=== PATIENT | female | born 1955 | race Caucasian/White ===

== ENCOUNTER → 2018-01-31 16:57 | Outpatient (REF) | payer OTHER, SELFPAY | LOC: NCHCN 16:57 | PROVIDERS: PCP Nurse Practitioner Family; Visit Provider Physician Assistant Medical | DX: M25.462 Effusion, left knee (principal) | CPT/HCPCS: 87070; 87205; 89060 ==

== ENCOUNTER 2018-03-05 15:37 | Outpatient (REF) | payer OTHER, SELFPAY ==
[2018-03-08 13:50] LABS: Codeine Negative ng/mL (Cutoff: 25); Dihydrocodeine Negative ng/mL (Cutoff: 25); Hydrocodone Negative ng/mL (Cutoff: 25); Hydromorphone Negative ng/mL (Cutoff: 25); Morphine Negative ng/mL (Cutoff: 25); Naloxone Negative ng/mL (Cutoff: 25); Norhydrocodone Negative ng/mL (Cutoff: 25); Noroxycodone Negative ng/mL (Cutoff: 25); Noroxymorphone Negative ng/mL (Cutoff: 25); Opiates Interpretation Negative.
[2018-03-12 21:43] LABS: Methylphenidate 136 ng/mL; Ritalinic Acid 5420 ng/mL
== END 2018-03-05 15:57 ==
LOC: NCHCN 15:37
PROVIDERS: PCP Nurse Practitioner Family; Visit Provider Physician Assistant Medical
DX: M79.7 Fibromyalgia (principal); R53.82 Chronic fatigue, unspecified; Z79.891 Long term (current) use of opiate analgesic
CPT/HCPCS: 80360; 80361

== ENCOUNTER 2018-05-16 11:28 | Outpatient (CLI) | payer OTHER, SELFPAY ==
--- NOTE | 2018-05-16 11:34 | DI.RAD_ITS ---
SYMPTOMS/DIAGNOSIS: LEFT HIP PAIN, M25.552, S/P FALL, H/O JOSE IN 2008 PELVIS AND LEFT HIP: There is a left hip prosthesis. The components appear well aligned. No abnormal bony lucencies are seen. There are moderate degenerative changes of the right hip.
== END 2018-05-16 11:48 ==
PROVIDERS: PCP Nurse Practitioner Family; Visit Provider Specialist/Technologist Athletic Trainer
DX: M25.552 Pain in left hip (principal); Z96.642 Presence of left artificial hip joint; M16.11 Unilateral primary osteoarthritis, right hip; Z91.81 History of falling
CPT/HCPCS: 73502

== ENCOUNTER 2018-07-12 07:00 | Outpatient (RCR) | payer SELFPAY ==
--- NOTE | 2018-07-03 08:27 | PR3E_ITS ---
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 PMH: DM II, HTN, HLD, Asthma, Fibromyalgia, chronic pain, IBS, GERD, Depression, EF 55-60% (09/2017) First day of exercise: 07/03/18 Patient oriented to equipment use, log record, and hydration; BP at rest 130/67, HR rest 81 bpm, Wt 191lbs. Patient completed 21 minutes of exercise: UBEx2 - 5 minutes each, treadmill 6 minutes and bike 5 minutes. HR w/ exercise ranged 76-85 bpm. SHA RPE scores 12-13. BP with exercise ranged 119/64-148/61. Tolerated exercise regimen without any adverse signs or symptoms. No concerns at this time, will continue to progress as tolerated.
== END 2018-07-12 23:59 | disposition home or self-care (01) ==
LOC: CR 07:00
PROVIDERS: PCP Nurse Practitioner Family; Visit Provider Family Medicine
DX: Z51.89 Encounter for other specified aftercare (principal)

== ENCOUNTER 2018-07-13 17:17 | Outpatient (REF) | payer OTHER, SELFPAY ==
[2018-07-13 20:40] LABS: Abs Immature Grans 0.02 k/cumm (0.0-0.09); Absolute Basophil Count 0.02 k/cumm (0.0-0.2); Absolute Eosinophil Count 0.03 k/cumm (0.0-0.7); Absolute Lymphocyte Count 2.43 k/cumm (1.2-3.4); Absolute Monocyte Count 0.66 k/cumm (0.11-0.7); Absolute Neutrophil Count 2.96 k/cumm (1.2-6.7); Basophils % 0.3; Eosinophils % 0.5; HCT 40.5 % (36.0-46.0); HGB 13.5 g/dL (12.0-15.5); Immature Grans % 0.3; Lymphocytes % 39.7; Mean Corp. HGB Concentration 33.3 g/dL (32.0-36.0); Mean Corpuscular Hemoglobin 32.4 pg (27.0-33.0); Mean Corpuscular Volume 97.1 fL (80-95); Mean Platelet Volume 11.5 fL (8.0-11.0); Monocytes % 10.8; Neutrophils % 48.4; Platelet Count 190 x1000/uL (130-400); RBC 4.17 m/cumm (4.00-5.20); White Blood Cell Count 6.12 k/cumm (4.4-10.8)
[2018-07-13 20:49] LABS: Mono Screening Negative (Negative)
== END 2018-07-13 17:37 ==
LOC: NCHCN 17:17
PROVIDERS: PCP Nurse Practitioner Family; Visit Provider Family Medicine
DX: R59.1 Generalized enlarged lymph nodes (principal)
CPT/HCPCS: 85025; 86308; 87070

== ENCOUNTER 2018-08-01 13:35 | Outpatient (CLI) | payer OTHER, SELFPAY ==
--- NOTE | 2018-08-01 14:09 | DI.RAD_ITS ---
SYMPTOM/DIAGNOSIS: LYMPHADENOPATHY, R59.1, RT SIDED PAIN PA AND LATERAL CHEST: Comparison is made with 09/11/17. There is poor inspiration. The cardiac silhouette is within normal limits. Pulmonary vasculature is within normal limits. The lungs are clear and well expanded. No effusions or pneumothoraces are identified. Mediastinal silhouette appears stable. There are surgical clips seen near the gastroesophageal junction. IMPRESSION: No acute pulmonary process.
[2018-08-01 20:26] LABS: Abs Immature Grans 0.02 k/cumm (0.0-0.09); HCT 43.1 % (36.0-46.0); HGB 15.9 g/dL (12.0-15.5); Mean Corp. HGB Concentration 36.9 g/dL (32.0-36.0); Mean Corpuscular Hemoglobin 35.3 pg (27.0-33.0); Mean Corpuscular Volume 95.8 fL (80-95); Mean Platelet Volume 9.7 fL (8.0-11.0); Platelet Count 249 x1000/uL (130-400); RBC Distribution Width 13.3 % (11.7-14.6); White Blood Cell Count 7.03 k/cumm (4.4-10.8)
[2018-08-01 20:48] LABS: Absolute Eosinophil Count 2.32 k/cumm (0.0-0.7); Absolute Lymphocyte Count 2.11 k/cumm (1.2-3.4); Absolute Monocyte Count 0.28 k/cumm (0.11-0.7); Absolute Neutrophil Count 2.32 k/cumm (1.2-6.7)
[2018-08-01 20:49] LABS: Diff Comment Manual Differential; RBC Morphology Normal
[2018-08-01 20:54] LABS: C-Reactive Protein 0.06 mg/dL (0.0-0.3)
[2018-08-01 21:01] LABS: ESR 1 MM/HR (0-30)
== END 2018-08-01 13:55 ==
PROVIDERS: PCP Nurse Practitioner Family; Visit Provider Nurse Practitioner Family
DX: R59.0 Localized enlarged lymph nodes (principal); R07.9 Chest pain, unspecified
CPT/HCPCS: 85652; 71046; 85025; 86140

== ENCOUNTER 2018-08-03 15:55 | Outpatient (REF) | payer OTHER, SELFPAY ==
[2018-08-03 18:40] LABS: ALT 23 U/L (12-78); AST 21 U/L (15-37); Alkaline Phosphatase 82 U/L (46-116); Anion Gap 8.5 mmol/L (3-11); BUN 19 mg/dL (7-18); Bilirubin, Total 0.4 mg/dL (0.2-1.0); CO2 29.5 mmol/L (21.0-32.0); CREATININE 1.34 mg/dL (0.55-1.02); Calcium 9.7 mg/dL (8.5-10.1); Chloride 104 mmol/L (98-107); Estimated GFR 39.95 (mL/min/1.73m2); Glucose 103 mg/dL (70-100); Potassium 4.7 mmol/L (3.5-5.1); Sodium 142 mmol/L (136-145); Total Protein 6.5 g/dL (6.4-8.2)
[2018-08-06 13:22] LABS: Creatine Kinase 81 U/L (26-192)
== END 2018-08-03 16:15 ==
LOC: NCHCN 15:55
PROVIDERS: PCP Nurse Practitioner Family; Visit Provider Family Medicine
DX: E11.9 Type 2 diabetes mellitus without complications (principal); I10 Essential (primary) hypertension; E78.5 Hyperlipidemia, unspecified; R59.1 Generalized enlarged lymph nodes
CPT/HCPCS: 80053; 82550

== ENCOUNTER 2018-08-09 12:53 | Outpatient (RCR) | payer SELFPAY | END 2018-08-09 23:59 | disposition home or self-care (01) | LOC: CR 12:53 | PROVIDERS: PCP Nurse Practitioner Family; Visit Provider Family Medicine | DX: Z51.89 Encounter for other specified aftercare (principal) ==

== ENCOUNTER 2018-08-10 00:30 | Outpatient (CLI) | payer OTHER, SELFPAY ==
--- NOTE | 2018-08-10 09:00 | DI.CT_ITS ---
SYMPTOM/DIAGNOSIS: LYMPHADENOPATHY, R59.[address]: A noncontrast exam was performed. There is a 1.8 cm. in maximal dimension lymph node in the right submandibular region. There are a few other smaller lymph nodes in the submandibular regions bilaterally and tiny scattered lymph nodes elsewhere. No suspiciously enlarged lymph nodes or masses are seen. The parotid, submandibular and thyroid glands are unremarkable. The orbits, sinuses and mastoid air cells appear normal. Degenerative changes are seen in the spine. The lung apices show respiratory motion but are grossly clear. IMPRESSION: Small bilateral submandibular lymph nodes without suspicious features. The findings could be reactive.
== END 2018-08-10 00:50 ==
PROVIDERS: PCP Nurse Practitioner Family; Visit Provider Nurse Practitioner Family
DX: R59.0 Localized enlarged lymph nodes (principal)
CPT/HCPCS: 70490

== ENCOUNTER 2018-08-11 09:36 | Outpatient (RCR) | payer SELFPAY | END 2018-09-09 23:59 | disposition home or self-care (01) | LOC: CR 09:36 | PROVIDERS: PCP Nurse Practitioner Family; Visit Provider Family Medicine | DX: Z51.89 Encounter for other specified aftercare (principal) ==

== ENCOUNTER 2018-09-11 03:06 | Outpatient (RCR) | payer SELFPAY | END 2018-10-09 23:59 | disposition home or self-care (01) | LOC: CR 03:06 | PROVIDERS: PCP Nurse Practitioner Family; Visit Provider Family Medicine | DX: Z51.89 Encounter for other specified aftercare (principal) ==

== ENCOUNTER 2018-10-01 11:01 | Outpatient (CLI) | payer OTHER, SELFPAY ==
[2018-10-02 11:05] LABS: SS-A Antibody 1.5 Units (<20); SS-B (La) Ab, IgG 2.6 Units (<20)
== END 2018-10-01 11:21 ==
PROVIDERS: PCP Nurse Practitioner Family; Visit Provider Otolaryngology Otolaryngology/Facial Plastic Surgery
DX: K11.23 Chronic sialoadenitis (principal); R68.2 Dry mouth, unspecified; J34.89 Other specified disorders of nose and nasal sinuses
CPT/HCPCS: 36415; 86235

== ENCOUNTER 2018-11-08 13:34 | Outpatient (RCR) | payer SELFPAY | END 2018-11-09 23:59 | disposition home or self-care (01) | LOC: CR 13:34 | PROVIDERS: PCP Nurse Practitioner Family; Visit Provider Family Medicine | DX: Z51.89 Encounter for other specified aftercare (principal) ==

== ENCOUNTER 2018-12-06 11:25 | Outpatient (RCR) | payer SELFPAY | END 2018-12-09 23:59 | disposition home or self-care (01) | LOC: CR 11:25 | PROVIDERS: PCP Nurse Practitioner Family; Visit Provider Family Medicine | DX: Z51.89 Encounter for other specified aftercare (principal) ==

== ENCOUNTER 2018-12-17 15:51 | Outpatient (REF) | payer OTHER, SELFPAY ==
[2018-12-17 22:51] LABS: Anion Gap 13.1 mmol/L (3-11); BUN 13 mg/dL (7-18); CO2 20.9 mmol/L (21.0-32.0); CREATININE 1.07 mg/dL (0.55-1.02); Chloride 108 mmol/L (98-107); Estimated GFR 51.79 (mL/min/1.73m2); Glucose 92 mg/dL (70-100); Potassium 4.3 mmol/L (3.5-5.1); Sodium 142 mmol/L (136-145)
== END 2018-12-17 16:11 ==
LOC: NCHCN 15:51
PROVIDERS: PCP Nurse Practitioner Family; Visit Provider Nurse Practitioner Family
DX: R60.0 Localized edema (principal)
CPT/HCPCS: 80048

== ENCOUNTER 2018-12-31 15:13 | Outpatient (REF) | payer OTHER, SELFPAY ==
[2018-12-31 21:04] LABS: Potassium 4.2 mmol/L (3.5-5.1)
== END 2018-12-31 15:33 ==
LOC: NCHCN 15:13
PROVIDERS: PCP Nurse Practitioner Family; Visit Provider Nurse Practitioner Family
DX: R60.9 Edema, unspecified (principal)
CPT/HCPCS: 84132

== ENCOUNTER 2019-01-08 13:27 | Outpatient (RCR) | payer SELFPAY | END 2019-01-09 23:59 | disposition home or self-care (01) | LOC: CR 13:27 | PROVIDERS: PCP Nurse Practitioner Family; Visit Provider Family Medicine | DX: Z51.89 Encounter for other specified aftercare (principal) ==

== ENCOUNTER 2019-02-07 07:00 | Outpatient (RCR) | payer SELFPAY | END 2019-02-09 23:59 | disposition home or self-care (01) | LOC: CR 07:00 | PROVIDERS: PCP Nurse Practitioner Family; Visit Provider Family Medicine | DX: Z51.89 Encounter for other specified aftercare (principal) ==

== ENCOUNTER 2019-03-07 11:57 | Outpatient (RCR) | payer SELFPAY | END 2019-03-11 23:59 | disposition home or self-care (01) | LOC: CR 11:57 | PROVIDERS: PCP Nurse Practitioner Family; Visit Provider Family Medicine | DX: Z51.89 Encounter for other specified aftercare (principal) ==

== ENCOUNTER 2019-03-26 07:01 | Emergency (ER) | payer OTHER, SELFPAY ==
[2019-03-26] VITALS (25 sets, daily range): BP systolic 120–136; BP diastolic 60–77; PULSE 66–78; RESP 14–24; TEMP 36.6; O2SAT 93–99
--- NOTE | 2019-03-26 07:17 | DI.RAD_ITS ---
EXAM: XR CHEST 2V PA LATERAL INDICATION: chest pain. COMPARISON: from 08/01/2018 TECHNIQUE: 2D digital imaging was performed. FINDINGS: The heart is not enlarged. The lungs are clear. No pleural effusion seen. IMPRESSION: No evidence of acute process.
--- NOTE | 2019-03-26 07:18 | W.ED.GENAD ---
Discharge Plan Disposition Patient Disposition: HOME Condition: Improving Discharge Details Chief Complaint: Chest Pain Clinical Impression: Atypical chest pain Primary Care Provider: Erika Seymour ED Provider: Julio C Peraza Home Meds and New Rx's Prescriptions: Continued losartan 50 MG tablet 75 mg PO DAILY RF: 0 lamotrigine 150 MG tablet 150 mg PO BID RF: 0 clonidine HCl 0.1 MG tablet 0.1 mg PO BID RF: 0 aspirin 325 MG tablet 325 mg PO DAILY RF: 0 montelukast [Singulair] 10 MG tablet 10 mg PO HS RF: 0 fluticasone propionate 16 GM spray,suspension 50 mcg NS BID RF: 0 aripiprazole [Abilify] 10 MG tablet 20 mg PO DAILY RF: 0 rosuvastatin [Crestor] 10 MG tablet 10 mg PO 3x/wk RF: 0 topiramate [Topamax] 50 MG tablet 50 mg PO BID RF: 0 duloxetine [Cymbalta] 60 MG capsule,delayed release(DR/EC) 100 mg PO HS RF: 0 hydrocodone-acetaminophen [Vicodin] 1 EACH tablet 1 ea PO QID RF: 0 multivitamin [Daily Multi-Vitamin] 1 EACH tablet 1 ea PO DAILY RF: 0 Travatan Z 2.5 ML drops 2.5 ml Ophthalmic PM RF: 0 One-Per-Day [place]-3 1 EACH capsule,delayed release(DR/EC) 1 ea PO RF: 0 polyethylene glycol 3350 [Miralax] 17 GM powder in packet 17 g PO DAILY Qty: 255 RF: 0 DUO NEB Inhalation QID PRN RF: 0 sennosides [senna] 8.6 MG tablet 2 tab-cap PO BID RF: 0 aspirin 81 MG tablet,chewable 81 mg PO DAILY RF: 0 methylphenidate HCl 5 MG/5 ML solution 10 mg PO MID AFTERNOON RF: 0 Amitiza 24 MCG capsule 24 mcg PO BID RF: 0 ProAir RespiClick 90 MCG aerosol powdr breath activated 90 mcg Inhalation QID RF: 0 vitamin E (dl, acetate) 400 UNITS capsule 1 tab PO DAILY RF: 0 methylphenidate HCl [Concerta] 36 mg Tablet Extended Release 24hr 36 mg PO DAILY RF: 0 Discharge Instructions Instructions: Chest Pain (ED) Additional Instructions: Continue all of your regular medications. Please follow-up with Dr. Buitrago in clinic at [facility] cardiology in [facility] this Monday at 12:15 PM. Return if you develop recurrent chest pain, difficulty breathing, or any other acute concern. Discharge Data Discharge Date/Time-TO BE ENTERED AT DEPARTURE: 03/26/19 11:00 Medical Decision Making <Rodney Chaudhary MD - Last Filed: 03/26/19 20:03> Patient presenting with onset of lightheadedness, chest pain, nausea while doing cardiac rehab. Feels better some chest pain but mostly nausea now. EKG is unchanged from previous. IV established and laboratory studies obtained. Fluids started. She is given aspirin and nitroglycerin for chest pain. Was given Zofran for nausea. Medical Records Medical records reviewed: Yes I reviewed the patient's medical records. ECG Data Attestation: I personally reviewed and interpreted this ECG (s) as follows: Prior ECG tracings: available for review Interpretation: Sinus rhythm at 73. Left axis. Left anterior fascicular block. Inverted T waves V1 through V4 which have been present previously. No change compared to 2009 EKG. <Julio C Peraza MD - Last Filed: 03/26/19 10:53> 63-year-old female with known cardiac risk factors, at cardiac rehab this morning with transient discomfort. Patient has established and ongoing cardiology care with Dr. Sha Buitrago. She was seen initially today by Dr. Chaudhary from whom I received signout. See his note regarding details of the presentation, initial plan of care. Patient observed in the emerge department over approximately 4 hours. Chest x-ray unremarkable and serial cardiac troponins were negative; she remained symptom-free during my care. She is improved and without complaint, tolerating breakfast. She had an unremarkable stress test in October 2014. I have made her a follow-up appointment with Dr. Buitrago of [facility] cardiology for Monday at 12:15 PM. She understands return to ER for development of new symptoms. We will discharge to home. CC: Dr. Sha Buitrago MD [facility] cardiology Lab Data Lab results reviewed: Yes I reviewed the patient's lab results. Labs: Laboratory Results - last 24 hr 03/26/19 03/26/19 03/26/19 07:10 07:10 07:10 WBC 4.63 RBC 4.52 Hgb 14.8 Hct 45.1 MCV 99.8 H MCH 32.7 MCHC 32.8 RDW 13.5 Plt Count 214 MPV 10.7 Immature Gran % 0.4 Neutrophils % 60.0 Lymphocytes % 28.9 Monocytes % 8.6 Eosinophils % 1.5 Basophils % 0.6 Absolute Neutrophils 2.77 Absolute Lymphocytes 1.34 Absolute Monocytes 0.40 Absolute Eosinophils 0.07 Absolute Basophils 0.03 Sodium 145 Potassium 3.9 Chloride 108 H Carbon Dioxide 27.5 Anion Gap 9.5 BUN 15 Creatinine 1.51 H Estimated GFR/1.73 m2 34.80 Glucose 195 H Calcium 9.2 Magnesium 2.4 Total Bilirubin 0.5 AST 24 ALT 26 Alkaline Phosphatase 90 Troponin I < 0.05 Total Protein 7.4 Albumin 4.4 Lipase 250 03/26/19 10:10 WBC RBC Hgb Hct MCV MCH MCHC RDW Plt Count MPV Immature Gran % Neutrophils % Lymphocytes % Monocytes % Eosinophils % Basophils % Absolute Neutrophils Absolute Lymphocytes Absolute Monocytes Absolute Eosinophils Absolute Basophils Sodium Potassium Chloride Carbon Dioxide Anion Gap BUN Creatinine Estimated GFR/1.73 m2 Glucose Calcium Magnesium Total Bilirubin AST ALT Alkaline Phosphatase Troponin I < 0.05 Total Protein Albumin Lipase HPI <Rodney Chaudhary MD - Last Filed: 03/26/19 20:03> General Mode of arrival: wheelchair. Date/Time Provider Initiated Documentation: 03/26/19 07:04. Limitations to Documentation: no limitations. Information obtained by: patient, RN notes reviewed and old records reviewed. HPI Narrative: Patient presents to ED from cardiac rehab after developing lightheadedness, chest pain, nausea while riding the recumbent bike. She is doing cardiac rehab to strengthen her heart. She has had no CO in the past. She reports a recent stress test done and a visit to her manager assembly, Dr. Buitrago. She has not had chest pain before. She denies fever. She has a chronic unchanged cough. She does not feel short of breath. She has not been ill with vomiting or diarrhea. Her chest pain is upper chest without radiation. It is better now. Still feels lightheaded and nauseated. Related Data Home Medications Medication Instructions Recorded Confirmed Travatan Z 2.5 ml OPHTHALMIC PM script 09/19/14 03/26/19 aripiprazole [Abilify] 20 mg PO DAILY tab-cap 09/19/14 03/26/19 aspirin 325 mg PO DAILY tab-cap 09/19/14 03/26/19 clonidine HCl 0.1 mg PO BID tab-cap 09/19/14 03/26/19 duloxetine [Cymbalta] 100 mg PO HS 09/19/14 03/26/19 fluticasone propionate 50 mcg NS BID spray 09/19/14 03/26/19 hydrocodone-acetaminophen [Vicodin] 1 ea PO QID 09/19/14 03/26/19 lamotrigine 150 mg PO BID tab-cap 09/19/14 03/26/19 losartan 75 mg PO DAILY tab-cap 09/19/14 03/26/19 montelukast [Singulair] 10 mg PO HS 09/19/14 03/26/19 multivitamin [Daily Multi-Vitamin] 1 ea PO DAILY 09/19/14 03/26/19 rosuvastatin [Crestor] 10 mg PO 3x/wk 09/19/14 03/26/19 topiramate [Topamax] 50 mg PO BID tab-cap 09/19/14 03/26/19 vitamin E (dl, acetate) 1 tab PO DAILY 10/13/14 03/26/19 One-Per-Day [place]-3 1 ea PO 03/06/15 Amitiza 24 mcg PO BID tab-cap 07/05/17 03/26/19 Duo Neb INHALATION QID PRN 07/05/17 ProAir RespiClick 90 mcg INHALATION QID 07/05/17 03/26/19 aspirin 81 mg PO DAILY tab-cap 07/05/17 03/26/19 methylphenidate HCl 10 mg PO MID AFTERNOON ml 07/05/17 03/26/19 polyethylene glycol 3350 [Miralax] 17 g PO DAILY #255 gm 07/05/17 03/26/19 sennosides [senna] 2 tab-cap PO BID tab-cap 07/05/17 03/26/19 methylphenidate HCl [Concerta] 36 mg PO DAILY 03/26/19 03/26/19 Allergies Allergy/AdvReac Type Severity Reaction Status Date / Time melatonin Allergy Itching Unverified 03/26/19 07:09 Penicillins Allergy hives Unverified 03/26/19 07:09 amitriptyline AdvReac become Unverified 03/26/19 07:09 delusional codeine AdvReac causes Unverified 03/26/19 07:09 excessive sleepiness Sulfa (Sulfonamide AdvReac become Unverified 03/26/19 07:09 Antibiotics) delusional General Stated Complaint: Chest Pain MATTHEW: 2 Review of Systems <Rodeny Chaudhary MD - Last Filed: 03/26/19 20:03> Review of Systems Narrative: 03/25 Review of Systems completed and is negative except as stated above in HPI (Systems reviewed: Const, Eyes, ENT, Resp, CV, GI, , MSK, Skin, Neuro) PFSH <Rodney Chaudhary MD - Last Filed: 03/26/19 20:03> Medical History Anxiety (Chronic) Asthma (Chronic) Depression (Chronic) HTN (hypertension) (Chronic) Hypercholesterolemia (Chronic) Reflux esophagitis (Chronic) Surgical History EGD - IV Sedation Lina Fundoplication 1996 ORIF right ankle S/P hysterectomy (Acute) Status post THR (total hip replacement) (Acute) Family History (Updated 09/19/14 @ 16:48 by Rita Mccarty MD) Other Heart disease Social History Smoking/Tobacco Use Status: Never Alcohol Intake: never Drug use: Never Exam <Rodney Chaudhary MD - Last Filed: 03/26/19 20:03> Narrative Exam Narrative: Vitals: Afebrile. Vital signs normal. Pulse oximetry normal. Const: Obese female in NAD. HEENT: NC/AT. Normal facial exam. Eyes: Normal conjunctiva and sclera. Neck: Supple. Trachea midline. Lungs: Normal respiratory effort. Lungs are clear. Cor: RRR without murmur/gallop. Good radial pulses. GI: Soft. NT/ND. No guarding or rebound. Neuro: A+O x 3. CN grossly in tact. Good strength and no focal deficit. Ext: No C/C/E. No calf tenderness. Skin: Warm and dry without rash. Course <Rodney Chaudhary MD - Last Filed: 03/26/19 20:03> Vital Signs Vital signs: Vital Signs Temperature 97.9 F 03/26/19 07:06 Pulse 76 03/26/19 07:06 Respiratory Rate 16 03/26/19 07:06 Blood Pressure 136/60 03/26/19 07:06 Pulse Oximetry 97 03/26/19 07:06 Temperature 97.9 F 03/26/19 07:06 Temperature Source Skin 03/26/19 07:06 Pulse 76 03/26/19 07:06 Respiratory Rate 16 03/26/19 07:06 Respiratory Effort Non-Labored 03/26/19 07:06 Blood Pressure 136/60 03/26/19 07:06 Blood Pressure Position Supine 03/26/19 07:06 Pulse Oximetry 97 03/26/19 07:06 Oxygen Delivery Method Room Air 03/26/19 07:06 Oxygen Flow Rate 0 03/26/19 07:06 Pain Level 3 03/26/19 07:06 Sign Out <Rodney Chaudhary MD - Last Filed: 03/26/19 20:03> Sign Out Data: Sign Out Comment: pending labs results and radiology read Last updated by Rodney Chaudhary MD at 03/26/19 07:46
[2019-03-26] MEDS: Ondansetron 4 MG/2 ML VIAL IVP (07:27)
[2019-03-26] MEDS: Aspirin 81 MG CHEW 324 MG CH (07:27)
[2019-03-26 07:33] LABS: Abs Immature Grans 0.02 k/cumm (0.0-0.09); Absolute Basophil Count 0.03 k/cumm (0.0-0.2); Absolute Eosinophil Count 0.07 k/cumm (0.0-0.7); Absolute Lymphocyte Count 1.34 k/cumm (1.2-3.4); Absolute Neutrophil Count 2.77 k/cumm (1.2-6.7); Basophils % 0.6; Eosinophils % 1.5; HCT 45.1 % (36.0-46.0); HGB 14.8 g/dL (12.0-15.5); Immature Grans % 0.4; Lymphocytes % 28.9; Mean Corp. HGB Concentration 32.8 g/dL (32.0-36.0); Mean Corpuscular Hemoglobin 32.7 pg (27.0-33.0); Mean Corpuscular Volume 99.8 fL (80-95); Mean Platelet Volume 10.7 fL (8.0-11.0); Monocytes % 8.6; Platelet Count 214 x1000/uL (130-400); RBC 4.52 m/cumm (4.00-5.20); RBC Distribution Width 13.5 % (11.7-14.6); White Blood Cell Count 4.63 k/cumm (4.4-10.8)
[2019-03-26 07:54] LABS: ALT 26 U/L (14-59); AST 24 U/L (15-37); Albumin 4.4 g/dL (3.4-5.0); Alkaline Phosphatase 90 U/L (46-116); Anion Gap 9.5 mmol/L (3-11); BUN 15 mg/dL (7-18); Bilirubin, Total 0.5 mg/dL (0.2-1.0); CO2 27.5 mmol/L (21.0-32.0); CREATININE 1.51 mg/dL (0.55-1.02); Calcium 9.2 mg/dL (8.5-10.1); Chloride 108 mmol/L (98-107); Glucose 195 mg/dL (70-100); Magnesium 2.4 mg/dL (1.8-2.4); Potassium 3.9 mmol/L (3.5-5.1); Sodium 145 mmol/L (136-145); Total Protein 7.4 g/dL (6.4-8.2)
[2019-03-26 07:55] LABS: Troponin I < 0.05 ng/mL (0.00-0.06)
[2019-03-26 09:58] LABS: Lipase 250 U/L (73-393)
[2019-03-26] MEDS: Normal Saline Flush 10 ML SYR IVP (10:20)
[2019-03-26 10:38] LABS: Troponin I < 0.05 ng/mL (0.00-0.06)
== END 2019-03-26 11:00 | disposition home or self-care (01) ==
PROVIDERS: Emergency Medicine; Emergency Provider Emergency Medicine; PCP Nurse Practitioner Family
DX: R07.89 Other chest pain (principal); I44.4 Left anterior fascicular block; I10 Essential (primary) hypertension
CPT/HCPCS: 36415; 80053; 83690; 93005; 96374; 99285; 71046; 83735; 84484; 85025; 93010; J2405

== ENCOUNTER 2019-04-11 12:00 | Outpatient (RCR) | payer SELFPAY | END 2019-04-11 23:59 | disposition home or self-care (01) | LOC: CR 12:00 | PROVIDERS: PCP Nurse Practitioner Family; Visit Provider Family Medicine | DX: Z51.89 Encounter for other specified aftercare (principal) ==

== ENCOUNTER 2019-05-07 15:15 | Outpatient (RCR) | payer SELFPAY | END 2019-05-11 23:59 | disposition home or self-care (01) | LOC: CR 15:15 | PROVIDERS: PCP Nurse Practitioner Family; Visit Provider Family Medicine | DX: Z51.89 Encounter for other specified aftercare (principal) ==

== ENCOUNTER 2019-05-30 07:00 | Outpatient (RCR) | payer SELFPAY | END 2019-06-11 23:59 | disposition home or self-care (01) | LOC: CR 07:00 | PROVIDERS: PCP Nurse Practitioner Family; Visit Provider Family Medicine | DX: Z51.89 Encounter for other specified aftercare (principal) ==

== ENCOUNTER 2019-07-01 15:51 | Outpatient (REF) | payer OTHER, SELFPAY ==
[2019-07-01 21:59] LABS: Anion Gap 11.1 mmol/L (3-11); BUN 11 mg/dL (7-18); CO2 22.9 mmol/L (21.0-32.0); CREATININE 1.22 mg/dL (0.55-1.02); Calcium 8.6 mg/dL (8.5-10.1); Chloride 111 mmol/L (98-107); Estimated GFR 44.37 (mL/min/1.73m2); Glucose 91 mg/dL (74-106); HDL Cholesterol 41 mg/dL (40-60); LDL CHOLESTEROL 44 mg/dL (<100); Potassium 4.2 mmol/L (3.5-5.1); Sodium 145 mmol/L (136-145)
== END 2019-07-01 16:11 ==
LOC: NCHCN 15:51
PROVIDERS: PCP Nurse Practitioner Family; Visit Provider Nurse Practitioner Family
DX: E78.5 Hyperlipidemia, unspecified (principal); E11.649 Type 2 diabetes mellitus with hypoglycemia without coma; R53.82 Chronic fatigue, unspecified; M25.532 Pain in left wrist; G89.29 Other chronic pain; M79.7 Fibromyalgia; M41.86 Other forms of scoliosis, lumbar region
CPT/HCPCS: 80048; 83721; 83718

== ENCOUNTER 2019-07-11 07:00 | Outpatient (RCR) | payer SELFPAY | END 2019-07-12 23:59 | disposition home or self-care (01) | LOC: CR 07:00 | PROVIDERS: PCP Nurse Practitioner Family; Visit Provider Family Medicine | DX: Z51.89 Encounter for other specified aftercare (principal) ==

== ENCOUNTER 2019-07-13 04:02 | Outpatient (RCR) | payer SELFPAY | END 2019-08-10 23:59 | disposition home or self-care (01) | LOC: CR 04:02 | PROVIDERS: PCP Nurse Practitioner Family; Visit Provider Family Medicine | DX: Z51.89 Encounter for other specified aftercare (principal) ==

== ENCOUNTER 2019-08-15 11:17 | Outpatient (RCR) | payer SELFPAY | END 2019-09-10 23:59 | disposition home or self-care (01) | LOC: CR 11:17 | PROVIDERS: PCP Nurse Practitioner Family; Visit Provider Family Medicine | DX: Z51.89 Encounter for other specified aftercare (principal) ==

== ENCOUNTER 2019-12-31 17:16 | Outpatient (REF) | payer OTHER, SELFPAY ==
[2019-12-31 19:33] LABS: BUN 13 mg/dL (7-18); Calcium 9.1 mg/dL (8.5-10.1); Chloride 107 mmol/L (98-107); Estimated GFR 37.86 (mL/min/1.73m2); Glucose 176 mg/dL (74-106); Potassium 3.9 mmol/L (3.5-5.1); Sodium 140 mmol/L (136-145)
== END 2019-12-31 17:36 ==
LOC: NCHCN 17:16
PROVIDERS: PCP Nurse Practitioner Family; Visit Provider Nurse Practitioner Family
DX: G89.29 Other chronic pain (principal); M79.7 Fibromyalgia; M41.86 Other forms of scoliosis, lumbar region; R53.82 Chronic fatigue, unspecified; I10 Essential (primary) hypertension
CPT/HCPCS: 80048

== ENCOUNTER 2020-01-01 14:22 | Outpatient (REF) | payer OTHER, SELFPAY ==
[2020-01-06 02:16] LABS: SARS-CoV-2 RNA Undetected (Undetected); SARS-CoV-2 Specimen Source Nasopharynx
== END 2020-01-01 14:42 ==
LOC: NCHCN 14:22
PROVIDERS: PCP Nurse Practitioner Family; Visit Provider Nurse Practitioner Family
DX: Z03.818 Encounter for observation for suspected exposure to other biological agents ruled out (principal)
CPT/HCPCS: U0003

== ENCOUNTER 2020-03-31 19:22 | Outpatient (REF) | payer OTHER, SELFPAY ==
[2020-03-31 20:41] LABS: Anion Gap 9.2 mmol/L (3-11); BUN 12 mg/dL (7-18); CO2 24.8 mmol/L (21.0-32.0); CREATININE 1.29 mg/dL (0.55-1.02); Calcium 9.7 mg/dL (8.5-10.1); Chloride 108 mmol/L (98-107); Estimated GFR 41.61 (mL/min/1.73m2); Glucose 164 mg/dL (74-106); Potassium 3.6 mmol/L (3.5-5.1); Sodium 142 mmol/L (136-145)
== END 2020-03-31 19:42 ==
LOC: NCHCN 19:22
PROVIDERS: PCP Nurse Practitioner Family; Visit Provider Nurse Practitioner Family
DX: I10 Essential (primary) hypertension (principal)
CPT/HCPCS: 80048

== ENCOUNTER 2020-05-25 16:19 | Outpatient (REF) | payer OTHER, SELFPAY ==
[2020-05-25 20:34] LABS: Hemoglobin A1C 5.8 % (<5.7)
== END 2020-05-25 16:39 ==
LOC: NCHCN 16:19
PROVIDERS: PCP Nurse Practitioner Family; Visit Provider Nurse Practitioner Family
DX: E11.649 Type 2 diabetes mellitus with hypoglycemia without coma (principal)
CPT/HCPCS: 83036

== ENCOUNTER 2020-07-27 13:53 | Outpatient (REF) | payer OTHER, SELFPAY ==
[2020-07-27 15:59] LABS: Anion Gap 11.6 mmol/L (3-11); BUN 14 mg/dL (7-18); CO2 23.4 mmol/L (21.0-32.0); CREATININE 1.2 mg/dL (0.55-1.02); Calcium 8.4 mg/dL (8.5-10.1); Chloride 110 mmol/L (98-107); Estimated GFR 45.09 (mL/min/1.73m2); Glucose 184 mg/dL (74-106); Sodium 145 mmol/L (136-145)
== END 2020-07-27 13:54 | disposition home or self-care (01) ==
LOC: NCHCN 13:53
PROVIDERS: PCP Nurse Practitioner Family; Visit Provider Nurse Practitioner Family
DX: I10 Essential (primary) hypertension (principal); R94.4 Abnormal results of kidney function studies
CPT/HCPCS: 80048

== ENCOUNTER 2020-08-24 18:52 | Outpatient (REF) | payer OTHER, SELFPAY ==
[2020-08-27 08:57] LABS: Codeine Negative ng/mL (Cutoff: 25); Dihydrocodeine Negative ng/mL (Cutoff: 25); Hydrocodone Negative ng/mL (Cutoff: 25); Hydromorphone Negative ng/mL (Cutoff: 25); Morphine Negative ng/mL (Cutoff: 25); Naloxone Negative ng/mL (Cutoff: 25); Norhydrocodone 56 ng/mL (Cutoff: 25); Noroxycodone Negative ng/mL (Cutoff: 25); Noroxymorphone Negative ng/mL (Cutoff: 25); Opiates Interpretation Positive.
[2020-08-31 10:23] LABS: Methylphenidate 161 ng/mL; Ritalinic Acid 5060 ng/mL
== END 2020-08-24 18:53 | disposition home or self-care (01) ==
LOC: NCHCN 18:52
PROVIDERS: PCP Nurse Practitioner Family; Visit Provider Nurse Practitioner Family
DX: R53.82 Chronic fatigue, unspecified (principal); M79.7 Fibromyalgia; R39.9 Unspecified symptoms and signs involving the genitourinary system; Z79.899 Other long term (current) drug therapy
CPT/HCPCS: 80360; 80361; 80362

== ENCOUNTER 2021-09-27 14:48 | Outpatient (REF) | payer OTHER, SELFPAY ==
[2021-09-27 20:00] LABS: Hemoglobin A1C 7.8 % (<5.7)
[2021-09-27 20:10] LABS: Anion Gap 9.1 mmol/L (3-11); BUN 12 mg/dL (7-18); CO2 26.9 mmol/L (21.0-32.0); CREATININE 1.4 mg/dL (0.55-1.02); Calcium 9.1 mg/dL (8.5-10.1); Chloride 106 mmol/L (98-107); Estimated GFR 37.62 (mL/min/1.73m2); Glucose 186 mg/dL (74-106); Potassium 3.8 mmol/L (3.5-5.1); Sodium 142 mmol/L (136-145); TSH 2.59 uIU/mL (0.36-3.74)
[2021-10-02 02:35] LABS: Methylphenidate 339 ng/mL (Cutoff: 10); Ritalinic Acid 9629 ng/mL (Cutoff: 50)
== END 2021-09-27 14:49 | disposition home or self-care (01) ==
LOC: NCHCN 14:48
PROVIDERS: PCP Nurse Practitioner Family; Visit Provider Nurse Practitioner Family
DX: I10 Essential (primary) hypertension (principal); E11.649 Type 2 diabetes mellitus with hypoglycemia without coma; R53.82 Chronic fatigue, unspecified
CPT/HCPCS: 80048; 80360; 83036; 84439; 84443

== ENCOUNTER 2021-11-16 17:14 | Emergency (ER) | payer OTHER, SELFPAY ==
[2021-11-16 17:21] VITALS: BP 134/60; PULSE 72; RESP 22; TEMP 37.5; O2SAT 98
--- NOTE | 2021-11-16 17:45 | DI.RAD_ITS ---
Exam(s) XR CHEST 2V PA LATERAL EXAM: XR CHEST 2V PA LATERAL CLINICAL HISTORY: fever, cough. TECHNIQUE: 2D digital imaging was performed. COMPARISON: CR XR CHEST 2V PA LATERAL from 03/26/2019 FINDINGS: 2 views: Heart size is normal. The mediastinum is not widened. Right lung is clear. There are slightly increased markings in the left lower lobe retrocardiac regio n. No pleural effusions. No pulmonary edema. IMPRESSION: Less than optimal inspiratory effort. However, there are some increased markings in left lower lobe infrahilar region. Possibly representing early infiltrate. There are no pleural effusions. DATA REPOSITORY: RADIATION DOSE DELIVERED:
--- NOTE | 2021-11-16 17:50 | W.ED.GENAD ---
Discharge Plan Disposition Patient Disposition: HOME Condition: Improving Discharge Details Clinical Impression: Respiratory illness with fever Primary Care Provider: Erika Seymour ED Provider: Julio C Peraza Home Meds and New Rx's Prescriptions: New cefdinir 300 mg capsule 300 mg PO Q12H 10 Days Qty: 20 0RF Continued losartan 50 MG tablet 75 mg PO DAILY Label Comments: 06-23-17 PCP RECORD 25 MG QD. lamotrigine 150 MG tablet 150 mg PO BID Label Comments: 06-23-17 PCP RECORD 100 MG BID. clonidine HCl 0.1 MG tablet 0.1 mg PO BID aspirin 325 MG tablet 325 mg PO DAILY montelukast [Singulair] 10 MG tablet 10 mg PO HS fluticasone propionate 16 GM spray,suspension 50 mcg NS BID aripiprazole [Abilify] 10 MG tablet 20 mg PO DAILY Label Comments: 06-23-17 PCP RECORD 20 MG QD. rosuvastatin [Crestor] 10 MG tablet 10 mg PO 3x/wk Label Comments: 06-23-17 PCP RECORD 10 MG QD. topiramate [Topamax] 50 MG tablet 50 mg PO BID duloxetine [Cymbalta] 60 MG capsule,delayed release(DR/EC) 100 mg PO HS Label Comments: 06/23/17 PCP RECORD 60 MG BID. hydrocodone-acetaminophen [Vicodin] 1 EACH tablet 1 ea PO QID Label Comments: 10/08/14 per pt prn multivitamin [Daily Multi-Vitamin] 1 EACH tablet 1 ea PO DAILY travoprost [Travatan Z] 2.5 ML drops 2.5 ml Ophthalmic PM One-Per-Day [place]-3 1 EACH capsule,delayed release(DR/EC) 1 ea PO polyethylene glycol 3350 [Miralax] 17 GM powder in packet 17 g PO DAILY Qty: 255 DUO NEB Inhalation QID PRN sennosides [senna] 8.6 MG tablet 2 tab-cap PO BID aspirin 81 MG tablet,chewable 81 mg PO DAILY methylphenidate HCl 5 MG/5 ML solution 10 mg PO MID AFTERNOON Amitiza 24 MCG capsule 24 mcg PO BID ProAir RespiClick 90 MCG aerosol powdr breath activated 90 mcg Inhalation QID vitamin E (dl, acetate) 400 UNITS capsule 1 tab PO DAILY methylphenidate HCl [Concerta] 36 mg Tablet Extended Release 24hr 36 mg PO DAILY Discharge Instructions Instructions: Upper Respiratory Infection (ED) Additional Instructions: Home to rest this evening. Continue ibuprofen and/or Tylenol as needed for aches or fever. Take antibiotics as prescribed until finished, next dose tomorrow morning. Follow-up with regular doctor in clinic if not improved in 1 week's time. As we discussed your COVID test will be pending today. We will treat you empirically for an early community-acquired pneumonia. Your glucose today was 160. Discharge Data Discharge Date/Time-TO BE ENTERED AT DEPARTURE: 11/16/21 21:13 Medical Decision Making 66-year-old female presents from her workplace with her granddaughter. She was at work and then noticed the onset of malaise, fever to 102 with chills. She felt that she had decreased urine output and it was dark-colored. She went to a local urgent care and was referred to the ER. Patient arrives to ER alert and interactive. She is afebrile blood pressure 134/60 and pulse 72, oxygenating normally on room air. Differential gnosis includes viral syndrome, urinary tract infection, occult pneumonia. Patient screening labs obtained, referred for chest x-ray. Laboratories reveal a white count of 6, hematocrit 43, platelets are 148. Lactate is normal 1.2, glucose 160, sodium 137, potassium 3.5, chloride 106, bicarb 20, BUN 17, creatinine 1.4 which is near her baseline, LFTs unremarkable. Urinalysis positive for glucose. CXR: Formal read pending. COVID test pending. Patient certainly has a rapid onset of respiratory illness. I question early infiltrate on her chest x-ray. We will treat with a dose of IV antibiotics and subsequent course of oral antibiotics. HPI General Mode of arrival: ambulatory. Date/Time Provider Initiated Documentation: 11/16/21 17:26. Limitations to Documentation: no limitations. Information obtained by: patient. History of Present Illness 66 year old F presents to the emergency department with the chief complaint of Fever and weakness, described as moderate, Patient started experiencing this hour(s) and it has been intermittent. No relieving factors improve symptom(s), No exacerbating factors reported . Patient notes cough, fever/chills, loss of appetite and weakness. Patient did receive the following treatments prior to arrival, none Related Data Home Medications Medication Instructions Recorded Confirmed aripiprazole 10 mg tablet (Abilify) 20 mg PO DAILY 09/19/14 11/16/21 aspirin 325 mg tablet 325 mg PO DAILY 09/19/14 03/26/19 clonidine HCl 0.1 mg tablet 0.1 mg PO BID 09/19/14 11/16/21 duloxetine 60 mg capsule,delayed 100 mg PO HS 09/19/14 11/16/21 release (Cymbalta) fluticasone propionate 50 50 mcg NS BID 09/19/14 11/16/21 mcg/actuation nasal spray,suspension hydrocodone 5 mg-acetaminophen 300 1 ea PO QID 09/19/14 11/16/21 mg tablet (Vicodin) lamotrigine 150 mg tablet 150 mg PO BID 09/19/14 11/16/21 losartan 50 mg tablet 75 mg PO DAILY 09/19/14 11/16/21 montelukast 10 mg tablet 10 mg PO HS 09/19/14 11/16/21 (Singulair) multivitamin (Daily Multi-Vitamin 1 ea PO DAILY 09/19/14 11/16/21 tablet) rosuvastatin 10 mg tablet (Crestor) 10 mg PO 3x/wk 09/19/14 03/26/19 topiramate 50 mg tablet (Topamax) 50 mg PO BID 09/19/14 11/16/21 travoprost 0.004 % eye drops 2.5 ml ophthalmic (eye) PM 09/19/14 11/16/21 (Travatan Z) vitamin E (dl, acetate) 180 mg 1 tab PO DAILY 10/13/14 11/16/21 (400 unit) capsule omega-3 fatty acids-fish oil 684 1 ea PO 03/06/15 mg-1,200 mg capsule,delayed release (One-Per-Day [place]-3) Duo Neb inhalation QID PRN 07/05/17 albuterol sulfate 90 mcg/actuation 90 mcg inhalation QID 07/05/17 11/16/21 breath activated powder inhaler (ProAir RespiClick) aspirin 81 mg chewable tablet 81 mg PO DAILY 07/05/17 11/16/21 lubiprostone 24 mcg capsule 24 mcg PO BID 07/05/17 03/26/19 (Amitiza) methylphenidate HCl 5 mg/5 mL oral 10 mg PO MID AFTERNOON 07/05/17 11/16/21 solution polyethylene glycol 3350 17 gram 17 g PO DAILY ##255 07/05/17 03/26/19 oral powder packet (Miralax) sennosides 8.6 mg tablet (senna) 2 tab-cap PO BID 07/05/17 03/26/19 methylphenidate HCl 36 mg 36 mg PO DAILY 03/26/19 11/16/21 tablet,extended release 24 hr (Concerta) cefdinir 300 mg capsule 300 mg PO Q12H 10 days #20 caps 11/16/21 Previous Rx's Medication Instructions Recorded cefdinir 300 mg capsule 300 mg PO Q12H 10 days #20 caps 11/16/21 Allergies Allergy/AdvReac Type Severity Reaction Status Date / Time melatonin Allergy Itching Verified 11/16/21 17:30 Penicillins Allergy hives Verified 11/16/21 17:30 amitriptyline AdvReac become Verified 11/16/21 17:30 delusional codeine AdvReac causes Verified 11/16/21 17:30 excessive sleepiness Sulfa (Sulfonamide AdvReac become Verified 11/16/21 17:30 Antibiotics) delusional General Stated Complaint: GenMedical MATTHEW: 3 Review of Systems Narrative: Weakness, fever and chills, no antipyretic. Dark-colored urine today. Cough noted. Immunized against COVID-19. 8 systems were reviewed and otherwise negative PFSH All Active Problems (Updated 11/16/21 @ 19:52 by Julio C Peraza MD) Respiratory illness with fever (Acute) Depression (Chronic) Hypercholesterolemia (Chronic) Reflux esophagitis (Chronic) Asthma (Chronic) HTN (hypertension) (Chronic) Anxiety (Chronic) Surgical History EGD - IV Sedation Lina Fundoplication 1996 ORIF right ankle S/P hysterectomy Status post THR (total hip replacement) Family History Other Heart disease Social History Smoking/Tobacco Use Status: Never Smoking risk assessment performed?: Yes Alcohol Intake: never Drug use: Never Substance use type: does not use Do you feel safe at home: Yes Exam Narrative Exam Narrative: GEN: awake, alert, oriented 3. Pleasant, well groomed, interactive. HEAD: Normocephalic, atraumatic ENT: Mucous membranes dry, oropharynx unremarkable, External ear exam unremarkable EYES: PERRL, EOMI NECK: Full ROM, no DAMIEN, no menigismus CHEST/RESP: Nontender, clear to auscultation bilateral, no wheeze/rhonchi/rales CARDIOVASCULAR: RRR, no murmur, rub ernesto. 2+ Rad pulse bilateral ABDOMEN: Soft, nontender, no mass. +Bowel sounds EXT: Full ROM, no edema, no rash Neuro: Grossly normal neurologic exam, conversant, interactive. Psych: Speech fluent, thoughts congruent, affect normal Course Vital Signs Vital signs: Vital Signs Temperature 37.5 C 11/16/21 17:21 Pulse 72 11/16/21 17:21 Respiratory Rate 11/16/21 17:21 Blood Pressure 134/60 11/16/21 17:21 Pulse Oximetry 98 11/16/21 17:21 Temperature 37.5 C 11/16/21 17:21 Temperature Source Skin 11/16/21 17:21 Pulse 72 11/16/21 17:21 Respiratory Rate 22 11/16/21 17:21 Respiratory Effort 11/16/21 17:26 Blood Pressure 134/60 11/16/21 17:21 Blood Pressure Position Supine 11/16/21 17:21 Pulse Oximetry 98 11/16/21 17:21 Oxygen Delivery Method Room Air 11/16/21 17:21 Oxygen Flow Rate 0 11/16/21 17:21 Pain Level 0 11/16/21 17:21
[2021-11-16 17:59] VITALS: RESP 18
[2021-11-16] MEDS: Normal Saline 1,000 ML 2000 ML IV (18:12)
[2021-11-16 18:17] LABS: Abs Immature Grans 0.02 10^3/uL (0.0-0.06); Absolute Basophil Count 0.02 10^3/uL (0.0-0.2); Absolute Eosinophil Count 0.02 10^3/uL (0.0-0.7); Absolute Lymphocyte Count 0.49 10^3/uL (1.2-3.4); Absolute Monocyte Count 0.25 10^3/uL (0.1-0.8); Absolute Neutrophil Count 5.29 10^3/uL (1.2-6.7); Basophils % 0.3; Eosinophils % 0.3; HGB 14.1 g/dL (11.2-15.7); Immature Grans % 0.3; MCH 33.1 pg (27.0-33.0); MCHC 32.8 % (32.0-36.0); MCV 101 fL (80-95); MPV 11.3 fL (8.0-11.0); Monocytes % 4.1; Platelet Count 148 10^3/uL (130-400); RBC 4.26 10^6/uL (3.93-5.22); RDW 13.9 % (11.7-14.6); RDW-SD 51.8 fL; WBC 6.09 10^3/uL (4.4-10.8)
[2021-11-16 18:30] LABS: Bilirubin Negative (Negative); Blood Negative (Negative); Clarity Clear (Clear); Glucose 500 mg/dL (Negative); Ketones Negative (Negative); Leukocyte Esterase Negative (Negative); Nitrite Negative (Negative); Urobilinogen 0.2 EU/dL (Up TO 0.2)
[2021-11-16 18:36] LABS: Lactate 1.2 mmol/L (0.6-1.4)
[2021-11-16 18:54] LABS: ALT 20 U/L (14-59); AST 20 U/L (15-37); Albumin 3.8 g/dL (3.4-5.0); Alkaline Phosphatase 61 U/L (46-116); Anion Gap 10.8 mmol/L (3-11); BUN 17 mg/dL (7-18); Bilirubin, Total 0.6 mg/dL (0.2-1.0); CO2 20.2 mmol/L (21.0-32.0); CREATININE 1.4 mg/dL (0.55-1.02); Calcium 8.2 mg/dL (8.5-10.1); Chloride 106 mmol/L (98-107); Estimated GFR 37.62 (mL/min/1.73m2); Glucose 160 mg/dL (74-106); Potassium 3.5 mmol/L (3.5-5.1); Sodium 137 mmol/L (136-145); Total Protein 6.3 g/dL (6.4-8.2)
--- NOTE | 2021-11-16 20:01 | DI.VRAD_ITS ---
PROCEDURE INFORMATION: Exam: XR Chest Exam date and time: 11/16/2021 7:05 PM Age: 66 years old Clinical indication: Cough and fever TECHNIQUE: Imaging protocol: XR of the chest. Views: 2 views. COMPARISON: CR XR CHEST 2V PA LATERAL 03/26/2019 7:38 AM FINDINGS: Lungs: Clear lungs. Pleural spaces: No pneumothorax. No sizable pleural effusion. Heart/Mediastinum: No cardiomegaly. Bones/joints: Unremarkable. IMPRESSION: Clear lungs. Dictated and Authenticated by: Babak Ray MD. Ordering:URSZULA Bunch MD
[2021-11-16] MEDS: cefTRIAXone 1 GM/50 ML BAG IVPB (20:13)
[2021-11-16] MEDS: ACETAMINOPHEN 1,000 MG/100 ML BTL 400 MG IVPB (20:13)
[2021-11-16 20:26] VITALS: BP 134/49; PULSE 75; RESP 18; TEMP 37; O2SAT 99
[2021-11-16 21:09] VITALS: BP 124/47; PULSE 74; RESP 18; O2SAT 99
[2021-11-18 11:44] LABS: COVID-19 RT-PCR UVMMC Result Negative (Negative)
== END 2021-11-16 21:13 | disposition home or self-care (01) ==
PROVIDERS: Emergency Provider Emergency Medicine; PCP Nurse Practitioner Family
DX: R50.9 Fever, unspecified (principal); R05.1 Acute cough; R53.1 Weakness; Z20.822 Contact with and (suspected) exposure to COVID-19
CPT/HCPCS: 36415; 80053; 87040; 96361; 96365; 96367; 99284; U0003; U0005; 71046; 81003; 83605; 85025; J0131; J0696

== ENCOUNTER 2022-01-04 16:42 | Outpatient (REF) | payer OTHER, SELFPAY ==
[2022-01-04 18:53] LABS: Bilirubin Negative (Negative); Blood Negative (Negative); Clarity Clear (Clear); Glucose 500 mg/dL (Negative); Ketones Negative (Negative); Leukocyte Esterase Negative (Negative); Nitrite Negative (Negative); Urobilinogen 0.2 EU/dL (Up TO 0.2); pH 6.5 (5-8)
== END 2022-01-04 16:43 | disposition home or self-care (01) ==
LOC: NCHCN 16:42
PROVIDERS: PCP Nurse Practitioner Family; Visit Provider Nurse Practitioner Family
DX: R39.15 Urgency of urination (principal); E11.649 Type 2 diabetes mellitus with hypoglycemia without coma
CPT/HCPCS: 81003

== ENCOUNTER 2022-03-08 16:28 | Emergency (ER) | payer OTHER, SELFPAY ==
[2022-03-08] VITALS (17 sets, daily range): BP systolic 105–133; BP diastolic 66–88; PULSE 66–78; RESP 13–29; TEMP 36.7; O2SAT 93–99
--- NOTE | 2022-03-08 16:15 | RT.EKG_ITS ---
APPROVED REPORT Exam: Resting ECG Reason for Exam: sob Patient Location: E HR:69 bpm ECG Measurements Heart Rate 69 AXIS AL 167 P 20 QRSd 103 QRS -42 QT 398 T -15 QTc 426 Conclusion Sinus rhythm Left anterior fascicular block. Abnormal T, anterior leads...T <-0.20mV, V2-V4, similar to 03/2019
--- NOTE | 2022-03-08 16:45 | DI.RAD_ITS ---
Exam(s) XR CHEST 2V PA LATERAL EXAM: XR CHEST 2V PA LATERAL CLINICAL HISTORY: Shortness of breath, cough TECHNIQUE: COMPARISON: CR,XR XR CHEST 2V PA LATERAL from 11/16/2021 FINDINGS: Heart is not enlarged. Lungs are predominantly clear with poor inspiration and some probable linear pulmonary scarring in the lung bases. No focal consolidation. No pleural effusion. IMPRESSION: No evidence of acute process. RADIATION DOSE DELIVERED: Total DLP
[2022-03-08 17:08] LABS: Abs Immature Grans 0.04 10^3/uL (0.0-0.06); Absolute Basophil Count 0.02 10^3/uL (0.0-0.2); Absolute Eosinophil Count 0.06 10^3/uL (0.0-0.7); Absolute Lymphocyte Count 1.88 10^3/uL (1.2-3.4); Absolute Monocyte Count 0.56 10^3/uL (0.1-0.8); Absolute Neutrophil Count 3.73 10^3/uL (1.2-6.7); Basophils % 0.3; HCT 37.3 % (36.0-46.0); HGB 12.3 g/dL (11.2-15.7); Immature Grans % 0.6; Lymphocytes % 29.9; MCH 32.4 pg (27.0-33.0); MCV 98 fL (80-95); MPV 10.7 fL (8.0-11.0); Monocytes % 8.9; Neutrophils % 59.3; Platelet Count 198 10^3/uL (130-400); RDW 13.9 % (11.7-14.6); RDW-SD 50.3 fL; WBC 6.29 10^3/uL (4.4-10.8)
[2022-03-08 17:15] LABS: Source Nasal/Nares
[2022-03-08 17:29] LABS: ALT 22 U/L (14-59); AST 23 U/L (15-37); Albumin 4.2 g/dL (3.4-5.0); Alkaline Phosphatase 72 U/L (46-116); Anion Gap 9.1 mmol/L (3-11); BUN 14 mg/dL (7-18); Bilirubin, Total 0.5 mg/dL (0.2-1.0); CO2 25.9 mmol/L (21.0-32.0); CREATININE 1.5 mg/dL (0.55-1.02); Calcium 9.1 mg/dL (8.5-10.1); Chloride 104 mmol/L (98-107); Glucose 101 mg/dL (74-106); NT-proBNP 285 pg/mL (<300); Sodium 139 mmol/L (136-145); Total Protein 7.1 g/dL (6.4-8.2); Troponin I < 50 ng/L (<or=60)
--- NOTE | 2022-03-08 17:37 | ED.GENADUL_ITS ---
Discharge Plan Disposition Patient Disposition: HOME Condition: Improving Discharge Details Clinical Impression: Acute asthma exacerbation, URI (upper respiratory infection) Primary Care Provider: Erika Seymour ED Provider: Dc Craig Home Meds and New Rx's Prescriptions: New benzonatate 100 mg capsule 100 mg PO TID PRN (Reason: cough) Qty: 30 0RF prednisone 20 mg tablet 40 mg PO DAILY Qty: 8 0RF No Action losartan 50 MG tablet 75 mg PO DAILY Label Comments: 06-23-17 PCP RECORD 25 MG QD. lamotrigine 150 MG tablet 150 mg PO BID Label Comments: 06-23-17 PCP RECORD 100 MG BID. clonidine HCl 0.1 MG tablet 0.1 mg PO BID montelukast [Singulair] 10 MG tablet 10 mg PO HS fluticasone propionate 16 GM spray,suspension 50 mcg NS BID aripiprazole [Abilify] 10 MG tablet 20 mg PO DAILY Label Comments: 06-23-17 PCP RECORD 20 MG QD. rosuvastatin [Crestor] 10 MG tablet 10 mg PO 3x/wk Label Comments: 06-23-17 PCP RECORD 10 MG QD. topiramate [Topamax] 50 MG tablet 50 mg PO BID duloxetine [Cymbalta] 60 MG capsule,delayed release(DR/EC) 100 mg PO HS Label Comments: 06/23/17 PCP RECORD 60 MG BID. hydrocodone-acetaminophen [Vicodin] 1 EACH tablet 1 ea PO QID Label Comments: 10/08/14 per pt prn multivitamin [Daily Multi-Vitamin] 1 EACH tablet 1 ea PO DAILY travoprost [Travatan Z] 2.5 ML drops 2.5 ml Ophthalmic PM One-Per-Day [place]-3 1 EACH capsule,delayed release(DR/EC) 1 ea PO polyethylene glycol 3350 [Miralax] 17 GM powder in packet 17 g PO DAILY Qty: 255 DUO NEB Inhalation QID PRN sennosides [senna] 8.6 MG tablet 2 tab-cap PO BID aspirin 81 MG tablet,chewable 81 mg PO DAILY methylphenidate HCl 5 MG/5 ML solution 10 mg PO MID AFTERNOON Amitiza 24 MCG capsule 24 mcg PO BID ProAir RespiClick 90 MCG aerosol powdr breath activated 90 mcg Inhalation QID vitamin E (dl, acetate) 400 UNITS capsule 1 tab PO DAILY isosorbide mononitrate 30 mg tablet extended release 24 hr 30 mg PO DAILY spironolactone 25 mg tablet 25 tab PO DAILY vitamin E (dl, acetate) 180 mg (400 unit) capsule 1 mg PO BID Label Comments: Take 2 capsules by mouth every evening lactulose 10 gram/15 mL solution 30 ml PO DAILY mirtazapine 30 mg Tablet 30 mg PO DAILY methylphenidate HCl [Concerta] 36 mg Tablet Extended Release 24hr 36 mg PO DAILY Discharge Instructions Instructions: Asthma (ED), Upper Respiratory Infection (ED) Additional Instructions: If you develop new or significant worsening of your symptoms please return to the emergency department for reassessment. Otherwise take medication as prescribed follow-up with your primary care provider within the next 5 days for reassessment of your symptoms. Stay well-hydrated with plenty of rest during this. Referrals: Erika Seymour [Primary Care Provider] - 5 days Discharge Data Discharge Date/Time-TO BE ENTERED AT DEPARTURE: 03/08/22 23:03 Medical Decision Making Patient presenting to the emergency department for chief complaint of chest pain/pressure. Patient reports that she feels like something is pressing on her chest. She states that symptoms started on Monday along with cold-like symptoms of cough, nasal congestion, and slightly sore throat. Patient states she has tested at home for COVID and was seen today at the urgent care and also was negative for COVID but was exposed to somebody who also had cold-like symptoms last week. Patient does have significant medical history of asthma, hypertension, and esophagitis.. Physical exam is unremarkable with clear lung sounds, none worrisome vital signs, but it is observed dry cough during exam. Have high suspicion for acute asthma exacerbation secondary to viral URI but will still perform cardiac work-up Please see physician interpretation for full interpretation of EKG but patient is in sinus rhythm with a rate of 68, patient does have inverted T waves mostly noted in V1 2 and 3 but these findings seems similar to previous old EKGs. No findings to suggest acute STEMI Labs reviewed and patient has overall unremarkable CBC, negative D-dimer, CMP unremarkable except for creatinine of 1.5 and GFR of 38 which is at patient's baseline, negative initial troponin, proBNP is 285. Reviewed x-ray imaging of chest which shows no cardiopulmonary findings but does show significant dilated loops of bowel. Radiologist recommended CT imaging which patient is agreeable to. Given low gfr will use oral contrast only. Reviewed CT imaging that showed no ileus or obstruction but did note mild dilated loops of bowel. Otherwise CT was unremarkable. Reassessed patient and patient stated continued improvement of symptoms. We will do final repeat troponin but I suspect that patient has a viral URI with asthma exacerbation and that patient has had a benefit due to steroids and nebulizer. We will consider antibiotic given patient's worsening of symptoms. Final troponin was negative. Patient denies any worsening of symptoms. Will discharge patient with follow-up to primary care provider for reassess and will prescribe patient prednisone, Tessalon Perles and Zithromax. After discussion of diagnosis and plan of care patient has no further needs, questions, or concerns and states clear understanding to return to the emergency department for any worsening symptoms. This documentation was generated using [employer] system, please disregard any oddities of phrase or misspellings. Imaging Data Radiologic Study: Attestation: I personally reviewed and interpreted this imaging study as follows: Imaging: X-Ray Radiologist's impression: FINDINGS: Lungs: Mild chronic interstitial prominence. No consolidation. Pleural spaces: Unremarkable. No pleural effusion. No pneumothorax. Heart/Mediastinum: Unremarkable. No cardiomegaly. Bones/joints: Unremarkable. Distended loops of bowel and stomach noted IMPRESSION: No acute cardiopulmonary pathology Distended loops of bowel grossly stable in appearance. Findings may represent ileus versus developing partial small bowel obstruction. Further evaluation may be helpful Radiologic Study #2: Attestation: I personally reviewed and interpreted this imaging study as follows: Imaging: CT Scan Radiologist's impression: FINDINGS: Lungs: No acute infiltrate in either lung base. Small calcified granuloma left lung base image 30, series 5. Liver: Normal. No mass. Gallbladder and bile ducts: Normal. No calcified stones. No ductal dilation. Pancreas: Normal. No ductal dilation. Spleen: Normal. No splenomegaly. Adrenal glands: Normal right adrenal gland. Compared to CT chest dated 06/17/2015, 9 mm left adrenal stable benign adenoma. Kidneys and ureters: Normal. No hydronephrosis. Stomach and bowel: A few mildly distended small bowel loops in the anterior portion of the peritoneal cavity. No generalized ileus or bowel obstruction. Prior surgery in the GE junction region.Appendix: Normal appendix. Intraperitoneal space: No free air. No significant fluid collection. Vasculature: Unremarkable. No abdominal aortic aneurysm. Lymph nodes: No enlarged lymph nodes. Urinary bladder: Unremarkable as visualized. Reproductive: Status post hysterectomy. Bones/joints: Streak artifact from metallic left hip prosthesis obscures portions of the lower pelvis. Spinal degenerative changes. Soft tissues: Unremarkable. IMPRESSION: 1. A few mildly distended small bowel loops in the anterior portion of the peritoneal cavity. No generalized ileus or bowel obstruction. 2. No acute intra-abdominal or pelvic process. HPI General Mode of arrival: ambulatory . Date/Time Provider Initiated Documentation: 03/08/22 16:28 . Limitations to Documentation: no limitations . Information obtained by: RN/MD and RN notes reviewed . History of Present Illness 66 year old F presents to the emergency department with the chief complaint of Shortness of breath and chest tightness, described as moderate, with intensity rated at 6. Quality is described as aching (pressure), and is localized to the chest. Patient reports no radiation. Patient started experiencing this day(s) (4) and it has been constant. No relieving factors improve symptom(s), No exacerbating factors reported . Patient notes chest pain, cough, malaise and shortness of breath; denies fever/chills, nausea/vomiting and rash. Patient did receive the following treatments prior to arrival, other (Albuterol) Related Data Home Medications Medication Instructions Recorded Confirmed aripiprazole 10 mg tablet (Abilify) 20 mg PO DAILY 09/19/14 03/08/22 clonidine HCl 0.1 mg tablet 0.1 mg PO BID 09/19/14 03/08/22 duloxetine 60 mg capsule,delayed 100 mg PO HS 09/19/14 03/08/22 release (Cymbalta) fluticasone propionate 50 50 mcg NS BID 09/19/14 03/08/22 mcg/actuation nasal spray,suspension hydrocodone 5 mg-acetaminophen 300 1 ea PO QID 09/19/14 03/08/22 mg tablet (Vicodin) lamotrigine 150 mg tablet 150 mg PO BID 09/19/14 03/08/22 losartan 50 mg tablet 75 mg PO DAILY 09/19/14 03/08/22 montelukast 10 mg tablet 10 mg PO HS 09/19/14 03/08/22 (Singulair) multivitamin (Daily Multi-Vitamin 1 ea PO DAILY 09/19/14 03/08/22 tablet) rosuvastatin 10 mg tablet (Crestor) 10 mg PO 3x/wk 09/19/14 03/08/22 topiramate 50 mg tablet (Topamax) 50 mg PO BID 09/19/14 03/08/22 travoprost 0.004 % eye drops 2.5 ml ophthalmic (eye) PM 09/19/14 03/08/22 (Travatan Z) vitamin E (dl, acetate) 180 mg 1 tab PO DAILY 10/13/14 03/08/22 (400 unit) capsule omega-3 fatty acids-fish oil 684 1 ea PO 03/06/15 mg-1,200 mg capsule,delayed release (One-Per-Day [place]-3) Duo Neb inhalation QID PRN 07/05/17 albuterol sulfate 90 mcg/actuation 90 mcg inhalation QID 07/05/17 03/08/22 breath activated powder inhaler (ProAir RespiClick) aspirin 81 mg chewable tablet 81 mg PO DAILY 07/05/17 03/08/22 lubiprostone 24 mcg capsule 24 mcg PO BID 07/05/17 03/26/19 (Amitiza) methylphenidate HCl 5 mg/5 mL oral 10 mg PO MID AFTERNOON 07/05/17 03/08/22 solution polyethylene glycol 3350 17 gram 17 g PO DAILY ##255 07/05/17 03/08/22 oral powder packet (Miralax) sennosides 8.6 mg tablet (senna) 2 tab-cap PO BID 07/05/17 03/08/22 methylphenidate HCl 36 mg 36 mg PO DAILY 03/26/19 03/08/22 tablet,extended release 24 hr (Concerta) benzonatate 100 mg capsule 100 mg PO TID PRN cough #30 caps 03/08/22 isosorbide mononitrate 30 mg 30 mg PO DAILY 03/08/22 03/08/22 tablet,extended release 24 hr lactulose 10 gram/15 mL oral 30 ml PO DAILY 03/08/22 03/08/22 solution mirtazapine 30 mg tablet 30 mg PO DAILY 03/08/22 03/08/22 prednisone 20 mg tablet 40 mg PO DAILY #8 tabs 03/08/22 spironolactone 25 mg tablet 25 tab PO DAILY 03/08/22 03/08/22 vitamin E (dl, acetate) 180 mg 1 mg PO BID 03/08/22 03/08/22 (400 unit) capsule Previous Rx's Medication Instructions Recorded benzonatate 100 mg capsule 100 mg PO TID PRN cough #30 caps 03/08/22 prednisone 20 mg tablet 40 mg PO DAILY #8 tabs 03/08/22 Allergies Allergy/AdvReac Type Severity Reaction Status Date / Time melatonin Allergy Itching Verified 03/08/22 21:47 Penicillins Allergy hives Verified 03/08/22 21:47 amitriptyline AdvReac become Verified 03/08/22 21:47 delusional codeine AdvReac causes Verified 03/08/22 21:47 excessive sleepiness Sulfa (Sulfonamide AdvReac become Verified 03/08/22 21:47 Antibiotics) delusional General Stated Complaint: Chest Pain MATTHEW: 3 Review of Systems Constitutional Constitutional: Denies chills, Denies fever(s) and Reports malaise ENT Ears, Nose, Mouth, and Throat: Reports nasal congestion and Reports sore throat Cardiovascular Cardiovascular: Reports as per HPI, Reports chest pain, Denies chest pain with activity, Denies syncope, Denies irregular heart rhythm, Denies palpitations, Reports dyspnea and Reports dyspnea on exertion Respiratory Respiratory: Reports cough, Denies hemoptysis, Reports dyspnea and Reports dyspnea on exertion Gastrointestinal Gastrointestinal: Denies abdominal pain, Denies nausea and Denies vomiting Musculoskeletal Musculoskeletal: Denies back pain Neurologic Neurologic: Denies syncope Psychiatric Psychiatric: Denies anxiety Endocrine Endocrine: Denies cold intolerance, Denies heat intolerance and Denies palpitations PFSH All Active Problems (Updated 03/08/22 @ 22:39 by Dc Craig NP) Acute asthma exacerbation (Acute) URI (upper respiratory infection) (Acute) Depression (Chronic) Hypercholesterolemia (Chronic) Reflux esophagitis (Chronic) Asthma (Chronic) HTN (hypertension) (Chronic) Anxiety (Chronic) Surgical History EGD - IV Sedation Lina Fundoplication 1996 ORIF right ankle S/P hysterectomy Status post THR (total hip replacement) Family History Other Heart disease Social History Smoking/Tobacco Use Status: Never Smoking risk assessment performed?: Yes Alcohol Intake: never Drug use: Never Substance use type: does not use Do you feel safe at home: Yes Exam Const General: cooperative, comfortable and no acute distress Orientation: alert and awake HENMT Head: normal to inspection, normocephalic and atraumatic Ears: hearing grossly normal bilaterally and TM's normal bilaterally General nose exam: external nose normal Face and sinus: no erythema Mouth: oral mucosae normal, no drooling, no muffled voice and no trismus Throat: posterior oropharynx normal Neck Neck: normal visual inspection, full ROM, no lymphadenopathy, no meningeal signs, trachea midline and supple Resp Effort & Inspection: normal respiratory effort, able to speak in complete sentences and cough Quality of cough: dry Auscultation: clear to auscultation bilaterally Cardio Rate: regular rate Rhythm: regular rhythm Heart Sounds: S1 normal, S2 normal, normal S1 and S2, no click, no gallops, no murmurs and no rubs Skin General skin exam: no rashes or lesions noted and dry skin (warm) Neuro General: patient alert, patient awake, patient oriented x3, gait normal and moves all extremities Cognition: normal cognition Speech: speech normal Course Vital Signs Vital signs: Vital Signs Temperature 36.7 C 03/08/22 16:48 Pulse 73 03/08/22 16:48 Respiratory Rate 21 03/08/22 16:48 Blood Pressure 109/88 03/08/22 16:48 Pulse Oximetry 98 03/08/22 16:48 Temperature 36.7 C 03/08/22 16:48 Temperature Source Temporal Artery Scan 03/08/22 16:48 Pulse 73 03/08/22 16:48 Respiratory Rate 21 03/08/22 16:55 Respiratory Effort 03/08/22 16:55 Respiratory Depth Shallow 03/08/22 16:55 Respiratory Pattern Normal 03/08/22 16:55 Blood Pressure 109/88 03/08/22 16:48 Blood Pressure Position Sitting 03/08/22 16:48 Pulse Oximetry 98 03/08/22 16:48 Oxygen Delivery Method Room Air 03/08/22 16:48 Oxygen Flow Rate 0 03/08/22 16:48 Comment 03/08/22 16:48 Lab/Test Results Lab/Test Results: Laboratory Tests Range/Units 03/08/22 03/08/2222 16:55 16:55 17:05 WBC (4.4-10.8) 10^3/uL 6.29 RBC (3.93-5.22) 10^6/uL 3.80 L Hgb (11.2-15.7) g/dL 12.3 Hct (36.0-46.0) % 37.3 MCV (80-95) fL 98 H MCH (27.0-33.0) pg 32.4 MCHC (32.0-36.0) % 33.0 RDW (11.7-14.6) % 13.9 Plt Count (130-400) 10^3/uL 198 MPV (8.0-11.0) fL 10.7 Immature Gran % 0.6 Neutrophils % 59.3 Lymphocytes % 29.9 Monocytes % 8.9 Eosinophils % 1.0 Basophils % 0.3 Nucleated RBC % (0.0-0.3) % 0.0 Absolute Neutrophils (1.2-6.7) 10^3/uL 3.73 Absolute Lymphocytes (1.2-3.4) 10^3/uL 1.88 Absolute Monocytes (0.1-0.8) 10^3/uL 0.56 Absolute Eosinophils (0.0-0.7) 10^3/uL 0.06 Absolute Basophils (0.0-0.2) 10^3/uL 0.02 Sodium (136-145) mmol/L 139 Potassium (3.5-5.1) mmol/L 4.0 Chloride (98-107) mmol/L 104 Carbon Dioxide (21.0-32.0) mmol/L 25.9 Anion Gap (3-11) mmol/L 9.1 BUN (7-18) mg/dL 14 Creatinine (0.55-1.02) mg/dL 1.5 H Est GFR (CKD-EPI 2020) (mL/min/1.73m2) 38.20 Glucose (74-106) mg/dL 101 Calcium (8.5-10.1) mg/dL 9.1 Magnesium (1.8-2.4) mg/dL 2.0 Total Bilirubin (0.2-1.0) mg/dL 0.5 AST (15-37) U/L 23 ALT (14-59) U/L 22 Alkaline Phosphatase (46-116) U/L 72 Troponin I (<or=60) ng/L < 50 NT-Pro-B Natriuret Pep (<300) pg/mL 285 Total Protein (6.4-8.2) g/dL 7.1 Albumin (3.4-5.0) g/dL 4.2 COVID-19 Source Nasal/Nares
[2022-03-08 17:39] LABS: D-Dimer 289 ng/mlFEU (<500)
[2022-03-08] MEDS: methylPREDNISolone SUCC 125 MG VIAL IVP (18:15)
[2022-03-08] MEDS: Normal Saline 500 ML IV (18:20)
[2022-03-08] MEDS: Albuterol/Ipratropium 3 ML UPD VIAL UPD (18:23)
--- NOTE | 2022-03-08 18:25 | NUR.NOTE ---
Nursing Note: PT TO DI VIA STRETCHER FOR ORDERED EXAMS, RETURNED TO ROOM, NO NEW COMPLAINTS, MEDICATED PER EMAR, CONT. TO MONITOR.
--- NOTE | 2022-03-08 18:30 | DI.CT_ITS ---
Exam(s) CT ABDOMEN PELVIS W EXAM: CT ABDOMEN PELVIS W INDICATION: Abnormal chest [id number] loops of bowel. COMPARISON: CT ABD PELVIS WITH CONTRAST from 07/05/2010 TECHNIQUE: FINDINGS: CT examination of the abdomen and pelvis was performed with intravenous infusion of 100 cc of Omnipaq ue 350. Images obtained through the lung bases are unremarkable. Prior gastric surgery noted. The liver is unremarkable in appearance. Gallbladder and bile ducts are CT normal. Pancreas appears normal. Spleen is unremarkable in appearance. 12 millimeter left adrenal nodule noted, stable since June 2010 CT. Otherwise adrenals unremarkab le. The kidneys are unremarkable with no evidence of hydronephrosis, nephrolithiasis, or renal mass.. Ur inary bladder unremarkable. Abdominal aorta is of normal diameter and no major vascular abnormality is seen. No abdominal wall hernia. No abdominal or pelvic adenopathy. DISTANCE LEARNING TECHNICIAN structures partially obscured by artifact from left hip prosthesis, no gross pelvic mass.. Appendix is normal. No evidence of diverticulitis or bowel obstruction. IMPRESSION: Negative CT examination of the abdomen and pelvis. RADIATION DOSE DELIVERED: 1,451.29mGy.cm Total DLP 1,451.29mGy.cm Total DLP !Error CTDIvol RADIATION OPTIMIZATION: All CT scans at this facility use at least one of these dose optimization te chniques: automated exposure control; mA and/or kV adjustment per patient size (includes targeted exa ms where dose is matched to clinical indication); or iterative reconstruction.
--- NOTE | 2022-03-08 18:31 | DI.VRAD_ITS ---
PROCEDURE INFORMATION: Exam: XR Chest Exam date and time: 03/08/2022 6:19 PM Age: 66 years old Clinical indication: Other: Shortness of breath, cough TECHNIQUE: Imaging protocol: Radiologic exam of the chest. Views: 2 views. COMPARISON: CR XR CHEST 2V PA LATERAL 11/16/2021 7:05 PM FINDINGS: Lungs: Mild chronic interstitial prominence. No consolidation. Pleural spaces: Unremarkable. No pleural effusion. No pneumothorax. Heart/Mediastinum: Unremarkable. No cardiomegaly. Bones/joints: Unremarkable. Distended loops of bowel and stomach noted IMPRESSION: No acute cardiopulmonary pathology Distended loops of bowel grossly stable in appearance. Findings may represent ileus versus developing partial small bowel obstruction. Further evaluation may be helpful Dictated and Authenticated by: Kobe Harding MD. Ordering:COLEEN Irwin MD
[2022-03-08] MEDS: Benzonatate 100 MG CAP PO (20:30)
[2022-03-08] MEDS: Gastrografin 120 ML BTL IVP (20:38)
[2022-03-08] MEDS: Omnipaque 350 MG/ML 100 ML BTL IV (21:17)
[2022-03-08] MEDS: Normal Saline Flush 10 ML SYR IVP (21:19)
--- NOTE | 2022-03-08 22:03 | DI.VRAD_ITS ---
PROCEDURE INFORMATION: Exam: CT Abdomen And Pelvis With Contrast Exam date and time: 03/08/2022 9:11 PM Age: 66 years old Clinical indication: Abnormal chest [id number] loops of bowel; Prior surgery; date: 6+ months: Hernia, left hip TECHNIQUE: Imaging protocol: Computed tomography of the abdomen and pelvis with contrast. Radiation optimization: All CT scans at this facility use at least one of these dose optimization techniques: automated exposure control; mA and/or kV adjustment per patient size (includes targeted exams where dose is matched to clinical indication); or iterative reconstruction. Contrast material: OMNIPAQUE 350; Contrast volume: 100 ml; Contrast route: INTRAVENOUS (IV); Other contrast: Oral, gastro, 900 ; COMPARISON: CR XR hip LT complete, AP pelvis 05/16/2018 11:22 AM, CT chest 06/17/2015 FINDINGS: Lungs: No acute infiltrate in either lung base. Small calcified granuloma left lung base image 30, series 5. Liver: Normal. No mass. Gallbladder and bile ducts: Normal. No calcified stones. No ductal dilation. Pancreas: Normal. No ductal dilation. Spleen: Normal. No splenomegaly. Adrenal glands: Normal right adrenal gland. Compared to CT chest dated 06/17/2015, 9 mm left adrenal stable benign adenoma. Kidneys and ureters: Normal. No hydronephrosis. Stomach and bowel: A few mildly distended small bowel loops in the anterior portion of the peritoneal cavity. No generalized ileus or bowel obstruction. Prior surgery in the GE junction region. Appendix: Normal appendix. Intraperitoneal space: No free air. No significant fluid collection. Vasculature: Unremarkable. No abdominal aortic aneurysm. Lymph nodes: No enlarged lymph nodes. Urinary bladder: Unremarkable as visualized. Reproductive: Status post hysterectomy. Bones/joints: Streak artifact from metallic left hip prosthesis obscures portions of the lower pelvis. Spinal degenerative changes. Soft tissues: Unremarkable. IMPRESSION: 1. A few mildly distended small bowel loops in the anterior portion of the peritoneal cavity. No generalized ileus or bowel obstruction. 2. No acute intra-abdominal or pelvic process. Dictated and Authenticated by: Riaz Vitale MD. Ordering:COLEEN Irwin MD
[2022-03-08 22:12] LABS: Troponin I < 50 ng/L (<or=60)
[2022-03-08] MEDS: Azithromycin 250 MG TAB 500 MG PO (22:55)
[2022-03-09 04:57] LABS: COVID-19 PCR Negative (Negative)
== END 2022-03-08 23:03 | disposition home or self-care (01) ==
PROVIDERS: Emergency Provider Nurse Practitioner Family; PCP Nurse Practitioner Family
DX: J45.901 Unspecified asthma with (acute) exacerbation (principal); J06.9 Acute upper respiratory infection, unspecified; I10 Essential (primary) hypertension; Z79.51 Long term (current) use of inhaled steroids; Z79.82 Long term (current) use of aspirin; Z20.822 Contact with and (suspected) exposure to COVID-19
CPT/HCPCS: 36415; 80053; 87635; 93005; 96361; 96374; 96375; 99284; 99285; 71046; 74177; 83735; 83880; 84484; 85025; 85379; 93010; J2930; J3490; J7620

== ENCOUNTER 2022-03-28 19:24 | Outpatient (REF) | payer OTHER, SELFPAY ==
[2022-03-31 10:10] LABS: Methylphenidate 240 ng/mL (Cutoff: 10); Ritalinic Acid 8802 ng/mL (Cutoff: 50)
== END 2022-03-28 19:25 | disposition home or self-care (01) ==
LOC: NCHCN 19:24
PROVIDERS: PCP Nurse Practitioner Family; Visit Provider Nurse Practitioner Family
DX: G89.29 Other chronic pain (principal); R53.82 Chronic fatigue, unspecified; M79.7 Fibromyalgia
CPT/HCPCS: 80360

== ENCOUNTER 2022-05-16 16:16 | Outpatient (REF) | payer OTHER, SELFPAY ==
[2022-05-16 20:17] LABS: Hemoglobin A1C 6.3 % (<5.7)
[2022-05-16 20:28] LABS: ALT 25 U/L (14-59); AST 23 U/L (15-37); Albumin 4.1 g/dL (3.4-5.0); Alkaline Phosphatase 66 U/L (46-116); Anion Gap 9.4 mmol/L (3-11); BUN 22 mg/dL (7-18); Bilirubin, Total 0.3 mg/dL (0.2-1.0); CO2 24.6 mmol/L (21.0-32.0); CREATININE 1.8 mg/dL (0.55-1.02); Chloride 105 mmol/L (98-107); Estimated GFR 30.69 (mL/min/1.73m2); FREE T4 0.77 ng/dL (0.76-1.46); Glucose 138 mg/dL (74-106); Potassium 4.4 mmol/L (3.5-5.1); Sodium 139 mmol/L (136-145); TSH 2.56 uIU/mL (0.36-3.74); Total Protein 6.7 g/dL (6.4-8.2)
== END 2022-05-16 16:17 | disposition home or self-care (01) ==
LOC: NCHCN 16:16
PROVIDERS: PCP Nurse Practitioner Family; Visit Provider Nurse Practitioner Family
DX: E11.649 Type 2 diabetes mellitus with hypoglycemia without coma (principal); I10 Essential (primary) hypertension; F41.8 Other specified anxiety disorders
CPT/HCPCS: 80053; 83036; 84439; 84443

== ENCOUNTER 2022-07-11 15:34 | Emergency (ER) | payer OTHER, SELFPAY ==
[2022-07-11] VITALS (24 sets, daily range): BP systolic 100–156; BP diastolic 46–79; PULSE 63–73; RESP 10–22; TEMP 36.7–36.9; O2SAT 93–100
--- NOTE | 2022-07-11 15:30 | RT.EKG_ITS ---
APPROVED REPORT Exam: Resting ECG Reason for Exam: chest pain Patient Location: E HR:69 bpm ECG Measurements Heart Rate 69 AXIS KS 156 P 34 QRSd 110 QRS -47 QT 398 T -4 QTc 425 Conclusion Sinus rhythm...normal P axis Left anterior fascicular block. Previously noted Q >35mS, T neg, V2-V5
--- NOTE | 2022-07-11 15:51 | ED.GENADUL_ITS ---
Discharge Plan Disposition Patient Disposition: Home Condition: Stable Discharge Details Clinical Impression: Multiple contusions, Chest pain Primary Care Provider: Erika Seymour ED Provider: Radha Sanchez Home Meds and New Rx's Prescriptions: Continued losartan 50 MG tablet 75 mg PO DAILY Patient Comments: 06-23-17 PCP RECORD 25 MG QD. lamotrigine 150 MG tablet 150 mg PO BID Patient Comments: 06-23-17 PCP RECORD 100 MG BID. clonidine HCl 0.1 MG tablet 0.1 mg PO BID montelukast [Singulair] 10 MG tablet 10 mg PO HS fluticasone propionate 16 GM spray,suspension 50 mcg NS BID aripiprazole [Abilify] 10 MG tablet 20 mg PO DAILY Patient Comments: 06-23-17 PCP RECORD 20 MG QD. rosuvastatin [Crestor] 10 MG tablet 10 mg PO 3x/wk Patient Comments: 06-23-17 PCP RECORD 10 MG QD. topiramate [Topamax] 50 MG tablet 25 mg PO DAILY duloxetine [Cymbalta] 60 MG capsule,delayed release(DR/EC) 100 mg PO HS Patient Comments: 06/23/17 PCP RECORD 60 MG BID. hydrocodone-acetaminophen [Vicodin] 1 EACH tablet 1 ea PO DAILY PRN Patient Comments: 10/08/14 per pt prn multivitamin [Daily Multi-Vitamin] 1 EACH tablet 1 ea PO DAILY travoprost [Travatan Z] 2.5 ML drops 2.5 ml Ophthalmic PM One-Per-Day [place]-3 1 EACH capsule,delayed release(DR/EC) 1 ea PO PRN PRN polyethylene glycol 3350 [Miralax] 17 GM powder in packet 17 g PO DAILY Qty: 255 aspirin 81 MG tablet,chewable 81 mg PO DAILY methylphenidate HCl 5 MG/5 ML solution 10 mg PO MID AFTERNOON ProAir RespiClick 90 MCG aerosol powdr breath activated 90 mcg Inhalation QID isosorbide mononitrate 30 mg tablet extended release 24 hr 30 mg PO DAILY spironolactone 25 mg tablet 25 tab PO DAILY vitamin E (dl, acetate) 180 mg (400 unit) capsule 1 mg PO DAILY Patient Comments: Take 2 capsules by mouth every evening lactulose 10 gram/15 mL solution 30 ml PO DAILY mirtazapine 30 mg Tablet 30 mg PO DAILY methylphenidate HCl [Concerta] 36 mg Tablet Extended Release 24hr 36 mg PO DAILY Discharge Instructions Instructions: Chest Pain (ED), Contusion in Adults (ED) Additional Instructions: As we discussed, your imaging is reassuring here today. Your labs are all stable. Your EKG and your blood work for your heart are unchanged from your previous. Please keep your follow-up appointment tomorrow with cardiology. If you develop recurrent chest pain, shortness of breath, difficulty breathing, have increased pain, fever/chills or other new/worsening symptom please seek care urgently once again. Otherwise, you may continue with Tylenol and/or ibuprofen as needed for discomfort and keep upcoming appointments. Referrals: Erika Seymour [Primary Care Provider] - Discharge Data Discharge Date/Time-TO BE ENTERED AT DEPARTURE: 07/11/22 20:18 Medical Decision Making Patient is a pleasant 67 year old female, brought in by daughter in law, with c/c of head injury, chest discomfort. She states that today she slipped coming off of the steps and onto the ground. States that she slipped and fell back, landing on her bottom. Then fell back and hit the back of her head. Denies LOC, is not anticoagulated. States that she initially had some visual change but that this was brief, lasted a few seconds and is now at baseline. Denies any nausea or vomiting. Denies radiation of pain. No neck pain. States that for the past 4 days she has had intermittent, exertional CP with associated difficulty breathing. States that when she goes up a flight of stairs has chest pressure that is substernal. Denies GI upset with this. Is able to make the entire flight of stairs. States she feels more winded at the top but not truly SOB. Has hx of asthma, has not felt that this was an issue. Is followed by cardiology for the muscles not pumping right but denies hx of IA. PMH significant for depression, elevated cholesterole, reflux, asthma, HTN. Takes ASA at night, has not taken yet today. No CP currently. On exam, patient appears nontoxic. She is resting comfortably, speaking with DIL. She has no objective evidence of head trauma. No evidence of basilar skull fx. No midline neck pain, full ROM. Chest without reproducible pain. No LE edema. 2+ distal pulses. Sensation intact, no saddle paresthesias. No midline back pain. Exam of the LUE significant for discomfort over the distal ulna but no objective deformity. She has large incisional scar, well healed, from previous distal radius fx repair. No break in the skin. Neurovascularly intact. Will obtain imaging for fall. Also concerned about her acute on chronic CP. Will hold off on ASA until she returns from CT for her head injury. She is no tacitvely havin gany CP. ECG obtained and reviewed by physician. FINDINGS: Brain: No intracranial hemorrhage or extra-axial fluid collection. No evidence of mass effect or midline shift. Cyr-white matter differentiation is intact. Cerebral ventricles: No ventriculomegaly. Paranasal sinuses: Unremarkable. No fluid levels. Mastoid air cells: Unremarkable. Bones/joints: No acute calvarial fracture. Soft tissues: Scalp soft tissues are unremarkable. IMPRESSION: No acute intracranial pathology. FINDINGS: Lungs: No focal areas of consolidation. Pleural spaces: No pleural effusion. No pneumothorax. Heart/Mediastinum: Cardiac and mediastinal silhouettes are unremarkable. Bones/joints: No acute osseus lesion or fracture. Gastrointestinal tract: Nonspecific gaseous distention of partially visualized small and large bowel loops. IMPRESSION: 1. No acute cardiopulmonary findings. 2. Nonspecific gaseous distention of partially visualized small and large bowel loops. Recommend correlation with dedicated abdominal imaging. Reevaluated the patient. She is not endorsing ZHU, no CP. However, she reports that she noted some right hip pain when she was getting back into bed after using the restroom. She is not have any pelvic instability. No radiation of pain. No pain in the. She has no saddle paresthesias. No pain with palpation elsewhere about the knee. No midline tenderness of the C-spine, thoracic or lumbar spine. Pain is primarily in the groin, this does have a concern for hip issue although I do find fracture less likely as the patient was able to ambulat e and was not endorsing any pain in the hip at that time. We will add on a hip x-ray along with the left wrist as I am concerned for potential ulnar fracture. Labs reviewed. No significant abnormality at this time. Troponin within normal limits. Creatinine slightly elevated at 1.34 which is baseline for patient. BNP within normal limits. FINDINGS: Bones/joints: Chronic distal radius internal fixation hardware. No acute fracture or dislocation. Soft tissues: Unremarkable. IMPRESSION: No acute fracture or dislocation. FINDINGS: Bones/joints: No acute fracture or dislocation. Total left hip arthroplasty hardware is intact. Soft tissues: Unremarkable. IMPRESSION: No acute fracture or dislocation. Discussed with patient adn family. She was again able to ambulate. I do not see need for further imaging of her hip at this time. Advised mutliple contusions. Encouraged RICE. We did discuss her CP. Discusssed inpatietn observation vs. at home care. Patient feels that as this has len a longstanding issue, has planned cardiology f/u tomorrow, would prefer to go home. I agree with this plan. Strict return precautions given. She has excellent family support. All of her questions and concerns were addresssed. She will f/u with cardiology as scheduled. Encouraged she f/u with PCP in one week as well. HPI General Date/Time Provider Initiated Documentation: 07/11/22 15:40 . Limitations to Documentation: no limitations . Information obtained by: patient, family, RN notes reviewed and old records reviewed . History of Present Illness 67 year old F presents to the emergency department with the chief complaint of fell, struck head, left wrist. Chronic chest pain, described as moderate and similar to prior episodes (CP has been ongoing, no active CP, sees cards tomorrow), Quality is described as aching (ZHU, left wrist), Patient reports no radiation. Patient started experiencing this minute(s) (fall this AM, CP has been intermittent over months) Immobilization improves symptom(s), Movement worsens symptoms . Patient notes no other symptoms.. Patient did receive the following treatments prior to arrival, none Related Data Home Medications Medication Instructions Recorded Confirmed aripiprazole 10 mg tablet (Abilify) 20 mg PO DAILY 09/19/14 07/11/22 clonidine HCl 0.1 mg tablet 0.1 mg PO BID 09/19/14 07/11/22 duloxetine 60 mg capsule,delayed 100 mg PO HS 09/19/14 07/11/22 release (Cymbalta) fluticasone propionate 50 50 mcg NS BID 09/19/14 07/11/22 mcg/actuation nasal spray,suspension hydrocodone 5 mg-acetaminophen 300 1 ea PO DAILY PRN 09/19/14 07/11/22 mg tablet (Vicodin) lamotrigine 150 mg tablet 150 mg PO BID 09/19/14 07/11/22 losartan 50 mg tablet 75 mg PO DAILY 09/19/14 07/11/22 montelukast 10 mg tablet 10 mg PO HS 09/19/14 07/11/22 (Singulair) multivitamin (Daily Multi-Vitamin 1 ea PO DAILY 09/19/14 07/11/22 tablet) rosuvastatin 10 mg tablet (Crestor) 10 mg PO 3x/wk 09/19/14 07/11/22 topiramate 50 mg tablet (Topamax) 25 mg PO DAILY 09/19/14 07/11/22 travoprost 0.004 % eye drops 2.5 ml ophthalmic (eye) PM 09/19/14 07/11/22 (Travatan Z) omega-3 fatty acids-fish oil 684 1 ea PO PRN PRN 03/06/15 07/11/22 mg-1,200 mg capsule,delayed release (One-Per-Day [place]-3) albuterol sulfate 90 mcg/actuation 90 mcg inhalation QID 07/05/17 07/11/22 breath activated powder inhaler (ProAir RespiClick) aspirin 81 mg chewable tablet 81 mg PO DAILY 07/05/17 07/11/22 methylphenidate HCl 5 mg/5 mL oral 10 mg PO MID AFTERNOON 07/05/17 07/11/22 solution polyethylene glycol 3350 17 gram 17 g PO DAILY ##255 07/05/17 07/11/22 oral powder packet (Miralax) methylphenidate HCl 36 mg 36 mg PO DAILY 03/26/19 07/11/22 tablet,extended release 24 hr (Concerta) isosorbide mononitrate 30 mg 30 mg PO DAILY 03/08/22 07/11/22 tablet,extended release 24 hr lactulose 10 gram/15 mL oral 30 ml PO DAILY 03/08/22 07/11/22 solution mirtazapine 30 mg tablet 30 mg PO DAILY 03/08/22 07/11/22 spironolactone 25 mg tablet 25 tab PO DAILY 03/08/22 07/11/22 vitamin E (dl, acetate) 180 mg 1 mg PO DAILY 03/08/22 07/11/22 (400 unit) capsule Allergies Allergy/AdvReac Type Severity Reaction Status Date / Time buspirone [From BuSpar] Allergy Unverified 07/11/22 15:45 melatonin Allergy Itching Verified 07/11/22 15:45 Penicillins Allergy hives Verified 07/11/22 15:45 amitriptyline AdvReac become Verified 07/11/22 15:45 delusional codeine AdvReac causes Verified 07/11/22 15:45 excessive sleepiness Sulfa (Sulfonamide AdvReac become Verified 07/11/22 15:45 Antibiotics) delusional General Stated Complaint: Chest Pain MATTHEW: 3 Review of Systems Constitutional Constitutional: Reports as per HPI, Denies fatigue, Denies fever(s) and Denies weakness Eyes Eyes: Reports as per HPI and Denies change in vision Cardiovascular Cardiovascular: Reports as per HPI Respiratory Respiratory: Reports as per HPI, Denies cough and Denies pain on inspiration Gastrointestinal Gastrointestinal: Reports as per HPI, Denies abdominal pain, Denies nausea and Denies vomiting Genitourinary Genitourinary: Reports as per HPI and Denies urinary incontinence Musculoskeletal Musculoskeletal: Reports as per HPI Integumentary/Breasts Skin/Breast: Reports as per HPI and Denies rash Neurologic Neurologic: Reports as per HPI, Denies abnormal speech, Denies localized weakness, Denies paresthesias and Denies weakness Endocrine Endocrine: Denies fatigue PFSH All Active Problems (Updated 07/11/22 @ 19:50 by ROBERT Louis) Multiple contusions (Acute) Chest pain (Acute) Depression (Chronic) Hypercholesterolemia (Chronic) Reflux esophagitis (Chronic) Asthma (Chronic) HTN (hypertension) (Chronic) Anxiety (Chronic) Surgical History EGD - IV Sedation Lina Fundoplication 1996 ORIF right ankle S/P hysterectomy Status post THR (total hip replacement) Family History Other Heart disease Social History Smoking/Tobacco Use Status: Never Smoking risk assessment performed?: Yes Alcohol Intake: never Drug use: Never Substance use type: does not use Do you feel safe at home: Yes Exam Const General: cooperative, healthy appearing, comfortable, no acute distress, well developed and well groomed Nutritional Appearance: average body habitus and well nourished Orientation: alert, awake and oriented x3 HENMT Head: normal to inspection, no palpable skull fracture, normocephalic and atraumatic Ears: hearing grossly normal bilaterally, external ears normal and TM's normal bilaterally General nose exam: external nose normal Mouth: oral mucosae normal, lip normal and tongue normal Throat: posterior oropharynx normal Eyes General: appearance normal, both eyes and all related structures Visual Armstrong: normal visual armstrong by confrontation Alignment and Position: alignment normal Periorbital: periorbital findings normal Eyelids: eyelids normal Conjunctivae: conjunctivae normal Pupils: PERRL EOM: EOM intact bilaterally Neck Neck: normal visual inspection, full ROM, no lymphadenopathy, trachea midline and supple Chest Chest: normal inspection of the chest, normal palpation of entire chest wall, no crepitus and no localized rib tenderness Resp Effort & Inspection: normal respiratory effort, able to speak in complete sentences and no respiratory distress Auscultation: clear to auscultation bilaterally, no rales, no rhonchi and no wheezes Cardio Rate: regular rate Rhythm: regular rhythm Heart Sounds: S1 normal and S2 normal GI Inspection: normal to inspection, no abdominal wall ecchymosis, no edema and non-distended Palpation: soft, no hepatosplenomegaly, not firm, no guarding, no pulsatile masses, not rigid and nontender Auscultation: normal bowel sounds Back/Spine/Pelvis Back: no CVA tenderness Cervical Spine: normal cervical lordosis and cervical ROM normal Thoracic/Lumbar Spine: thoracic and lumbar spine normal to inspection, thoraco- lumbar ROM normal, No thoraco-lumbar ROM limited, No thoraco-lumbar spasm and No thoracic spinal tenderness Pelvis: no pain with anterior-posterior compression and no pain with lateral compression Skin General skin exam: no rashes or lesions noted Lesions: no lesions Rashes: no rashes Trauma: no lacerations or abrasions Wounds: no wounds Neuro General: patient alert, patient awake, patient oriented x3, tone normal and moves all extremities Cranial Nerves: CN's II-XI intact bilaterally Cognition: normal cognition Speech: speech normal Motor: muscle tone normal throughout and strength 5/5 throughout Sensory Exam: no sensory deficits noted (no saddle paresthesias) Extrem General: normal to inspection, full ROM, capillary refill normal, no pedal edema and no calf tenderness Left upper extremity: normal to inspection (tenderness over distal radius, otherwise no pain, full ROM, intact neurovas) Psych Appearance: grossly normal and well kempt Mental Status: mental status grossly normal Speech and Movement: speech and movement normal Course Vital Signs Vital signs: Vital Signs Temperature 36.7 C 07/11/22 15:41 Pulse 72 07/11/22 15:41 Respiratory Rate 18 07/11/22 15:41 Blood Pressure 156/79 H 07/11/22 15:41 Pulse Oximetry 100 07/11/22 15:41 Temperature 36.7 C 07/11/22 15:41 Temperature Source Temporal Artery Scan 07/11/22 15:41 Pulse 72 07/11/22 15:41 Respiratory Rate 18 07/11/22 15:41 Respiratory Effort Non-Labored 07/11/22 15:50 Blood Pressure 156/79 H 07/11/22 15:41 Pulse Oximetry 100 07/11/22 15:41 Oxygen Delivery Method Room Air 07/11/22 15:41 Oxygen Flow Rate 0 07/11/22 15:41
--- NOTE | 2022-07-11 16:00 | DI.CT_ITS ---
Exam(s) CT HEAD WO EXAM: CT HEAD WO CLINICAL HISTORY: fall, struck back of had. TECHNIQUE: Imaging Protocol: Axial computed tomography images with coronal and sagittal reformatted images were created and reviewed COMPARISON: No exams were available for comparison FINDINGS: Ventricles and Extra axial spaces: Normal in size and morphology for the patient's age. Hemorrhage: None. Cerebral parenchyma: No acute territorial infarct is present. Cyr/white matter differentiation is w ell maintained. Midline shift: None. Brainstem/Cerebellum: Normal. Calvarium: Normal. Visualized Paranasal sinuses/Mastoids: Clear. Soft Tissues: Unremarkable. IMPRESSION: No acute intracranial process. RADIATION DOSE DELIVERED: 705.18mGy.cm Total DLP DATA REPOSITORY: All CT scans at this facility are submitted to the National Radiology Data Registry (NRDR) Dose Index Registry (DIR) with the [employer] ([employer]). RADIATION OPTIMIZATION: All CT scans at this facility use at least one of these dose optimization te chniques: automated exposure control; mA and/or kV adjustment per patient size (includes targeted exa ms where dose is matched to clinical indication); or iterative reconstruction.
--- NOTE | 2022-07-11 16:00 | DI.RAD_ITS ---
Exam(s) XR CHEST 2V PA LATERAL EXAM: XR CHEST 2V PA LATERAL CLINICAL HISTORY: chest discomfort TECHNIQUE: 2D digital imaging was performed of the chest. Two images were obtained. PA and lateral views were obtained. COMPARISON: CR,XR XR CHEST 2V PA LATERAL from 03/08/2022 FINDINGS: MEDIASTINUM: Normal. HEART: Normal. PULMONARY VASCULATURE: Normal. LUNGS: Clear. PLEURAL SPACE: No pleural effusion or pneumothorax. BONE:Within normal limits for the patient's age. OTHER FINDINGS:Nonspecific bowel gas pattern. Mildly dilated loops of small and large bowel are seen . Please correlate clinically. Follow-up accordingly. IMPRESSION: No acute pulmonary findings. DATA REPOSITORY: RADIATION DOSE DELIVERED:
[2022-07-11 16:24] LABS: Abs Immature Grans 0.08 10^3/uL (0.0-0.06); Absolute Basophil Count 0.04 10^3/uL (0.0-0.2); Absolute Eosinophil Count 0.12 10^3/uL (0.0-0.7); Absolute Lymphocyte Count 2.69 10^3/uL (1.2-3.4); Absolute Monocyte Count 0.64 10^3/uL (0.1-0.8); Absolute Neutrophil Count 3.51 10^3/uL (1.2-6.7); Basophils % 0.6; Eosinophils % 1.7; HGB 13.1 g/dL (11.2-15.7); Immature Grans % 1.1; MCH 33.2 pg (27.0-33.0); MCHC 33.6 % (32.0-36.0); MCV 99 fL (80-95); MPV 10.7 fL (8.0-11.0); Neutrophils % 49.6; Platelet Count 203 10^3/uL (130-400); RBC 3.95 10^6/uL (3.93-5.22); RDW 13.2 % (11.7-14.6); RDW-SD 47.7 fL; WBC 7.08 10^3/uL (4.4-10.8)
[2022-07-11] MEDS: ACETAMINOPHEN 1,000 MG/100 ML BTL 400 MG IVPB (16:28)
[2022-07-11 16:51] LABS: ALT 28 U/L (14-59); AST 26 U/L (15-37); Albumin 4.3 g/dL (3.4-5.0); Alkaline Phosphatase 72 U/L (46-116); Anion Gap 5.7 mmol/L (3-11); BUN 25 mg/dL (7-18); Bilirubin, Total 0.4 mg/dL (0.2-1.0); CO2 29.3 mmol/L (21.0-32.0); CREATININE 1.4 mg/dL (0.55-1.02); Calcium 9.7 mg/dL (8.5-10.1); Chloride 105 mmol/L (98-107); Estimated GFR 41.24 (mL/min/1.73m2); Glucose 174 mg/dL (74-106); Magnesium 2.5 mg/dL (1.8-2.4); NT-proBNP 146 pg/mL (<300); Potassium 4.4 mmol/L (3.5-5.1); Sodium 140 mmol/L (136-145); Troponin I < 50 ng/L (<or=60)
--- NOTE | 2022-07-11 17:01 | DI.VRAD_ITS ---
PROCEDURE INFORMATION: Exam: CT Head Without Contrast Exam date and time: 07/11/2022 4:48 PM Age: 67 years old Clinical indication: Fall, struck back of head TECHNIQUE: Imaging protocol: Computed tomography of the head without contrast. Radiation optimization: All CT scans at this facility use at least one of these dose optimization techniques: automated exposure control; mA and/or kV adjustment per patient size (includes targeted exams where dose is matched to clinical indication); or iterative reconstruction. COMPARISON: CT neck wo 08/10/2018 9:37 AM FINDINGS: Brain: No intracranial hemorrhage or extra-axial fluid collection. No evidence of mass effect or midline shift. Cyr-white matter differentiation is intact. Cerebral ventricles: No ventriculomegaly. Paranasal sinuses: Unremarkable. No fluid levels. Mastoid air cells: Unremarkable. Bones/joints: No acute calvarial fracture. Soft tissues: Scalp soft tissues are unremarkable. IMPRESSION: No acute intracranial pathology. Dictated and Authenticated by: Anderson Fuentes MD. Ordering:BRE Garcia MD
--- NOTE | 2022-07-11 17:02 | DI.VRAD_ITS ---
PROCEDURE INFORMATION: Exam: XR Chest Exam date and time: 07/11/2022 4:49 PM Age: 67 years old Clinical indication: Chest discomfort TECHNIQUE: Imaging protocol: Radiologic exam of the chest. Views: 2 views. COMPARISON: XR CHEST 2V PA LATERAL 03/08/2022 6:19 PM FINDINGS: Lungs: No focal areas of consolidation. Pleural spaces: No pleural effusion. No pneumothorax. Heart/Mediastinum: Cardiac and mediastinal silhouettes are unremarkable. Bones/joints: No acute osseus lesion or fracture. Gastrointestinal tract: Nonspecific gaseous distention of partially visualized small and large bowel loops. IMPRESSION: 1. No acute cardiopulmonary findings. 2. Nonspecific gaseous distention of partially visualized small and large bowel loops. Recommend correlation with dedicated abdominal imaging. Dictated and Authenticated by: Anderson Fuentes MD. Ordering:BRE Garcia MD
--- NOTE | 2022-07-11 17:15 | DI.RAD_ITS ---
Exam(s) XR WRIST LT COMPLETE EXAM: XR WRIST LT COMPLETE CLINICAL HISTORY: KELSEY. TECHNIQUE: 2D digital imaging was performed of the left wrist. Three images were obtained. PA, obl ique and lateral views were obtained. COMPARISON: No exams were available for comparison FINDINGS: BONES: No acute fracture is present. No bony destructive lesion is seen. Orthopedic hardware seen in the distal radius. There well-circumscribed osseous densities adjacent to the distal ulna which appe ar old. JOINTS: The carpal bones are normally aligned. SOFT TISSUE: Normal. IMPRESSION: No acute abnormality. DATA REPOSITORY: RADIATION DOSE DELIVERED:
--- NOTE | 2022-07-11 17:30 | DI.RAD_ITS ---
Exam(s) XR HIP RT COMPLETE AP PELVIS EXAM: XR HIP RT COMPLETE AP PELVIS CLINICAL HISTORY: fall. TECHNIQUE: 2D digital imaging was performed of the right hip. Three images were obtained. AP pelvis and lateral right hip views were obtained. COMPARISON: CR XR hip LT complete AP pelvis from 05/16/2018 FINDINGS: BONES: No acute fracture is present. No bony destructive lesion is seen. JOINTS: No dislocation present. The patient has a prior left hip prosthesis. SOFT TISSUE: Normal. IMPRESSION: No acute fracture or dislocation. DATA REPOSITORY: RADIATION DOSE DELIVERED:
--- NOTE | 2022-07-11 18:30 | DI.VRAD_ITS ---
PROCEDURE INFORMATION: Exam: XR Right Hip Exam date and time: 07/11/2022 6:15 PM Age: 67 years old Clinical indication: Other: Fall TECHNIQUE: Imaging protocol: Radiologic exam of the Right hip. Views: 2 or 3 views hip with pelvis when performed. COMPARISON: CT ABDOMEN PELVIS W 03/08/2022 9:11 PM FINDINGS: Bones/joints: No acute fracture or dislocation. Total left hip arthroplasty hardware is intact. Soft tissues: Unremarkable. IMPRESSION: No acute fracture or dislocation. Dictated and Authenticated by: Anderson Fuentes MD. Ordering:BRE Garcia MD
--- NOTE | 2022-07-11 18:31 | DI.VRAD_ITS ---
PROCEDURE INFORMATION: Exam: XR Left Wrist Exam date and time: 07/11/2022 6:20 PM Age: 67 years old Clinical indication: Other: Fall; Prior surgery; Surgery date: 6+ months; Surgery type: Orif surgery 2017 TECHNIQUE: Imaging protocol: Radiologic exam of the Left wrist. Views: 3 or more views. COMPARISON: No relevant prior studies available. FINDINGS: Bones/joints: Chronic distal radius internal fixation hardware. No acute fracture or dislocation. Soft tissues: Unremarkable. IMPRESSION: No acute fracture or dislocation. Dictated and Authenticated by: Anderson Fuentes MD. Ordering:BRE Garcia MD
[2022-07-11 19:30] LABS: Troponin I < 50 ng/L (<or=60)
[2022-07-11] MEDS: oxyCODONE 5 MG TAB PO (19:56)
== END 2022-07-11 20:18 | disposition home or self-care (01) ==
PROVIDERS: Emergency Provider Physician Assistant; PCP Nurse Practitioner Family
DX: S09.8XXA Other specified injuries of head, initial encounter (principal); R07.89 Other chest pain; Z79.82 Long term (current) use of aspirin; R06.89 Other abnormalities of breathing; W10.1XXA Fall (on)(from) sidewalk curb, initial encounter; S69.82XA Other specified injuries of left wrist, hand and finger(s), initial encounter
CPT/HCPCS: 36415; 80053; 93005; 96374; 99285; 70450; 71046; 73110; 73502; 83735; 83880; 84484; 85025; 93010; 99284; J0131

== ENCOUNTER 2022-08-05 02:35 | Outpatient (CLI) | payer OTHER, SELFPAY ==
[2022-08-05] MEDS: Albuterol HFA 18 GM 200 PUFF INH IH (11:07)
[2022-08-05] MEDS: Inhaler, Assist Device 1 EACH MC (11:07)
--- NOTE | 2022-08-08 15:07 | W.PFT ---
Date of service: 08/05/22 Time of Service: 10:06 Pulmonary Function Test Result Requesting Provider Jazz Beck Indications: Asthma Interpretation Spirometry: There is no airflow limitation. There is no significant bronchodilator response. The FVC is low. Lung Volumes: Normal lung volumes. Diffusion Capacity: Decreased diffusion Airway Pressure: Normal airways resistance. Impression Isolated decreased diffusion that could represent emphysema, fibrotic lung disease or pulmonary vascular disease. The low FVC is pseudo-restriction from an elevated BMI. Note: When compared to 11/28/11, the air trapping and hyperinflation has resolved, but the diffusion is significantly decreased. Clinical Correlation therefore is recommended.
== END 2022-08-05 02:36 | disposition home or self-care (01) ==
LOC: RT 02:35
PROVIDERS: PCP Nurse Practitioner Family; Visit Provider Family Medicine
DX: J45.40 Moderate persistent asthma, uncomplicated (principal)
CPT/HCPCS: 94060; 94726; 94729

== ENCOUNTER 2022-08-22 15:26 | Outpatient (CLI) | payer OTHER, SELFPAY ==
--- NOTE | 2022-08-22 15:00 | DI.RAD_ITS ---
Exam(s) XR CHEST 2V PA LATERAL EXAM: XR CHEST 2V PA LATERAL CLINICAL HISTORY: SOB, R06.02, COUGH X 1 MO TECHNIQUE: 2D digital imaging was performed of the chest. Two images were obtained. PA and lateral views were obtained. COMPARISON: CR,XR XR CHEST 2V PA LATERAL from 07/11/2022 FINDINGS: MEDIASTINUM: Normal. HEART: Normal. PULMONARY VASCULATURE: Normal. LUNGS: Clear. PLEURAL SPACE: No pleural effusion or pneumothorax. BONE:Within normal limits for the patient's age. OTHER FINDINGS:Normal. IMPRESSION: No acute pulmonary findings. DATA REPOSITORY: RADIATION DOSE DELIVERED:
== END 2022-08-22 15:46 ==
LOC: DI 15:27
PROVIDERS: PCP Nurse Practitioner Family; Visit Provider Family Medicine
DX: R06.02 Shortness of breath (principal); R05.8 Other specified cough
CPT/HCPCS: 71046

== ENCOUNTER 2022-08-29 04:07 | Outpatient (CLI) | payer OTHER, SELFPAY ==
[2022-08-29] MEDS: Albuterol HFA 18 GM 200 PUFF INH IH (14:12)
[2022-08-29] MEDS: Inhaler, Assist Device 1 EACH MC (14:12)
--- NOTE | 2022-08-31 12:55 | W.PFT ---
Date of service: 08/29/22 Time of Service: 13:15 Pulmonary Function Test Result Requesting Provider Jessica Sommer Indications: Asthma Interpretation Spirometry: There is no airflow limitation. There is no bronchodilator response. Spirometry appears restrictive. Both MIP and MEP are decreased. Impression Restrictive appearing spirometry with decreased muscle pressures. Clinical Correlation therefore is recommended.
== END 2022-08-29 04:08 | disposition home or self-care (01) ==
LOC: RT 04:08
PROVIDERS: PCP Nurse Practitioner Family; Visit Provider Physician Assistant Surgical
DX: R06.89 Other abnormalities of breathing (principal)
CPT/HCPCS: 94060

== ENCOUNTER 2022-09-07 01:25 | Outpatient (CLI) | payer OTHER, SELFPAY ==
[2022-09-07] MEDS: Barium Sulfate 40% W/V 1500 CPS 250 ML BTL PO (14:57)
[2022-09-07] MEDS: Barium Sulfate 40% W/V 240 ML BTL PO (14:58)
--- NOTE | 2022-09-07 15:02 | ST.MBS_ITS ---
Date of Service Date of service: 09/07/22 Time of Service: 14:30 Modified Barium Swallow Study Findings: Video fluoroscopic Swallowing Evaluation (VFSE) / Modified Barium Swallow Study (MBSS) Speech Language Pathology Report Patient referred for VFSE/MBSS from [facility]. Patient is a 67 y/o female with chronic cough and dysphagia. PFT's suggestive of vocal cord dysfunction per pulmonology. Additional PMH is significant for esophageal dysmotility, ?asthma, hiatal hernia, RESTREPO, GERD, and seasonal allergies. IMPRESSIONS: Swallow safety is preserved; swallow efficiency is preserved. Overall swallow function appears safe/WFL. Characterized primarily by delayed onset of pharyngeal swallow (not necessarily an abnormal finding especially above age 65, but resulting in flash shallow penetration of thin liquids without aspiration or laryngeal residue. ? Patient appears to be at low risk for potential aspiration PNA and/or pulmonary compromise and low risk for malnutrition, low risk for dehydration. Diet modification is not indicated; non-oral nutrition is not indicated. Swallow prognosis is good given: Positive prognostic factors: Age, Severity, Motivation, Cognitive status, and pending patient/caregiver training in risk management as outlined, including use of trialed compensatory strategies. Patient appears to be a good candidate for behavioral swallow rehabilitation to focus primarily on compensatory strategies and education regarding swallow mechanism. Patient already being seen for chronic cough suppression therapy. RECOMMENDATIONS: Diet Texture Recommendation:? IDDSI LEVEL SOLIDS 7-Regular Solids or 6-Soft & Bite-Sized Solids LIQUIDS 0-Thin Liquids MEDICATIONS Whole with 0-Thin Liquids or as tolerated Diet texture modification is per patient's preference; please adjust diet textures at patient's discretion & collaboration with care team. Do not alter medications (e.g., cut)? without advice from your MD or pharmacist. Risk Management Strategies:? Behavioral reflux precautions, including upright position during + 90 mins after meals. Small bites, approx [id number] Small sips, approx 10 mL Alternate solids/liquids as able Control risk factors for aspiration pneumonia via (a) thorough oral hygiene & (b) maintaining physical mobility as tolerated PLAN: to be modified upon further goals discussion in follow-up treatment session. ----- OBJECTIVE Videofluoroscopic Swallow Evaluation (VFSE/MBSS) was conducted in the lateral and [id number] projection by Speech-Language Pathologist, in collaboration with Radiologist, to evaluate oropharyngeal swallow function. Anatomic view under fluoroscopy:WFL PO Barium Contrast Trials Oral barium water-soluble contrast was administered as follows: IDDSI Level 0 Varibar thin liquid (40% w/v) IDDSI Level 2 Varibar nectar thick/mildly thick liquid (40% w/v) IDDSI Level 4 Varibar pudding/pureed/extremely thick (40% w/v) IDDSI Level 7 Regular Solid: 1/2 salvador cracker coated in 3 mL Varibar pudding 13 mm barium tablet taken with Thin Liquids. MBSImP Component Scores: COMPONENT Scale SCORE 1 Lip closure (0-4) 0 Resulted in no labial escape 2 Hold Position (0-3) 0 Maintained a cohesive bolus between tongue to palatal seal 3 Bolus Preparation (0-4) 0 Resulted in timely and efficient chewing and mashi ng 4 Bolus Transport (0-4) 2 Was with slowed tongue motion 5 Oral Residue (0-4) 1 Was a trace, lining oral structures 6 Swallow Initiation (0-4) 3 Occurred when the bolus head was in the pyriform sinuses 7 Soft Palate Elevation (0-4) 0 Resulted in no bolus between soft palate and t he pharyngeal wall 8 Laryngeal Elevation (0-3) 0 Demonstrated complete superior movement of thyro id cartilage with complete approximation of arytenoids to epiglottic petiole 9 Anterior Hyoid Motion (0-2) 0 Demonstrated complete anterior movement 10 Epiglottic Movement (0-2) 0 Resulted in complete inversion 11 Laryngeal Closure (0-2) 0 Was complete with no air or contrast in laryngeal vestibule 12 Pharyngeal Stripping Wave (0-2) 0 Was present and complete 13 Pharyngeal Contraction (0-3) 0 Was complete 14 PES Opening (0-3) 0 Was completely distended and complete duration with no obstruction of flow 15 Tongue Base Retraction (0-4) 1 Allowed a trace column of contrast or air be t ween tongue base and pharyngeal wall 16 Pharyngeal Residue (0-4) 1 Showed a trace within or on pharyngeal structure s 17 Esophageal Clearance (0-4) 0 Was complete, with only a coating of contrast, if any Results: COMPONENT A Scale SCORE 1 Oral Score (0-18) 5 2 Pharyngeal Score (0-29) 0 3 Esophageal Score (0-4) 0 Penetration-Aspiration Scale: COMPONENT Scale SCORE 1 Thin liquid (1-8) 2 Contrast entered the airway, remained above the vocal folds, and was ejected from the airway. 2 [place] thick (1-8) 1 Contrast did not enter the airway 3 Honey thick (1-8) NA 4 Pudding thick (1-8) 1 Contrast did not enter the airway 5 Cookie (1-8) 1 Contrast did not enter the airway Thank you for allowing us to take part in this patient's care. Please feel free to contact the [facility] Speech Language Pathology Department with any questions/concerns. Coding CPT Codes MOTION FLUOROSCOPY/SWALLOW - [id number] ([id number])
[2022-09-07] MEDS: Barium Sulfate 81% w/w for Oral Suspension 148 GM BTL PO (15:03)
[2022-09-07] MEDS: Barium Sulfate 700 MG TAB PO (15:03)
[2022-09-07] MEDS: Barium Sulfate Oral Paste 40% W/V 230 ML TUBE PO (15:03)
--- NOTE | 2022-09-07 15:04 | DI.RAD_ITS ---
Exam(s) RF MODIFIED SPEECH BA SWALLOW TECHNIQUE: Modified barium swallow was performed in conjunction with speech pathology. CONTRAST MATERIAL: Oral barium contrast was administered. COMPARISON: No exams were available for comparison FINDINGS: Note that this is not a dedicated esophagram, distal esophagus not evaluated. There is no evidence of aspiration of thick or thin liquids, barium coated cookie or barium pudding. Speech pathology report to follow. IMPRESSION: No evidence of aspiration. RADIATION DOSE DELIVERED: brett Abrams=9.01 mGy
== END 2022-09-07 01:45 ==
LOC: DI 01:25
PROVIDERS: PCP Nurse Practitioner Family; Visit Provider Registered Nurse Maternal Newborn
DX: R13.10 Dysphagia, unspecified (principal)
CPT/HCPCS: 92611; 74221

== ENCOUNTER 2022-10-06 01:18 | Outpatient (CLI) | payer OTHER, SELFPAY ==
--- NOTE | 2022-10-06 07:00 | DI.CT_ITS ---
Exam(s) CT CHEST WO EXAM: CT CHEST WO CLINICAL HISTORY: elevated diaphram, chronic cough,F/U ABLN CXR,R93.89,R05.3. TECHNIQUE: Imaging protocol: Axial computed tomography images were obtained and coronal and sagittal reformatted images were created and reviewed. COMPARISON: CT CHEST WITH CONTRAST from 06/17/[address] ABDOMEN PELVIS W from 03/08/2022 CR XR CHEST 2V PA LATERAL from 08/22/2022 FINDINGS: Tracheobronchial tree: Patent where visualized. Pulmonary parenchyma: No consolidation or dominant measurable mass. There is a calcified granuloma in the left lower lobe. Mild dependent atelectasis. Mediastinum and Lesly: No dominant adenopathy or fluid collection. The esophagus is unremarkable.Posts urgical changes are seen at the gastroesophageal junction. Thyroid gland: Unremarkable. Pleura: No effusion or pneumothorax. Heart: The heart is not dilated. No coronary artery calcifications are seen. No pericardial effusion. Aorta: Thoracic aorta non-dilated. Upper abdomen: There is a stable hypodense 0.7 cm left adrenal nodule. No follow-up is recommended. Lymph nodes: Within normal limits. Soft tissues: Unremarkable. Bones:Within normal limits for the patient's age. IMPRESSION: 1. No acute pulmonary process. 2. Postsurgical changes seen at the gastroesophageal junction. RADIATION DOSE DELIVERED: 764.76mGy.cm Total DLP 764.76mGy.cm Total DLP DATA REPOSITORY: All CT scans at this facility are submitted to the National Radiology Data Registry (NRDR) Dose Index Registry (DIR) with the [employer] (ACR). RADIATION OPTIMIZATION: All CT scans at this facility use at least one of these dose optimization te chniques: automated exposure control; mA and/or kV adjustment per patient size (includes targeted exa ms where dose is matched to clinical indication); or iterative reconstruction.
--- NOTE | 2022-10-06 10:40 | DI.US_ITS ---
APPROVED REPORT EXAM: Comprehensive 2D, Doppler, and color-flow Echocardiogram Patient Location: Out-Patient Chicken Handler: Daniel Gipson RDMS, RVT Indications: decreased DLCO on PFT, HTN, dyspnea Other Information Study Quality: Adequate. Technically limited study due to body habitus. Conclusion Normal left ventricular wall thickness and chamber size. Ejection fraction is 60%. Wall motion is n ormal Normal right ventricular size and systolic function Both atria are normal in size There is no structural or hemodynamically significant valvular disease Estimated right ventricular systolic pressure is 28 mmHg Dilated ascending aorta measuring 3.96 cm Wall motion Left Ventricle The left ventricle is normal size. The left ventricular systolic function is normal. The left ventric ular ejection fraction is within the normal range. There is normal left ventricular wall thickness. T here is normal LV segmental wall motion. There is no ventricular septal defect visualized. LVEF is 60 %. Right Ventricle The right ventricle is normal size. Right ventricular systolic function is normal. The RVSP is 27.9 m mHg. Atria The left atrium size is normal. The right atrium size is normal. The interatrial septum is intact wit h no evidence for an atrial septal defect. Aortic Valve The aortic valve is normal in structure. Aortic valve is trileaflet. There is no aortic valvular sten osis. No aortic regurgitation is present. Mitral Valve The mitral valve is normal in structure. No evidence of mitral valve stenosis. Mild mitral regurgita tion. Tricuspid Valve The tricuspid valve is normal in structure. There is no tricuspid valve stenosis. Mild tricuspid regu rgitation. Pulmonic Valve The pulmonary valve is normal in structure. There is no pulmonic valvular stenosis. Trivial pulmonic regurgitation. Great Vessels The aortic root is normal in size. The ascending aorta is moderately dilated. Aortic arch is normal in caliber. IVC is normal in size and collapses >50% with inspiration. Pericardium There is no pericardial effusion. 2D Dimensions IVSD d PLAX 0.92 cm F: 0.6-1.0 LV Vol A2C d MOD 119.6 mL LVPW d PLAX 0.96 cm F: 0.6 - 1.0 LV Vol A4C d MOD 90.8 mL LVID d PLAX 4.02 cm F: 3.8 - 5.2 LA vol/ BSA A2C s A-L 42.1 mL/m2 LVDs 2.75 cm F: 2.2 - 3.5 LA vol/ BSA A4C s A-L 23.2 mL/m2 Ao Root d 2.68 cm F: 2.7 - 3.3 LA Vol/ BSA Biplane s A-L 32.2 mL/m2 RA Area A4C 14.14 cm2 LA Area A4C s MOD 16.85 cm2 RA Vol/ BSA A4C s A-L 18.2 mL/m2 LA Area A2C s MOD 23.34 cm2 Ao Asc Diam d 3.96 cm F: 2.3 - 3.1 LV EF A4C MOD 59.3 % LV EF Teichholz 59.1 % LV EF A2C MOD 57.4 % LVEF (Dodd's) 58.23 % F: 54 - 74 LV EF Biplane MOD 58.2 % LV Volume 79.95 mL F: 46 - 106 SV 61.72 mL LV Volume Index 40.58 mL/m2 F: 29 - 61 SV Index 31.39 mL/m2 LV Vol Biplane MOD 106.0 mL FS 30.90 % M-Mode TAPSE 1.99 cm (M/F) >1.7 LV Diastology MV E' medial 0.079 (>0.07 m/s) E/A Ratio 0.7 LV E/e MED 8.05 (<14) MV E Vmax 0.62 (0.4-1.3 m/s) MV E' lateral 0.094 (>0.1 m/s) MV A Vmax 0.90 (0.4-1.3 m/s) LV E/e LAT 6.70 (<14) MV E/A Ratio 0.66 MV E/E' medial 8.06 MV E/E' lateral 6.71 Aortic Valve LVOT Area 3.41 cm2 AoV Area Vmax 2.73 cm2 LVOT Vmax 1.16 m/s AoV Area/ BSA (Vmax) 1.39 cm2/m2 LVOT Mean Roddy. 0.73 m/s JHOAN Mean Roddy. 2.44 cm2 LVOT Peak Grad 5.4 mmHg JHOAN Mean Roddy. Index 1.24 cm2/m2 LVOT Mean Grad 2.6 mmHg LVOT VTI 0.236 m LVOT Diam s 2.05 cm AoV Vmax 1.45 m/s Velocity Ratio 0.80 AoV Mean Roddy. 1.02 m/s AoV Peak Grad 8.4 mmHg LVOT SV 80.74 mL AoV Mean Grad 4.6 mmHg AoV VTI 0.303 m AoV Area VTI 2.66 cm2 AoV Area/ BSA (VTI) 1.35 cm/m2 Mitral Valve MV DT 231 (160-240 msec) MV PHT 67 msec MV Area PHT 3.29 cm2 MV VTI 0.305 m MV Area VTI 2.65 (4.0-6.0 cm2) Pulmonary Valve PV Vmax 1.11 (0.5-1.5 m/s) RVOT Peak Gr. 2.28 mmHg PV Peak Grad 5.0 mmHg RVOT Mean Gr. 1.10 mmHg PV Mean Grad 2.8 mmHg RVOT VTI 0.161 m PV VTI 0.223 m RVOT Vmax 0.75 m/s Tricuspid Valve TR Peak Grad 24.8 mmHg TR Vmax 2.49 m/s RA Pressure 3.00 mmHg RVSP (TR) 27.9 mmHg
== END 2022-10-06 01:38 ==
LOC: DI 01:18
PROVIDERS: PCP Nurse Practitioner Family; Visit Provider Student in an Organized Health Care Education/Training Program
DX: R05.3 Chronic cough (principal); R93.89 Abnormal findings on diagnostic imaging of other specified body structures; I10 Essential (primary) hypertension; R06.09 Other forms of dyspnea
CPT/HCPCS: 71250; 93306

== ENCOUNTER 2022-10-06 01:18 | Outpatient (CLI) | payer OTHER, SELFPAY ==
--- NOTE | 2022-10-06 11:55 | DI.MAMMO_ITS ---
Exam(s) MAMMO SCREENING EXAM: MAMMO SCREENING CLINICAL HISTORY: SCREENING FOR BREAST CANCER Z12.31 TECHNIQUE: Mammograms were interpreted according to the usual protocol including computer analysis w [employer] CAD system, tomosynthesis and C-view imaging. COMPARISON: 2015 through 2020 FINDINGS: The breasts are composed of scattered fibroglandular densities, Breast Density category B. No suspicious masses or suspicious microcalcifications are seen. No skin thickening or abnormal axillary lymph nodes are seen. There has been no significant change from prior exams. IMPRESSION: BI-RADS Category 1, Negative mammogram Yearly screening mammography is recommended. Breast Density - Category B, scattered fibroglandular densities. A negative radiographic report should not delay biopsy if a dominant or clinically suspicious mass is present. Up to ten percent of cancers are not identified on mammography. A negative report may reinforce clinical impression. Adenosis and dense breasts may obscure an underlying neoplasm. False positive reports average 6 to 10%. Patient will receive a letter notifying them of these results.
== END 2022-10-06 01:38 ==
LOC: DI 01:18
PROVIDERS: PCP Nurse Practitioner Family; Visit Provider Nurse Practitioner Family
DX: Z12.31 Encounter for screening mammogram for malignant neoplasm of breast (principal)
CPT/HCPCS: 77063; 77067

== ENCOUNTER 2022-10-17 17:04 | Outpatient (REF) | payer OTHER, SELFPAY ==
[2022-10-17 19:12] LABS: Anion Gap 9.6 mmol/L (3-11); BUN 18 mg/dL (7-18); CO2 25.4 mmol/L (21.0-32.0); CREATININE 1.4 mg/dL (0.55-1.02); Calcium 8.8 mg/dL (8.5-10.1); Chloride 106 mmol/L (98-107); Estimated GFR 41.24 (mL/min/1.73m2); Glucose 210 mg/dL (74-106); Potassium 3.7 mmol/L (3.5-5.1); Sodium 141 mmol/L (136-145)
== END 2022-10-17 17:05 | disposition home or self-care (01) ==
LOC: NCHCN 17:04
PROVIDERS: PCP Nurse Practitioner Family; Visit Provider Nurse Practitioner Family
DX: I10 Essential (primary) hypertension (principal); E11.9 Type 2 diabetes mellitus without complications
CPT/HCPCS: 80048

== ENCOUNTER 2022-11-16 16:27 | Outpatient (REF) | payer OTHER, SELFPAY ==
[2022-11-16 19:47] LABS: HCT 39.6 % (36.0-46.0); HGB 13.5 g/dL (11.2-15.7); MCH 32.9 pg (27.0-33.0); MCHC 34.1 % (32.0-36.0); MCV 97 fL (80-95); MPV 10.9 fL (8.0-11.0); Platelet Count 178 10^3/uL (130-400); RDW 13.1 % (11.7-14.6); RDW-SD 46.5 fL; WBC 5.84 10^3/uL (4.4-10.8)
[2022-11-16 19:51] LABS: ESR < 1 mm/hr (0-30)
[2022-11-16 20:39] LABS: Vitamin B12 695 pg/mL (193-986)
[2022-11-16 20:40] LABS: Folate > 20.0 ng/mL (8.6-20.0)
[2022-11-16 20:56] LABS: C-Reactive Protein 0.34 mg/dL (0.0-0.3)
== END 2022-11-16 16:28 | disposition home or self-care (01) ==
LOC: NCHCN 16:27
PROVIDERS: PCP Nurse Practitioner Family; Visit Provider Nurse Practitioner Family
DX: R11.0 Nausea (principal); R19.7 Diarrhea, unspecified; R42 Dizziness and giddiness; R51.9 Headache, unspecified; R41.9 Unspecified symptoms and signs involving cognitive functions and awareness; M85.88 Other specified disorders of bone density and structure, other site
CPT/HCPCS: 85027; 85652; 82607; 82746; 86140

== ENCOUNTER 2022-12-06 09:48 | Emergency (ER) | payer OTHER, SELFPAY ==
[2022-12-06] VITALS (48 sets, daily range): BP systolic 91–129; BP diastolic 46–72; PULSE 69–79; RESP 12–23; TEMP 36.7; O2SAT 93–99
--- NOTE | 2022-12-06 09:45 | RT.EKG_ITS ---
APPROVED REPORT Exam: Resting ECG Reason for Exam: SOB, NAUSEA Patient Location: E HR:73 bpm ECG Measurements Heart Rate 73 AXIS NV 152 P 18 QRSd 109 QRS -47 QT 390 T -2 QTc 431 Conclusion Sinus rhythm...normal P axis, V-rate 60- 99 Left anterior fascicular block...axis(240,-40), init forces inf Probable anterior infarct, age indeterminate...Q >35mS, T neg, V2-V5 Unchanged from 07/11/2022
--- NOTE | 2022-12-06 09:58 | ED.GENADUL_ITS ---
Discharge Plan Disposition Patient Disposition: Home Discharge Details Clinical Impression: Atypical chest pain, RESTREPO (dyspnea on exertion), Headache, Chest pain in adult, Acute dehydration Primary Care Provider: Erika Seymour ED Provider: Cesario Meek Home Meds and New Rx's Prescriptions: Continued methylphenidate HCl 10 mg tablet 10 mg PO DAILY topiramate [Topamax] 50 mg tablet 50 mg PO BID travoprost (benzalkonium) 0.004 % drops 1 drp ophthalmic (eye) calcium carbonate [Calcium 500] 500 mg calcium (1,250 mg) tablet,chewable 500 mg PO DAILY celecoxib [Celebrex] 50 mg capsule 50 mg PO BID losartan 50 MG tablet 75 mg PO DAILY Patient Comments: 06-23-17 PCP RECORD 25 MG QD. lamotrigine 150 MG tablet 150 mg PO BID Patient Comments: 06-23-17 PCP RECORD 100 MG BID. clonidine HCl 0.1 MG tablet 0.1 mg PO BID montelukast [Singulair] 10 MG tablet 10 mg PO HS fluticasone propionate 16 GM spray,suspension 50 mcg NS BID aripiprazole [Abilify] 10 MG tablet 20 mg PO DAILY Patient Comments: 06-23-17 PCP RECORD 20 MG QD. rosuvastatin [Crestor] 10 MG tablet 10 mg PO 3x/wk Patient Comments: 06-23-17 PCP RECORD 10 MG QD. topiramate [Topamax] 50 MG tablet 25 mg PO DAILY hydrocodone-acetaminophen [Vicodin] 1 EACH tablet 1 ea PO DAILY PRN Patient Comments: 10/08/14 per pt prn multivitamin [Daily Multi-Vitamin] 1 EACH tablet 1 ea PO DAILY travoprost [Travatan Z] 2.5 ML drops 2.5 ml Ophthalmic PM One-Per-Day [place]-3 1 EACH capsule,delayed release(DR/EC) 1 ea PO PRN PRN polyethylene glycol 3350 [Miralax] 17 GM powder in packet 17 g PO DAILY Qty: 255 aspirin 81 MG tablet,chewable 81 mg PO DAILY methylphenidate HCl 5 MG/5 ML solution 10 mg PO MID AFTERNOON ProAir RespiClick 90 MCG aerosol powdr breath activated 90 mcg Inhalation QID (DME) OneTouch Ultra Test Strip See Rx Instructions .Route Rx Instructions: As directed ipratropium-albuterol 0.5 mg-3 mg(2.5 mg base)/3 mL solution for nebulization 3 ml inhalation 4XD PRN (DME) nebulizers [facility] See Rx Instructions .Route Rx Instructions: As directed triamcinolone acetonide 0.1 % cream 1 applic topical BID sennosides [Senna Lax] 8.6 mg tablet 51.6 mg PO QHS flaxseed oil 1,000 mg capsule 1,000 mg PO DAILY Rx Instructions: administer with a meal methocarbamol 750 mg tablet 750 mg PO QID PRN estradiol [Vagifem] 10 mcg tablet 10 mcg vaginal .2xweek (DME) lancets [Lancets,Thin] [facility] See Rx Instructions .Route Rx Instructions: As directed (DME) blood-glucose meter [FreeStyle Lite Meter] Kit See Rx Instructions .Route Rx Instructions: As directed azelastine 205.5 mcg (0.15 %) spray,non-aerosol 1 spray intranasal BID PRN Rx Instructions: administer into each nostril nitroglycerin 0.4 mg tablet, sublingual 0.4 mg sublingual Q5M PRN Rx Instructions: do not exceed 3 doses per episode omeprazole 20 mg capsule,delayed release(DR/EC) 20 mg PO DAILY duloxetine [Cymbalta] 60 mg capsule,delayed release(DR/EC) 120 mg PO HS Patient Comments: 06/23/17 PCP RECORD 60 MG BID. isosorbide mononitrate 30 mg tablet extended release 24 hr 30 mg PO DAILY spironolactone 25 mg tablet 25 tab PO DAILY vitamin E (dl, acetate) 180 mg (400 unit) capsule 1 mg PO DAILY Patient Comments: Take 2 capsules by mouth every evening lactulose 10 gram/15 mL solution 30 ml PO DAILY mirtazapine 30 mg Tablet 30 mg PO DAILY methylphenidate HCl [Concerta] 36 mg Tablet Extended Release 24hr 36 mg PO DAILY Discharge Instructions Instructions: Chest Pain (ED), Dehydration (ED) Referrals: Erika Seymour [Primary Care Provider] - 2 days (call for appointment) Discharge Data Discharge Physician: Cesario Meek Medical Decision Making Patient presents to the emergency department complaining of a headache and chest pain who had a CT scan of the head which was negative also EKG which is unchanged from previous despite having T wave inversion in the inferior and anterior leads, patient had a stress test recently which was negative. Patient states that she feels much better after IV hydration. Labs showed 2 negative troponins. Were drawn 4 hours apart also she had a negative D-dimer and labs are unremarkable except for an elevated BUN to creatinine ratio probably due to dehydration. Patient states her pain is gone and wants to be discharged home I have advised her to follow-up with For she might not need the antihypertensive medicine she is taking increased because it can cause her to have hypotension. Differential Diagnosis Differential Diagnosis: 1. Angina 2. Acute coronary syndrome 3. Dehydration hypotension Medical Records Medical records reviewed: Yes I reviewed the patient's medical records. Medical records narrative: Patient was here in June had the same EKG and had a subsequent stress test which was negative Imaging Data Radiologic Study: Imaging: CT Scan My impression: no acute intracranial findings Radiologist's impression: Launch?Image Patient Name: Sujatha Bryant Unit #: [id number] Loc: ER ? Ordering Provider:? Cesario Meek M.D. Status: REG ER ? Primary Care Provider: Erika Seymour Date of Exam: 12/06/22 Sex: F ? : 1955 Age: 67 ? Exam(s) a CT:CT head wo Exam(s) CT HEAD WO EXAM: ? CT HEAD WO CLINICAL HISTORY: ? headache. ? TECHNIQUE:? Imaging Protocol: Axial computed tomography images with coronal and sagittal reformatted images were created and reviewed COMPARISON:? CT CT HEAD WO from 07/11/2022 FINDINGS: Ventricles and Extra axial spaces: Normal in size and morphology for the patient's age. Hemorrhage: None. Cerebral parenchyma: Normal. Midline shift: None. Brainstem/Cerebellum: Normal. Calvarium: Normal. Visualized Paranasal sinuses/Mastoids: Clear. Soft Tissues: Unremarkable. IMPRESSION: No acute intracranial process. RADIATION DOSE DELIVERED:? 686.52mGy.cm Total DLP DATA REPOSITORY:? All CT scans at this facility are submitted to the National Radiology Data Registry (NRDR) Dose Index Registry (DIR) with the [employer] (ACR). RADIATION OPTIMIZATION:? All CT scans at this facility use at least one of these dose optimization techniques: automated exposure control; mA and/or kV adjustment per patient size (includes targeted exams where dose is matched to clinical indication); or iterative reconstruction. [id number]: Total DLP =? ? 0.00 mGy-cm Ordered By:? Cesario Meek M.D. CC: ? ECG Data Attestation: I personally reviewed and interpreted this ECG (s) as follows: Interpretation: Heart rate 73 normal sinus rhythm normal axis left anterior fascicular block T wave inversion in 3 aVF V1 V2 V3 V4 unchanged from 07/11/2022 HPI General Date/Time Provider Initiated Documentation: 12/06/22 09:58 . HPI Narrative: Patient presents to the emergency department complaining of 3 days of headache, shortness of breath and substernal chest pain. States that she feels dizzy. States that she spoke with her primary care doctor who was concerned that she might have a brain bleed and was scheduled to have an MRI this week. Denies any upper or lower extremity weakness numbness denies any nausea denies any vomiting but does report dyspnea on exertion and 3/10 pressure-like chest pain in the anterior chest. Said that she was here in June for chest pain and had a stress that was reported as negative by her unix system administrator. Related Data Home Medications Medication Instructions Recorded Confirmed aripiprazole 10 mg tablet (Abilify) 20 mg PO DAILY 09/19/14 10/21/22 clonidine HCl 0.1 mg tablet 0.1 mg PO BID 09/19/14 10/21/22 fluticasone propionate 50 50 mcg NS BID 09/19/14 10/21/22 mcg/actuation nasal spray,suspension hydrocodone 5 mg-acetaminophen 300 1 ea PO DAILY PRN 09/19/14 10/21/22 mg tablet (Vicodin) lamotrigine 150 mg tablet 150 mg PO BID 09/19/14 10/21/22 losartan 50 mg tablet 75 mg PO DAILY 09/19/14 10/21/22 montelukast 10 mg tablet 10 mg PO HS 09/19/14 10/21/22 (Singulair) multivitamin (Daily Multi-Vitamin 1 ea PO DAILY 09/19/14 10/21/22 tablet) rosuvastatin 10 mg tablet (Crestor) 10 mg PO 3x/wk 09/19/14 10/21/22 topiramate 50 mg tablet (Topamax) 25 mg PO DAILY 09/19/14 08/31/22 travoprost 0.004 % eye drops 2.5 ml ophthalmic (eye) PM 09/19/14 08/31/22 (Travatan Z) omega-3 fatty acids-fish oil 684 1 ea PO PRN PRN 03/06/15 10/21/22 mg-1,200 mg capsule,delayed release (One-Per-Day [place]-3) albuterol sulfate 90 mcg/actuation 90 mcg inhalation QID 07/05/17 10/21/22 breath activated powder inhaler (ProAir RespiClick) aspirin 81 mg chewable tablet 81 mg PO DAILY 07/05/17 10/21/22 methylphenidate HCl 5 mg/5 mL oral 10 mg PO MID AFTERNOON 07/05/17 08/31/22 solution polyethylene glycol 3350 17 gram 17 g PO DAILY #255 grams 07/05/17 10/21/22 oral powder packet (Miralax) methylphenidate HCl 36 mg 36 mg PO DAILY 03/26/19 10/21/22 tablet,extended release 24 hr (Concerta) isosorbide mononitrate 30 mg 30 mg PO DAILY 03/08/22 10/21/22 tablet,extended release 24 hr lactulose 10 gram/15 mL oral 30 ml PO DAILY 03/08/22 10/21/22 solution mirtazapine 30 mg tablet 30 mg PO DAILY 03/08/22 10/21/22 spironolactone 25 mg tablet 25 tab PO DAILY 03/08/22 10/21/22 vitamin E (dl, acetate) 180 mg 1 mg PO DAILY 03/08/22 10/21/22 (400 unit) capsule calcium carbonate 500 mg calcium 500 mg PO DAILY 08/01/22 10/21/22 (1,250 mg) chewable tablet (Calcium 500) azelastine 205.5 mcg (0.15 %) 1 spray intranasal BID PRN 08/12/22 10/21/22 nasal spray blood sugar diagnostic (OneTouch 08/12/22 10/21/22 Ultra Test strips) blood-glucose meter (FreeStyle 08/12/22 10/21/22 Lite Meter kit) estradiol 10 mcg vaginal tablet 10 mcg vaginal .2xweek 08/12/22 10/21/22 (Vagifem) flaxseed oil 1,000 mg capsule 1,000 mg PO DAILY 08/12/22 10/21/22 ipratropium 0.5 mg-albuterol 3 mg 3 ml inhalation 4XD PRN 08/12/22 10/21/22 (2.5 mg base)/3 mL nebulization soln lancets (Lancets,Thin) 08/12/22 10/21/22 methocarbamol 750 mg tablet 750 mg PO QID PRN 08/12/22 08/31/22 nebulizers 08/12/22 10/21/22 nitroglycerin 0.4 mg sublingual 0.4 mg sublingual Q5M PRN 08/12/22 10/21/22 tablet omeprazole 20 mg capsule,delayed 20 mg PO DAILY 08/12/22 10/21/22 release sennosides 8.6 mg tablet (Senna 51.6 mg PO QHS 08/12/22 08/31/22 Lax) triamcinolone acetonide 0.1 % 1 applic topical BID 08/12/22 10/21/22 topical cream duloxetine 60 mg capsule,delayed 120 mg PO HS 08/17/22 10/21/22 release (Cymbalta) methylphenidate HCl 10 mg tablet 10 mg PO DAILY 08/17/22 10/21/22 topiramate 50 mg tablet (Topamax) 50 mg PO BID 08/17/22 10/21/22 travoprost (benzalkonium) 0.004 % 1 drp ophthalmic (eye) 08/17/22 10/21/22 eye drops celecoxib 50 mg capsule (Celebrex) 50 mg PO BID 10/21/22 10/21/22 Allergies Allergy/AdvReac Type Severity Reaction Status Date / Time oxybutynin Allergy Severe Verified 12/06/22 09:55 ibuprofen Allergy Intermediate Verified 12/06/22 09:55 VALERY Inhibitors Allergy Mild Verified 12/06/22 09:55 hydrochlorothiazide Allergy Mild Verified 12/06/22 09:55 indomethacin [From Indocin] Allergy Mild Verified 12/06/22 09:55 buspirone [From BuSpar] Allergy Unverified 12/06/22 09:55 melatonin Allergy Itching Verified 12/06/22 09:55 Penicillins Allergy hives Verified 12/06/22 09:55 amitriptyline AdvReac become Verified 12/06/22 09:55 delusional codeine AdvReac causes Verified 12/06/22 09:55 excessive sleepiness Sulfa (Sulfonamide AdvReac become Verified 10/21/22 14:33 Antibiotics) delusional General Stated Complaint: Chest Pain MATTHEW: 3 Review of Systems All systems reviewed & are unremarkable except as noted in HPI and below Constitutional Constitutional: Reports headache(s) and Reports weakness Eyes Eyes: Reports as per HPI ENT Ears, Nose, Mouth, and Throat: Reports system reviewed and no additional compla ints, except as documented and Reports headache(s) Cardiovascular Cardiovascular: Reports chest pain with activity and Reports dyspnea on exertion Respiratory Respiratory: Reports dyspnea on exertion Gastrointestinal Gastrointestinal: Reports as per HPI Genitourinary Genitourinary: Reports system reviewed and no additional complaints, except as documented Musculoskeletal Musculoskeletal: Reports system reviewed and no additional complaints, except as documented Integumentary/Breasts Skin/Breast: Reports system reviewed and no additional complaints, except as documented Neurologic Neurologic: Reports system reviewed and no additional complaints, except as documented, Reports headache(s) and Reports weakness Psychiatric Psychiatric: Reports system reviewed and no additional complaints, [facility] Problems (Updated 12/06/22 @ 14:23 by Cesario Meek MD) Atypical chest pain (Acute) Headache (Acute) Chest pain in adult (Acute) Acute dehydration (Acute) Paraesophageal hernia (Acute) Asthma (Chronic) RESTREPO (dyspnea on exertion) (Acute) Elevated diaphragm (Acute) Acquired elevated diaphragm (Acute) Chronic cough (Acute) Abnormal chest xray (Acute) Diabetes mellitus (Chronic) Tubular adenoma of colon (Acute) Hematuria (Acute) Chronic post-traumatic stress disorder (PTSD) (Acute) Mastodynia, female (Acute) Raynauds syndrome (Acute) Seasonal allergies (Acute) Chronic fatigue syndrome (Acute) IBS (irritable bowel syndrome) (Chronic) Gastroparesis (Acute) Hiatal hernia (Chronic) with reflux Anemia (Chronic) Elevated liver enzymes (Acute) White matter disease, unspecified (Acute) Hip pain, left (Acute) Constipation (Acute) Low-tension glaucoma, bilateral, indeterminate stage (Acute) Neuroma (Acute) Insomnia (Acute) Trochanteric bursitis (Acute) Leg cramps (Acute) Urinary incontinence (Acute) Chronic pain (Chronic) Scoliosis of lumbar spine (Acute) Disc disease, degenerative, lumbar or lumbosacral (Acute) Osteopenia (Acute) Adrenal nodule (Acute) Decreased renal function (Acute) Cough (Acute) Fibromyalgia (Acute) Hyperlipidemia (Acute) GERD (gastroesophageal reflux disease) (Chronic) Type 2 diabetes mellitus (Acute) Cardiac angina (Chronic) Abnormal PFT (Acute) Acute sinusitis (Acute) Nasal congestion (Acute) Dysphagia (Acute) Depression (Chronic) Hypercholesterolemia (Chronic) Reflux esophagitis (Chronic) Asthma (Chronic) HTN (hypertension) (Chronic) Anxiety (Chronic) Medical History History of closed head injury History of tobacco use Hx of endometriosis Hx of rheumatic fever Surgical History EGD - IV Sedation Lina Fundoplication 1996 ORIF right ankle S/P hysterectomy Status post THR (total hip replacement) Family History Father Cancer Mother Heart disease Social History Smoking/Tobacco Use Status: Never Smoking risk assessment performed?: Yes Alcohol Intake: never Drug use: Never Substance use type: does not use Education Level: other (associate's degree in business management) Do you feel safe at home: Yes Exam Narrative Exam Narrative: Exam; vitals signs as reported above Constitutional; In no acute distress, afebrile General: cooperative, healthy appearing, comfortable and no acute distress HENMT: Head: normal to inspection, no palpable skull fracture and normocephalic Eyes: l: appearance normal, both eyes and all related structures Pupils: PERRL EOM: EOM intact bilaterally Direct ophthalmoscopy: normal light reflex, normal conjunctiva, normal visual acuity Neck no JVD, supple Neck: normal visual inspection, full ROM and no lymphadenopathy Chest Chest: normal inspection of the chest Respiratory : normal respiratory effort and able to speak in complete sentences Cardio Rate: regular rate Rhythm: regular rhythm normal heart sounds S1 and S2 no murmurs, gallops, or rubs GI Inspection: normal to inspection, normal bowel sounds, soft, non tender, non distended, no organomegally Back/Spine/ no CVA tenderness Thoracic/Lumbar Spine: no tenderness or deformities Skin no rashes or lesions Neuro: patient alert and no meningeal signs, Cranial Nerves: CN's II-XI intact bilaterally, Cognition: normal cognition, Speech: speech normal, Gait: normal gait, Depp tendon reflexes normal 2+ Extremities, no edema, full range of motion, normal strength Course Patient presents to the emergency department complaining of a headache and chest pain who had a CT scan of the head which was negative also EKG which is unchanged from previous despite having T wave inversion in the inferior and anterior leads, patient had a stress test recently which was negative. Patient states that she feels much better after IV hydration. Labs showed 2 negative troponins. Vital Signs Vital signs: Vital Signs Temperature 36.7 C 12/06/22 09:50 Pulse 77 12/06/22 09:50 Respiratory Rate 20 12/06/22 09:50 Blood Pressure 129/70 12/06/22 09:50 Pulse Oximetry 97 12/06/22 09:50 Temperature 36.7 C 12/06/22 09:50 Temperature Source Tympanic 12/06/22 09:50 Pulse 77 12/06/22 09:50 Respiratory Rate 20 12/06/22 09:50 Blood Pressure 129/70 12/06/22 09:50 Pulse Oximetry 97 12/06/22 09:50 Oxygen Delivery Method Room Air 12/06/22 09:50 Oxygen Flow Rate 0 12/06/22 09:50 Pain Level 3 12/06/22 09:50 Comment 3/10 chest pain 12/06/22 09:50 Vital Signs and Lab Results Vital Signs Most Recent Vital Signs in EMR: Most Recent Vital Signs Temp Pulse Resp BP Pulse Ox 36.7 C 70 17 114/66 97 12/06/22 09:50 12/06/22 12:15 12/06/22 12:20 12/06/22 12:15 12/06/22 12:20 Lab Results 12/06/22 10:20 12/06/22 10:20 Blood Type / Crossmatch: No Data to Display Complete Blood Count: White Blood Count 6.94 10^3/uL (4.4-10.8) 12/06/22 10:20 Red Blood Count 4.24 10^6/uL (3.93-5.22) 12/06/22 10:20 Hemoglobin 14.1 g/dL (11.2-15.7) 12/06/22 10:20 Hematocrit 41.5 % (36.0-46.0) 12/06/22 10:20 Platelet Count 207 10^3/uL (130-400) 12/06/22 10:20 Complete Metabolic Panel: Sodium 139 mmol/L (136-145) 12/06/22 10:20 Potassium 4.3 mmol/L (3.5-5.1) 12/06/22 10:20 Chloride 102 mmol/L (98-107) 12/06/22 10:20 Carbon Dioxide 26.8 mmol/L (21.0-32.0) 12/06/22 10:20 BUN 20 mg/dL (7-18) H 12/06/22 10:20 Creatinine 1.5 mg/dL (0.55-1.02) H 12/06/22 10:20 Est GFR (CKD-EPI 2020) 37.96 (mL/min/1.73m2) 12/06/22 10:20 Magnesium 2.6 mg/dL (1.8-2.4) H 12/06/22 10:20 Calcium 9.2 mg/dL (8.5-10.1) 12/06/22 10:20 Albumin 4.2 g/dL (3.4-5.0) 12/06/22 10:20 Glucose 179 mg/dL (74-106) H 12/06/22 10:20 C-Reactive Protein 0.34 mg/dL (0.0-0.3) H 11/16/22 15:55 Liver Function Panel: Alanine Aminotransferase (ALT/SGPT) 34 U/L (14-59) 12/06/22 10: 20 Aspartate Amino Transf (AST/SGOT) 28 U/L (15-37) 12/06/22 10:20 Coagulation Panel: D-Dimer 285 ng/mlFEU (<500) 12/06/22 10:20 Cardiac Panel: Troponin I < 50 ng/L (<or=60) 12/06/22 NT-Pro-B Natriuret Pep 79 pg/mL (<300) 12/06/22 Arterial Blood Gas: No Data to Display Venous Blood Gas: No Data to Display Pancreas Panel: No Data to Display Thyroid Panel: No Data to Display Infectious Disease: No Data to Display Blood Cultures: No Data to Display Toxicology Panel: No Data to Display
[2022-12-06] MEDS: nitroGLYcerin 0.4 MG TAB (10:12)
--- NOTE | 2022-12-06 10:15 | DI.CT_ITS ---
Exam(s) CT HEAD WO EXAM: CT HEAD WO CLINICAL HISTORY: headache. TECHNIQUE: Imaging Protocol: Axial computed tomography images with coronal and sagittal reformatted images were created and reviewed COMPARISON: CT CT HEAD WO from 07/11/2022 FINDINGS: Ventricles and Extra axial spaces: Normal in size and morphology for the patient's age. Hemorrhage: None. Cerebral parenchyma: Normal. Midline shift: None. Brainstem/Cerebellum: Normal. Calvarium: Normal. Visualized Paranasal sinuses/Mastoids: Clear. Soft Tissues: Unremarkable. IMPRESSION: No acute intracranial process. RADIATION DOSE DELIVERED: 686.52mGy.cm Total DLP DATA REPOSITORY: All CT scans at this facility are submitted to the National Radiology Data Registry (NRDR) Dose Index Registry (DIR) with the [employer] (ACR). RADIATION OPTIMIZATION: All CT scans at this facility use at least one of these dose optimization te chniques: automated exposure control; mA and/or kV adjustment per patient size (includes targeted exa ms where dose is matched to clinical indication); or iterative reconstruction.
[2022-12-06 10:36] LABS: Abs Immature Grans 0.03 10^3/uL (0.0-0.06); Absolute Basophil Count 0.05 10^3/uL (0.0-0.2); Absolute Eosinophil Count 0.08 10^3/uL (0.0-0.7); Absolute Lymphocyte Count 2.26 10^3/uL (1.2-3.4); Absolute Monocyte Count 0.65 10^3/uL (0.1-0.8); Absolute Neutrophil Count 3.87 10^3/uL (1.2-6.7); Basophils % 0.7; Eosinophils % 1.2; HCT 41.5 % (36.0-46.0); HGB 14.1 g/dL (11.2-15.7); Immature Grans % 0.4; Lymphocytes % 32.6; MCH 33.3 pg (27.0-33.0); MCV 98 fL (80-95); MPV 10.2 fL (8.0-11.0); Monocytes % 9.4; Neutrophils % 55.7; Platelet Count 207 10^3/uL (130-400); RBC 4.24 10^6/uL (3.93-5.22); RDW 12.5 % (11.7-14.6); WBC 6.94 10^3/uL (4.4-10.8)
[2022-12-06 11:00] LABS: ALT 34 U/L (14-59); AST 28 U/L (15-37); Albumin 4.2 g/dL (3.4-5.0); Alkaline Phosphatase 82 U/L (46-116); Anion Gap 10.2 mmol/L (3-11); BUN 20 mg/dL (7-18); Bilirubin, Total 0.7 mg/dL (0.2-1.0); CO2 26.8 mmol/L (21.0-32.0); CREATININE 1.5 mg/dL (0.55-1.02); Calcium 9.2 mg/dL (8.5-10.1); Chloride 102 mmol/L (98-107); Estimated GFR 37.96 (mL/min/1.73m2); Glucose 179 mg/dL (74-106); Magnesium 2.6 mg/dL (1.8-2.4); NT-proBNP 79 pg/mL (<300); Potassium 4.3 mmol/L (3.5-5.1); Sodium 139 mmol/L (136-145); Total Protein 6.9 g/dL (6.4-8.2); Troponin I < 50 ng/L (<or=60)
--- NOTE | 2022-12-06 11:33 | DI.RAD_ITS ---
Exam(s) XR CHEST 1V IN DI DEPT EXAM: XR CHEST 1V IN DI DEPT CLINICAL HISTORY: Dyspnea TECHNIQUE: 2D digital imaging was performed. COMPARISON: CR XR CHEST 2V PA LATERAL from 08/22/[address] CHEST WO from 10/06/2022 FINDINGS: Left diaphragm mildly elevated, unchanged. Overlying monitoring leads. LUNGS: Clear. No pleural abnormality seen. HEART: Normal size. AORTA: Normal diameter. BONES: Unremarkable for age. Soft tissues: Unremarkable. IMPRESSION: No acute findings. DATA REPOSITORY: RADIATION DOSE DELIVERED:
[2022-12-06 11:39] LABS: D-Dimer 285 ng/mlFEU (<500)
--- NOTE | 2022-12-06 13:20 | NUR.NOTE ---
Nursing Note: Pt thoroughly updated with plan of care and time line. Pt understands next steps of care. Pt thanked this RN for care and update.
[2022-12-06 13:43] LABS: Troponin I < 50 ng/L (<or=60)
== END 2022-12-06 14:42 | disposition home or self-care (01) ==
PROVIDERS: Emergency Provider Emergency Medicine Emergency Medical Services; PCP Nurse Practitioner Family
DX: R07.89 Other chest pain (principal); R51.9 Headache, unspecified; R06.09 Other forms of dyspnea; R06.02 Shortness of breath; E86.0 Dehydration
CPT/HCPCS: 80053; 93005; 99285; 70450; 71045; 83735; 83880; 84484; 85025; 85379; 93010; 99284

== ENCOUNTER 2022-12-08 03:00 | Outpatient (CLI) | payer OTHER, SELFPAY ==
--- NOTE | 2022-12-08 13:45 | DI.MRI_ITS ---
Exam(s) MR BRAIN WO EXAM: MR BRAIN WO CLINICAL HISTORY: DYSEQUILIBRIUM, R42; WHITE MATTER DISEASE, R90.82 TECHNIQUE: Multiplanar multisequence MRI of the brain was performed. COMPARISON: CT CT HEAD WO from 12/06/2022 FINDINGS: VENTRICLES AND EXTRA AXIAL SPACES: Normal in size and morphology for the patient's age. MIDLINE SHIFT: None. CEREBRAL PARENCHYMA: No focus of restricted diffusion to suggest acute infarct. No space-occupying le isabel identified. No abnormal high signal lesions in the white matter. HEMORRHAGE: None. BRAINSTEM/CEREBELLUM: Normal. VISUALIZED PARANASAL SINUSES/MASTOIDS:Clear. Vasculature: Normal flow void. PITUITARY GLAND: Unremarkable. ORBITS: Unremarkable. IMPRESSION: Unremarkable MRI of the brain. DATA REPOSITORY:
== END 2022-12-08 03:20 ==
LOC: DI 03:00
PROVIDERS: PCP Nurse Practitioner Family; Visit Provider Nurse Practitioner Family
DX: R42 Dizziness and giddiness (principal); R90.82 White matter disease, unspecified
CPT/HCPCS: 70551

== ENCOUNTER 2022-12-27 16:06 | Outpatient (REF) | payer OTHER, SELFPAY ==
[2022-12-27 16:28] LABS: Anion Gap 9.8 mmol/L (3-11); BUN 17 mg/dL (7-18); CO2 24.2 mmol/L (21.0-32.0); CREATININE 1.4 mg/dL (0.55-1.02); Calcium 8.6 mg/dL (8.5-10.1); Chloride 108 mmol/L (98-107); Estimated GFR 41.24 (mL/min/1.73m2); Glucose 141 mg/dL (74-106); Potassium 4.4 mmol/L (3.5-5.1); Sodium 142 mmol/L (136-145)
[2022-12-27 16:37] LABS: Hemoglobin A1C 7.2 % (<5.7)
== END 2022-12-27 16:07 | disposition home or self-care (01) ==
LOC: NCHCN 16:06
PROVIDERS: PCP Nurse Practitioner Family; Visit Provider Nurse Practitioner Family
DX: E11.9 Type 2 diabetes mellitus without complications (principal); R42 Dizziness and giddiness
CPT/HCPCS: 80048; 83036

== ENCOUNTER 2023-01-31 12:30 | Outpatient (REF) | payer OTHER, SELFPAY ==
[2023-01-31 14:59] LABS: HCT 39.4 % (36.0-46.0); HGB 13.6 g/dL (11.2-15.7); MCH 33.3 pg (27.0-33.0); MCHC 34.5 % (32.0-36.0); MCV 97 fL (80-95); MPV 11.5 fL (8.0-11.0); Platelet Count 183 10^3/uL (130-400); RBC 4.08 10^6/uL (3.93-5.22); RDW 12.6 % (11.7-14.6); RDW-SD 44.8 fL
[2023-01-31 15:21] LABS: HDL Cholesterol 46 mg/dL (40-60); LDL CHOLESTEROL 44 mg/dL (<100)
[2023-01-31 15:59] LABS: Creatine Kinase 118 U/L (26-192)
[2023-02-04 12:16] LABS: Codeine Negative ng/mL (Cutoff: 25); Dihydrocodeine Negative ng/mL (Cutoff: 25); Hydrocodone 166 ng/mL (Cutoff: 25); Hydromorphone Negative ng/mL (Cutoff: 25); Morphine Negative ng/mL (Cutoff: 25); Naloxone Negative ng/mL (Cutoff: 25); Norhydrocodone 290 ng/mL (Cutoff: 25); Noroxycodone Negative ng/mL (Cutoff: 25); Noroxymorphone Negative ng/mL (Cutoff: 25); Opiates Interpretation Positive.
[2023-02-04 13:55] LABS: Methylphenidate 152 ng/mL (Cutoff: 10); Ritalinic Acid 12406 ng/mL (Cutoff: 50)
== END 2023-01-31 12:31 | disposition home or self-care (01) ==
LOC: NCHCN 12:30
PROVIDERS: PCP Nurse Practitioner Family; Visit Provider Nurse Practitioner Family
DX: R53.82 Chronic fatigue, unspecified (principal); E78.5 Hyperlipidemia, unspecified; R23.3 Spontaneous ecchymoses; K59.09 Other constipation; E11.9 Type 2 diabetes mellitus without complications; I10 Essential (primary) hypertension; R82.5 Elevated urine levels of drugs, medicaments and biological substances; Z79.899 Other long term (current) drug therapy
CPT/HCPCS: 80360; 80361; 80362; 80365; 82550; 83721; 85027; 83718

== ENCOUNTER → 2023-04-26 12:34 | Outpatient (BNVA) | payer OTHER, SELFPAY | PROVIDERS: PCP Nurse Practitioner Family; Referring Provider Nurse Practitioner Family; Visit Provider Physician Assistant Surgical | DX: J45.909 Unspecified asthma, uncomplicated (principal); Z79.899 Other long term (current) drug therapy; K44.9 Diaphragmatic hernia without obstruction or gangrene; J98.6 Disorders of diaphragm; K21.9 Gastro-esophageal reflux disease without esophagitis; E11.9 Type 2 diabetes mellitus without complications; I10 Essential (primary) hypertension | CPT/HCPCS: 99214 ==

== ENCOUNTER 2023-06-13 19:38 | Emergency (ER) | payer OTHER, SELFPAY ==
[2023-06-13] VITALS (7 sets, daily range): BP systolic 138–164; BP diastolic 53–81; PULSE 77–90; RESP 15–22; TEMP 37.1–37.2; O2SAT 94–97
--- NOTE | 2023-06-13 19:30 | RT.EKG_ITS ---
APPROVED REPORT Exam: Resting ECG Reason for Exam: SOB Patient Location: E HR:82 bpm ECG Measurements Heart Rate 82 AXIS MO 148 P 37 QRSd 108 QRS -50 QT 354 T 27 QTc 414 Conclusion Sinus rhythm...normal P axis, V-rate 60- 99 Left anterior fascicular block...axis(240,-40), init forces inf Probable left ventricular hypertrophy...(RaVL+SV3)xQRSd >300
--- OUTSIDE RECORDS SUMMARY | 2023-06-13 19:42 | XMS_ITS | Continuity of Care Document ---
Author Name Unknown Organization [facility] Address [address] [place] [address] Care Team Providers Care Arc Cutter Plasma Arc Name Role Phone Erika Seymour Primary Care Physician [phone] Encounter [facility] Date(s): 11/08/22 - 11/08/22 [facility] [address] [place] [address] Patient Care team information Care Team Personnel Name: Erika Seymour POCKET STITCHER Position: No Access Member Role: Primary Care Physician Address: Address: [facility] [address] [place], [place] [address]
--- OUTSIDE RECORDS SUMMARY | 2023-06-13 19:43 | XMS_ITS | Continuity of Care Document ---
Author Name Unknown Organization [facility] Address [address] [place] [address] Care Team Providers Care Internal Control Analyst Name Role Phone Erika Seymour Primary Care Physician Encounter [facility] Date(s): 01/21/23 - 01/21/[address] [address] Discharge Disposition: Home or Self Care Attending Physician: Conner Cyr MD Admitting Physician: Conner Cyr MD Referring Physician: Conner Cyr MD Assessment and Plan Future Appointments Patient Care team information Care Team Personnel Name: Erika Seymour DEMURRAGE CLERK Position: No Access Member Role: Primary Care Physician Address: Address: [address] [address]
--- OUTSIDE RECORDS SUMMARY | 2023-06-13 19:43 | XMS_ITS | Continuity of Care Document ---
Author Name Unknown Organization [facility] Address [address] [place] [address] Care Team Providers Care Leather Colorer Name Role Phone Erika Seymour Primary Care Physician [phone] Encounter [facility] Date(s): 11/16/22 - 11/16/22 [facility] [address] [place] [address] Discharge Disposition: Home Patient Care team information Care Team Personnel Name: Erika Seymour CHIEF ELECTRICIAN Position: No Access Member Role: Primary Care Physician Address: Address: [facility] [address] [place] [address]- [place]
--- NOTE | 2023-06-13 19:45 | DI.RAD_ITS ---
Exam(s) XR CHEST 2V PA LATERAL EXAM: XR CHEST 2V PA LATERAL CLINICAL HISTORY: shortness of breath TECHNIQUE: 2D digital imaging was performed. COMPARISON: CR XR CHEST 1V IN DI DEPT from 12/06/2022 FINDINGS: HEART: Normal size. Aorta: Not dilated. PULMONARY VASCULATURE: Normal. LUNGS: The left diaphragm is again noted to be mildly elevated. Left lower lobe infiltrate is now pr esent. The right lung appears clear.. PLEURAL SPACE: No pleural effusion or pneumothorax. BONE:Unremarkable for age. Soft tissues: Unremarkable. IMPRESSION: Left lower lobe pneumonia. DATA REPOSITORY: RADIATION DOSE DELIVERED:
--- NOTE | 2023-06-13 19:58 | W.ED.GENAD ---
HPI General Stated Complaint: RespSymp Mode of arrival: ambulatory. MATTHEW: 3 Date/Time Provider Initiated Documentation: 06/13/23 19:46. Limitations to Documentation: no limitations. Information obtained by: patient. HPI Narrative: This is a 67-year-old female patient with an extensive past medical history including pneumonia asthma kidney disease hypertension to name a few who presented to urgent care after being referred by her primary care provider for evaluation of upper respiratory illness. She states that she developed symptoms on June 11 and tested positive for RSV. She states that her p.o. intake has been poor but she is getting good fluid intake. She states she is coughing, not raising any sputum. She has been febrile. She did receive acetaminophen prior to arrival. no chest pain. Her vital signs at triage are stable with a pulse of 90 temp 37 1 oxygenating in the mid 90s on room air. Related Data Home Medications Medication Instructions Recorded Confirmed aripiprazole 10 mg tablet (Abilify) 20 mg PO DAILY 09/19/14 06/13/23 clonidine HCl 0.1 mg tablet 0.1 mg PO BID 09/19/14 06/13/23 fluticasone propionate 50 50 mcg NS BID 09/19/14 06/13/23 mcg/actuation nasal spray,suspension hydrocodone 5 mg-acetaminophen 300 1 ea PO DAILY PRN 09/19/14 06/13/23 mg tablet (Vicodin) lamotrigine 150 mg tablet 150 mg PO BID 09/19/14 06/13/23 losartan 50 mg tablet 75 mg PO DAILY 09/19/14 06/13/23 montelukast 10 mg tablet 10 mg PO HS 09/19/14 06/13/23 (Singulair) multivitamin (Daily Multi-Vitamin 1 ea PO DAILY 09/19/14 06/13/23 tablet) rosuvastatin 10 mg tablet (Crestor) 10 mg PO 3x/wk 09/19/14 06/13/23 topiramate 50 mg tablet (Topamax) 25 mg PO DAILY 09/19/14 06/13/23 travoprost 0.004 % eye drops 2.5 ml ophthalmic (eye) PM 09/19/14 06/13/23 (Travatan Z) omega-3 fatty acids-fish oil 684 1 ea PO PRN PRN 03/06/15 06/13/23 mg-1,200 mg capsule,delayed release (One-Per-Day Neches-3) albuterol sulfate 90 mcg/actuation 90 mcg inhalation QID 07/05/17 06/13/23 breath activated powder inhaler (ProAir RespiClick) aspirin 81 mg chewable tablet 81 mg PO DAILY 07/05/17 06/13/23 methylphenidate HCl 5 mg/5 mL oral 10 mg PO MID AFTERNOON 07/05/17 06/13/23 solution polyethylene glycol 3350 17 gram 17 g PO DAILY #255 grams 07/05/17 06/13/23 oral powder packet (Miralax) methylphenidate HCl 36 mg 36 mg PO DAILY 03/26/19 06/13/23 tablet,extended release 24 hr (Concerta) isosorbide mononitrate 30 mg 30 mg PO DAILY 03/08/22 06/13/23 tablet,extended release 24 hr lactulose 10 gram/15 mL oral 30 ml PO DAILY 03/08/22 06/13/23 solution mirtazapine 30 mg tablet 30 mg PO DAILY 03/08/22 06/13/23 spironolactone 25 mg tablet 25 tab PO DAILY 03/08/22 06/13/23 calcium carbonate 500 mg calcium 500 mg PO DAILY 08/01/22 06/13/23 (1,250 mg) chewable tablet (Calcium 500) azelastine 205.5 mcg (0.15 %) 1 spray intranasal BID PRN 08/12/22 06/13/23 nasal spray blood sugar diagnostic (OneTouch 08/12/22 04/26/23 Ultra Test strips) blood-glucose meter (FreeStyle 08/12/22 04/26/23 Lite Meter kit) estradiol 10 mcg vaginal tablet 10 mcg vaginal .2xweek 08/12/22 06/13/23 (Vagifem) flaxseed oil 1,000 mg capsule 1,000 mg PO DAILY 08/12/22 06/13/23 lancets (Lancets,Thin) 08/12/22 04/26/23 methocarbamol 750 mg tablet 750 mg PO QID PRN 08/12/22 06/13/23 nebulizers 08/12/22 04/26/23 nitroglycerin 0.4 mg sublingual 0.4 mg sublingual Q5M PRN 03/03/23 01/02/24 tablet omeprazole 20 mg capsule,delayed 20 mg PO DAILY 08/12/22 06/13/23 release sennosides 8.6 mg tablet (Senna 51.6 mg PO QHS 08/12/22 06/13/23 Lax) triamcinolone acetonide 0.1 % 1 applic topical BID 08/12/22 06/13/23 topical cream duloxetine 60 mg capsule,delayed 120 mg PO HS 08/17/22 06/13/23 release (Cymbalta) methylphenidate HCl 10 mg tablet 10 mg PO DAILY 08/17/22 06/13/23 topiramate 50 mg tablet (Topamax) 50 mg PO BID 08/17/22 06/13/23 travoprost (benzalkonium) 0.004 % 1 drp ophthalmic (eye) 08/17/22 04/26/23 eye drops celecoxib 50 mg capsule (Celebrex) 50 mg PO BID 10/21/22 06/13/23 fluticasone propionate 230 2 puff inhalation BID #12 grams 02/23/23 06/13/23 mcg-salmeterol 21 mcg/actuation HFA inhaler (Advair HFA) semaglutide 1 mg/dose (2 mg/1.5 1 mg subcut QWEEK 04/26/23 06/13/23 mL) subcutaneous pen injector ([employer]) doxycycline hyclate 100 mg capsule 100 mg PO BID #10 caps 06/13/23 ipratropium 0.5 mg-albuterol 3 mg 3 ml inhalation 4XD PRN #90 mL 06/13/23 (2.5 mg base)/3 mL nebulization soln Previous Rx's Medication Instructions Recorded fluticasone propionate 230 2 puff inhalation BID #12 grams 02/23/23 mcg-salmeterol 21 mcg/actuation HFA inhaler (Advair HFA) doxycycline hyclate 100 mg capsule 100 mg PO BID #10 caps 06/13/23 ipratropium 0.5 mg-albuterol 3 mg 3 ml inhalation 4XD PRN #90 mL 06/13/23 (2.5 mg base)/3 mL nebulization soln Allergies Allergy/AdvReac Type Severity Reaction Status Date / Time oxybutynin Allergy Severe Verified 06/13/23 20:01 ibuprofen Allergy Intermediate Verified 06/13/23 20:01 VALERY Inhibitors Allergy Mild Verified 06/13/23 20:01 hydrochlorothiazide Allergy Mild Verified 06/13/23 20:01 indomethacin [From Indocin] Allergy Mild Verified 06/13/23 20:01 buspirone [From BuSpar] Allergy Unverified 06/13/23 20:01 melatonin Allergy Itching Verified 06/13/23 20:01 Penicillins Allergy hives Verified 06/13/23 20:01 amitriptyline AdvReac become Verified 06/13/23 20:01 delusional codeine AdvReac causes Verified 06/13/23 20:01 excessive sleepiness Sulfa (Sulfonamide AdvReac become Verified 06/13/23 20:01 Antibiotics) delusional Review of Systems All systems reviewed & are unremarkable except as noted in HPI and below PFSH All Active Problems (Updated 06/13/23 @ 21:28 by Abril Darnell NP) Pneumonia (Acute) Paraesophageal hernia (Acute) Asthma (Chronic) RESTREPO (dyspnea on exertion) (Acute) Elevated diaphragm (Acute) Acquired elevated diaphragm (Acute) Chronic cough (Acute) Abnormal chest xray (Acute) Diabetes mellitus (Chronic) Tubular adenoma of colon (Acute) Hematuria (Acute) Chronic post-traumatic stress disorder (PTSD) (Acute) Mastodynia, female (Acute) Raynauds syndrome (Acute) Seasonal allergies (Acute) Chronic fatigue syndrome (Acute) IBS (irritable bowel syndrome) (Chronic) Gastroparesis (Acute) Hiatal hernia (Chronic) with reflux Anemia (Chronic) Elevated liver enzymes (Acute) White matter disease, unspecified (Acute) Hip pain, left (Acute) Constipation (Acute) Low-tension glaucoma, bilateral, indeterminate stage (Acute) Neuroma (Acute) Insomnia (Acute) Trochanteric bursitis (Acute) Leg cramps (Acute) Urinary incontinence (Acute) Chronic pain (Chronic) Scoliosis of lumbar spine (Acute) Disc disease, degenerative, lumbar or lumbosacral (Acute) Osteopenia (Acute) Adrenal nodule (Acute) Decreased renal function (Acute) Cough (Acute) Fibromyalgia (Acute) Hyperlipidemia (Acute) GERD (gastroesophageal reflux disease) (Chronic) Type 2 diabetes mellitus (Acute) Cardiac angina (Chronic) Abnormal PFT (Acute) Acute sinusitis (Acute) Nasal congestion (Acute) Dysphagia (Acute) Depression (Chronic) Hypercholesterolemia (Chronic) Reflux esophagitis (Chronic) Asthma (Chronic) HTN (hypertension) (Chronic) Anxiety (Chronic) Medical History History of closed head injury History of tobacco use Hx of endometriosis Hx of rheumatic fever Surgical History EGD - IV Sedation Lina Fundoplication 1996 ORIF right ankle S/P hysterectomy Status post THR (total hip replacement) Family History Father Cancer Mother Heart disease Social History Smoking/Tobacco Use Status: Never Smoking risk assessment performed?: Yes Alcohol Intake: never Drug use: Never Substance use type: does not use Education Level: other (associate's degree in business management) Do you feel safe at home: Yes Exam Narrative Exam Narrative: Acutely ill-appearing nontoxic appearing female of about stated age. Head is atraumatic eyes normal appearance noninjected nonicteric. Neck supple no JVD her respirations are even and unlabored her breath sounds are diminished in the bases there is no wheezing or coarse breath sounds noted. Cardiovascular regular rate and rhythm I do not appreciate a murmur abdomen benign extremities without edema moves all extremities skin with no rashes or lesions but is warm and moist to the touch. Neurologic she is awake alert oriented no focal deficits Course Vital Signs Vital signs: Vital Signs Temperature 37.1 C 06/13/23 19:41 Pulse 90 06/13/23 19:41 Respiratory Rate 06/13/23 19:41 Blood Pressure 164/81 H 06/13/23 19:41 Pulse Oximetry 95 06/13/23 19:41 Temperature 37.1 C 06/13/23 19:41 Temperature Source Skin 06/13/23 19:41 Pulse 90 06/13/23 19:41 Respiratory Rate 22 06/13/23 19:41 Respiratory Effort Short of Breath, Labored 06/13/23 19:46 Blood Pressure 164/81 H 06/13/23 19:41 Blood Pressure Position Sitting 06/13/23 19:41 Pulse Oximetry 95 06/13/23 19:41 Oxygen Delivery Method Room Air 06/13/23 19:41 Oxygen Flow Rate 0 06/13/23 19:41 Pain Level 8 06/13/23 19:41 Medical Decision Making 67-year-old with history of asthma and pneumonia presents for upper respiratory illness testing positive for RSV 3 days ago. Sent here for evaluation from urgent care. She is not hypoxic with stable vital signs. Do not feel the need to reswab her as we know she is positive for RSV. She is oxygenating well on room air I would like to get a chest x-ray and some basic labs to evaluate her kidney function as she does have a history of chronic kidney disease. Will add procalcitonin. Will give DuoNeb updraft and Mucinex 600 mg to help with symptoms of cough. Will also give 1 L of normal saline. Patient remains hemodynamically stable while being monitored in the emergency department. She remains with O2 sats above 95%. Chest x-ray and labs reviewed will treat outpatient with doxycycline. Should follow-up with primary care provider if needed or return sooner for new or worsening symptoms Medical Records Medical records reviewed: Yes I reviewed the patient's medical records. Imaging Data Radiologic Study: Imaging: X-Ray Radiologist's impression: Exam(s) PROCEDURE INFORMATION: Exam: XR Chest Exam date and time: 06/13/2023 8:18 PM Age: 67 years old Clinical indication: Shortness of breath; Patient HX: SOB TECHNIQUE: Imaging protocol: Radiologic exam of the chest. Views: 2 views. COMPARISON: CR XR CHEST 1V IN DI DEPT 12/06/2022 11:28 AM. 08/22/2022. FINDINGS: Lungs: There are new left lower lung opacities that could represent atelectasis, infection, aspiration, or a combination. Pleural spaces: No pneumothorax. Heart/Mediastinum: The mediastinum is measuring widened, unchanged. Asymmetric left hilar prominence is also unchanged. Cardiac prominence is unchanged. Diaphragm: There is persistent elevation of the left hemidiaphragm. Bones/joints: Skeletal degenerative changes. Intraperitoneal space: Again noted is a double lucency in the left upper quadrant of the abdomen. This may be secondary to a tortuous, gas-distended stomach or superimposed gas-containing loop of bowel. There appear to be associated fluid levels. IMPRESSION: 1.There are new left lower lung opacities that could represent atelectasis, infection, aspiration, or a combination. 2. Again noted is a double lucency in the left upper quadrant of the abdomen. This may be secondary to a tortuous, gas distended stomach or superimposed gas containing loop of bowel. There appear to be associated fluid levels. If there is concern for an obstructive process, CT scan could be obtained. 3. Persistent elevation of the left hemidiaphragm. 4. Mediastinal widening and asymmetric left hilar prominence, unchanged. Other findings/details as above. Dictated and Authenticated by: Ashley Oscar MD. Lab Data Lab results reviewed: Yes I reviewed the patient's lab results. Lab results narrative: Laboratory Results - last 24 hr 06/13/23 19:53 WBC 10.89 H RBC 4.49 Hgb 14.1 Hct 42.4 MCV 94 MCH 31.4 MCHC 33.3 RDW 12.3 Plt Count 296 MPV 9.6 Immature Gran % 0.7 Neutrophils % 72.5 Lymphocytes % 15.7 Monocytes % 10.3 Eosinophils % 0.2 Basophils % 0.6 Nucleated RBC % 0.0 Absolute Neutrophils 7.90 H Absolute Lymphocytes 1.71 Absolute Monocytes 1.12 H Absolute Eosinophils 0.02 Absolute Basophils 0.07 Sodium 132 L Potassium 4.3 Chloride 93 L Carbon Dioxide 29.6 Anion Gap 9.4 BUN 12 Creatinine 1.4 H Est GFR (CKD-EPI 2020) 41.24 Glucose 203 H Calcium 9.7 Procalcitonin 0.7 Quality:SDOH Health Related Social Needs: No Data to Display Discharge Plan Disposition Patient Disposition: Home Condition: Stable Discharge Details Clinical Impression: Pneumonia Primary Care Provider: Erika Seymour ED Provider: Abril Darnell Home Meds and New Rx's Prescriptions: New doxycycline hyclate 100 mg capsule 100 mg PO BID Qty: 10 0RF Continued methylphenidate HCl 10 mg tablet 10 mg PO DAILY topiramate [Topamax] 50 mg tablet 50 mg PO BID travoprost (benzalkonium) 0.004 % drops 1 drp ophthalmic (eye) calcium carbonate [Calcium 500] 500 mg calcium (1,250 mg) tablet,chewable 500 mg PO DAILY celecoxib [Celebrex] 50 mg capsule 50 mg PO BID Ozempic 1 mg/dose (2 mg/1.5 mL) pen injector 1 mg subcut QWEEK losartan 50 MG tablet 75 mg PO DAILY Patient Comments: 06-23-17 PCP RECORD 25 MG QD. lamotrigine 150 MG tablet 150 mg PO BID Patient Comments: 06-23-17 PCP RECORD 100 MG BID. clonidine HCl 0.1 MG tablet 0.1 mg PO BID montelukast [Singulair] 10 MG tablet 10 mg PO HS fluticasone propionate 16 GM spray,suspension 50 mcg NS BID aripiprazole [Abilify] 10 MG tablet 20 mg PO DAILY Patient Comments: 06-23-17 PCP RECORD 20 MG QD. rosuvastatin [Crestor] 10 MG tablet 10 mg PO 3x/wk Patient Comments: 06-23-17 PCP RECORD 10 MG QD. topiramate [Topamax] 50 MG tablet 25 mg PO DAILY hydrocodone-acetaminophen [Vicodin] 1 EACH tablet 1 ea PO DAILY PRN Patient Comments: 10/08/14 per pt prn multivitamin [Daily Multi-Vitamin] 1 EACH tablet 1 ea PO DAILY travoprost [Travatan Z] 2.5 ML drops 2.5 ml Ophthalmic PM One-Per-Day Neches-3 1 EACH capsule,delayed release(DR/EC) 1 ea PO PRN PRN polyethylene glycol 3350 [Miralax] 17 GM powder in packet 17 g PO DAILY Qty: 255 aspirin 81 MG tablet,chewable 81 mg PO DAILY methylphenidate HCl 5 MG/5 ML solution 10 mg PO MID AFTERNOON ProAir RespiClick 90 MCG aerosol powdr breath activated 90 mcg Inhalation QID (DME) OneTouch Ultra Test Strip See Rx Instructions .Route Rx Instructions: As directed (DME) nebulizers [facility] See Rx Instructions .Route Rx Instructions: As directed triamcinolone acetonide 0.1 % cream 1 applic topical BID sennosides [Senna Lax] 8.6 mg tablet 51.6 mg PO QHS flaxseed oil 1,000 mg capsule 1,000 mg PO DAILY Rx Instructions: administer with a meal methocarbamol 750 mg tablet 750 mg PO QID PRN Hold Instructions: pt states estradiol [Vagifem] 10 mcg tablet 10 mcg vaginal .2xweek (DME) lancets [Lancets,Thin] Misc See Rx Instructions .Route Rx Instructions: As directed (DME) blood-glucose meter [FreeStyle Lite Meter] Kit See Rx Instructions .Route Rx Instructions: As directed azelastine 205.5 mcg (0.15 %) spray,non-aerosol 1 spray intranasal BID PRN Rx Instructions: administer into each nostril nitroglycerin 0.4 mg tablet, sublingual 0.4 mg sublingual Q5M PRN Rx Instructions: do not exceed 3 doses per episode omeprazole 20 mg capsule,delayed release(DR/EC) 20 mg PO DAILY duloxetine [Cymbalta] 60 mg capsule,delayed release(DR/EC) 120 mg PO HS Patient Comments: 06/23/17 PCP RECORD 60 MG BID. fluticasone propion-salmeterol [Advair HFA] 230-21 mcg/actuation HFA aerosol inhaler 2 puff inhalation BID Qty: 12 12RF isosorbide mononitrate 30 mg tablet extended release 24 hr 30 mg PO DAILY spironolactone 25 mg tablet 25 tab PO DAILY lactulose 10 gram/15 mL solution 30 ml PO DAILY mirtazapine 30 mg Tablet 30 mg PO DAILY ipratropium-albuterol 0.5 mg-3 mg(2.5 mg base)/3 mL solution for nebulization 3 ml inhalation 4XD PRNQty: 90 0RF methylphenidate HCl [Concerta] 36 mg Tablet Extended Release 24hr 36 mg PO DAILY Discharge Instructions Instructions: Pneumonia (ED) Additional Instructions: Take antibiotics as prescribed even if you feel better Push fluids to stay well-hydrated Continue to use nebulizer as directed if needed for shortness of breath Can add Mucinex 600 mg twice daily if needed for cough Referrals: Erika Seymour [Primary Care Provider] -
[2023-06-13 20:02] LABS: Abs Immature Grans 0.08 10^3/uL (0.0-0.06); Absolute Basophil Count 0.07 10^3/uL (0.0-0.2); Absolute Eosinophil Count 0.02 10^3/uL (0.0-0.7); Absolute Lymphocyte Count 1.71 10^3/uL (1.2-3.4); Absolute Monocyte Count 1.12 10^3/uL (0.1-0.8); Basophils % 0.6; Eosinophils % 0.2; HCT 42.4 % (36.0-46.0); HGB 14.1 g/dL (11.2-15.7); Immature Grans % 0.7; Lymphocytes % 15.7; MCH 31.4 pg (27.0-33.0); MCHC 33.3 % (32.0-36.0); MCV 94 fL (80-95); MPV 9.6 fL (8.0-11.0); Monocytes % 10.3; Neutrophils % 72.5; Platelet Count 296 10^3/uL (130-400); RBC 4.49 10^6/uL (3.93-5.22); RDW 12.3 % (11.7-14.6); WBC 10.89 10^3/uL (4.4-10.8)
[2023-06-13] MEDS: Albuterol/Ipratropium 3 ML UPD VIAL UPD (20:06)
[2023-06-13] MEDS: Normal Saline 1,000 ML 1000 ML IV (20:06)
[2023-06-13] MEDS: Normal Saline Flush 10 ML SYR IVP (20:07)
[2023-06-13 20:13] LABS: Anion Gap 9.4 mmol/L (3-11); BUN 12 mg/dL (7-18); CO2 29.6 mmol/L (21.0-32.0); CREATININE 1.4 mg/dL (0.55-1.02); Calcium 9.7 mg/dL (8.5-10.1); Chloride 93 mmol/L (98-107); Estimated GFR 41.24 (mL/min/1.73m2); Glucose 203 mg/dL (74-106); Potassium 4.3 mmol/L (3.5-5.1); Sodium 132 mmol/L (136-145)
[2023-06-13] MEDS: guaiFENesin 600 MG TABCR PO (20:16)
[2023-06-13 20:32] LABS: Procalcitonin 0.7 ng/mL
--- NOTE | 2023-06-13 21:24 | DI.VRAD_ITS ---
PROCEDURE INFORMATION: Exam: XR Chest Exam date and time: 06/13/2023 8:18 PM Age: 67 years old Clinical indication: Shortness of breath; Patient HX: SOB TECHNIQUE: Imaging protocol: Radiologic exam of the chest. Views: 2 views. COMPARISON: CR XR CHEST 1V IN DI DEPT 12/06/2022 11:28 AM. 08/22/2022. FINDINGS: Lungs: There are new left lower lung opacities that could represent atelectasis, infection, aspiration, or a combination. Pleural spaces: No pneumothorax. Heart/Mediastinum: The mediastinum is measuring widened, unchanged. Asymmetric left hilar prominence is also unchanged. Cardiac prominence is unchanged. Diaphragm: There is persistent elevation of the left hemidiaphragm. Bones/joints: Skeletal degenerative changes. Intraperitoneal space: Again noted is a double lucency in the left upper quadrant of the abdomen. This may be secondary to a tortuous, gas-distended stomach or superimposed gas-containing loop of bowel. There appear to be associated fluid levels. IMPRESSION: 1.There are new left lower lung opacities that could represent atelectasis, infection, aspiration, or a combination. 2. Again noted is a double lucency in the left upper quadrant of the abdomen. This may be secondary to a tortuous, gas distended stomach or superimposed gas containing loop of bowel. There appear to be associated fluid levels. If there is concern for an obstructive process, CT scan could be obtained. 3. Persistent elevation of the left hemidiaphragm. 4. Mediastinal widening and asymmetric left hilar prominence, unchanged. Other findings/details as above. Dictated and Authenticated by: Ashley Oscar MD. Ordering:NARCISA Samuels MD
[2023-06-13] MEDS: Albuterol/Ipratropium 3 ML UPD VIAL 9 ML UPD (21:32)
[2023-06-13] MEDS: Doxycycline Hyclate 100 MG, 2 CAPS/BTL PO (21:33)
== END 2023-06-13 21:44 | disposition home or self-care (01) ==
PROVIDERS: Emergency Provider Nurse Practitioner Acute Care; PCP Nurse Practitioner Family
DX: R06.02 Shortness of breath (principal); R05.1 Acute cough; B97.4 Respiratory syncytial virus as the cause of diseases classified elsewhere; J18.9 Pneumonia, unspecified organism; J45.909 Unspecified asthma, uncomplicated; I10 Essential (primary) hypertension
CPT/HCPCS: 80048; 84145; 93005; 94640; 96360; 99284; 71046; 85025; 93010; 99283; J7620

== ENCOUNTER 2023-09-05 17:57 | Emergency (ER) | payer OTHER, SELFPAY ==
[2023-09-05 18:00] VITALS: BP 135/65; PULSE 74; RESP 18; TEMP 36.3; O2SAT 97
--- NOTE | 2023-09-05 18:15 | DI.RAD_ITS ---
Exam(s) XR HIP LT COMPLETE AP PELVIS EXAM: XR HIP LT COMPLETE AP PELVIS INDICATION: left hip pain. COMPARISON: CR XR hip LT complete AP pelvis from 05/16/2018 TECHNIQUE: 2D digital imaging was performed. Three views. FINDINGS: There has been no change in the left hip prosthesis. No evidence of fracture. Mild degenerative carlo nges are noted in the right hip. The sacrum is partially obscured by overlying stool and bowel gas. IMPRESSION: No acute abnormality. DATA REPOSITORY: RADIATION DOSE DELIVERED:
--- NOTE | 2023-09-05 18:28 | ED.GENADUL_ITS ---
Discharge Plan Disposition Patient Disposition: Home Condition: Stable Discharge Details Clinical Impression: Strain of left hip, History of left hip replacement Primary Care Provider: Erika Seymour ED Provider: Jessi Orellana Home Meds and New Rx's Prescriptions: Continued methylphenidate HCl 10 mg tablet 10 mg PO DAILY calcium carbonate [Calcium 500] 500 mg calcium (1,250 mg) tablet,chewable 500 mg PO DAILY Ozempic 1 mg/dose (2 mg/1.5 mL) pen injector 1 mg subcut QWEEK losartan 50 MG tablet 75 mg PO DAILY Patient Comments: 06-23-17 PCP RECORD 25 MG QD. lamotrigine 150 MG tablet 150 mg PO BID Patient Comments: 06-23-17 PCP RECORD 100 MG BID. clonidine HCl 0.1 MG tablet 0.1 mg PO BID montelukast [Singulair] 10 MG tablet 10 mg PO HS fluticasone propionate 16 GM spray,suspension 50 mcg NS BID aripiprazole [Abilify] 10 MG tablet 20 mg PO DAILY Patient Comments: 06-23-17 PCP RECORD 20 MG QD. rosuvastatin [Crestor] 10 MG tablet 10 mg PO 3x/wk Patient Comments: 06-23-17 PCP RECORD 10 MG QD. topiramate [Topamax] 50 MG tablet 25 mg PO DAILY hydrocodone-acetaminophen [Vicodin] 1 EACH tablet 1 ea PO DAILY PRN Patient Comments: 10/08/14 per pt prn multivitamin [Daily Multi-Vitamin] 1 EACH tablet 1 ea PO DAILY travoprost [Travatan Z] 2.5 ML drops 2.5 ml Ophthalmic PM One-Per-Day Glady-3 1 EACH capsule,delayed release(DR/EC) 1 ea PO PRN PRN polyethylene glycol 3350 [Miralax] 17 GM powder in packet 17 g PO DAILY Qty: 255 aspirin 81 MG tablet,chewable 81 mg PO DAILY ProAir RespiClick 90 MCG aerosol powdr breath activated 90 mcg Inhalation QID (DME) OneTouch Ultra Test Strip See Rx Instructions .Route Rx Instructions: As directed (DME) nebulizers [facility] See Rx Instructions .Route Rx Instructions: As directed triamcinolone acetonide 0.1 % cream 1 applic topical BID flaxseed oil 1,000 mg capsule 1,000 mg PO DAILY Rx Instructions: administer with a meal estradiol [Vagifem] 10 mcg tablet 10 mcg vaginal .2xweek (DME) lancets [Lancets,Thin] Misc See Rx Instructions .Route Rx Instructions: As directed (DME) blood-glucose meter [FreeStyle Lite Meter] Kit See Rx Instructions .Route Rx Instructions: As directed azelastine 205.5 mcg (0.15 %) spray,non-aerosol 1 spray intranasal BID PRN Rx Instructions: administer into each nostril nitroglycerin 0.4 mg tablet, sublingual 0.4 mg sublingual Q5M PRN Rx Instructions: do not exceed 3 doses per episode omeprazole 20 mg capsule,delayed release(DR/EC) 20 mg PO DAILY duloxetine [Cymbalta] 60 mg capsule,delayed release(DR/EC) 120 mg PO HS Patient Comments: 06/23/17 PCP RECORD 60 MG BID. fluticasone propion-salmeterol [Advair HFA] 230-21 mcg/actuation HFA aerosol inhaler 2 puff inhalation BID Qty: 12 12RF isosorbide mononitrate 30 mg tablet extended release 24 hr 30 mg PO DAILY spironolactone 25 mg tablet 25 tab PO DAILY lactulose 10 gram/15 mL solution 30 ml PO DAILY mirtazapine 30 mg Tablet 30 mg PO DAILY doxycycline hyclate 100 mg capsule 100 mg PO BID Qty: 10 0RF ipratropium-albuterol 0.5 mg-3 mg(2.5 mg base)/3 mL solution for nebulization 3 ml inhalation 4XD PRNQty: 90 0RF methylphenidate HCl [Concerta] 36 mg Tablet Extended Release 24hr 36 mg PO DAILY Discharge Instructions Instructions: Muscle Strain (ED) Additional Instructions: He has a walker and toe-touch weightbearing to ambulate, rest your hip is much as possible Follow-up with your surgeon in 1 week should you have persistent pain Take Tylenol 650 every 4-6 hours as needed for pain Return earlier should you have new or worsening complaints Referrals: Erika Seymour [Primary Care Provider] - Discharge Data Discharge Date/Time-TO BE ENTERED AT DEPARTURE: 09/05/23 19:25 HPI General Date/Time Provider Initiated Documentation: 09/05/23 18:15 . HPI Narrative: This 60-year-old female presents with hip replacement in 2007 with subsequent left hip pain intermittently. Patient states she fell on her hip several days ago. She states she has had pain since that time. Would like an x-ray for evaluation. Denies any head injury or any additional injuries reportedly states she has been able to ambulate with discomfort. Denies any abdominal pain, chest pain, nausea, vomiting. Related Data Home Medications Medication Instructions Recorded Confirmed aripiprazole 10 mg tablet (Abilify) 20 mg PO DAILY 09/19/14 09/05/23 clonidine HCl 0.1 mg tablet 0.1 mg PO BID 09/19/14 09/05/23 fluticasone propionate 50 50 mcg NS BID 09/19/14 09/05/23 mcg/actuation nasal spray,suspension hydrocodone 5 mg-acetaminophen 300 1 ea PO DAILY PRN 09/19/14 09/05/23 mg tablet (Vicodin) lamotrigine 150 mg tablet 150 mg PO BID 09/19/14 09/05/23 losartan 50 mg tablet 75 mg PO DAILY 09/19/14 09/05/23 montelukast 10 mg tablet 10 mg PO HS 09/19/14 09/05/23 (Singulair) multivitamin (Daily Multi-Vitamin 1 ea PO DAILY 09/19/14 09/05/23 tablet) rosuvastatin 10 mg tablet (Crestor) 10 mg PO 3x/wk 09/19/14 09/05/23 topiramate 50 mg tablet (Topamax) 25 mg PO DAILY 09/19/14 09/05/23 travoprost 0.004 % eye drops 2.5 ml ophthalmic (eye) PM 09/19/14 09/05/23 (Travatan Z) omega-3 fatty acids-fish oil 684 1 ea PO PRN PRN 03/06/15 09/05/23 mg-1,200 mg capsule,delayed release (One-Per-Day Glady-3) albuterol sulfate 90 mcg/actuation 90 mcg inhalation QID 07/05/17 09/05/23 breath activated powder inhaler (ProAir RespiClick) aspirin 81 mg chewable tablet 81 mg PO DAILY 07/05/17 09/05/23 polyethylene glycol 3350 17 gram 17 g PO DAILY #255 grams 07/05/17 09/05/23 oral powder packet (Miralax) methylphenidate HCl 36 mg 36 mg PO DAILY 03/26/19 09/05/23 tablet,extended release 24 hr (Concerta) isosorbide mononitrate 30 mg 30 mg PO DAILY 03/08/22 09/05/23 tablet,extended release 24 hr lactulose 10 gram/15 mL oral 30 ml PO DAILY 03/08/22 09/05/23 solution mirtazapine 30 mg tablet 30 mg PO DAILY 03/08/22 09/05/23 spironolactone 25 mg tablet 25 tab PO DAILY 03/08/22 09/05/23 calcium carbonate 500 mg calcium 500 mg PO DAILY 08/01/22 09/05/23 (1,250 mg) chewable tablet (Calcium 500) azelastine 205.5 mcg (0.15 %) 1 spray intranasal BID PRN 08/12/22 09/05/23 nasal spray blood sugar diagnostic ([employer]eg[employer]Touch 08/12/22 09/05/23 Ultra Test strips) blood-glucose meter ([employer] 08/12/22 09/05/23 Lite Meter kit) estradiol 10 mcg vaginal tablet 10 mcg vaginal .2xweek 08/12/22 09/05/23 (Vagifem) flaxseed oil 1,000 mg capsule 1,000 mg PO DAILY 08/12/22 09/05/23 lancets (Lancets,Thin) 08/12/22 09/05/23 nebulizers 08/12/22 09/05/23 nitroglycerin 0.4 mg sublingual 0.4 mg sublingual Q5M PRN 08/12/22 09/05/23 tablet omeprazole 20 mg capsule,delayed 20 mg PO DAILY 08/12/22 09/05/23 release triamcinolone acetonide 0.1 % 1 applic topical BID 08/12/22 09/05/23 topical cream duloxetine 60 mg capsule,delayed 120 mg PO HS 08/17/22 09/05/23 release (Cymbalta) methylphenidate HCl 10 mg tablet 10 mg PO DAILY 08/17/22 09/05/23 fluticasone propionate 230 2 puff inhalation BID #12 grams 02/23/23 09/05/23 mcg-salmeterol 21 mcg/actuation HFA inhaler (Advair HFA) semaglutide 1 mg/dose (2 mg/1.5 1 mg subcut QWEEK 04/26/23 09/05/23 mL) subcutaneous pen injector (Ozempic) doxycycline hyclate 100 mg capsule 100 mg PO BID #10 caps 06/13/23 09/05/23 ipratropium 0.5 mg-albuterol 3 mg 3 ml inhalation 4XD PRN #90 mL 06/13/23 09/05/23 (2.5 mg base)/3 mL nebulization soln Previous Rx's Medication Instructions Recorded fluticasone propionate 230 2 puff inhalation BID #12 grams 02/23/23 mcg-salmeterol 21 mcg/actuation HFA inhaler (Advair HFA) doxycycline hyclate 100 mg capsule 100 mg PO BID #10 caps 06/13/23 ipratropium 0.5 mg-albuterol 3 mg 3 ml inhalation 4XD PRN #90 mL 06/13/23 (2.5 mg base)/3 mL nebulization soln Allergies Allergy/AdvReac Type Severity Reaction Status Date / Time oxybutynin Allergy Severe Other (See Verified 09/05/23 18:05 Comment) ibuprofen Allergy Intermediate renal Verified 09/05/23 18:05 issues VALERY Inhibitors Allergy Mild Skin Rash Verified 09/05/23 18:05 hydrochlorothiazide Allergy Mild Skin Rash Verified 09/05/23 18:05 indomethacin [From Indocin] Allergy Mild Skin Rash Verified 09/05/23 18:05 buspirone [From BuSpar] Allergy Hives Unverified 09/05/23 18:05 melatonin Allergy Itching Verified 09/05/23 18:05 Penicillins Allergy hives Verified 09/05/23 18:05 amitriptyline AdvReac become Verified 09/05/23 18:05 delusional codeine AdvReac causes Verified 09/05/23 18:05 excessive sleepiness Sulfa (Sulfonamide AdvReac become Verified 09/05/23 18:05 Antibiotics) delusional General Stated Complaint: Orthopedic MATTHEW: 3 Course Vital Signs Vital signs: Vital Signs Temperature 36.3 C L 09/05/23 18:00 Pulse 74 09/05/23 18:00 Respiratory Rate 18 09/05/23 18:00 Blood Pressure 135/65 09/05/23 18:00 Pulse Oximetry 97 09/05/23 18:00 Temperature 36.3 C L 09/05/23 18:00 Temperature Source Skin 09/05/23 18:00 Pulse 74 09/05/23 18:00 Respiratory Rate 18 09/05/23 18:00 Respiratory Effort Normal 09/05/23 18:03 Blood Pressure 135/65 09/05/23 18:00 Blood Pressure Position Sitting 09/05/23 18:00 Pulse Oximetry 97 09/05/23 18:00 Oxygen Delivery Method Room Air 09/05/23 18:00 Oxygen Flow Rate 0 09/05/23 18:00 Pain Level 6 09/05/23 18:00 Medical Decision Making Patient with quarter sized bruise and left lateral hip tenderness after a fall when the patient's hip gave out No tenderness to left knee or left ankle Denies any additional injuries Specifically denies any head injury or back pain No abdominal tenderness on exam, lungs clear to auscultation bilaterally, distal pulses intact, neurovascularly intact No obvious deformity X-ray per radiology interpretation my review does not show evidence of acute pathology Patient supplied with walker, ambulatory with steady gait Return precautions reviewed and patient expressed understanding Quality:SDOH Health Related Social Needs: No Data to Display PFSH All Active Problems (Updated 09/05/23 @ 19:18 by ROBERT Campbell) History of left hip replacement (Acute) Strain of left hip (Acute) Paraesophageal hernia (Acute) Asthma (Chronic) RESTREPO (dyspnea on exertion) (Acute) Elevated diaphragm (Acute) Acquired elevated diaphragm (Acute) Chronic cough (Acute) Abnormal chest xray (Acute) Diabetes mellitus (Chronic) Tubular adenoma of colon (Acute) Hematuria (Acute) Chronic post-traumatic stress disorder (PTSD) (Acute) Mastodynia, female (Acute) Raynauds syndrome (Acute) Seasonal allergies (Acute) Chronic fatigue syndrome (Acute) IBS (irritable bowel syndrome) (Chronic) Gastroparesis (Acute) Hiatal hernia (Chronic) with reflux Anemia (Chronic) Elevated liver enzymes (Acute) White matter disease, unspecified (Acute) Hip pain, left (Acute) Constipation (Acute) Low-tension glaucoma, bilateral, indeterminate stage (Acute) Neuroma (Acute) Insomnia (Acute) Trochanteric bursitis (Acute) Leg cramps (Acute) Urinary incontinence (Acute) Chronic pain (Chronic) Scoliosis of lumbar spine (Acute) Disc disease, degenerative, lumbar or lumbosacral (Acute) Osteopenia (Acute) Adrenal nodule (Acute) Decreased renal function (Acute) Cough (Acute) Fibromyalgia (Acute) Hyperlipidemia (Acute) GERD (gastroesophageal reflux disease) (Chronic) Type 2 diabetes mellitus (Acute) Cardiac angina (Chronic) Abnormal PFT (Acute) Acute sinusitis (Acute) Nasal congestion (Acute) Dysphagia (Acute) Depression (Chronic) Hypercholesterolemia (Chronic) Reflux esophagitis (Chronic) Asthma (Chronic) HTN (hypertension) (Chronic) Anxiety (Chronic) Medical History History of closed head injury History of tobacco use Hx of endometriosis Hx of rheumatic fever Surgical History EGD - IV Sedation Lina Fundoplication 1996 ORIF right ankle S/P hysterectomy Status post THR (total hip replacement) Family History Father Cancer Mother Heart disease Social History Smoking/Tobacco Use Status: Never Smoking risk assessment performed?: Yes Alcohol Intake: never Drug use: Never Substance use type: does not use Education Level: other (associate's degree in business management) Do you feel safe at home: Yes
--- NOTE | 2023-09-12 07:33 | NUR.NOTE ---
Accessed Pt chart to obtain the diagnosis for the [facility] paperwork
== END 2023-09-05 19:25 | disposition home or self-care (01) ==
PROVIDERS: Emergency Provider Physician Assistant; PCP Nurse Practitioner Family
DX: S76.012A Strain of muscle, fascia and tendon of left hip, initial encounter (principal); Z96.642 Presence of left artificial hip joint; Z79.82 Long term (current) use of aspirin; W19.XXXA Unspecified fall, initial encounter
CPT/HCPCS: 99283; 73502

== ENCOUNTER 2023-09-12 15:55 | Outpatient (REF) | payer OTHER, SELFPAY ==
[2023-09-16 06:12] LABS: Methylphenidate 244 ng/mL (Cutoff: 10); Ritalinic Acid 9606 ng/mL (Cutoff: 50)
[2023-09-16 11:43] LABS: Hydrocodone Interpretation Positive.; Hydrocodone by LC-MS/MS 78 ng/mL (Cutoff: 25); Hydromorphone by LC-MS/MS Negative ng/mL (Cutoff: 25); Norhydrocodone by LC-MS/MS 311 ng/mL (Cutoff: 25)
== END 2023-09-12 15:56 | disposition home or self-care (01) ==
LOC: NCHCN 15:55
PROVIDERS: PCP Nurse Practitioner Family; Visit Provider Nurse Practitioner Family
DX: R53.82 Chronic fatigue, unspecified (principal); Z79.899 Other long term (current) drug therapy
CPT/HCPCS: 80360; 80361

== ENCOUNTER → 2023-10-10 03:51 | Outpatient (CLI) | payer OTHER, SELFPAY ==
--- NOTE | 2023-10-10 | DI.MRI_ITS ---
Exam(s) MR LUMBAR SPINE WO EXAM: MR LUMBAR SPINE WO CLINICAL HISTORY: PAIN LEFT HIP M25.552. TECHNIQUE: Multiplanar multisequence MRI of the Lumbar spine was performed. COMPARISON: CT ABD PELVIS WITH CONTRAST from 07/05/2010 CT CHEST WITH CONTRAST from 06/17/[address] ABDOMEN PELVIS W from 03/08/2022 CR XR HIP LT COMPLETE AP PELVIS from 09/05/2023 FINDINGS: Bones: The last intervertebral disc space is designated the L5/S1 level for the numbering purpose of this ex amination. The vertebral body heights are well maintained. Alignment: Unremarkable. The marrow signal characteristics are unremarkable. There is a lesion in L2 which likely represents a hemangioma which was noted on prior CT. There are additional foci of high signal on STIR images i n L1 and S1. A sclerotic focus is noted on the prior CT in L1. No abnormality is visible in S1 prio r CT. Correlation with patient's clinical history is recommended. The findings could represent meta static disease. Cord: The conus tip ends at the T12 level. It is of normal size and signal intensity. T12-L1: No focal disc herniation is present. No central spinal canal stenosis.No neural foraminal st enosis. L1-2:Mild disc bulging. Small endplate osteophytes. No focal disc herniation is present. Mild fern tral spinal canal stenosis.No neural foraminal stenosis. L2-3: Mild disc bulging. facet degenerative changes. No focal disc herniation is present. No cent ral spinal canal stenosis.No neural foraminal stenosis. L3-4: Minimal disc bulging. No focal disc herniation is present. Facet degenerative changes great er on the right. No central spinal canal stenosis.No neural foraminal stenosis. L4-5:Disc bulging and endplate osteophytes eccentric toward the right. Facet degenerative changes. No focal disc herniation is present. Mild central canal stenosis. Mild right neural foraminal narro wing.. L5-S1: Loss of disc height eccentric toward the left. Mild disc bulging. Mild facet degenerative ch anges. No focal disc herniation is present. No central spinal canal stenosis.No neural foraminal s tenosis. The visualized SI joints and sacrum are unremarkable. Soft tissues: The paraspinal soft tissues are unremarkable. IMPRESSION: Multilevel degenerative disc changes greatest at L4-5 and L5-S1. Mild central canal stenosis and mil d right neural foraminal narrowing at L4-5. Multiple bone lesions noted. Some of which were present on prior CT and had a sclerotic appearance. Lesion L2 may represent a hemangioma based on prior CT appearance. Given lack of progression over t mauro, these lesions are likely benign over correlation with patient history recommended. Bone scan co uld be performed for further evaluation. Unexpected findings DATA REPOSITORY:
== END ==
PROVIDERS: PCP Nurse Practitioner Family; Visit Provider Nurse Practitioner Family
DX: M51.37 Other intervertebral disc degeneration, lumbosacral region (principal)
CPT/HCPCS: 72148

== ENCOUNTER 2023-10-17 15:51 | Outpatient (REF) | payer OTHER, SELFPAY ==
[2023-10-17 19:03] LABS: ALT 33 U/L (14-59); AST 22 U/L (15-37); Alkaline Phosphatase 67 U/L (46-116); Anion Gap 9.4 mmol/L (3-11); BUN 14 mg/dL (7-18); Bilirubin, Total 0.6 mg/dL (0.2-1.0); CO2 26.6 mmol/L (21.0-32.0); CREATININE 1.3 mg/dL (0.55-1.02); Chloride 108 mmol/L (98-107); Estimated GFR 44.79 (mL/min/1.73m2); Glucose 116 mg/dL (74-106); Potassium 3.8 mmol/L (3.5-5.1); Sodium 144 mmol/L (136-145); Total Protein 6.4 g/dL (6.4-8.2)
[2023-10-19 14:47] LABS: Chlamydia Result Negative (Negative); GC Result Negative (Negative)
== END 2023-10-17 15:52 | disposition home or self-care (01) ==
LOC: NCHCN 15:51
PROVIDERS: PCP Nurse Practitioner Family; Visit Provider Nurse Practitioner Family
DX: N39.0 Urinary tract infection, site not specified (principal); B96.89 Other specified bacterial agents as the cause of diseases classified elsewhere
CPT/HCPCS: 80053; 87491; 87591; 87086; 87480; 87510; 87660

== ENCOUNTER 2023-12-11 18:47 | Emergency (ER) | payer OTHER, SELFPAY ==
--- NOTE | 2023-12-11 18:45 | RT.EKG_ITS ---
APPROVED REPORT Exam: Resting ECG Reason for Exam: chest discomfort Patient Location: E HR:63 bpm ECG Measurements Heart Rate 63 AXIS AK 155 P 22 QRSd 106 QRS -47 QT 407 T 9 QTc 415 Conclusion Sinus rhythm...normal P axis, V-rate 60- 99 Left anterior fascicular block...axis(240,-40), init forces inf Probable anterior infarct, age indeterminate...Q >35mS, T neg, V2-V5 sinus rhtyhm, left axis, st segment depressions V1, V2, t wave inversions V3, V4, V5
--- OUTSIDE RECORDS SUMMARY | 2023-12-11 18:57 | XMS_ITS | Continuity of Care Document ---
Author Name Unknown Organization [facility] Ambulatory Clinics Address [address] [place] [address] Care Team Providers Care Bus Van Driver Name Role Phone LINDA CONDE Primary Care Physician Encounter [facility] NBR [id number] Date(s): 09/28/23 - 09/28/23 [facility] Ambulatory Clinics [address] [place], [place] [address] Encounter Diagnosis Hip bursitis, left(Discharge Diagnosis) - 09/28/23 Discharge Disposition: Home or Self Care Attending Physician: Angi Garcia APRN Referring Physician: LINDA CONDE Allergies, Adverse Reactions, Alerts Substance Reaction Severity Status codeine Unknown Active ibuprofen Unknown Active penicillin Unknown Active amitriptyline Unknown Active oxyBUTYnin Unknown Active melatonin Itching Moderate Active sulfa drugs Unknown Active Coffee Unknown Active Assessment and Plan Extracted from: Title:Ortho: Left hip pain Author:Angi west APRN Date:09/28/23 1.??Hip bursitis, left??M70. 72 Sujatha and I spent 30 minutes together today with 20 this minutes spent reviewing her x-ray findings from last visit, she is not really exhibiting any signs of femoral acetabular joint pain, it seems to be more trochanteric bursitis to me, her primary care physician is in the process of getting a lumbar spine MRI??which is not a terrible idea as she does state that the leg feels weak and heavy.?? If she is favoring this leg due to spinal stenosis could absolutely cause trochanteric bursitis.?? After discussion with Sujatha we decided to inject it today she is can give me a call in a week if that has helped a bit we will then add physical therapy.?? All of her questions were answered at length, support is given. Medications Abilify 15 mg oral tablet 15 mg = 1 tab, Oral, Daily, # 30 tab, 0 Refill(s) Start Date: 06/28/23 Status: Ordered Advair Diskus 250 mcg-50 mcg inhalation powder 2 puffs, Inhale, BID, # 180 EA, 0 Refill(s) Start Date: 06/28/23 Status: Ordered Azo-Standard 0 Refill(s) Start Date: 06/28/23 Status: Ordered Concerta 0 Refill(s) Start Date: 06/28/23 Status: Ordered Crestor 0 Refill(s) Start Date: 06/28/23 Status: Ordered fluticasone 50 mcg/inh nasal spray 0 Refill(s) Start Date: 01/10/23 Status: Ordered HYDROcodone-acetaminophen 5 mg-325 mg oral tablet 0 Refill(s) Start Date: 01/10/23 Status: Ordered isosorbide mononitrate 30 mg oral tablet, extended release 0 Refill(s) Start Date: 01/10/23 Status: Ordered lactulose 10 g/15 mL oral syrup 0 Refill(s) Start Date: 01/10/23 Status: Ordered methylphenidate 10 mg oral tablet 10 mg = 1 tab, Oral, BID, 0 Refill(s) Start Date: 06/28/23 Status: Ordered mirtazapine 30 mg =, Oral, every night at bedtime, 0 Refill(s) Start Date: 06/28/23 Status: Ordered montelukast 10 mg oral tablet 0 Refill(s) Start Date: 01/10/23 Status: Ordered Ozempic 2 mg/3 mL (0.25 mg or 0.5 mg dose) subcutaneous solution 0 Refill(s) Start Date: 01/10/23 Status: Ordered spironolactone 25 mg oral tablet 25 mg = 1 tab, Oral, Daily, # 30 tab, 0 Refill(s) Start Date: 06/28/23 Status: Ordered Symbicort 160 mcg-4.5 mcg/inh inhalation aerosol 0 Refill(s) Start Date: 01/10/23 Status: Ordered Travatan Z 0.004% ophthalmic solution 1 drops, Eye-Both, every evening, # 2.5 mL, 0 Refill(s) Start Date: 06/28/23 Status: Ordered Procedures Procedure Date Related Diagnosis Body Site Status Carpal tunnel release Com pleted Hiatal herniorrhaphy Comp leted Hysterectomy Completed Surgery Completed Total replacement of left hip joint Completed Wrist repair Completed Vital Signs Most recent to oldest [Reference Range]: 1 Peripheral Pulse Rate [60-100 bpm] 83 bp m (09/28/23 7:55 AM) Blood Pressure [90-140/60-90 mmHg] 128/7 0mmHg (09/28/23 7:55 AM) Mean Arterial Pressure, Cuff [65-140 mmH g] 89 mmHg (09/28/23 7:55 AM) Weight 88 kg (09/28/23 7:55 AM) Weight Measured (lbs) 194.007 lb (09/28/23 7:55 AM) Weight Dosing 88.000 kg (09/28/23 7:55 AM) Height 164.46 cm (09/28/23 7:55 AM) Height/Length Measured (inches) 64.75 in ch (09/28/23 7:55 AM) BSA Measured 2.01 m2 (09/28/23 7:55 AM) Body Mass Index 32.54 kg/m2 (09/28/23 7:55 AM) Social History Social History Type Response Tobacco Never tobacco user T obacco Use:. Sex Physician Outpatient Note * Angi Garcia APRN: PERFORM Event Display: Office Clinic Note Physician Authored Date: [id number] SUJATHA DONOVAN :1955 Age:68 years Sex:Female Visit Date:09/28/2023 Primary Care Physician: LINDA CONDE Chief Complaint left hip pain History of Present Illness Sujatha fell getting in to her car, 09/04/23 had a sharp pain laterally and then fell, the leg gave way.?? She saw her PCP- xrays were negative. Constant pain laterally- radicular pain to the ankle initially- now mostly lateral thigh, unable to sleep on side at night and stairs are difficult.?? The leg does feel heavy and weak, burning pain, unsure if worse with cough or sneeze.?? Chronic low back at a low level. ?? From last visit 06/2023: Sujatha is a 68-year-old female, known to this clinic, who comes in today for follow-up evaluation of her left total hip arthroplasty, [id number] component and??right hip pain as well. ??She did have x-rays prior to this visit.?? She was seen recently by Vicenta Ndiaye for her right wrist.?? We have not actually seen Sujatha in quite some time as far as her left hip is concerned. ??Unfortunately[facility] we [facility] not have [facility] to [facility] clinical works I am on certain??exactly when her left hip was replaced.?? She did have xrays of the left hip in 2019 here at [facility] ?? November 2007 at [facility] with Dr Garcia.?? She had great results with that,??the only thingshe has had with it since is trochanteric bursitis, please see below 2019 with injection??and greatrelief.?? She is back today for bilateral hip pain. ??Again she denies groin pain buttock pain or any trouble with range of motion. ?? Lateral pain, bilateral, more difficult at night time, not so much during the day.?? No radiating pain, no groin or buttock pain.? 2019 trochanteric bursa injection with me which worked well.?? Now it is interrupting her sleep.?? No injury. [1] Review of Systems Constitutional:?No??fevers,?No??chills,?No??sweats Eye:?No??recent visual problems ENT:?No??ear pain,?No??nasal congestion,?No??sore throat Respiratory:?No??shortness of breath,?No??cough Cardiovascular:?No??Chest pain,?No??palpitations,?No??syncope Gastrointestinal:?Nonausea,?No??vomiting,?No??diarrhea Genitourinary:?No??hematuria Donavon/Lymph:?No??bruising tendency,?No??swollen lymph glands Endocrine:?No??excessive thirst,??No??excessive hunger Musculoskeletal:??No??back pain,??No??neck pain,??No??joint pain,??No??muscle pain,??No??decreased range of motion Integumentary:?No??rash,?No??pruritus,?No??abrasions Neurologic: Alert & oriented X 4 Psychiatric:?No??anxiety,?No??depression Physical Exam Vitals & Measurements HR:??83??(Peripheral)?? BP:??128/70?? SpO2:??93%?? HT:??164.46??cm?? WT:??88??kg?? BMI:??32.54?? Pain Score:??6?? BSA:??2.01?? General: ??appears stated age, well dressed HEENT: no loss of hearing, normocephalic, EOMs intact Neuro: ??grossly intact, if indicated see specific neurology exam Psych: ??alert and oriented to place and time, pleasant, cooperative Dermatology: ??no gross open areas of skin-see exam of limb for specifics Lymphatics: ??no lymphedema of affected limb Gait: Slightly antalgic with start up Vascular: ??pulses distally of limb are 2+?? Musculoskeletal:??Left hip: She??is unable to straight leg raise due to lateral discomfort, she is able to flex to 90??external rotation 10 degrees internal rotation 10 degrees with no groin or buttock pain slight lateral discomfort there is significant tenderness to palpation of the trochanteric bursa??none at the sciatic notch or SI joint.?? There is also tenderness along the IT band. Lumbar spine: She has??full motion of her lumbar spine, strength testing??L2-3-4/5??left compared to right L3-4-5 S1??5/5 left compared to right.?? DTRs at patella and Achilles 2/4 Procedure Risks and benefits of injection are discussed with the patient to include but not limited to steroid flare, injection,fat atrophy, incomplete resolution of symptoms. ??The patient gives verbal consent. ??The left??trochanteric bursa is palpated and at the point of maximal tenderness the skin is prepped with alcohol x 3, I then inject 10ml of 1% lidocaine plain and 40mg of Kenalog into the bursa. ??The patient tolerates the procedure well and a sterile dressing is applied. I did ask the patient to avoid a bath or shower for 24 hours after injection for risk of introducing infection. ??We also discussed the knee may feel a bit more irritated for a few days status post injection. ??They will call with any questions or concerns. Assessment/Plan 1.??Hip bursitis, left??M70.72 Sujatha and I spent 30 minutes together today with 20 this minutes spent reviewing her x-ray findings from last visit, she is not really exhibiting any signs of femoral acetabular joint pain, it seemsto be more trochanteric bursitis to me, her primary care physician is in the process of getting a lumbar spine MRI??which is not a terrible idea as she does state that the leg feels weak and heavy.??If she is favoring this leg due to spinal stenosis could absolutely cause trochanteric bursitis.?? After discussion with Sujatha we decided to inject it today she is can give me a call in a week if that has helped a bit we will then add physical therapy.?? All of her questions were answered at length, support is given. Problem List/Past Medical History Ongoing No qualifying data Historical No qualifying data Procedure/Surgical History ???Carpal tunnel release???Hiatal herniorrhaphy???Hysterectomy???Surgery???Total replacement of left hip joint???Wrist repair Medications Abilify 15 mg oral tablet, 15 mg= 1 tab, Oral, Daily Advair Diskus 250 mcg-50 mcg inhalation powder, 2 puffs, Inhale, BID Azo-Standard Concerta Crestor fluticasone 50 mcg/inh nasal spray HYDROcodone-acetaminophen 5 mg-325 mg oral tablet isosorbide mononitrate 30 mg oral tablet, extended release lactulose 10 g/15 mL oral syrup methylphenidate 10 mg oral tablet, 10 mg= 1 tab, Oral, BID mirtazapine, 30 mg, Oral, every night at bedtime montelukast 10 mg oral tablet Ozempic 2 mg/3 mL (0.25 mg or 0.5 mg dose) subcutaneous solution spironolactone 25 mg oral tablet, 25 mg= 1 tab, Oral, Daily Symbicort 160 mcg-4.5 mcg/inh inhalation aerosol Travatan Z 0.004% ophthalmic solution, 1 drops, Eye-Both, every evening Allergies melatonin??(Itching) Coffee amitriptyline codeine ibuprofen oxyBUTYnin penicillin sulfa drugs Social History Electronic Cigarette/Vaping Electronic Cigarette Use: Never. Employment/School Work/School description: para-specialist. Tobacco Never tobacco user Tobacco Use:. Health Maintenance ?Pending??(in the next year) ?Due?Adult Wellness Exam due?09/28/23?and every 1?years ?Alcohol Use Screening due?09/28/23?and every 1?years ?Annual Wellness Visit (Medicare) due?09/28/23?and every 1?years ?Bone Density Screening due?09/28/23?and every 2?years ?Breast Cancer Screening due?09/28/23?and every 2?years ?Colorectal Cancer Screening due?09/28/23?Variable frequency ?Depression Screening due?09/28/23?and every 1?years ?Diabetes - Albumin Creatinine Ratio due?09/28/23?and every 1?years ?Diabetes - Diabetic Peripheral Neuropathy due?09/28/23?and every 1?years ?Diabetes - Eye Exam due?09/28/23?Variable frequency ?Diabetes - Fasting Lipid Profile due?09/28/23?and every 1?years ?Diabetes - Footwear Education due?09/28/23?and every 1?years ?Diabetes - Foot Exam due?09/28/23?and every 1?years ?Diabetes - HgbA1c due?09/28/23?and every 6?months ?Diabetes - Medication Prescribed due?09/28/23?Variable frequency ?Diabetes - Psychosocial Assessment due?09/28/23?and every 1?years ?Diabetes - Serum Creatinine due?09/28/23?and every 1?years ?Diabetes - Urine Dipstick due?09/28/23?and every 1?years ?Fall Risk Screening due?09/28/23?and every 1?years ?Glaucoma Screening due?09/28/23?and every 1?years ?Hepatitis C Screening due?09/28/23?One-time only ?Initial Preventative Physical Examination (Medicare) due?09/28/23?One-time only ?Lipid Screening due?09/28/23?and every 5?years ?Satisfied??(in the past 1 year) ?Satisfied?Body Mass Index on?09/28/23.?Satisfied by Valentina Bosch ?? [1]??Ortho: Bilateral hip pain/bursa injections; Angi Garcia APRN 06/28/2023 08:31 EST Electronically Signed on 09/28/23 08:11 AM Angi Garcia APRN Patient Care team information Care Team Personnel Name: LINDA CONDE Position: No Access Member Role: Primary Care Physician Address: Address: [address] [place] [address]- Care Team Related Persons Name: NESS DONOVAN
--- OUTSIDE RECORDS SUMMARY | 2023-12-11 18:57 | XMS_ITS | Continuity of Care Document ---
Author Name Unknown Organization [facility] Ambulatory Clinics Address [address] [place] [address] Care Team Providers Care Superintendent Refuse Disposal Name Role Phone LINDA CONDE Primary Care Physician Encounter [facility] NBR [id number] Date(s): 06/28/23 - 06/28/23 [facility] Ambulatory Clinics [address], [place] [address] Encounter Diagnosis History of left hip replacement(Discharge Diagnosis) - 06/28/23 Osteoarthritis of right hip(Discharge Diagnosis) - 06/28/23 Trochanteric bursitis of both hips(Discharge Diagnosis) - 06/28/23 Trochanteric bursitis, left hip(Discharge Diagnosis) - 06/28/23 Discharge Disposition: Home or Self Care Attending Physician: Angi Garcia APRN Referring Physician: LINDA CONDE Allergies, Adverse Reactions, Alerts Substance Reaction Severity Status codeine Unknown Active ibuprofen Unknown Active penicillin Unknown Active amitriptyline Unknown Active melatonin Itching Moderate Active sulfa drugs Unknown Active Coffee Unknown Active oxyBUTYnin Unknown Active Medications Abilify 15 mg oral tablet 15 [...] Range]: 1 Peripheral Pulse Rate [60-100 bpm] 72 bp m (06/28/23 8:06 AM) Blood Pressure [90-140/60-90 mmHg] 112/6 8mmHg (06/28/23 8:06 AM) Mean Arterial Pressure, Cuff [70-110 mmH g] 83 mmHg (06/28/23 8:06 AM) Social History Social History Type Response Tobacco Never tobacco user T obacco Use:. Sex Physician Outpatient Note * Angi Garcia, CALCULUS [employer]OR: PERFORM Event Display: Office Clinic Note Physician Authored Date: [id number] SUJATHA DONOVAN :1955 Age:68 years Sex:Female Visit Date:06/28/2023 Primary Care Physician: LINDA CONDE Chief Complaint Bilateral hip pain History of Present Illness Sujatha is a 68-year-old female, known to this clinic, who comes in today for follow-up evaluation of her left total hip arthroplasty, prqwo-ph-chpma component and??right hip pain as well. ??She did have x-rays prior to this visit.?? She was seen recently by Vicenta Ndiaye for her right wrist.?? We have not actually seen Sujatha in quite some time as far as her left hip is concerned. ??Unfortunatelysince we do not have access to [facility]??E clinical works I am on certain??exactly when her left hip was replaced.?? She did have xrays of the left hip in 2019 here at [facility] ?? November 2007 at [facility] with Dr Garcia.?? She had great results [...] it is interrupting her sleep.?? No injury. Review of Systems Constitutional:?No??fevers,?No??chills,?No??sweats Eye:?No??recent visual problems ENT:?No??ear pain,?No??nasal congestion,?No??sore throat Respiratory:?No??shortness of breath,?No??cough Cardiovascular:?No??Chest pain,?No??palpitations,?No??syncope Gastrointestinal:?Nonausea,?No??vomiting,?No??diarrhea Genitourinary:?No??hematuria Donavon/Lymph:?No??bruising tendency,?No??swollen lymph glands Endocrine:?No??excessive thirst,??No??excessive hunger Musculoskeletal:??No??back pain,??No??neck pain,??Positive for??joint pain,??No??muscle pain,??Positive for??decreased range of motion Integumentary:?No??rash,?No??pruritus,?No??abrasions Neurologic: Alert & oriented X 4 Psychiatric:?No??anxiety,?No??depression Physical Exam Vitals & Measurements HR:??72??(Peripheral)?? BP:??112/68?? SpO2:??94%?? Pain Score:??2?? General: ??appears stated age, well dressed HEENT: no loss of hearing, normocephalic, EOMs intact Neuro: ??grossly intact, if indicated see specific neurology exam Psych: ??alert and oriented to place and time, pleasant, cooperative Dermatology: ??no gross open areas of skin-see exam of limb for specifics Lymphatics: ??no lymphedema of affected limb Gait: Slightly antalgic Vascular: ??pulses distally of limb are 2+?? Musculoskeletal:??Bilateral hips:??She is able to fully extend she is able to flex to 90 internal and external rotation 10 degrees each without any groin or buttock pain Good's test is negative there is significant tenderness to palpation over the trochanteric bursa's none at sciatic notch or SIjoint.?? Leg lengths are equal and symmetrical,??she is able to straight leg raise. Procedure Risks and benefits of injection are discussed with the patient to include but not limited to steroid flare, injection,fat atrophy, incomplete resolution of symptoms. ??The patient gives verbal consent.?Bilateral trochanteric bursa is palpated and at the point of maximal tenderness the skin is prepped with alcohol x 3, I then inject 10ml of 1% lidocaine plain and 40mg of Kenalog into the bursa??and this is repeated bilaterally. ??The patient tolerates the procedure well and a sterile dressingis applied. I did ask the patient to avoid a bath or shower for 24 hours after injection for risk of introducing infection. ??We also discussed the knee may feel a bit more irritated for a few days status post injection. ??They will call with any questions or concerns. Assessment/Plan 1.??History of left hip replacement??Z96.642 2.??Osteoarthritis of right hip??M16.11 3.??Trochanteric bursitis of both hips??M70.61 X-rays are reviewed on [facility] today which shows well-placed and aligned [employer]??left total hip arthroplasty??hyiha-in-efaza, there is no sign of periprosthetic loosening or acute change such as fracture.?? No of the right hip shows mild medial joint space narrowing no significant osteoarthritic change, no collapse of femoral head. ?? Sujatha and I spent 30 minutes together today with 20 this minutes spent reviewing her x-ray findings, the fact that she is having lateral pain??not femoral acetabular discomfort, at this point she??does have symptoms consistent with trochanteric bursitis.?? She had great relief in 2019 of the left trochanteric bursa so would like to try that again. ??If it does not work well we could consider physical therapy.?? Postinjection instructions are given hopefully this will provide her symptomaticbenefit she does tell me that she has some spinal stenosis??and likely gait is altered causing thisdiscomfort. ??We went over that is not a dangerous thing however. ??Support was given all of her questions were answered at length, at this point she can follow-up in a as needed basis. Trochanteric bursitis, left hip??M70.62 Orders: XR Hips 2 Views w/AP Pelvis Bilat, 06/28/23 7:43:00 EST, Routine, Reason: hip pain, Transport Mode:Ambulatory, Hip pain, ABN Status: Not Required Problem List/Past Medical History Ongoing No qualifying [...] ?Pending??(in the next year) ?Due?Adult Wellness Exam due?06/28/23?and every 1?years ?Alcohol Use Screening due?06/28/23?and every 1?years ?Annual Wellness Visit (Medicare) due?06/28/23?and every 1?years ?Bone Density Screening due?06/28/23?and every 2?years ?Breast Cancer Screening due?06/28/23?and every 2?years ?Colorectal Cancer Screening due?06/28/23?Variable frequency ?Depression Screening due?06/28/23?and every 1?years ?Diabetes - Albumin Creatinine Ratio due?06/28/23?and every 1?years ?Diabetes - Diabetic Peripheral Neuropathy due?06/28/23?and every 1?years ?Diabetes - Eye Exam due?06/28/23?Variable frequency ?Diabetes - Fasting Lipid Profile due?06/28/23?and every 1?years ?Diabetes - Footwear Education due?06/28/23?and every 1?years ?Diabetes - Foot Exam due?06/28/23?and every 1?years ?Diabetes - HgbA1c due?06/28/23?and every 6?months ?Diabetes - Medication Prescribed due?06/28/23?Variable frequency ?Diabetes - Psychosocial Assessment due?06/28/23?and every 1?years ?Diabetes - Serum Creatinine due?06/28/23?and every 1?years ?Diabetes - Urine Dipstick due?06/28/23?and every 1?years ?Fall Risk Screening due?06/28/23?and every 1?years ?Glaucoma Screening due?06/28/23?and every 1?years ?Hepatitis C Screening due?06/28/23?One-time only ?Initial Preventative Physical Examination (Medicare) due?06/28/23?One-time only ?Lipid Screening due?06/28/23?and every 5?years ?Due In Future?Body Mass Index not due until?01/11/24?and every 1?years ?Satisfied??(in the past 1 year) ?Satisfied?Body Mass Index on?01/10/23.?Satisfied by Valentina Bosch ?? Electronically Signed on 06/28/23 08:33 AM Angi Garcia APRN Reviewed by: Manny Garcia DO Patient Care team information Care Team Personnel Name: LINDA CONDE Position: No Access Member Role: Primary Care Physician Address: Address: [address] [place] [address]- Care Team Related Persons Name: NESS DONOVAN
--- OUTSIDE RECORDS SUMMARY | 2023-12-11 18:57 | XMS_ITS | Continuity of Care Document ---
Author Name Unknown Organization [facility] Address [address] [place] [address] Care Team Providers Care Show Girl Name Role Phone LINDA CONDE Primary Care Physician [phone] Encounter [facility] NBR [id number] Date(s): 06/28/23 - 06/28/[address] [address] Encounter Diagnosis Pain in right hip(Final) - Pain in left hip(Final) - Discharge Disposition: Home or Self Care Attending Physician: Angi Garcia APRN Admitting Physician: Angi Garcia APRN Referring Physician: Angi Garcia APRN Allergies, Adverse Reactions, Alerts Substance Reaction Severity [...] left hip joint Completed Wrist repair Completed Results Radiology Reports * Exam Date Time Procedure Performing Provider Status 06/28/23 7:55 AM XR Hips 2 Views w/AP Pelvis Bilat Saritha Joseph; Auth (Verified) Notes: (XR Hips 2 Views w/AP Pelvis Bilat) Reason For Exam: hip pain XR Hips 2 Views w/AP Pelvis Bilat PROCEDURE INFORMATION: Exam: XR Bilateral Hips Exam date and time: 06/28/2023 7:51 AM Age: 68 years old Clinical indication: Pain in unspecified hip; Additional info: Hip pain. Pain while sleeping on either side TECHNIQUE: Imaging protocol: Radiologic exam of the bilateral hips. Views: 2 views of hips with pelvis when performed. COMPARISON: CR XR HIP SINGLE W PELVIS 03/27/2019 1:22 PM FINDINGS: Bones/joints: There is a left hip arthroplasty. No acute fracture. Soft tissues: Unremarkable. IMPRESSION: No acute findings. THIS DOCUMENT HAS BEEN ELECTRONICALLY SIGNED BY SANGITA GLASGOW MD on 06/28/2023 08:33 AM Final Signed by: Sangita Glasgow MD Signed (Electronic Signature): 06/28/2023 8:33 am Social History Social History Type Response Tobacco Never tobacco user T obacco Use:. Sex Patient Care team information Care Team Personnel Name: LINDA CONDE Position: No Access Member Role: Primary Care Physician Address: Address: [facility] [place] [address]- Care Team Related Persons Name: NESS DONOVAN
--- OUTSIDE RECORDS SUMMARY | 2023-12-11 18:57 | XMS_ITS | Continuity of Care Document ---
Author Name Unknown Organization [facility] Address [address] [place] [address] Care Team Providers Care Grain Inspector Name Role Phone LINDA CONDE Primary Care Physician Encounter [facility] FIN NBR [id number] Date(s): 10/05/23 - 10/05/23 [facility] [address] [place] [address]- us Discharge Disposition: Home Allergies, Adverse Reactions, Alerts Substance Reaction Severity [...] left hip joint Completed Wrist repair Completed Social History Social History Type Response Tobacco Never tobacco user T obacco Use:. Sex Patient Care team information Care Team Personnel Name: LINDA CONDE Position: No Access Member Role: Primary Care Physician Address: Address: [address] Care Team Related Persons Name: NESS DONOVAN
[2023-12-11 18:59] VITALS: BP 161/66; PULSE 64; RESP 16; TEMP 36.6; O2SAT 99
[2023-12-11 19:03] VITALS: RESP 16
--- NOTE | 2023-12-11 19:20 | ED.GENADUL_ITS ---
Discharge Plan Discharge Details Chief Complaint: Chest Pain Primary Care Provider: Jessica Packer V ED Provider: Kamlesh Duncan Home Meds and New Rx's Prescriptions: No Action methylphenidate HCl 10 mg tablet 10 mg PO DAILY calcium carbonate [Calcium 500] 500 mg calcium (1,250 mg) tablet,chewable 500 mg PO DAILY Ozempic 1 mg/dose (2 mg/1.5 mL) pen injector 1 mg subcut QWEEK losartan 50 MG tablet 75 mg PO DAILY Patient Comments: 06-23-17 PCP RECORD 25 MG QD. lamotrigine 150 MG tablet 150 mg PO BID Patient Comments: 06-23-17 PCP RECORD 100 MG BID. clonidine HCl 0.1 MG tablet 0.1 mg PO BID montelukast [Singulair] 10 MG tablet 10 mg PO HS fluticasone propionate 16 GM spray,suspension 50 mcg NS BID aripiprazole [Abilify] 10 MG tablet 20 mg PO DAILY Patient Comments: 06-23-17 PCP RECORD 20 MG QD. rosuvastatin [Crestor] 10 MG tablet 10 mg PO 3x/wk Patient Comments: 06-23-17 PCP RECORD 10 MG QD. topiramate [Topamax] 50 MG tablet 25 mg PO DAILY hydrocodone-acetaminophen [Vicodin] 1 EACH tablet 1 ea PO DAILY PRN Patient Comments: 10/08/14 per pt prn multivitamin [Daily Multi-Vitamin] 1 EACH tablet 1 ea PO DAILY travoprost [Travatan Z] 2.5 ML drops 2.5 ml Ophthalmic PM One-Per-Day [place]-3 1 EACH capsule,delayed release(DR/EC) 1 ea PO PRN PRN polyethylene glycol 3350 [Miralax] 17 GM powder in packet 17 g PO DAILY Qty: 255 aspirin 81 MG tablet,chewable 81 mg PO DAILY ProAir RespiClick 90 MCG aerosol powdr breath activated 90 mcg Inhalation QID (DME) OneTouch Ultra Test Strip See Rx Instructions .Route Rx Instructions: As directed (DME) nebulizers Misc See Rx Instructions .Route Rx Instructions: As directed triamcinolone acetonide 0.1 % cream 1 applic topical BID flaxseed oil 1,000 mg capsule 1,000 mg PO DAILY Rx Instructions: administer with a meal estradiol [Vagifem] 10 mcg tablet 10 mcg vaginal .2xweek (DME) lancets [Lancets,Thin] Misc See Rx Instructions .Route Rx Instructions: As directed (DME) blood-glucose meter [FreeStyle Lite Meter] Kit See Rx Instructions .Route Rx Instructions: As directed azelastine 205.5 mcg (0.15 %) spray,non-aerosol 1 spray intranasal BID PRN Rx Instructions: administer into each nostril nitroglycerin 0.4 mg tablet, sublingual 0.4 mg sublingual Q5M PRN Rx Instructions: do not exceed 3 doses per episode omeprazole 20 mg capsule,delayed release(DR/EC) 20 mg PO DAILY duloxetine [Cymbalta] 60 mg capsule,delayed release(DR/EC) 120 mg PO HS Patient Comments: 06/23/17 PCP RECORD 60 MG BID. fluticasone propion-salmeterol [Advair HFA] 230-21 mcg/actuation HFA aerosol inhaler 2 puff inhalation BID Qty: 12 12RF isosorbide mononitrate 30 mg tablet extended release 24 hr 30 mg PO DAILY spironolactone 25 mg tablet 25 tab PO DAILY lactulose 10 gram/15 mL solution 30 ml PO DAILY mirtazapine 30 mg Tablet 30 mg PO DAILY ipratropium-albuterol 0.5 mg-3 mg(2.5 mg base)/3 mL solution for nebulization 3 ml inhalation 4XD PRNQty: 90 0RF methylphenidate HCl [Concerta] 36 mg Tablet Extended Release 24hr 36 mg PO DAILY HPI General Date/Time Provider Initiated Documentation: 12/11/23 19:20 . HPI Narrative: 68 year-old female presents to ED today by POV/ambulating with her daughter with a chief complaint of substernal chest pain, weakness/body aches- worked up at [facility] yesterday with negative CXR with onset 2 weeks ago. Quality described as mild cough, chest pain, no radiation to syncope, dizziness, nausea/vomiting, high fever, flank pain, bowel/urinary changes. Severity is described as moderate. Palliating factors include nothing specific- taking Tylenol without relief. Provoking factors include nothing specific. Events leading up to the incident/Associated Symptoms: Patient has known mitral valve issue- but is insure of the name. Patient not anticoagulated. Related Data Home Medications Medication Instructions Recorded Confirmed aripiprazole 10 mg tablet (Abilify) 20 mg PO DAILY 09/19/14 12/11/23 clonidine HCl 0.1 mg tablet 0.1 mg PO BID 09/19/14 12/11/23 fluticasone propionate 50 50 mcg NS BID 09/19/14 12/11/23 mcg/actuation nasal spray,suspension hydrocodone 5 mg-acetaminophen 300 1 ea PO DAILY PRN 09/19/14 12/11/23 mg tablet (Vicodin) lamotrigine 150 mg tablet 150 mg PO BID 09/19/14 12/11/23 losartan 50 mg tablet 75 mg PO DAILY 09/19/14 12/11/23 montelukast 10 mg tablet 10 mg PO HS 09/19/14 12/11/23 (Singulair) multivitamin (Daily Multi-Vitamin 1 ea PO DAILY 09/19/14 12/11/23 tablet) rosuvastatin 10 mg tablet (Crestor) 10 mg PO 3x/wk 09/19/14 12/11/23 topiramate 50 mg tablet (Topamax) 25 mg PO DAILY 09/19/14 12/11/23 travoprost 0.004 % eye drops 2.5 ml ophthalmic (eye) PM 09/19/14 12/11/23 (Travatan Z) omega-3 fatty acids-fish oil 684 1 ea PO PRN PRN 03/06/15 12/11/23 mg-1,200 mg capsule,delayed release (One-Per-Day [place]-3) albuterol sulfate 90 mcg/actuation 90 mcg inhalation QID 07/05/17 12/11/23 breath activated powder inhaler (ProAir RespiClick) aspirin 81 mg chewable tablet 81 mg PO DAILY 07/05/17 12/11/23 polyethylene glycol 3350 17 gram 17 g PO DAILY #255 grams 07/05/17 12/11/23 oral powder packet (Miralax) methylphenidate HCl 36 mg 36 mg PO DAILY 03/26/19 12/11/23 tablet,extended release 24 hr (Concerta) isosorbide mononitrate 30 mg 30 mg PO DAILY 03/08/22 12/11/23 tablet,extended release 24 hr lactulose 10 gram/15 mL oral 30 ml PO DAILY 03/08/22 12/11/23 solution mirtazapine 30 mg tablet 30 mg PO DAILY 03/08/22 12/11/23 spironolactone 25 mg tablet 25 tab PO DAILY 03/08/22 12/11/23 calcium carbonate (Calcium 500) 500 mg PO DAILY 08/01/22 12/11/23 azelastine 205.5 mcg (0.15 %) 1 spray intranasal BID PRN 08/12/22 12/11/23 nasal spray blood sugar diagnostic (OneTouch 08/12/22 09/05/23 Ultra Test strips) blood-glucose meter (FreeStyle 08/12/22 09/05/23 Lite Meter kit) estradiol 10 mcg vaginal tablet 10 mcg vaginal .2xweek 08/12/22 12/11/23 (Vagifem) flaxseed oil 1,000 mg capsule 1,000 mg PO DAILY 08/12/22 12/11/23 lancets (Lancets,Thin) 08/12/22 09/05/23 nebulizers 08/12/22 09/05/23 nitroglycerin 0.4 mg sublingual 0.4 mg sublingual Q5M PRN 08/12/22 12/11/23 tablet omeprazole 20 mg capsule,delayed 20 mg PO DAILY 08/12/22 12/11/23 release triamcinolone acetonide 0.1 % 1 applic topical BID 08/12/22 12/11/23 topical cream duloxetine 60 mg capsule,delayed 120 mg PO HS 08/17/22 12/11/23 release (Cymbalta) methylphenidate HCl 10 mg tablet 10 mg PO DAILY 08/17/22 12/11/23 fluticasone propionate 230 2 puff inhalation BID #12 grams 02/23/23 12/11/23 mcg-salmeterol 21 mcg/actuation HFA inhaler (Advair HFA) semaglutide 1 mg/dose (2 mg/1.5 1 mg subcut QWEEK 04/26/23 12/11/23 mL) subcutaneous pen injector (Ozempic) ipratropium 0.5 mg-albuterol 3 mg 3 ml inhalation 4XD PRN #90 mL 06/13/23 12/11/23 (2.5 mg base)/3 mL nebulization soln Previous Rx's Medication Instructions Recorded fluticasone propionate 230 2 puff inhalation BID #12 grams 02/23/23 mcg-salmeterol 21 mcg/actuation HFA inhaler (Advair HFA) ipratropium 0.5 mg-albuterol 3 mg 3 ml inhalation 4XD PRN #90 mL 06/13/23 (2.5 mg base)/3 mL nebulization soln Allergies Allergy/AdvReac Type Severity Reaction Status Date / Time oxybutynin Allergy Severe Other (See Verified 12/11/23 19:06 Comment) ibuprofen Allergy Intermediate renal Verified 12/11/23 19:06 issues VALERY Inhibitors Allergy Mild Skin Rash Verified 12/11/23 19:06 hydrochlorothiazide Allergy Mild Skin Rash Verified 12/11/23 19:06 indomethacin [From Indocin] Allergy Mild Skin Rash Verified 12/11/23 19:06 buspirone [From BuSpar] Allergy Hives Unverified 12/11/23 19:06 melatonin Allergy Itching Verified 12/11/23 19:06 Penicillins Allergy hives Verified 12/11/23 19:06 amitriptyline AdvReac become Verified 12/11/23 19:06 delusional codeine AdvReac causes Verified 12/11/23 19:06 excessive sleepiness Sulfa (Sulfonamide AdvReac become Verified 12/11/23 19:06 Antibiotics) delusional General Stated Complaint: Chest Pain MATTHEW: 3 Review of Systems All systems reviewed & are unremarkable except as noted in HPI and below Exam Narrative Exam Narrative: GENERAL APPEARANCE: Well-nourished, non-toxic, awake and alert, atraumatic, no acute distress. SKIN: Warm, pink, dry, intact, without rashes/lesions/ulcerations. HEAD: Normocephalic, atraumatic, normal hair distribution for gender/age. EYES: Pupils PERRLA, EOMs intact without nystagmus, normal conjunctiva, no exudates on lids/lashes. ENT: Nares patent, no circumoral cyanosis, no facial swelling NECK: Supple, trachea midline, painless cervical ROM. LUNGS/CHEST: Lungs CTA bilaterally, non-labored respirations, normal A/P diameter, symmetrical expansion, no chest wall deformity HEART (CV/PV): Regular rate and rhythm without murmur, no peripheral edema, no JVD. ABDOMEN: Soft, non-distended, no guarding. MSK: Normal ROM, no swelling/deformity to bilateral UEs or LEs, moving all extremities without weakness, no cyanosis, spine midline without tenderness, normal curvature. NEURO: Mental Status AAOx4 - alert to person, place, time, events No facial droop, no forehead involvement. Motor: No focal weakness - strength 5/5 in bilateral UEs and LEs, proximal and distal, symmetric. Sensory: sensation intact to light touch globally. Gait normal: patient ambulated without ataxia into ED room. PSYCH: euthymic, cooperative, pleasant, appropriate speech Course Vital Signs Vital signs: Vital Signs Temperature 36.6 C 12/11/23 18:59 Pulse 64 12/11/23 18:59 Respiratory Rate 16 12/11/23 18:59 Blood Pressure 161/66 H 12/11/23 18:59 Pulse Oximetry 99 12/11/23 18:59 Temperature 36.6 C 12/11/23 18:59 Pulse 64 12/11/23 18:59 Respiratory Rate 16 12/11/23 19:03 Respiratory Effort Normal 12/11/23 19:03 Respiratory Depth Normal 12/11/23 19:03 Respiratory Pattern Normal 12/11/23 19:03 Blood Pressure 161/66 H 12/11/23 18:59 Pulse Oximetry 99 12/11/23 18:59 Oxygen Delivery Method Room Air 12/11/23 18:59 Oxygen Flow Rate 0 12/11/23 18:59 Pain Level 5 12/11/23 18:59 Medical Decision Making This dictation utilizes [id number] dictation software and may contain unedited grammatical errors. 68 year-old female presents to ED today by POV/ambulating with her daughter with a chief complaint of substernal chest pain, weakness/body aches- worked up at [facility] yesterday with negative CXR with onset 2 weeks ago. Quality described as mild cough, chest pain, no radiation to syncope, dizziness, nausea/vomiting, high fever, flank pain, bowel/urinary changes. Severity is described as moderate. Palliating factors include nothing specific- taking Tylenol without relief. Provoking factors include nothing specific. Events leading up to the incident/Associated Symptoms: Patient has known mitral valve issue- but is insure of the name. Patients' medical history: Hypertension, asthma, anxiety, hypercholesterolemia, T2DM, cardiac angina, GERD, fibromyalgia, elevated LFTs, chronic cough. Family and social history: noncontributory. Pertinent exam findings / vital signs include lungs CTA, benign cardiopulmonary exam, neuro intact, benign abdomen. Differential / pathologies of concern include pneumonia, PE, ACS, unlikely sepsis. Diagnostic studies of: -CBC, CMP, troponin I, D-dimer, EKG, CTA chest. -CBC shows no leukocytosis -trop negative -EKG has concern for deep inverted T's but has been consistent with priors going back to 12/02 -CBC no leukocytosis -D-dimer 1400> CTA -CTA pending at sign-out Interventions of: -IVF for low GFR and CTA. ED Course/Assessment/Plan: 60-year-old female with 2 weeks of substernal chest pain diagnosed with viral syndrome at [facility] last night presents with continued substernal chest pain, cardiac workup is negative, she did have elevated D-dimer which could be falsely elevated in the setting of infection. Due to her onset and cough I think she could trial empiric antibiotics. Patient was signed out with CTA pending to Dr. Chaudhary with likely discharge with azithromycin plus minus Augmentin. Findings not consistent with acute coronary syndrome, right heart strain of PE, sepsis, hypoxic respiratory failure. Disposition of chest pain of uncertain etiology. Patient verbalized understanding of the plan and return to ED criteria and engaged in shared decision making. Medical Records Medical records reviewed: Yes I reviewed the patient's medical records. Lab Data Lab results reviewed: Yes I reviewed the patient's lab results. Labs: Laboratory Tests Range/Units 12/11/23 19:33 WBC (4.4-10.8) 10^3/uL 4.91 RBC (3.93-5.22) 10^6/uL 4.83 Hgb (11.2-15.7) g/dL 15.8 H Hct (36.0-46.0) % 46.3 H MCV (80-95) fL 96 H MCH (27.0-33.0) pg 32.7 MCHC (32.0-36.0) % 34.1 RDW (11.7-14.6) % 12.4 Plt Count (130-400) 10^3/uL 153 MPV (8.0-11.0) fL 10.0 Immature Gran % % 0.0 Neutrophils % % 69.1 Lymphocytes % % 24.8 Monocytes % % 4.9 Eosinophils % % 0.8 Basophils % % 0.4 Nucleated RBC % (0.0-0.3) % 0.0 Absolute Neutrophils (1.2-6.7) 10^3/uL 3.39 Absolute Lymphocytes (1.2-3.4) 10^3/uL 1.22 Absolute Monocytes (0.1-0.8) 10^3/uL 0.24 Absolute Eosinophils (0.0-0.7) 10^3/uL 0.04 Absolute Basophils (0.0-0.2) 10^3/uL 0.02 D-Dimer (<500) ng/mlFEU 1429 H Sodium (136-145) mmol/L 140 Potassium (3.5-5.1) mmol/L 3.7 Chloride (98-107) mmol/L 107 Carbon Dioxide (21.0-32.0) mmol/L 24.6 Anion Gap (3-11) mmol/L 8.4 BUN (7-18) mg/dL 19 H Creatinine (0.55-1.02) mg/dL 1.5 H Est GFR (CKD-EPI 2020) (mL/min/1.73m2) 37.72 Glucose (74-106) mg/dL 100 Calcium (8.5-10.1) mg/dL 8.7 Total Bilirubin (0.2-1.0) mg/dL 0.85 AST (15-37) U/L 25 ALT (14-59) U/L 29 Alkaline Phosphatase (46-116) U/L 67 Troponin I (< or =60) ng/L < 50 Total Protein (6.4-8.2) g/dL 6.7 Albumin (3.4-5.0) g/dL 3.9 Lipase (16-77) U/L 44 Quality:[facility] Health Related Social Needs: No Data to Display PFSH All Active Problems (Updated 10/06/23 @ 00:05 by HARRY CHOW) Paraesophageal hernia (Acute) Asthma (Chronic) RESTREPO (dyspnea on exertion) (Acute) Elevated diaphragm (Acute) Acquired elevated diaphragm (Acute) Chronic cough (Acute) Abnormal chest xray (Acute) Diabetes mellitus (Chronic) Tubular adenoma of colon (Acute) Hematuria (Acute) Chronic post-traumatic stress disorder (PTSD) (Acute) Mastodynia, female (Acute) Raynauds syndrome (Acute) Seasonal allergies (Acute) Chronic fatigue syndrome (Acute) IBS (irritable bowel syndrome) (Chronic) Gastroparesis (Acute) Hiatal hernia (Chronic) with reflux Anemia (Chronic) Elevated liver enzymes (Acute) White matter disease, unspecified (Acute) Hip pain, left (Acute) Constipation (Acute) Low-tension glaucoma, bilateral, indeterminate stage (Acute) Neuroma (Acute) Insomnia (Acute) Trochanteric bursitis (Acute) Leg cramps (Acute) Urinary incontinence (Acute) Chronic pain (Chronic) Scoliosis of lumbar spine (Acute) Disc disease, degenerative, lumbar or lumbosacral (Acute) Osteopenia (Acute) Adrenal nodule (Acute) Decreased renal function (Acute) Cough (Acute) Fibromyalgia (Acute) Hyperlipidemia (Acute) GERD (gastroesophageal reflux disease) (Chronic) Type 2 diabetes mellitus (Acute) Cardiac angina (Chronic) Abnormal PFT (Acute) Acute sinusitis (Acute) Nasal congestion (Acute) Dysphagia (Acute) Depression (Chronic) Hypercholesterolemia (Chronic) Reflux esophagitis (Chronic) Asthma (Chronic) HTN (hypertension) (Chronic) Anxiety (Chronic) Medical History History of closed head injury History of tobacco use Hx of endometriosis Hx of rheumatic fever Surgical History EGD - IV Sedation Lina Fundoplication 1996 ORIF right ankle S/P hysterectomy Status post THR (total hip replacement) Family History Father Cancer Mother Heart disease Social History Smoking/Tobacco Use Status: Never Smoking risk assessment performed?: Yes Alcohol Intake: never Drug use: Never Substance use type: does not use Education Level: other (associate's degree in business management) Do you feel safe at home: Yes
[2023-12-11 19:39] LABS: Absolute Basophil Count 0.02 10^3/uL (0.0-0.2); Absolute Eosinophil Count 0.04 10^3/uL (0.0-0.7); Absolute Lymphocyte Count 1.22 10^3/uL (1.2-3.4); Absolute Monocyte Count 0.24 10^3/uL (0.1-0.8); Absolute Neutrophil Count 3.39 10^3/uL (1.2-6.7); Basophils % 0.4 %; Eosinophils % 0.8 %; HCT 46.3 % (36.0-46.0); HGB 15.8 g/dL (11.2-15.7); Lymphocytes % 24.8 %; MCH 32.7 pg (27.0-33.0); MCHC 34.1 % (32.0-36.0); MCV 96 fL (80-95); Monocytes % 4.9 %; Neutrophils % 69.1 %; Platelet Count 153 10^3/uL (130-400); RBC 4.83 10^6/uL (3.93-5.22); RDW 12.4 % (11.7-14.6); RDW-SD 44.4 fL; WBC 4.91 10^3/uL (4.4-10.8)
[2023-12-11 19:58] LABS: ALT 29 U/L (14-59); AST 25 U/L (15-37); Albumin 3.9 g/dL (3.4-5.0); Alkaline Phosphatase 67 U/L (46-116); Anion Gap 8.4 mmol/L (3-11); BUN 19 mg/dL (7-18); Bilirubin, Total 0.85 mg/dL (0.2-1.0); CO2 24.6 mmol/L (21.0-32.0); CREATININE 1.5 mg/dL (0.55-1.02); Calcium 8.7 mg/dL (8.5-10.1); Chloride 107 mmol/L (98-107); Estimated GFR 37.72 (mL/min/1.73m2); Glucose 100 mg/dL (74-106); Lipase 44 U/L (16-77); Potassium 3.7 mmol/L (3.5-5.1); Sodium 140 mmol/L (136-145); Total Protein 6.7 g/dL (6.4-8.2); Troponin I < 50 ng/L (< or =60)
[2023-12-11 20:10] LABS: D-Dimer 1429 ng/mlFEU (<500)
[2023-12-11] MEDS: Normal Saline 1,000 ML 1000 ML IV (21:04)
[2023-12-11] MEDS: Normal Saline - Diluent 50 ML VIAL IJ (21:39)
[2023-12-11] MEDS: Omnipaque 350 MG/ML 100 ML BTL IJ (21:40)
[2023-12-11] MEDS: Normal Saline Flush 10 ML SYR IVP (21:41)
--- NOTE | 2023-12-11 22:32 | DI.CT_ITS ---
Exam(s) CT CHEST PE CTA EXAM: CT CHEST PE CTA CLINICAL HISTORY: elevated d-dimer. TECHNIQUE: Imaging Protocol: CT angiography of the chest was performed using pulmonary embolus josue col. Multi planar reconstructions were performed. CONTRAST MATERIAL: Intravenous: Omnipaque 350 Contrast volume: 100 cc COMPARISON: CT CT CHEST WO from 10/06/2022 FINDINGS: CHEST: PULMONARY ARTERIES: There are no intraluminal filling defects to suggest acute pulmonary emboli. LUNGS: There are no infiltrates nor evidence of pulmonary infarction.. There are no pleural effusions . MEDIASTINUM: There is no hilar nor mediastinal adenopathy. Visualized thyroid unremarkable.Clips are seen in the region of the GE junction. CARDIAC: Heart size is slightly prominent. There is no pericardial effusion.Caliber of the thoracic aorta is within normal limits. No evidence of dissection. There is no significant shift of the inter ventricular septum. PARTIALLY VISUALIZED UPPERMOST ABDOMEN: No obvious findings OSSEOUS: No significant osseous lesions.. IMPRESSION: 1. No evidence of acute pulmonary emboli. No evidence of pulmonary infarction.No pleural effusions. 2. No confluent infiltrates. 3. Cardiomegaly noted. No pericardial effusion. No evidence of aortic dissection. RADIATION DOSE DELIVERED: 471.4mGy.cm Total DLP DATA REPOSITORY: All CT scans at this facility are submitted to the National Radiology Data Registry (NRDR) Dose Index Registry (DIR) with the [employer] (ACR). RADIATION OPTIMIZATION: All CT scans at this facility use at least one of these dose optimization te chniques: automated exposure control; mA and/or kV adjustment per patient size (includes targeted exa ms where dose is matched to clinical indication); or iterative reconstruction.
[2023-12-11 23:01] VITALS: BP 152/69; PULSE 65; RESP 16; TEMP 37.3; O2SAT 98
--- NOTE | 2023-12-12 00:38 | DI.VRAD_ITS ---
PROCEDURE INFORMATION: Exam: CTA Chest With Contrast Exam date and time: 12/11/2023 10:15 PM Age: 68 years old Clinical indication: Other: Elevated d-dimer TECHNIQUE: Imaging protocol: Computed tomographic angiography of the chest with contrast. Exam focused on the arteries. 3D rendering (Not supervised by radiologist): MIP and/or 3D reconstructed images were created by the technologist. Contrast material: OMNI 350; Contrast volume: 100 ml; Contrast route: INTRAVENOUS (IV); COMPARISON: CT CHEST WO 10/06/2022 10:17 AM FINDINGS: Limitations: Mild motion artifact. Pulmonary arteries: No pulmonary embolus is appreciated. Aorta: No thoracic aortic aneurysm seen. Lungs: Faint ground-glass opacities in the lungs, likely underinflation. Pleural spaces: No pleural effusion. Heart: Mild cardiomegaly. Lymph nodes: No acute abnormality seen. Adrenal glands: Indeterminate left adrenal nodule. Consider follow-up. Bones/joints: No acute pertinent abnormality seen. Soft tissues: No acute pertinent abnormality seen. IMPRESSION: No acute findings to explain reported symptoms. Nonacute findings as outlined above. Dictated and Authenticated by: Jenny Mason MD. Ordering:YURY Whitlock MD
--- NOTE | 2023-12-12 00:51 | W.EDPROG ---
Date of service: 12/12/23 Time of Service: 00:51 Medical Decision Making Patient had presented with complaint of cough and substernal discomfort. She was signed out to me pending a CTA given a markedly elevated D-dimer. CTA is negative for pulmonary embolus. Faint groundglass opacities in the lungs thought to be underinflation per preliminary radiology read. However given the patient's persistent cough, chest discomfort, some shortness of breath will cover with azithromycin for possible atypical infection. Patient to follow-up with primary care next week. Return precautions provided. Medical Records Medical records reviewed: Yes I reviewed the patient's medical records. Medical records narrative: Pulmonary clinic notes Lab Data Lab results reviewed: Yes I reviewed the patient's lab results. Lab results narrative: See [facility] ECG Data Attestation: I personally reviewed and interpreted this ECG (s) as follows: Prior ECG tracings: available for review Interpretation: Patient with T wave inversions in the precordial leads that vary depending on date of EKG and quite likely is related to lead placement. Limb lead are unchanged from all previous EKGs in the last year. Sign Out Sign Out Data: Sign Out Comment: CTA pending, ABX trial for empiric PNA with negative PE study Last updated by Kamlesh Duncan PA at 12/12/23 00:22 Discharge Plan Disposition Patient Disposition: Home Condition: Good Discharge Details Clinical Impression: Atypical pneumonia, Asthma Primary Care Provider: Jessica Packer V ED Provider: Rodney Chaudhary [place] M and New Rx's Prescriptions: New azithromycin 250 mg tablet 250 mg PO DAILY 4 Days Qty: 4 0RF Rx Instructions: start on day 2 of therapy Continued methylphenidate HCl 10 mg tablet 10 mg PO DAILY calcium carbonate [Calcium 500] 500 mg calcium (1,250 mg) tablet,chewable 500 mg PO DAILY Ozempic 1 mg/dose (2 mg/1.5 mL) pen injector 1 mg subcut QWEEK losartan 50 MG tablet 75 mg PO DAILY Patient Comments: 06-23-17 PCP RECORD 25 MG QD. lamotrigine 150 MG tablet 150 mg PO BID Patient Comments: 06-23-17 PCP RECORD 100 MG BID. clonidine HCl 0.1 MG tablet 0.1 mg PO BID montelukast [Singulair] 10 MG tablet 10 mg PO HS fluticasone propionate 16 GM spray,suspension 50 mcg NS BID aripiprazole [Abilify] 10 MG tablet 20 mg PO DAILY Patient Comments: 06-23-17 PCP RECORD 20 MG QD. rosuvastatin [Crestor] 10 MG tablet 10 mg PO 3x/wk Patient Comments: 06-23-17 PCP RECORD 10 MG QD. topiramate [Topamax] 50 MG tablet 25 mg PO DAILY hydrocodone-acetaminophen [Vicodin] 1 EACH tablet 1 ea PO DAILY PRN Patient Comments: 10/08/14 per pt prn multivitamin [Daily Multi-Vitamin] 1 EACH tablet 1 ea PO DAILY travoprost [Travatan Z] 2.5 ML drops 2.5 ml Ophthalmic PM One-Per-Day [place]-3 1 EACH capsule,delayed release(DR/EC) 1 ea PO PRN PRN polyethylene glycol 3350 [Miralax] 17 GM powder in packet 17 g PO DAILY Qty: 255 aspirin 81 MG tablet,chewable 81 mg PO DAILY ProAir RespiClick 90 MCG aerosol powdr breath activated 90 mcg Inhalation QID (DME) OneTouch Ultra Test Strip See Rx Instructions .Route Rx Instructions: As directed (DME) nebulizers Misc See Rx Instructions .Route Rx Instructions: As directed triamcinolone acetonide 0.1 % cream 1 applic topical BID flaxseed oil 1,000 mg capsule 1,000 mg PO DAILY Rx Instructions: administer with a meal estradiol [Vagifem] 10 mcg tablet 10 mcg vaginal .2xweek (DME) lancets [Lancets,Thin] Misc See Rx Instructions .Route Rx Instructions: As directed (DME) blood-glucose meter [FreeStyle Lite Meter] Kit See Rx Instructions .Route Rx Instructions: As directed azelastine 205.5 mcg (0.15 %) spray,non-aerosol 1 spray intranasal BID PRN Rx Instructions: administer into each nostril nitroglycerin 0.4 mg tablet, sublingual 0.4 mg sublingual Q5M PRN Rx Instructions: do not exceed 3 doses per episode omeprazole 20 mg capsule,delayed release(DR/EC) 20 mg PO DAILY duloxetine [Cymbalta] 60 mg capsule,delayed release(DR/EC) 120 mg PO HS Patient Comments: 06/23/17 PCP RECORD 60 MG BID. fluticasone propion-salmeterol [Advair HFA] 230-21 mcg/actuation HFA aerosol inhaler 2 puff inhalation BID Qty: 12 12RF isosorbide mononitrate 30 mg tablet extended release 24 hr 30 mg PO DAILY spironolactone 25 mg tablet 25 tab PO DAILY lactulose 10 gram/15 mL solution 30 ml PO DAILY mirtazapine 30 mg Tablet 30 mg PO DAILY ipratropium-albuterol 0.5 mg-3 mg(2.5 mg base)/3 mL solution for nebulization 3 ml inhalation 4XD PRNQty: 90 0RF methylphenidate HCl [Concerta] 36 mg Tablet Extended Release 24hr 36 mg PO DAILY Discharge Instructions Instructions: Atypical Pneumonia (Mycoplasma and Viral) (DC) Additional Instructions: You were seen in the ED for persistent cough, chest pressure, shortness of breath. Your workup has been reassuring with unchanged EKG and labs and a CT scan that does not show evidence of a blood clot. There is question of an atypical type pneumonia so we will cover you with antibiotics. Continue your other medications as before. Follow-up with your primary care next week. Return to the ED for significantly worsening shortness of breath, new or worsening chest pain, mental status change, other concerns. Referrals: Jessica Packer MD [Primary Care Provider] -
[2023-12-12] MEDS: Azithromycin 250 MG TAB 500 MG PO (01:05)
[2023-12-12 01:07] VITALS: BP 142/70; PULSE 71; RESP 16; TEMP 36.9; O2SAT 99
== END 2023-12-12 01:07 | disposition home or self-care (01) ==
PROVIDERS: Physician Assistant; Emergency Provider Emergency Medicine; PCP Family Medicine
DX: J18.9 Pneumonia, unspecified organism (principal); R07.9 Chest pain, unspecified; R05.1 Acute cough; J45.909 Unspecified asthma, uncomplicated; I10 Essential (primary) hypertension
CPT/HCPCS: 00123; 71275; 80053; 83690; 93005; 96360; 99285; 84484; 85025; 85379; 93010; 99283; J3490

== ENCOUNTER 2023-12-19 00:19 | Observation (INO) | payer OTHER, SELFPAY ==
[2023-12-19] VITALS (57 sets, daily range): BP systolic 120–168; BP diastolic 39–103; PULSE 45–70; RESP 2–24; TEMP 36.5–36.8; O2SAT 92–98
--- NOTE | 2023-12-19 00:15 | RT.EKG_ITS ---
APPROVED REPORT Exam: Resting ECG Reason for Exam: sob Patient Location: E HR:52 bpm ECG Measurements Heart Rate 52 AXIS VT 168 P 29 QRSd 112 QRS -38 QT 444 T -5 QTc 413 Conclusion Sinus bradycardia...rate< 60 Left ventricular hypertrophy...multiple LVH criteria Abnormal T, consider ischemia, anterior leads...T <-0.20mV, V2-V4 I have reviewed and interpreted ECG and agree with software generated interpretation. There are no significant changes compared to prior EKG performed on 12/11/2023 at 19:02.
--- NOTE | 2023-12-19 00:26 | ED.GENADUL_ITS ---
Discharge Plan Disposition Patient Disposition: Admit to [facility] Condition: Good Discharge Details Clinical Impression: RESTREPO (dyspnea on exertion), Chest pressure Primary Care Provider: Jessica Packer V ED Provider: Rodney Chaudhary [place] Meds and New Rx's Prescriptions: No Action methylphenidate HCl 10 mg tablet 10 mg PO DAILY calcium carbonate [Calcium 500] 500 mg calcium (1,250 mg) tablet,chewable 500 mg PO DAILY Ozempic 1 mg/dose (2 mg/1.5 mL) pen injector 1 mg subcut QWEEK losartan 50 MG tablet 75 mg PO DAILY Patient Comments: 06-23-17 PCP RECORD 25 MG QD. lamotrigine 150 MG tablet 150 mg PO BID Patient Comments: 06-23-17 PCP RECORD 100 MG BID. clonidine HCl 0.1 MG tablet 0.1 mg PO BID montelukast [Singulair] 10 MG tablet 10 mg PO HS fluticasone propionate 16 GM spray,suspension 50 mcg NS BID aripiprazole [Abilify] 10 MG tablet 20 mg PO DAILY Patient Comments: 06-23-17 PCP RECORD 20 MG QD. rosuvastatin [Crestor] 10 MG tablet 10 mg PO 3x/wk Patient Comments: 06-23-17 PCP RECORD 10 MG QD. topiramate [Topamax] 50 MG tablet 25 mg PO DAILY hydrocodone-acetaminophen [Vicodin] 1 EACH tablet 1 ea PO DAILY PRN Patient Comments: 10/08/14 per pt prn multivitamin [Daily Multi-Vitamin] 1 EACH tablet 1 ea PO DAILY travoprost [Travatan Z] 2.5 ML drops 2.5 ml Ophthalmic PM One-Per-Day [place]-3 1 EACH capsule,delayed release(DR/EC) 1 ea PO PRN PRN polyethylene glycol 3350 [Miralax] 17 GM powder in packet 17 g PO DAILY Qty: 255 aspirin 81 MG tablet,chewable 81 mg PO DAILY ProAir RespiClick 90 MCG aerosol powdr breath activated 90 mcg Inhalation QID (DME) OneTouch Ultra Test Strip See Rx Instructions .Route Rx Instructions: As directed (DME) nebulizers Misc See Rx Instructions .Route Rx Instructions: As directed triamcinolone acetonide 0.1 % cream 1 applic topical BID flaxseed oil 1,000 mg capsule 1,000 mg PO DAILY Rx Instructions: administer with a meal estradiol [Vagifem] 10 mcg tablet 10 mcg vaginal .2xweek (DME) lancets [Lancets,Thin] Misc See Rx Instructions .Route Rx Instructions: As directed (DME) blood-glucose meter [FreeStyle Lite Meter] Kit See Rx Instructions .Route Rx Instructions: As directed azelastine 205.5 mcg (0.15 %) spray,non-aerosol 1 spray intranasal BID PRN Rx Instructions: administer into each nostril nitroglycerin 0.4 mg tablet, sublingual 0.4 mg sublingual Q5M PRN Rx Instructions: do not exceed 3 doses per episode omeprazole 20 mg capsule,delayed release(DR/EC) 20 mg PO DAILY duloxetine [Cymbalta] 60 mg capsule,delayed release(DR/EC) 120 mg PO HS Patient Comments: 06/23/17 PCP RECORD 60 MG BID. fluticasone propion-salmeterol [Advair HFA] 230-21 mcg/actuation HFA aerosol inhaler 2 puff inhalation BID Qty: 12 12RF isosorbide mononitrate 30 mg tablet extended release 24 hr 30 mg PO DAILY spironolactone 25 mg tablet 25 tab PO DAILY lactulose 10 gram/15 mL solution 30 ml PO DAILY mirtazapine 30 mg Tablet 30 mg PO DAILY ipratropium-albuterol 0.5 mg-3 mg(2.5 mg base)/3 mL solution for nebulization 3 ml inhalation 4XD PRNQty: 90 0RF methylphenidate HCl [Concerta] 36 mg Tablet Extended Release 24hr 36 mg PO DAILY HPI General Mode of arrival: ambulatory . Date/Time Provider Initiated Documentation: 12/19/23 00:26 . Limitations to Documentation: no limitations . Information obtained by: patient, RN notes reviewed and old records reviewed . HPI Narrative: Patient presents to ED with continued chest pressure, shortness of breath, nausea, headache despite taking antibiotic prescribed 1 week ago after she was seen in the ED for same. Patient reports no fevers or chills. She reports that her chest pain and shortness of breath gets worse with activity. She had come home early from vacation in [place] because of worsening symptoms. She has no vomiting or abdominal pain. She has had no syncope or neurologic change. Describes her chest pain as pressure. No reported radiation of the pain or pressure. Related Data Home Medications Medication Instructions Recorded Confirmed aripiprazole 10 mg tablet (Abilify) 20 mg PO DAILY 09/19/14 12/19/23 clonidine HCl 0.1 mg tablet 0.1 mg PO BID 09/19/14 12/19/23 fluticasone propionate 50 50 mcg NS BID 09/19/14 12/19/23 mcg/actuation nasal spray,suspension hydrocodone 5 mg-acetaminophen 300 1 ea PO DAILY PRN 09/19/14 12/19/23 mg tablet (Vicodin) lamotrigine 150 mg tablet 150 mg PO BID 09/19/14 12/19/23 losartan 50 mg tablet 75 mg PO DAILY 09/19/14 12/19/23 montelukast 10 mg tablet 10 mg PO HS 09/19/14 12/19/23 (Singulair) multivitamin (Daily Multi-Vitamin 1 ea PO DAILY 09/19/14 12/19/23 tablet) rosuvastatin 10 mg tablet (Crestor) 10 mg PO 3x/wk 09/19/14 12/19/23 topiramate 50 mg tablet (Topamax) 25 mg PO DAILY 09/19/14 12/19/23 travoprost 0.004 % eye drops 2.5 ml ophthalmic (eye) PM 09/19/14 12/19/23 (Travatan Z) omega-3 fatty acids-fish oil 684 1 ea PO PRN PRN 03/06/15 12/19/23 mg-1,200 mg capsule,delayed release (One-Per-Day [place]-3) albuterol sulfate 90 mcg/actuation 90 mcg inhalation QID 07/05/17 12/19/23 breath activated powder inhaler (ProAir RespiClick) aspirin 81 mg chewable tablet 81 mg PO DAILY 07/05/17 12/19/23 polyethylene glycol 3350 17 gram 17 g PO DAILY #255 grams 07/05/17 12/19/23 oral powder packet (Miralax) methylphenidate HCl 36 mg 36 mg PO DAILY 03/26/19 12/19/23 tablet,extended release 24 hr (Concerta) isosorbide mononitrate 30 mg 30 mg PO DAILY 03/08/22 12/19/23 tablet,extended release 24 hr lactulose 10 gram/15 mL oral 30 ml PO DAILY 03/08/22 12/19/23 solution mirtazapine 30 mg tablet 30 mg PO DAILY 03/08/22 12/19/23 spironolactone 25 mg tablet 25 tab PO DAILY 03/08/22 12/19/23 calcium carbonate (Calcium 500) 500 mg PO DAILY 08/01/22 12/19/23 azelastine 205.5 mcg (0.15 %) 1 spray intranasal BID PRN 08/12/22 12/19/23 nasal spray blood sugar diagnostic (OneTouch 08/12/22 12/19/23 Ultra Test strips) blood-glucose meter (FreeStyle 08/12/22 12/19/23 Lite Meter kit) estradiol 10 mcg vaginal tablet 10 mcg vaginal .2xweek 08/12/22 12/19/23 (Vagifem) flaxseed oil 1,000 mg capsule 1,000 mg PO DAILY 08/12/22 12/19/23 lancets (Lancets,Thin) 08/12/22 12/19/23 nebulizers 08/12/22 12/19/23 nitroglycerin 0.4 mg sublingual 0.4 mg sublingual Q5M PRN 08/12/22 12/19/23 tablet omeprazole 20 mg capsule,delayed 20 mg PO DAILY 08/12/22 12/19/23 release triamcinolone acetonide 0.1 % 1 applic topical BID 08/12/22 12/19/23 topical cream duloxetine 60 mg capsule,delayed 120 mg PO HS 08/17/22 12/19/23 release (Cymbalta) methylphenidate HCl 10 mg tablet 10 mg PO DAILY 08/17/22 12/19/23 fluticasone propionate 230 2 puff inhalation BID #12 grams 02/23/23 12/19/23 mcg-salmeterol 21 mcg/actuation HFA inhaler (Advair HFA) semaglutide 1 mg/dose (2 mg/1.5 1 mg subcut QWEEK 04/26/23 12/19/23 mL) subcutaneous pen injector (Ozempic) ipratropium 0.5 mg-albuterol 3 mg 3 ml inhalation 4XD PRN #90 mL 06/13/23 12/19/23 (2.5 mg base)/3 mL nebulization soln Previous Rx's Medication Instructions Recorded fluticasone propionate 230 2 puff inhalation BID #12 grams 02/23/23 mcg-salmeterol 21 mcg/actuation HFA inhaler (Advair HFA) ipratropium 0.5 mg-albuterol 3 mg 3 ml inhalation 4XD PRN #90 mL 06/13/23 (2.5 mg base)/3 mL nebulization soln Allergies Allergy/AdvReac Type Severity Reaction Status Date / Time oxybutynin Allergy Severe Other (See Verified 12/19/23 00:28 Comment) ibuprofen Allergy Intermediate renal Verified 12/19/23 00:28 issues VALERY Inhibitors Allergy Mild Skin Rash Verified 12/19/23 00:28 hydrochlorothiazide Allergy Mild Skin Rash Verified 12/19/23 00:28 indomethacin [From Indocin] Allergy Mild Skin Rash Verified 12/19/23 00:28 buspirone [From BuSpar] Allergy Hives Unverified 12/19/23 00:28 melatonin Allergy Itching Verified 12/19/23 00:28 Penicillins Allergy hives Verified 12/19/23 00:28 amitriptyline AdvReac become Verified 12/19/23 00:28 delusional codeine AdvReac causes Verified 12/19/23 00:28 excessive sleepiness Sulfa (Sulfonamide AdvReac become Verified 12/19/23 00:28 Antibiotics) delusional General MATTHEW: 3 Review of Systems Narrative: See HPI Exam Narrative Exam Narrative: Const: Obese elderly female in NAD. VS per triage. HEENT: NC/AT. Normal facial exam. Neck: Supple. Trachea midline. Lungs: Normal respiratory effort. Lungs are clear. Cor: RRR without murmur. Bradycardic. Good radial pulses. GI: Soft/ND/NT. Neuro: A+O x 3. Normal speech, mentation, gait. Cranial nerves II - XII grossly intact. No gross motor or sensory deficit. Ext: No C/C/E. Medical Decision Making Patient presenting to ED with complaint of worsening chest pressure and shortness of breath especially with exertion. Seen here 1 week ago with complaints of cough and shortness of breath. Review of her medical records dating back to 2011 shows multiple visits with similar complaints. Last week's workup unremarkable including a CTA of the chest which was negative. She was placed on Zithromax for 5 days for possible atypical pneumonia given her complaint of increased cough and shortness of breath. Her EKG is sinus rhythm with T wave inversions/changes that are unchanged from previous. Her vital signs are unremarkable other than elevated blood pressure. Saturations are normal. Lungs are clear. Chest pressure present all week but worse with exertion. Single troponin should rule out any acute ischemia. Chest x-ray ord ered. Repeat CBC, BMP for comparison to last week obtained. Will check BNP as well. Given negative CTA last week not concern for PE. Laboratory studies remain essentially normal. White count and hemoglobin are normal. Electrolytes normal. BNP and troponin normal. Chest x-ray with no acute cardiopulmonary disease per my reading. Discussed options with patient. She has not had stress testing anytime in the recent past. She is followed by cardiology and has an appointment to see him on Monday. However, I have no clear etiology for her dips here on exertion with associated worsening chest pressure so case discussed with hospitalist. [facility] for nuclear stress testing prior to discharge. Medical Records Medical records reviewed: Yes I reviewed the patient's medical records. Medical records narrative: Has had previous complaints dating back to 2011 of chest pain and shortness of breath on exertion. Had a normal MIBI stress test in 2014. Had a normal cardiac echo in September 2022. Imaging Data Radiologic Study: Attestation: I personally reviewed and interpreted this imaging study as follows: Imaging: X-Ray My impression: Chest x-ray without acute cardiopulmonary disease. Chronic elevation of diaphragm. Lab Data Lab results reviewed: Yes I reviewed the patient's lab results. ECG Data Attestation: I personally reviewed and interpreted this ECG (s) as follows: Prior ECG tracings: available for review Interpretation: See EKG/unchanged from previous [facility] All Active Problems (Updated 12/19/23 @ 04:28 by Rodney Chaudhary MD) Chest pressure (Acute) RESTREPO (dyspnea on exertion) (Acute) CKD (chronic kidney disease) (Chronic) History of closed head injury (Acute) Paraesophageal hernia (Acute) RESTREPO (dyspnea on exertion) (Acute) Acquired elevated diaphragm (Acute) Chronic cough (Acute) Abnormal chest xray (Acute) Tubular adenoma of colon (Acute) Mastodynia, female (Acute) Raynauds syndrome (Acute) Seasonal allergies (Acute) Chronic fatigue syndrome (Acute) IBS (irritable bowel syndrome) (Chronic) Hiatal hernia (Chronic) with reflux Anemia (Chronic) Elevated liver enzymes (Acute) White matter disease, unspecified (Acute) Hip pain, left (Acute) Constipation (Acute) Low-tension glaucoma, bilateral, indeterminate stage (Acute) Neuroma (Acute) Insomnia (Acute) Trochanteric bursitis (Acute) Leg cramps (Acute) Urinary incontinence (Acute) Chronic pain (Chronic) Scoliosis of lumbar spine (Acute) Disc disease, degenerative, lumbar or lumbosacral (Acute) Osteopenia (Acute) Adrenal nodule (Acute) Decreased renal function (Acute) Fibromyalgia (Acute) Cardiac angina (Chronic) Abnormal PFT (Acute) Acute sinusitis (Acute) Nasal congestion (Acute) Dysphagia (Acute) Medical History (Updated 12/19/23 @ 04:28 by Rodney Chaudhary MD) Atypical chest pain Anxiety Depression GERD (gastroesophageal reflux disease) Hyperlipidemia Gastroparesis Chronic post-traumatic stress disorder (PTSD) Diabetes mellitus Asthma History of tobacco use Hx of endometriosis Hx of rheumatic fever Surgical History S/P hysterectomy Status post THR (total hip replacement) ORIF right ankle Lina Fundoplication 1996 EGD - IV Sedation Family History Father Cancer Mother Heart disease Social History Smoking/Tobacco Use Status: Former Tobacco Use Smoking risk assessment performed?: Yes Alcohol Intake: never Drug use: Never Substance use type: does not use Education Level: other (associate's degree in business management) Do you feel safe at home: Yes
--- NOTE | 2023-12-19 00:30 | DI.RAD_ITS ---
Exam(s) XR CHEST 2V PA LATERAL EXAM: XR CHEST 2V PA LATERAL CLINICAL HISTORY: CP/SOB TECHNIQUE: 2D digital imaging was performed. Two views. COMPARISON: CT CT CHEST PE CTA from 12/11/2023 FINDINGS: Suboptimal pulmonary inflation. HEART: Normal size. Aorta: Not dilated. PULMONARY VASCULATURE: Normal. MEDIASTINUM: Unremarkable. LUNGS: Clear. PLEURAL SPACE: No pleural effusion or pneumothorax. BONE:Unremarkable for age. SOFT TISSUES: Unremarkable. IMPRESSION: No acute abnormality. DATA REPOSITORY: RADIATION DOSE DELIVERED:
[2023-12-19 00:53] LABS: Abs Immature Grans 0.18 10^3/uL (0.0-0.06); Absolute Basophil Count 0.04 10^3/uL (0.0-0.2); Absolute Eosinophil Count 0.08 10^3/uL (0.0-0.7); Absolute Monocyte Count 0.68 10^3/uL (0.1-0.8); Absolute Neutrophil Count 3.54 10^3/uL (1.2-6.7); Basophils % 0.5 %; HCT 42.4 % (36.0-46.0); HGB 14.2 g/dL (11.2-15.7); Immature Grans % 2.2 %; Lymphocytes % 44.3 %; MCH 32.3 pg (27.0-33.0); MCHC 33.5 % (32.0-36.0); MCV 97 fL (80-95); MPV 9.9 fL (8.0-11.0); Monocytes % 8.4 %; Neutrophils % 43.6 %; Platelet Count 264 10^3/uL (130-400); RBC 4.39 10^6/uL (3.93-5.22); RDW 12.3 % (11.7-14.6); RDW-SD 43.7 fL; WBC 8.12 10^3/uL (4.4-10.8)
[2023-12-19 01:08] LABS: Anion Gap 6.5 mmol/L (3-11); BUN 9 mg/dL (7-18); CO2 29.5 mmol/L (21.0-32.0); CREATININE 1.2 mg/dL (0.55-1.02); Calcium 8.5 mg/dL (8.5-10.1); Chloride 106 mmol/L (98-107); Estimated GFR 49.31 (mL/min/1.73m2); Glucose 87 mg/dL (74-106); Magnesium 2.1 mg/dL (1.8-2.4); NT-proBNP 99 pg/mL (<300); Potassium 3.7 mmol/L (3.5-5.1); Sodium 142 mmol/L (136-145); Troponin I < 50 ng/L (< or =60)
--- NOTE | 2023-12-19 02:35 | W.PM.HP.N ---
Date of service: 12/19/23 Time of Service: 02:35 Assessment and Plan Assessment and plan (1) Atypical chest pain: Start date: 12/19/23 Assessment and plan: This is a 68-year-old lady who placed long-acting nitrate and follows and/or daily but never used nitroglycerin sublingually for exertional chest discomfort and shortness of breath. She has had progressive shortness of breath over the last week and had a negative CTA of the chest 1 week ago with treatment for possible atypical pneumonia with Zithromax. She has not improved. She is wanting to have more definitive evaluation and will be placed on observation with cardiac monitoring and plan echocardiogram in the morning as well as exercise stress test if available. She does see cardiology and give her, but not but can have cardiology consultation at this facility as well. Stress test may not be available until later this week and this also could be done as an outpatient with her regular booth cleaner if her nuclear monitoring technician is stable and troponins trended negative. Patient is a full code. (2) Chest pressure: Start date: 12/19/23 Status: Acute Assessment and plan: Patient takes chronic Imdur as stated but does not use nitroglycerin sublingually with symptoms of dyspnea or chest pressure. Follow-up with cardiology consultation and stress test as well as trending troponins as per atypical chest pain. (3) RESTREPO (dyspnea on exertion): Start date: 12/19/23 Status: Acute Assessment and plan: Patient has had exacerbation of this chronic problem and has been seen by pulmonology and cardiology in the past. Continue outpatient medical therapy for inhalers modified with nebulizer treatment while hospitalized. She is not requiring oxygen supplement. Her lung exam clear. Long-term she is follow-up with both pulmonology and cardiology. (4) Depression: Assessment and plan: This is not a formal diagnosis for the patient but she is on several medical regimens for associated diagnoses which suggest depression. This should be followed up by her PCP. Qualifiers: Depression Type: other depression Qualified Code(s): F32.89 - Other specified depressive episodes (5) IBS (irritable bowel syndrome): Status: Chronic Assessment and plan: Continue outpatient medical therapy. Qualifiers: Irritable bowel syndrome type: other Qualified Code(s): K58.8 - Other irritable bowel syndrome (6) GERD (gastroesophageal reflux disease): Assessment and plan: Continue PPI. Qualifiers: Esophagitis presence: without esophagitis Qualified Code(s): K21.9 - Gastro-esophageal reflux disease without esophagitis (7) Hyperlipidemia: Assessment and plan: Continue outpatient therapy. Qualifiers: Hyperlipidemia type: mixed hyperlipidemia Qualified Code(s): E78.2 - Mixed hyperlipidemia (8) Diabetes mellitus: Assessment and plan: Presently glucose is normal and this will be monitored with daily lab and diet. Qualifiers: Chronic kidney disease stage: stage 3 (moderate) Chronic kidney disease stage 3 subtype: stage 3a (GFR 45-59) Diabetes mellitus complication detail: with chronic kidney disease Diabetes mellitus complication status: with kidney complications Diabetes mellitus exterminator insulin use: without longterm use Diabetes mellitus type: type 2 Qualified Code(s): E11.22 - Type 2 diabetes mellitus with diabetic chronic kidney disease; N18.31 - Chronic kidney disease, stage 3a (9) CKD (chronic kidney disease): Status: Chronic Assessment and plan: This appears to be stable may be associated with diabetes. Qualifiers: Chronic kidney disease stage: stage 3 (moderate) Chronic kidney disease stage 3 subtype: stage 3a (GFR 45-59) Qualified Code(s): N18.31 - Chronic kidney disease, stage 3a History of Present Illness History of Present Illness Chief Complaint: Dyspnea upon exertion worsening over weeks Narrative: This is a 68-year-old female patient who presents to the ED with progressive shortness of breath 1 week ago and was diagnosed with atypical pneumonia and treated with Zithromax for 5 days. She has noted chest pressure with exertion and some nausea with headache but no vomiting and no other abdominal complaints. She had no focal neurological complaints. She was on vacation in [facility] and did come back after 1 day stay because of progressive shortness of breath. The ED provider did review her records and noted multiple times she reported to the ED for similar symptoms since 2011. She has had a negative cardiac evaluation in the past and upon presentation this time has a stable EKG with T wave inversions anteriorly but no acute changes. Patient recent CTA negative for PE after positive D-dimer with last ED visit but did show cardiomegaly with echocardiogram last done 1 year ago per ED provider. Her BNP was normal. Patient agreed to observation because of her desire to have definitive information and reassured her about her cardiac status with repeat troponin and schedule echocardiogram with stress test later the day prior to discharge. She does see cardiology and could follow-up as an outpatient if these tests are negative or not available during observation. Patient does appear slightly anxious with poor coping but not having a diagnosis of anxiety or depression though she has several diagnoses to suggest an underlying mood disorder and is on medical therapy for these problems (irritable bowel syndrome, fibromyalgia, chronic insomnia and chronic fatigue syndrome). She does have chronic CKD which is stable associated with diet-controlled diabetes though she does not carry diagnosis of diabetes. She also has long-acting nitroglycerin which she takes daily for chest pain though she does not carry a diagnosis CAD. She does see cardiology in [place], [place]. She is a full code. Review of Systems Narrative: 13 point review of systems otherwise unrevealing or stable. Patient does not have increased somatic complaints with chronic positive review of systems. PFSH All Active Problems Chest pressure (Acute) RESTREPO (dyspnea on exertion) (Acute) CKD (chronic kidney disease) (Chronic) History of closed head injury (Acute) Paraesophageal hernia (Acute) RESTREPO (dyspnea on exertion) (Acute) Acquired elevated diaphragm (Acute) Chronic cough (Acute) Abnormal chest xray (Acute) Tubular adenoma of colon (Acute) Mastodynia, female (Acute) Raynauds syndrome (Acute) Seasonal allergies (Acute) Chronic fatigue syndrome (Acute) IBS (irritable bowel syndrome) (Chronic) Hiatal hernia (Chronic) with reflux Anemia (Chronic) Elevated liver enzymes (Acute) White matter disease, unspecified (Acute) Hip pain, left (Acute) Constipation (Acute) Low-tension glaucoma, bilateral, indeterminate stage (Acute) Neuroma (Acute) Insomnia (Acute) Trochanteric bursitis (Acute) Leg cramps (Acute) Urinary incontinence (Acute) Chronic pain (Chronic) Scoliosis of lumbar spine (Acute) Disc disease, degenerative, lumbar or lumbosacral (Acute) Osteopenia (Acute) Adrenal nodule (Acute) Decreased renal function (Acute) Fibromyalgia (Acute) Cardiac angina (Chronic) Abnormal PFT (Acute) Acute sinusitis (Acute) Nasal congestion (Acute) Dysphagia (Acute) Medical History Atypical chest pain Anxiety Depression GERD (gastroesophageal reflux disease) Hyperlipidemia Gastroparesis Chronic post-traumatic stress disorder (PTSD) Diabetes mellitus Asthma History of tobacco use Hx of endometriosis Hx of rheumatic fever Surgical History S/P hysterectomy Status post THR (total hip replacement) ORIF right ankle Lina Fundoplication 1996 EGD - IV Sedation Family History Father Cancer Mother Heart disease Social History Smoking/Tobacco Use Status: Former Tobacco Use Smoking risk assessment performed?: Yes Alcohol Intake: never Drug use: Never Substance use type: does not use Education Level: other Do you feel safe at home: Yes Meds Allergies and Home Medications Allergies Allergy/AdvReac Type Severity Reaction Status Date / Time oxybutynin Allergy Severe Other (See Verified 12/19/23 00:28 Comment) ibuprofen Allergy Intermediate renal Verified 12/19/23 00:28 issues VALERY Inhibitors Allergy Mild Skin Rash Verified 12/19/23 00:28 hydrochlorothiazide Allergy Mild Skin Rash Verified 12/19/23 00:28 indomethacin [From Indocin] Allergy Mild Skin Rash Verified 12/19/23 00:28 buspirone [From BuSpar] Allergy Hives Unverified 12/19/23 00:28 melatonin Allergy Itching Verified 12/19/23 00:28 Penicillins Allergy hives Verified 12/19/23 00:28 amitriptyline AdvReac become Verified 12/19/23 00:28 delusional codeine AdvReac causes Verified 12/19/23 00:28 excessive sleepiness Sulfa (Sulfonamide AdvReac become Verified 12/19/23 00:28 Antibiotics) delusional Home Medications Medication Instructions Recorded Confirmed Type aripiprazole 10 mg tablet (Abilify) 20 mg PO DAILY 09/19/14 12/19/23 History clonidine HCl 0.1 mg tablet 0.1 mg PO BID 09/19/14 12/19/23 History fluticasone propionate 50 50 mcg NS BID 09/19/14 12/19/23 History mcg/actuation nasal spray,suspension hydrocodone 5 mg-acetaminophen 300 1 ea PO DAILY PRN 09/19/14 12/19/23 History mg tablet (Vicodin) lamotrigine 150 mg tablet 150 mg PO BID 09/19/14 12/19/23 History losartan 50 mg tablet 75 mg PO DAILY 09/19/14 12/19/23 History montelukast 10 mg tablet 10 mg PO HS 09/19/14 12/19/23 History (Singulair) multivitamin (Daily Multi-Vitamin 1 ea PO DAILY 09/19/14 12/19/23 History tablet) rosuvastatin 10 mg tablet (Crestor) 10 mg PO 3x/wk 09/19/14 12/19/23 History topiramate 50 mg tablet (Topamax) 25 mg PO DAILY 09/19/14 12/19/23 History travoprost 0.004 % eye drops 2.5 ml ophthalmic (eye) PM 09/19/14 12/19/23 History (Travatan Z) omega-3 fatty acids-fish oil 684 1 ea PO PRN PRN 03/06/15 12/19/23 History mg-1,200 mg capsule,delayed release (One-Per-Day [place]-3) albuterol sulfate 90 mcg/actuation 90 mcg inhalation QID 07/05/17 12/19/23 History breath activated powder inhaler (ProAir RespiClick) aspirin 81 mg chewable tablet 81 mg PO DAILY 07/05/17 12/19/23 History polyethylene glycol 3350 17 gram 17 g PO DAILY #255 grams 07/05/17 12/19/23 History oral powder packet (Miralax) methylphenidate HCl 36 mg 36 mg PO DAILY 03/26/19 12/19/23 History tablet,extended release 24 hr (Concerta) isosorbide mononitrate 30 mg 30 mg PO DAILY 03/08/22 12/19/23 History tablet,extended release 24 hr lactulose 10 gram/15 mL oral 30 ml PO DAILY 03/08/22 12/19/23 History solution mirtazapine 30 mg tablet 30 mg PO DAILY 03/08/22 12/19/23 History spironolactone 25 mg tablet 25 tab PO DAILY 03/08/22 12/19/23 History calcium carbonate (Calcium 500) 500 mg PO DAILY 08/01/22 12/19/23 History azelastine 205.5 mcg (0.15 %) 1 spray intranasal BID PRN 08/12/22 12/19/23 History nasal spray blood sugar diagnostic (OneTouch 08/12/22 12/19/23 History Ultra Test strips) blood-glucose meter (FreeStyle 08/12/22 12/19/23 History Lite Meter kit) flaxseed oil 1,000 mg capsule 1,000 mg PO DAILY 08/12/22 12/19/23 History lancets (Lancets,Thin) 08/12/22 12/19/23 History nebulizers 08/12/22 12/19/23 History nitroglycerin 0.4 mg sublingual 0.4 mg sublingual Q5M PRN 08/12/22 12/19/23 History tablet omeprazole 20 mg capsule,delayed 20 mg PO DAILY 08/12/22 12/19/23 History release triamcinolone acetonide 0.1 % 1 applic topical BID 08/12/22 12/19/23 History topical cream duloxetine 60 mg capsule,delayed 120 mg PO HS 08/17/22 12/19/23 History release (Cymbalta) methylphenidate HCl 10 mg tablet 10 mg PO DAILY 08/17/22 12/19/23 History fluticasone propionate 230 2 puff inhalation BID #12 grams 02/23/23 12/19/23 Rx mcg-salmeterol 21 mcg/actuation HFA inhaler (Advair HFA) semaglutide 1 mg/dose (2 mg/1.5 1 mg subcut QWEEK 04/26/23 12/19/23 History mL) subcutaneous pen injector (Ozempic) ipratropium 0.5 mg-albuterol 3 mg 3 ml inhalation 4XD PRN #90 mL 06/13/23 12/19/23 Rx (2.5 mg base)/3 mL nebulization soln Exam Narrative Exam Narrative: General: Patient appears older than stated age, moderate to morbidly obese with flattened affect and poor eye contact. She has slightly pressured speech with slow monotonous tone to voice. She is alert and oriented x 3. Her is sitting at the bedside interjecting his thoughts into the conversation frequently. HEENT: Normocephalic with coarsened facial features, eyes with pupils equal and react to light symmetrically, extraocular movement intact and sclera anicteric. Oropharynx with slightly dry mucosa and poor dentition. Neck: Supple without JVD. Back: Slightly stooped posture without CVA tenderness. Lungs: Fair aeration and clear to auscultation percussion with no focalizing rales or rhonchi. No expiratory wheeze. Breast: Exam deferred. Heart: Regular rate and rhythm with distant heart sounds no auscultated murmur. No gallops. Abdomen: Obese contour, soft and nontender to palpation with no palpable hepatosplenomegaly. Bowel sounds positive in all quadrants. Genitalia/rectal: Exam deferred. Extremities: Without clubbing, cyanosis of pitting edema the left leg appears slightly larger than right with possible nonpitting edema. Negative Homans' sign. Skin: Normal color, warm and dry. Neuro: Cranial nerves II through XII gross intact, no focalizing motor deficits and no tremor. Psych: Flattened affect with depressed mood. Ruminates over somatic complaints though most of her complaints are chronic. No abnormal thought processes. Remote and recent memory grossly intact. Results Imaging Imaging Studies: EXAM: CT CHEST PE CTA CLINICAL HISTORY: elevated d-dimer. TECHNIQUE: Imaging Protocol: CT angiography of the chest was performed using pulmonary embolus protocol. Multi planar reconstructions were performed. CONTRAST MATERIAL: Intravenous: Omnipaque 350 Contrast volume: 100 cc COMPARISON: CT CT CHEST WO from 10/06/2022 FINDINGS: CHEST: PULMONARY ARTERIES: There are no intraluminal filling defects to suggest acute pulmonary emboli. LUNGS: There are no infiltrates nor evidence of pulmonary infarction.. There are no pleural effusions. MEDIASTINUM: There is no hilar nor mediastinal adenopathy. Visualized thyroid unremarkable.Clips are seen in the region of the GE junction. CARDIAC: Heart size is slightly prominent. There is no pericardial effusion.Caliber of the thoracic aorta is within normal limits. No evidence of dissection. There is no significant shift of the interventricular septum. PARTIALLY VISUALIZED UPPERMOST ABDOMEN: No obvious findings OSSEOUS: No significant osseous lesions.. IMPRESSION: 1. No evidence of acute pulmonary emboli. No evidence of pulmonary infarction.No pleural effusions. 2. No confluent infiltrates. 3. Cardiomegaly noted. No pericardial effusion. No evidence of aortic dissection. Labs 12/19/23 06:08 12/19/23 06:08 Labs: Laboratory Results - last 24 hr 12/19/23 00:32 WBC 8.12 RBC 4.39 Hgb 14.2 Hct 42.4 MCV 97 H MCH 32.3 MCHC 33.5 RDW 12.3 Plt Count 264 MPV 9.9 Immature Gran % 2.2 Neutrophils % 43.6 Lymphocytes % 44.3 Monocytes % 8.4 Eosinophils % 1.0 Basophils % 0.5 Nucleated RBC % 0.0 Absolute Neutrophils 3.54 Absolute Lymphocytes 3.60 H Absolute Monocytes 0.68 Absolute Eosinophils 0.08 Absolute Basophils 0.04 Sodium 142 Potassium 3.7 Chloride 106 Carbon Dioxide 29.5 Anion Gap 6.5 BUN 9 Creatinine 1.2 H Est GFR (CKD-EPI 2020) 49.31 Glucose 87 Calcium 8.5 Magnesium 2.1 Troponin I < 50 NT-Pro-B Natriuret Pep 99 Last Vital Signs Temp 36.5 C 12/19/23 00:22 Pulse 53 L 12/19/23 02:01 Resp 15 12/19/23 02:20 BP 143/69 H 12/19/23 02:01 Pulse Ox 96 12/19/23 02:20 Time Spent Time spent with Patient: >75 minutes Time was spent: preparing to see the patient(eg.review tests), obtaining and/or reviewing separately otained hiistory, ordering medications,tests, procedures, referring, communicating with other health long term care phlebotomist, indepentently interpreting results, counseling the patient and care coordination
--- NOTE | 2023-12-19 02:54 | DI.VRAD_ITS ---
PROCEDURE INFORMATION: Exam: XR Chest Exam date and time: 12/19/2023 12:56 AM Age: 68 years old Clinical indication: Shortness of breath; Patient HX: Cp, SOB TECHNIQUE: Imaging protocol: Radiologic exam of the chest. Views: 2 views. COMPARISON: CT CHEST PE CTA 12/11/2023 10:15 PM FINDINGS: Lungs: Unremarkable. No consolidation. Pleural spaces: Unremarkable. No pleural effusion. No pneumothorax. Heart/Mediastinum: Unremarkable. No cardiomegaly. Bones/joints: Unremarkable. IMPRESSION: No acute findings. Dictated and Authenticated by: Sha Granda MD. Ordering:JULIO C Stevens MD
[2023-12-19 06:34] LABS: HCT 38.9 % (36.0-46.0); HGB 13.4 g/dL (11.2-15.7); MCH 32.8 pg (27.0-33.0); MCHC 34.4 % (32.0-36.0); MCV 95 fL (80-95); MPV 9.6 fL (8.0-11.0); Platelet Count 238 10^3/uL (130-400); RBC 4.09 10^6/uL (3.93-5.22); RDW 12.3 % (11.7-14.6); RDW-SD 42.6 fL; WBC 6.28 10^3/uL (4.4-10.8)
[2023-12-19 06:53] LABS: ALT 32 U/L (14-59); AST 27 U/L (15-37); Albumin 3.5 g/dL (3.4-5.0); Alkaline Phosphatase 62 U/L (46-116); Anion Gap 4.2 mmol/L (3-11); BUN 8 mg/dL (7-18); CO2 27.8 mmol/L (21.0-32.0); CREATININE 1.1 mg/dL (0.55-1.02); Calcium 8.4 mg/dL (8.5-10.1); Chloride 108 mmol/L (98-107); Estimated GFR 54.73 (mL/min/1.73m2); Glucose 93 mg/dL (74-106); Magnesium 2.2 mg/dL (1.8-2.4); Potassium 3.4 mmol/L (3.5-5.1); Sodium 140 mmol/L (136-145); Total Protein 5.8 g/dL (6.4-8.2)
[2023-12-19 07:02] LABS: TSH (W/Ref FT4) 2.44 uIU/mL (0.36-3.74); Troponin I < 50 ng/L (< or =60)
[2023-12-19] MEDS: Enoxaparin 40 MG/0.4 ML SYR SC (08:47)
[2023-12-19] MEDS: Albuterol/Ipratropium 3 ML UPD VIAL UPD (08:48)
[2023-12-19] MEDS: Lactulose 20 GM/30 ML CUP PO (08:48)
[2023-12-19] MEDS: lamoTRIgine 100 MG TAB 150 MG PO (08:48)
[2023-12-19] MEDS: Polyethylene Glycol 3350 17 GM PACKET PO (08:48)
--- NOTE | 2023-12-19 08:48 | CCONE_ITS ---
Date of service: 12/19/23 Time of Service: 08:48 Assessment and Plan Assessment and plan (1) Chest pressure: Status: Acute Assessment and plan: Patient has chest pressure and dyspnea likely related to her atypical pneumonia. Her symptoms have been present for several days, not suggestive of a cardiac etiology. There is no evidence of myocardial necrosis. She had a normal coronary CTA 2 years ago. I would recommend discharge and outpatient follow-up with her customer program manager. They can determine whether or not any additional testing is indicated. I would not recommend performing an echocardiogram nor a myocardial perfusion imaging study as an inpatient. recommendations were discussed with Dr. Jade History of Present Illness Narrative: This is a 68-year-old woman who is followed by cardiology at [facility]. She came to the emergency room with several days of shortness of breath and chest tightness reportedly in the setting of atypical pneumonia. Her baseline EKG is abnormal with anterior T wave inversions and she was admitted to the hospital for observation. She has had several sets of negative troponins. The patient has no documented history of coronary artery disease. In fact she had a coronary CTA in 2021 performed at [facility] it was entirely normal. Her calcium score was 0, there was no plaque or evidence of stenosis or other obstruction. According to the hospitalist history and physical, the patient has follow-up scheduled with her customer program manager at the end of this week [facility] All Active Problems Chest pressure (Acute) RESTREPO (dyspnea on exertion) (Acute) CKD (chronic kidney disease) (Chronic) History of closed head injury (Acute) Paraesophageal hernia (Acute) RESTREPO (dyspnea on exertion) (Acute) Acquired elevated diaphragm (Acute) Chronic cough (Acute) Abnormal chest xray (Acute) Tubular adenoma of colon (Acute) Mastodynia, female (Acute) Raynauds syndrome (Acute) Seasonal allergies (Acute) Chronic fatigue syndrome (Acute) IBS (irritable bowel syndrome) (Chronic) Hiatal hernia (Chronic) with reflux Anemia (Chronic) Elevated liver enzymes (Acute) White matter disease, unspecified (Acute) Hip pain, left (Acute) Constipation (Acute) Low-tension glaucoma, bilateral, indeterminate stage (Acute) Neuroma (Acute) Insomnia (Acute) Trochanteric bursitis (Acute) Leg cramps (Acute) Urinary incontinence (Acute) Chronic pain (Chronic) Scoliosis of lumbar spine (Acute) Disc disease, degenerative, lumbar or lumbosacral (Acute) Osteopenia (Acute) Adrenal nodule (Acute) Decreased renal function (Acute) Fibromyalgia (Acute) Cardiac angina (Chronic) Abnormal PFT (Acute) Acute sinusitis (Acute) Nasal congestion (Acute) Dysphagia (Acute) Medical History Atypical chest pain Anxiety Depression GERD (gastroesophageal reflux disease) Hyperlipidemia Gastroparesis Chronic post-traumatic stress disorder (PTSD) Diabetes mellitus Asthma History of tobacco use Hx of endometriosis Hx of rheumatic fever Surgical History S/P hysterectomy Status post THR (total hip replacement) ORIF right ankle Lina Fundoplication 1996 EGD - IV Sedation Family History Father Cancer Mother Heart disease Social History Smoking/Tobacco Use Status: Former Tobacco Use Smoking risk assessment performed?: Yes Alcohol Intake: never Drug use: Never Substance use type: does not use Education Level: other Do you feel safe at home: Yes Exam Narrative Exam Narrative: Patient was not interviewed or examined Results Last Vital Signs Temp 36.5 C 12/19/23 00:22 Pulse 51 L 12/19/23 06:30 Resp 13 12/19/23 06:30 BP 132/49 L 12/19/23 06:30 Pulse Ox 95 12/19/23 06:30 Labs 12/19/23 06:08 12/19/23 06:08 Labs: Laboratory Results - last 24 hr 12/19/23 12/19/23 00:32 06:08 WBC 8.12 6.28 RBC 4.39 4.09 Hgb 14.2 13.4 Hct 42.4 38.9 MCV 97 H 95 MCH 32.3 32.8 MCHC 33.5 34.4 RDW 12.3 12.3 Plt Count 264 238 MPV 9.9 9.6 Immature Gran % 2.2 Neutrophils % 43.6 Lymphocytes % 44.3 Monocytes % 8.4 Eosinophils % 1.0 Basophils % 0.5 Nucleated RBC % 0.0 Absolute Neutrophils 3.54 Absolute Lymphocytes 3.60 H Absolute Monocytes 0.68 Absolute Eosinophils 0.08 Absolute Basophils 0.04 Sodium 142 140 Potassium 3.7 3.4 L Chloride 106 108 H Carbon Dioxide 29.5 27.8 Anion Gap 6.5 4.2 BUN 9 8 Creatinine 1.2 H 1.1 H Est GFR (CKD-EPI 2020) 49.31 54.73 Glucose 87 93 Calcium 8.5 8.4 L Magnesium 2.1 2.2 Total Bilirubin 0.60 AST 27 ALT 32 Alkaline Phosphatase 62 Troponin I < 50 < 50 NT-Pro-B Natriuret Pep 99 Total Protein 5.8 L Albumin 3.5 TSH 2.44
[2023-12-19] MEDS: Omeprazole 20 MG CAPCR PO (08:49)
[2023-12-19] MEDS: Multivitamin TAB 1 TAB PO (08:49)
[2023-12-19] MEDS: Calcium Carbonate 1.25 GM TAB PO (08:49)
[2023-12-19] MEDS: Isosorbide Mononitrate 30 MG TABCR PO (08:49)
[2023-12-19] MEDS: cloNIDine 0.1 MG TAB PO (08:49)
[2023-12-19] MEDS: Aspirin 81 MG CHEW PO (08:50)
[2023-12-19] MEDS: Acetaminophen 500 MG TAB 1000 MG PO (09:44)
--- NOTE | 2023-12-19 10:09 | NUR.NOTE ---
Pt is alert and oriented. Still c/o of some SOB, and chest pressure non radiating. Provider in to assess. PO APAP 1000mg for pain ordered. Pt LS clear but diminished throughout. Pt denies voiding difficulty. VSS. Awaiting dispo plan. Will conitnue to monitor. Nursing Note:
--- NOTE | 2023-12-19 10:40 | DSE_ITS ---
Date of service: 12/19/23 Time of Service: 10:40 DS: Diagnosis Discharge Diagnosis (1) Chest pressure: Status: Acute Discharge Plan Disposition Patient Disposition: Home Condition: Good Discharge Details Reason For Visit: Atypical Chest Pain,Dyspnea Upon Exerction Admit Date/Time: 12/19/23 02:47 Admit Provider: Issa Dutton Attending Provider: Issa Dutton Primary Care Provider: Jessica Packer V Hospital Course Hospital Course: * Patient presented to the ED with ongoing symptoms despite treatment for p neumonia. Review of records revealed multiple prior ED visits for similar symptoms dating back to 2011. * Stable EKG with anterior T wave inversions, no acute changes. * Recent CTA negative for PE, but cardiomegaly noted on echocardiogram from last year. * Stable BNP levels. * Patient agreed to observation for further cardiac evaluation due to concern over symptoms. Diagnostic Results: * Stable chronic kidney disease; diet-controlled diabetes without formal diagnosis. * Long-acting nitroglycerin used daily for chest pain despite no formal diagnosis of coronary artery disease. Clinical Condition on Discharge: * Stable with ongoing evaluation pending cardiac stress test and echocardiogram. Medications on Discharge: * Continue current medications, including Zithromax and long-acting nitroglycerin. Follow-up Instructions: * Follow-up with cardiology in [place], [place] for stress test * Echocardiogram pending outpatient here, can also be done at [place] if preferable * Consider outpatient evaluation for mood disorder symptoms. * Monitor symptoms closely and report any changes or worsening. Home Meds and New Rx's Prescriptions: Continued methylphenidate HCl 10 mg tablet 10 mg PO DAILY calcium carbonate [Calcium 500] 500 mg calcium (1,250 mg) tablet,chewable 500 mg PO DAILY Ozempic 1 mg/dose (2 mg/1.5 mL) pen injector 1 mg subcut QWEEK losartan 50 MG tablet 75 mg PO DAILY Patient Comments: 06-23-17 PCP RECORD 25 MG QD. lamotrigine 150 MG tablet 150 mg PO BID Patient Comments: 06-23-17 PCP RECORD 100 MG BID. clonidine HCl 0.1 MG tablet 0.1 mg PO BID montelukast [Singulair] 10 MG tablet 10 mg PO HS fluticasone propionate 16 GM spray,suspension 50 mcg NS BID aripiprazole [Abilify] 10 MG tablet 20 mg PO DAILY Patient Comments: 06-23-17 PCP RECORD 20 MG QD. rosuvastatin [Crestor] 10 MG tablet 10 mg PO 3x/wk Patient Comments: 06-23-17 PCP RECORD 10 MG QD. topiramate [Topamax] 50 MG tablet 25 mg PO DAILY hydrocodone-acetaminophen [Vicodin] 1 EACH tablet 1 ea PO DAILY PRN Patient Comments: 10/08/14 per pt prn multivitamin [Daily Multi-Vitamin] 1 EACH tablet 1 ea PO DAILY travoprost [Travatan Z] 2.5 ML drops 2.5 ml Ophthalmic PM One-Per-Day [place]-3 1 EACH capsule,delayed release(DR/EC) 1 ea PO PRN PRN polyethylene glycol 3350 [Miralax] 17 GM powder in packet 17 g PO DAILY Qty: 255 aspirin 81 MG tablet,chewable 81 mg PO DAILY ProAir RespiClick 90 MCG aerosol powdr breath activated 90 mcg Inhalation QID (DME) OneTouch Ultra Test Strip See Rx Instructions .Route Rx Instructions: As directed (DME) nebulizers Misc See Rx Instructions .Route Rx Instructions: As directed triamcinolone acetonide 0.1 % cream 1 applic topical BID flaxseed oil 1,000 mg capsule 1,000 mg PO DAILY Rx Instructions: administer with a meal (DME) lancets [Lancets,Thin] Misc See Rx Instructions .Route Rx Instructions: As directed (DME) blood-glucose meter [FreeStyle Lite Meter] Kit See Rx Instructions .Route Rx Instructions: As directed azelastine 205.5 mcg (0.15 %) spray,non-aerosol 1 spray intranasal BID PRN Rx Instructions: administer into each nostril nitroglycerin 0.4 mg tablet, sublingual 0.4 mg sublingual Q5M PRN Rx Instructions: do not exceed 3 doses per episode omeprazole 20 mg capsule,delayed release(DR/EC) 20 mg PO DAILY duloxetine [Cymbalta] 60 mg capsule,delayed release(DR/EC) 120 mg PO HS Patient Comments: 06/23/17 PCP RECORD 60 MG BID. fluticasone propion-salmeterol [Advair HFA] 230-21 mcg/actuation HFA aerosol inhaler 2 puff inhalation BID Qty: 12 12RF isosorbide mononitrate 30 mg tablet extended release 24 hr 30 mg PO DAILY spironolactone 25 mg tablet 25 tab PO DAILY lactulose 10 gram/15 mL solution 30 ml PO DAILY mirtazapine 30 mg Tablet 30 mg PO DAILY ipratropium-albuterol 0.5 mg-3 mg(2.5 mg base)/3 mL solution for nebulization 3 ml inhalation 4XD PRNQty: 90 0RF methylphenidate HCl [Concerta] 36 mg Tablet Extended Release 24hr 36 mg PO DAILY Discharge Instructions Instructions: Chest pain - Discharge instructions Additional Instructions: Follow up with PCP. Recommend an outpatient echocardiogram. Continue home medications. Referrals: Jessica Packer MD [Primary Care Provider] - 12/26/23 10:00 am (Recommend outpatient echo) Activity:: Activity as Tolerated Equipment/Supplies:: No Equipment Needed Diet:: As Tolerated Discharge Orders Discharge Orders: Discharge Order (Routine); Ordered 12/19/23 Ordered By: Leticia Hooper Other Ambulatory Orders: US echocardiogram (Routine) Location: None Selected Ordered By: Leticia Hooper DS: Summary Time Spent with Patient providing and/or coordinating discharge services: Greater than 30 minutes Status at Discharge Functional status at discharge: independent ambulation Overall status at discharge: patient is back to baseline Mental Status: mental status grossly normal Speech and Movement: speech and movement normal Mood: congruent mood Affect: normal affect Quality:SDOH Health Related Social Needs: No Data to Display Exam Narrative Exam Narrative: Const: Obese elderly female in NAD. VS per triage. HEENT: NC/AT. Normal facial exam. Neck: Supple. Trachea midline. Lungs: Normal respiratory effort. Lungs are clear. Cor: RRR without murmur. Bradycardic. Good radial pulses. GI: Soft/ND/NT. Neuro: A+O x 3. Normal speech, mentation, gait. Cranial nerves II - XII yoon sly intact. No gross motor or sensory deficit. Ext: No C/C/E. Psych Mental Status: mental status grossly normal Speech and Movement: speech and movement normal Mood: congruent mood Affect: normal affect DS: Data Vitals/I&O Vitals and I&O: Vital Signs Temperature 36.5 C 12/19/23 00:22 Temperature Source Temporal Artery Scan 12/19/23 00:22 Pulse 51 L 12/19/23 06:30 Pulse 54 L 12/19/23 06:30 Respiratory Rate 13 12/19/23 06:30 Respiratory Effort Normal, Non-Labored 12/19/23 00:33 Respiratory Depth Normal 12/19/23 00:32 Blood Pressure 132/49 L 12/19/23 06:30 Blood Pressure Mean 80 12/19/23 06:30 Blood Pressure Position Supine 12/19/23 00:22 Pulse Oximetry 95 12/19/23 06:30 Oxygen Delivery Method Room Air 12/19/23 08:48 Oxygen Flow Rate 0 12/19/23 08:48 Pain Level 4 12/19/23 09:44 Intake & Output 12/18/23 12/18/23 12/19/23 11:59 23:59 11:59 Weight 88.904 kg Data Completed and Pending Labs on day of discharge: Labs from last 24 hours 12/19/23 12/19/23 12/19/23 08:30 06:08 00:32 WBC 6.28 8.12 RBC 4.09 4.39 Hgb 13.4 14.2 Hct 38.9 42.4 MCV 95 97 H MCH 32.8 32.3 MCHC 34.4 33.5 RDW 12.3 12.3 Plt Count 238 264 MPV 9.6 9.9 Immature Gran % 2.2 Neutrophils % 43.6 Lymphocytes % 44.3 Monocytes % 8.4 Eosinophils % 1.0 Basophils % 0.5 Nucleated RBC % 0.0 Absolute Neutrophils 3.54 Absolute Lymphocytes 3.60 H Absolute Monocytes 0.68 Absolute Eosinophils 0.08 Absolute Basophils 0.04 Sodium 140 142 Potassium 3.4 L 3.7 Chloride 108 H 106 Carbon Dioxide 27.8 29.5 Anion Gap 4.2 6.5 BUN 8 9 Creatinine 1.1 H 1.2 H Est GFR (CKD-EPI 2020) 54.73 49.31 Glucose 93 87 Calcium 8.4 L 8.5 Magnesium 2.2 2.1 Total Bilirubin 0.60 AST 27 ALT 32 Alkaline Phosphatase 62 Troponin I Pending < 50 < 50 NT-Pro-B Natriuret Pep 99 Total Protein 5.8 L Albumin 3.5 TSH 2.44 PFSH All Active Problems Chest pressure (Acute) RESTREPO (dyspnea on exertion) (Acute) CKD (chronic kidney disease) (Chronic) History of closed head injury (Acute) Paraesophageal hernia (Acute) RESTREPO (dyspnea on exertion) (Acute) Acquired elevated diaphragm (Acute) Chronic cough (Acute) Abnormal chest xray (Acute) Tubular adenoma of colon (Acute) Mastodynia, female (Acute) Raynauds syndrome (Acute) Seasonal allergies (Acute) Chronic fatigue syndrome (Acute) IBS (irritable bowel syndrome) (Chronic) Hiatal hernia (Chronic) with reflux Anemia (Chronic) Elevated liver enzymes (Acute) White matter disease, unspecified (Acute) Hip pain, left (Acute) Constipation (Acute) Low-tension glaucoma, bilateral, indeterminate stage (Acute) Neuroma (Acute) Insomnia (Acute) Trochanteric bursitis (Acute) Leg cramps (Acute) Urinary incontinence (Acute) Chronic pain (Chronic) Scoliosis of lumbar spine (Acute) Disc disease, degenerative, lumbar or lumbosacral (Acute) Osteopenia (Acute) Adrenal nodule (Acute) Decreased renal function (Acute) Fibromyalgia (Acute) Cardiac angina (Chronic) Abnormal PFT (Acute) Acute sinusitis (Acute) Nasal congestion (Acute) Dysphagia (Acute) Medical History Atypical chest pain Anxiety Depression GERD (gastroesophageal reflux disease) Hyperlipidemia Gastroparesis Chronic post-traumatic stress disorder (PTSD) Diabetes mellitus Asthma History of tobacco use Hx of endometriosis Hx of rheumatic fever Surgical History S/P hysterectomy Status post THR (total hip replacement) ORIF right ankle Lina Fundoplication 1996 EGD - IV Sedation Family History Father Cancer Mother Heart disease Social History Smoking/Tobacco Use Status: Former Tobacco Use Smoking risk assessment performed?: Yes Alcohol Intake: never Drug use: Never Substance use type: does not use Education Level: other Do you feel safe at home: Yes Time Spent with Patient Time Spent with Patient: 45-69 minutes Time was spent: preparing to see the patient(eg.review tests), ordering medications,tests, procedures, referring, communicating with other health home care consultant, indepentently interpreting results, counseling the patient and care coordination
[2023-12-19 11:29] LABS: Troponin I < 50 ng/L (< or =60)
== END 2023-12-19 11:44 | disposition home or self-care (01) ==
LOC: ER 04:31 → EDHOLD 07:06
PROVIDERS: Admitting Provider Family Medicine; Emergency Provider Emergency Medicine; PCP Family Medicine; Visit Provider Family Medicine
DX: R07.89 Other chest pain (principal); R06.89 Other abnormalities of breathing; F32.89 Other specified depressive episodes; K21.9 Gastro-esophageal reflux disease without esophagitis; E78.2 Mixed hyperlipidemia; E11.22 Type 2 diabetes mellitus with diabetic chronic kidney disease; N18.31 Chronic kidney disease, stage 3a; Z79.899 Other long term (current) drug therapy; Z79.85 Long-term (current) use of injectable non-insulin antidiabetic drugs; K44.9 Diaphragmatic hernia without obstruction or gangrene; R05.3 Chronic cough; I73.00 Raynaud's syndrome without gangrene; K58.9 Irritable bowel syndrome, unspecified; G93.32 Myalgic encephalomyelitis/chronic fatigue syndrome; R32 Unspecified urinary incontinence; G47.00 Insomnia, unspecified; D64.9 Anemia, unspecified
CPT/HCPCS: 00123; 36415; 80048; 80053; 85027; 93005; 94640; 96372; 99222; 99285; J1650; 71046; 83735; 83880; 84443; 84484; 85025; 93010; 99234; J7620

== ENCOUNTER → 2023-12-19 07:39 | Outpatient (BNVA) | payer OTHER, SELFPAY | PROVIDERS: PCP Family Medicine; Referring Provider Family Medicine; Visit Provider Internal Medicine Cardiovascular Disease ==

== ENCOUNTER → 2023-12-25 02:26 | Outpatient (CLI) | payer OTHER, SELFPAY ==
--- NOTE | 2023-12-25 13:30 | DI.US_ITS ---
APPROVED REPORT EXAM: Comprehensive 2D, Doppler, and color-flow Echocardiogram Patient Location: Out-Patient [employer] Tender: Daniel Gipson RDCS (AE) Indications: Chest pain Conclusion Normal left ventricular wall thickness and chamber size. Ejection fraction is 55 to 60%. Wall motio n is normal Normal right ventricular size and function Both atria are mildly dilated There is no structural or hemodynamically significant valvular disease Ascending aorta measures 3.7 cm Wall motion Left Ventricle The left ventricle is normal size. The left ventricular systolic function is normal. The left ventric ular ejection fraction is within the normal range. There is normal left ventricular wall thickness. T here is normal LV segmental wall motion. There is no ventricular septal defect visualized. LVEF is 58 %. Right Ventricle The right ventricle is normal size. The right ventricular systolic function is normal. Atria Left atrium is mildly dilated. Right atrium is mildly dilated. The interatrial septum is intact with no evidence for an atrial septal defect. Aortic Valve The aortic valve is normal in structure. Aortic valve is trileaflet. There is no aortic valvular sten osis. No aortic regurgitation is present. Mitral Valve The mitral valve is normal in structure. No evidence of mitral valve stenosis. There is no mitral cathy ve regurgitation noted. Tricuspid Valve The tricuspid valve is normal in structure. There is no tricuspid valve stenosis. Mild tricuspid regu rgitation. The RVSP is 22.4 mmHg. Pulmonic Valve The pulmonary valve is normal in structure. There is no pulmonic valvular stenosis. There is no pulmo mazin valvular regurgitation. Great Vessels The aortic root is normal in size. The ascending aorta is mildly dilated. Aortic arch is normal in ca liber. IVC is normal in size and collapses >50% with inspiration. Pericardium There is no pericardial effusion. 2D Dimensions IVSD d PLAX 0.74 cm F: 0.6-1.0 Ao Root d 2.75 cm F: 2.7 - 3.3 LVPW d PLAX 0.70 cm F: 0.6 - 1.0 Ao Asc Diam d 3.70 cm F: 2.3 - 3.1 LVID d PLAX 4.94 cm F: 3.8 - 5.2 LVDs 3.44 cm F: 2.2 - 3.5 LV EF Teichholz 57.6 % FS 30.41 % LV EDV (Teich) 115.0 mL LV ESV (Teich) 48.7 mL Stroke Vol Index (Teich) 34.17 Auto EF LV EDV A4C 95.0 mL LV EDV A2C 71.1 mL LV EDV BP 88.1 mL LV ESV A4C 40.9 mL LV ESV A2C 30.1 mL LV ESV BP 35.6 mL LVEF(%) A4C 56.9 % LVEF(%) A2C 57.7 % LVEF(%) BP 59.6 % LV SV A4C 54.1 ml LV SV A2C 41.0 ml LV SV BP 52.5 ml LV CO A4C 3.5 L/min LV CO A2C 2.6 L/min LV CO BP 3.0 L/min HR A4C 65.46 BPM HR A2C 62.29 BPM LV EDV Index (BP) LA Volume LA Length A4C 5.3 cm LA Length A2C 5.3 cm LA Area A4C s 17.55 cm2 LA Area A2C s 16.42 cm2 LA Vol A4C A-L 49.69 mL LA Vol A2C A-L 42.83 mL LA Vol Biplane A-L 46.5 mL LA Vol/BSA A4C A-L LA Vol/BSA A2C A-L LA Vol/BSA BP A-L 24.0 mL/m2 LA Vol A4C MOD 48.8 mL LA Vol A2C MOD 39.8 mL LA Vol BP MOD 44.0 mL RA Volume RA Area A4C 20.6 cm2 RA ESV A4C (A-L) 68.1mL RA Vol/BSA A4C A-L RA Length A4C 5.3 cm RA ESV A4C (MOD) 64.2mL LV Diastology MV E Vmax 0.55 (0.4-1.3 m/s) MV A Vmax 1.05 (0.4-1.3 m/s) E/A Ratio 0.5 Aortic Valve AoV Vmax 1.06 m/s LVOT Vmax 0.83 m/s AoV Peak Grad 4.5 mmHg LVOT Peak Grad 2.7 mmHg AoV Area (Vmax) 2.39 cm2 LVOT VTI 0.176 m AoV VTI 0.228 m LVOT Mean Grad 1.6 mmHg AoV Mean Roddy. 0.77 m/s LVOT SV 53.89 mL AoV Mean Grad 2.6 mmHg LVOT Diam s 1.95 cm AoV Area (VTI) 2.36 cm2 Velocity Ratio 0.78 Mitral Valve MV DT 247 (160-240 msec) Pulmonary Valve PV Vmax 0.86 (0.5-1.5 m/s) RVOT Vmax 0.63 m/s PV Peak Grad 2.9 mmHg RVOT Peak Gr. 1.6 mmHg PV Mean Roddy 0.56 m/s RVOT VTI 0.132 m PV Mean Grad 1.5 mmHg RVOT Mean Gr. 0.7 mmHg Tricuspid Valve RA Pressure 3.00 mmHg TR Vmax 2.20 m/s TR Peak Grad 19.4 mmHg RVSP (TR) 22.4 mmHg
== END ==
PROVIDERS: PCP Family Medicine; Visit Provider Family Medicine
DX: R07.89 Other chest pain (principal)
CPT/HCPCS: 93306

== ENCOUNTER → 2024-01-10 14:02 | Outpatient (BNVA) | payer OTHER, SELFPAY | PROVIDERS: PCP Family Medicine; Referring Provider Family Medicine; Visit Provider Physician Assistant Surgical | DX: R05.3 Chronic cough (principal); K44.9 Diaphragmatic hernia without obstruction or gangrene; J45.909 Unspecified asthma, uncomplicated; R06.09 Other forms of dyspnea; J98.6 Disorders of diaphragm | CPT/HCPCS: 99214 ==

== ENCOUNTER 2024-04-01 09:25 | Emergency (ER) | payer OTHER, SELFPAY ==
[2024-04-01] VITALS (40 sets, daily range): BP systolic 132–181; BP diastolic 59–81; PULSE 61–77; RESP 7–28; TEMP 36.6–36.8; O2SAT 89–95
--- NOTE | 2024-04-01 10:14 | ED.GENADUL_ITS ---
Discharge Plan Disposition Patient Disposition: Home Discharge Details Clinical Impression: Headache, unspecified Primary Care Provider: Jessica Packer V ED Provider: Dustin Byrd Home Meds and New Rx's Prescriptions: Continued methylphenidate HCl 10 mg tablet 10 mg PO DAILY calcium carbonate [Calcium 500] 500 mg calcium (1,250 mg) tablet,chewable 500 mg PO DAILY Ozempic 1 mg/dose (2 mg/1.5 mL) pen injector 1 mg subcut QWEEK losartan 50 MG tablet 75 mg PO DAILY Patient Comments: 06-23-17 PCP RECORD 25 MG QD. lamotrigine 150 MG tablet 150 mg PO BID Patient Comments: 06-23-17 PCP RECORD 100 MG BID. clonidine HCl 0.1 MG tablet 0.1 mg PO BID montelukast [Singulair] 10 MG tablet 10 mg PO HS fluticasone propionate 16 GM spray,suspension 50 mcg NS BID aripiprazole [Abilify] 10 MG tablet 20 mg PO DAILY Patient Comments: 06-23-17 PCP RECORD 20 MG QD. rosuvastatin [Crestor] 10 MG tablet 10 mg PO 3x/wk Patient Comments: 06-23-17 PCP RECORD 10 MG QD. topiramate [Topamax] 50 MG tablet 25 mg PO DAILY multivitamin [Daily Multi-Vitamin] 1 EACH tablet 1 ea PO DAILY travoprost [Travatan Z] 2.5 ML drops 2.5 ml Ophthalmic PM One-Per-Day Tobyhanna-3 1 EACH capsule,delayed release(DR/EC) 1 ea PO PRN PRN polyethylene glycol 3350 [Miralax] 17 GM powder in packet 17 g PO DAILY Qty: 255 aspirin 81 MG tablet,chewable 81 mg PO DAILY ProAir RespiClick 90 MCG aerosol powdr breath activated 90 mcg Inhalation QID (DME) OneTouch Ultra Test Strip See Rx Instructions .Route Rx Instructions: As directed (DME) nebulizers Misc See Rx Instructions .Route Rx Instructions: As directed triamcinolone acetonide 0.1 % cream 1 applic topical BID flaxseed oil 1,000 mg capsule 1,000 mg PO DAILY Rx Instructions: administer with a meal (DME) lancets [Lancets,Thin] Misc See Rx Instructions .Route Rx Instructions: As directed (DME) blood-glucose meter [FreeStyle Lite Meter] Kit See Rx Instructions .Route Rx Instructions: As directed azelastine 205.5 mcg (0.15 %) spray,non-aerosol 1 spray intranasal BID PRN Rx Instructions: administer into each nostril nitroglycerin 0.4 mg tablet, sublingual 0.4 mg sublingual Q5M PRN Rx Instructions: do not exceed 3 doses per episode omeprazole 20 mg capsule,delayed release(DR/EC) 20 mg PO DAILY duloxetine [Cymbalta] 60 mg capsule,delayed release(DR/EC) 120 mg PO HS Patient Comments: 06/23/17 PCP RECORD 60 MG BID. fluticasone propion-salmeterol [Advair HFA] 230-21 mcg/actuation HFA aerosol inhaler 2 puff inhalation BID Qty: 12 12RF isosorbide mononitrate 30 mg tablet extended release 24 hr 30 mg PO DAILY spironolactone 25 mg tablet 25 tab PO DAILY lactulose 10 gram/15 mL solution 30 ml PO DAILY mirtazapine 30 mg Tablet 30 mg PO DAILY methylphenidate HCl [Concerta] 36 mg Tablet Extended Release 24hr 36 mg PO DAILY Discharge Instructions Instructions: Headache, Adult ED Additional Instructions: You are seen in the emergency department for your headache. Your CAT scan showed no sign of any bleeding in your head. Your blood work shows that your kidneys are working well. Please follow-up with your primary care provider later this week. Please return to the emergency department as we discussed if you develop any focal areas of weakness. Please continue taking your home medications as previously prescribed. For your pain please take medications as follows: 1. Take acetaminophen (Tylenol), 1,000 mg (two 500 mg tabs) every 6 hours HPI General Date/Time Provider Initiated Documentation: 04/01/24 10:14 . HPI Narrative: MDM This is an overall very well-appearing normothermic and not tachycardic 68-year-old female with headache for the past approximately 1 week concerning for multiple etiologies. No focal neurological deficits to suggest CVA did not medication for MRI. No pain out of proportion to suggest necrotizing soft tissue infection. Not altered to suggest posterior reversible encephalopathy syndrome. No tonic-clonic activity to suggest seizures and no indication for EEG. No nuchal rigidity to suggest meningitis so no indication for lumbar puncture. Patient is not on oral hormonal therapy however given headache which began after vaccinations I have considered for cerebral venous sinus thrombosis so we will obtain a CT venogram. No rash to face to suggest zoster. No generator exposure to suggest increased risk for carbon monoxide. Headache was not sudden onset so my suspicion is low for subarachnoid hemorrhage. No chiropractic manipulation to suggest increased risk for cervical arterial dissection. Will will obtain basic labs ECG to assess for dysrhythmia and troponin to rule stratify for acute coronary syndrome. Given bilateral symptoms and not concern for acute closed angle glaucoma however patient had a history of low-tension glaucoma so we will obtain intraocular pressures following tetracaine. No dizziness truncal ataxia nor dysdiadochokinesia. My suspicion is low for posterior circulation CVA. 11:22 AM Comprehensive metabolic panel showing CKD no GILBERT. Mild hyperglycemia but no anion gap not consistent with DKA. Bicarbonate mildly elevated. Initial troponin reassuring. CBC lacks anemia thrombocytopenia and leukocytosis. 3:[address] head negative for any acute cerebral venous sinus thrombosis. Reassuring delta troponin after 1 hour. Patient I discussed that she should return to the emergency department if she developed fevers chest pain any focal areas of weakness. Otherwise advised empiric trial of discharge with expectant outpatient management and PCP follow-up later this week. She understood her return indications. Chronic conditions affecting the care of the patient: Chronic fatigue constipation History obtained from an outside historian: N/A External record review: [facility] results Diagnostic interpretations performed by me: Per my independent interpretation chest x-ray shows: Per my independent interpretation EKG shows: Normal sinus rhythm at a rate of 67. Left axis deviation interventricular conduction delay. No signs of LVH. QTc within normal limits. ID within normal limits. T wave inversions V2 V3 and in leads III and aVF. Appears similar to prior dated earlier this year. Left anterior fascicular block. No acute injury pattern. ]Medications: Metoclopramide Social determinants of health affecting disposition: N/A Management discussed with: Radiology Treatment/interventions considered: N/A Response to therapies provided: Improved symptoms in the ED HPI This is a 68-year-old female with a history of hypertension hyperlipidemia and diabetes arrived to the emergency department via private vehicle in the setting of headache. Patient notes that her headache began 8 days ago after receiving a COVID and flu vaccine. She was seen yesterday at [facility] and received metoclopramide and felt improved. She has an outpatient prescription for metoclopramide. She has not been dizzy nor take any falls. She said that she initially woke up with a headache. She occasionally feels off balance. She denies any recent chiropractic manipulation. No recent generator exposure. She denies history of migraines and falls. She denies any double vision focal weakness. Denies any difficulty moving and any periods of confusion. Denies routine tobacco, ethanol, and illicits. Exam General: Well-appearing in no acute distress speaking in complete sentences. Head: Normocephalic, atraumatic. Eye:[Pupils equal, round reactive to light.] Extraocular eye movements intact. No conjunctival injection. No scleral icterus. After using tetracaine I checked bilateral intraocular pressures. Left eye was 11 mmHg. Right eye pressure was 14 mmHg. Ear, nose, mouth, throat: Grossly normal inspection. Normal voice, handling secretions normally. Neck: Trachea midline. Cardiovascular: Well-perfused distal extremities. Regular rate and rhythm Respiratory: Nonlabored respiration. Clear lungs bilaterally Gastrointestinal: Nondistended abdomen. Soft nontender Musculoskeletal: No edema. Moving all 4 extremities spontaneously. Skin: Normal for age and race, grossly normal temperature and turgor. No acute rash. Neurologic: Alert and appropriate, no apparent acute deficits. GCS 15. Cranial nerves II through XII intact grossly. No dysmetria. No dysdiadochokinesia. Psychiatric: Mood and manner are appropriate. Grooming and personal hygiene are appropriate. Related Data Home Medications ?Medication ?Instructions ?Recorded ?Confirmed aripiprazole 10 mg tablet (Abilify) 20 mg PO DAILY 09/19/14 04/01/24 clonidine HCl 0.1 mg tablet 0.1 mg PO BID 09/19/14 04/01/24 fluticasone propionate 50 50 mcg NS BID 09/19/14 04/01/24 mcg/actuation nasal spray,suspension lamotrigine 150 mg tablet 150 mg PO BID 09/19/14 04/01/24 losartan 50 mg tablet 75 mg PO DAILY 09/19/14 04/01/24 montelukast 10 mg tablet 10 mg PO HS 09/19/14 04/01/24 (Singulair) multivitamin (Daily Multi-Vitamin 1 ea PO DAILY 09/19/14 04/01/24 tablet) rosuvastatin 10 mg tablet (Crestor) 10 mg PO 3x/wk 09/19/14 04/01/24 topiramate 50 mg tablet (Topamax) 25 mg PO DAILY 09/19/14 04/01/24 travoprost 0.004 % eye drops 2.5 ml ophthalmic (eye) PM 09/19/14 04/01/24 (Travatan Z) omega-3 fatty acids-fish oil 684 1 ea PO PRN PRN 03/06/15 04/01/24 mg-1,200 mg capsule,delayed release (One-Per-Day Tobyhanna-3) albuterol sulfate 90 mcg/actuation 90 mcg inhalation QID 07/05/17 04/01/24 breath activated powder inhaler (ProAir RespiClick) aspirin 81 mg chewable tablet 81 mg PO DAILY 07/05/17 04/01/24 polyethylene glycol 3350 17 gram 17 g PO DAILY #255 grams 07/05/17 04/01/24 oral powder packet (Miralax) methylphenidate HCl 36 mg 36 mg PO DAILY 03/26/19 04/01/24 tablet,extended release 24 hr (Concerta) isosorbide mononitrate 30 mg 30 mg PO DAILY 03/08/22 04/01/24 tablet,extended release 24 hr lactulose 10 gram/15 mL oral 30 ml PO DAILY 03/08/22 04/01/24 solution mirtazapine 30 mg tablet 30 mg PO DAILY 03/08/22 04/01/24 spironolactone 25 mg tablet 25 tab PO DAILY 03/08/22 04/01/24 calcium carbonate (Calcium 500) 500 mg PO DAILY 08/01/22 04/01/24 azelastine 205.5 mcg (0.15 %) 1 spray intranasal BID PRN 08/12/22 04/01/24 nasal spray blood sugar diagnostic (OneTouch 08/12/22 04/01/24 Ultra Test strips) blood-glucose meter (FreeStyle 08/12/22 04/01/24 Lite Meter kit) flaxseed oil 1,000 mg capsule 1,000 mg PO DAILY 08/12/22 04/01/24 lancets (Lancets,Thin) 08/12/22 04/01/24 nebulizers 08/12/22 04/01/24 nitroglycerin 0.4 mg sublingual 0.4 mg sublingual Q5M PRN 08/12/22 04/01/24 tablet omeprazole 20 mg capsule,delayed 20 mg PO DAILY 08/12/22 04/01/24 release triamcinolone acetonide 0.1 % 1 applic topical BID 08/12/22 04/01/24 topical cream duloxetine 60 mg capsule,delayed 120 mg PO HS 08/17/22 04/01/24 release (Cymbalta) methylphenidate HCl 10 mg tablet 10 mg PO DAILY 08/17/22 04/01/24 fluticasone propionate 230 2 puff inhalation BID #12 grams 02/23/23 04/01/24 mcg-salmeterol 21 mcg/actuation HFA inhaler (Advair HFA) semaglutide 1 mg/dose (2 mg/1.5 1 mg subcut QWEEK 04/26/23 04/01/24 mL) subcutaneous pen injector (Ozempic) Previous Rx's ?Medication ?Instructions ?Recorded fluticasone propionate 230 2 puff inhalation BID #12 grams 02/23/23 mcg-salmeterol 21 mcg/actuation HFA inhaler (Advair HFA) Allergies Allergy/AdvReac Type Severity Reaction Status Date / Time oxybutynin Allergy Severe Other (See Verified 01/10/24 14:14 Comment) ibuprofen Allergy Intermediate renal Verified 01/10/24 14:14 issues VALERY Inhibitors Allergy Mild Skin Rash Verified 01/10/24 14:14 empagliflozin Allergy Mild gi upset Verified 01/10/24 14:14 hydrochlorothiazide Allergy Mild Skin Rash Verified 01/10/24 14:14 indomethacin (From Indocin) Allergy Mild Skin Rash Verified 01/10/24 14:14 buspirone (From BuSpar) Allergy Hives Unverified 01/10/24 14:14 melatonin Allergy Itching Verified 01/10/24 14:14 Penicillins Allergy hives Verified 01/10/24 14:14 amitriptyline AdvReac become Verified 01/10/24 14:14 delusional codeine AdvReac causes Verified 01/10/24 14:14 excessive sleepiness Sulfa (Sulfonamide AdvReac become Verified 01/10/24 14:14 Antibiotics) delusional General Stated Complaint: Headache MATTHEW: 3 Course Vital Signs Vital signs: Vital Signs Temperature 36.8 C 04/01/24 09:45 Pulse 74 04/01/24 09:45 Respiratory Rate 18 04/01/24 09:45 Blood Pressure 132/81 04/01/24 09:45 Pulse Oximetry 95 04/01/24 09:45 Temperature 36.8 C 04/01/24 09:45 Pulse 74 04/01/24 09:45 Respiratory Rate 18 04/01/24 09:45 Blood Pressure 132/81 04/01/24 09:45 Blood Pressure Position Supine 04/01/24 09:45 Pulse Oximetry 95 04/01/24 09:45 Oxygen Delivery Method Room Air 04/01/24 09:45 Oxygen Flow Rate 0 04/01/24 09:45 Medical Decision Making Quality:SDOH Health Related Social Needs: No Data to Display PFSH All Active Problems (Updated 04/01/24 @ 12:48 by Dustin Byrd MD) Headache, unspecified (Acute) Microvascular angina (Acute) Balance problem (Acute) Spinal stenosis (Acute) Chronic fatigue (Acute) Post traumatic stress disorder (Acute) Chest pressure (Acute) RESTREPO (dyspnea on exertion) (Acute) History of closed head injury (Acute) Paraesophageal hernia (Acute) Acquired elevated diaphragm (Acute) Chronic cough (Acute) Abnormal chest xray (Acute) Tubular adenoma of colon (Acute) Mastodynia, female (Acute) Raynauds syndrome (Acute) Seasonal allergies (Acute) Chronic fatigue syndrome (Acute) Hiatal hernia (Chronic) with reflux Anemia (Chronic) Elevated liver enzymes (Acute) White matter disease, unspecified (Acute) Hip pain, left (Acute) Constipation (Acute) Low-tension glaucoma, bilateral, indeterminate stage (Acute) Neuroma (Acute) Insomnia (Acute) Trochanteric bursitis (Acute) Leg cramps (Acute) Urinary incontinence (Acute) Chronic pain (Chronic) Scoliosis of lumbar spine (Acute) Disc disease, degenerative, lumbar or lumbosacral (Acute) Osteopenia (Acute) Adrenal nodule (Acute) Decreased renal function (Acute) Fibromyalgia (Acute) Cardiac angina (Chronic) Abnormal PFT (Acute) Acute sinusitis (Acute) Nasal congestion (Acute) Dysphagia (Acute) Medical History (Updated 04/01/24 @ 12:48 by Dustin Byrd MD) Slipped Lina fundoplication Adenomatous colon polyp CKD (chronic kidney disease) RESTREPO (dyspnea on exertion) IBS (irritable bowel syndrome) Atypical chest pain Anxiety Depression GERD (gastroesophageal reflux disease) Hyperlipidemia Gastroparesis Chronic post-traumatic stress disorder (PTSD) Diabetes mellitus Asthma History of tobacco use Hx of endometriosis Hx of rheumatic fever Surgical History (Updated 12/28/23 @ 13:53 by Sulma Montes De Oca) Hx of cystoscopy S/P hysterectomy Status post THR (total hip replacement) ORIF right ankle Lina Fundoplication 1996 EGD - IV Sedation Family History (Updated 12/28/23 @ 14:05 by Sulma Montes De Oca) Father Cancer Mother Heart disease Thrombophilia Son Episodic dyscontrol syndrome Epilepsy Other Hypertension Liver cancer Social History (Updated 12/28/23 @ 13:55 by Sulma Montes De Oca) Smoking/Tobacco Use Status: Never Smoking risk assessment performed?: Yes Alcohol Intake: never Drug use: Never Substance use type: does not use Housing: house Education Level: other Do you feel safe at home: Yes
--- NOTE | 2024-04-01 10:30 | DI.CT_ITS ---
Exam(s) CT HEAD W EXAM: CT HEAD W CLINICAL HISTORY: general ZHU. TECHNIQUE: Imaging Protocol: Both noninfused and contrast infused CT scans of the brain were perform ed. IV Contrast Dose =75 cc Axial computed tomography images with coronal and sagittal reformatted images were created and review ed COMPARISON: CT CT HEAD WO from 12/06/2022 FINDINGS: There are no skull fractures nor fluid in the visualized paranasal sinuses. There is no evidence of intracranial hemorrhage, mass effect, or shift of midline structures. There are no extra-axial fluid collections. The ventricles are not enlarged or shifted and there is no blo od within the ventricular system nor within the basal cisterns. There are no ring enhancing lesions in the brain and there is no abnormal meningeal enhancement, foca l or diffuse. Evidence of venous sinus thrombosis. IMPRESSION: No significant intracranial findings. No significant enhancing intracranial findings. No evidence of venous sinus thrombosis. RADIATION DOSE DELIVERED: 1,904.04mGy.cm Total DLP DATA REPOSITORY: All CT scans at this facility are submitted to the National Radiology Data Registry (NRDR) Dose Index Registry (DIR) with the [employer] ([employer]). RADIATION OPTIMIZATION: All CT scans at this facility use at least one of these dose optimization te chniques: automated exposure control; mA and/or kV adjustment per patient size (includes targeted exa ms where dose is matched to clinical indication); or iterative reconstruction.
--- NOTE | 2024-04-01 10:30 | RT.EKG_ITS ---
APPROVED REPORT Exam: Resting ECG Reason for Exam: Headache Patient Location: E HR:67 bpm ECG Measurements Heart Rate 67 AXIS SC 158 P 30 QRSd 108 QRS -51 QT 405 T -29 QTc 427 Conclusion Sinus rhythm...normal P axis, V-rate 60- 99 Left anterior fascicular block...axis(240,-40), init forces inf Probable anterior infarct, age indeterminate...Q >35mS, T neg, V2-V5 Normal sinus rhythm at a rate of 67. Left axis deviation interventricular conduction delay. No sign s of LVH. QTc within normal limits. SC within normal limits. T wave inversions V2 V3 and in leads III and aVF. Appears similar to prior dated earlier this year. Left anterior fascicular block. No acute injury pattern.
[2024-04-01 10:41] LABS: Abs Immature Grans 0.01 10^3/uL (0.0-0.06); Absolute Basophil Count 0.03 10^3/uL (0.0-0.2); Absolute Eosinophil Count 0.04 10^3/uL (0.0-0.7); Absolute Lymphocyte Count 1.53 10^3/uL (1.2-3.4); Absolute Monocyte Count 0.52 10^3/uL (0.1-0.8); Absolute Neutrophil Count 4.37 10^3/uL (1.2-6.7); Basophils % 0.5 %; Eosinophils % 0.6 %; HCT 41.7 % (36.0-46.0); Immature Grans % 0.2 %; Lymphocytes % 23.5 %; MCH 31.7 pg (27.0-33.0); MCHC 33.6 % (32.0-36.0); MCV 94 fL (80-95); MPV 9.5 fL (8.0-11.0); Neutrophils % 67.2 %; Platelet Count 187 10^3/uL (130-400); RBC 4.42 10^6/uL (3.93-5.22); RDW 12.3 % (11.7-14.6); RDW-SD 42.8 fL
[2024-04-01 11:00] LABS: Anion Gap 5.3 mmol/L (3-11); BUN 13 mg/dL (7-18); CO2 33.7 mmol/L (21.0-32.0); CREATININE 1.4 mg/dL (0.55-1.02); Calcium 10.4 mg/dL (8.5-10.1); Chloride 105 mmol/L (98-107); Estimated GFR 40.98 (mL/min/1.73m2); Glucose 116 mg/dL (74-106); Potassium 3.8 mmol/L (3.5-5.1); Sodium 144 mmol/L (136-145); Troponin I 8 ng/L (<or=51)
[2024-04-01] MEDS: Metoclopramide 10 MG/2 ML VIAL IVP (11:08)
[2024-04-01] MEDS: Omnipaque 350 MG/ML 100 ML BTL 70 ML IJ (11:17)
[2024-04-01] MEDS: Normal Saline - Diluent 50 ML VIAL IJ (11:19)
[2024-04-01] MEDS: Tetracaine 0.5% 4 ML BTL OP (11:32)
[2024-04-01 12:20] LABS: Troponin I 7 ng/L (<or=51)
== END 2024-04-01 13:08 | disposition home or self-care (01) ==
PROVIDERS: Emergency Provider Emergency Medicine; PCP Family Medicine
DX: R51.9 Headache, unspecified (principal); R11.0 Nausea
CPT/HCPCS: 80048; 93005; 96374; 99285; 70460; 84484; 85025; 93010; 99283; J2765; J3490

== ENCOUNTER 2024-06-10 08:35 | Emergency (ER) | payer OTHER, SELFPAY ==
--- NOTE | 2024-06-10 08:30 | RT.EKG_ITS ---
APPROVED REPORT Exam: Resting ECG Reason for Exam: chest pain Patient Location: E HR:72 bpm ECG Measurements Heart Rate 72 AXIS CA 153 P 38 QRSd 109 QRS -49 QT 371 T 6 QTc 406 Conclusion Sinus rhythm...normal P axis, V-rate 60- 99 Left anterior fascicular block...axis(240,-40), init forces inf Probable anterior infarct, age indeterminate...Q >35mS, T neg, V2-V5 Physician: inverted t waves appear unchanged from prior ekg on 04/01/24. No stemi
[2024-06-10 08:43] VITALS: BP 138/67; PULSE 72; RESP 18; TEMP 36.9; O2SAT 98
--- NOTE | 2024-06-10 08:57 | ED.GENADUL_ITS ---
Discharge Plan Disposition Patient Disposition: Home Condition: Good Discharge Details Clinical Impression: Contusion, Fall Primary Care Provider: Jessica Packer V ED Provider: Radha Sancehz Home Meds and New Rx's Prescriptions: Continued methylphenidate HCl 10 mg tablet 10 mg PO DAILY calcium carbonate [Calcium 500] 500 mg calcium (1,250 mg) tablet,chewable 500 mg PO DAILY Ozempic 1 mg/dose (2 mg/1.5 mL) pen injector 1 mg subcut QWEEK losartan 50 MG tablet 75 mg PO DAILY Patient Comments: 06-23-17 PCP RECORD 25 MG QD. lamotrigine 150 MG tablet 150 mg PO BID Patient Comments: 06-23-17 PCP RECORD 100 MG BID. montelukast [Singulair] 10 MG tablet 10 mg PO HS fluticasone propionate 16 GM spray,suspension 50 mcg NS BID aripiprazole [Abilify] 10 MG tablet 20 mg PO DAILY Patient Comments: 06-23-17 PCP RECORD 20 MG QD. rosuvastatin [Crestor] 10 MG tablet 10 mg PO 3x/wk Patient Comments: 06-23-17 PCP RECORD 10 MG QD. topiramate [Topamax] 50 MG tablet 25 mg PO DAILY multivitamin [Daily Multi-Vitamin] 1 EACH tablet 1 ea PO DAILY travoprost [Travatan Z] 2.5 ML drops 2.5 ml Ophthalmic PM One-Per-Day Reeder-3 1 EACH capsule,delayed release(DR/EC) 1 ea PO PRN PRN polyethylene glycol 3350 [Miralax] 17 GM powder in packet 17 g PO DAILY PRNQty: 255 aspirin 81 MG tablet,chewable 81 mg PO DAILY ProAir RespiClick 90 MCG aerosol powdr breath activated 90 mcg Inhalation QID (DME) OneTouch Ultra Test Strip See Rx Instructions .Route Rx Instructions: As directed (DME) nebulizers Misc See Rx Instructions .Route Rx Instructions: As directed triamcinolone acetonide 0.1 % cream 1 applic topical BID flaxseed oil 1,000 mg capsule 1,000 mg PO DAILY Rx Instructions: administer with a meal (DME) lancets [Lancets,Thin] Misc See Rx Instructions .Route Rx Instructions: As directed (DME) blood-glucose meter [FreeStyle Lite Meter] Kit See Rx Instructions .Route Rx Instructions: As directed azelastine 205.5 mcg (0.15 %) spray,non-aerosol 1 spray intranasal BID PRN Rx Instructions: administer into each nostril nitroglycerin 0.4 mg tablet, sublingual 0.4 mg sublingual Q5M PRN Rx Instructions: do not exceed 3 doses per episode duloxetine [Cymbalta] 60 mg capsule,delayed release(DR/EC) 120 mg PO HS Patient Comments: 06/23/17 PCP RECORD 60 MG BID. fluticasone propion-salmeterol [Advair HFA] 230-21 mcg/actuation HFA aerosol inhaler 2 puff inhalation BID Qty: 12 12RF isosorbide mononitrate 30 mg tablet extended release 24 hr 30 mg PO DAILY spironolactone 25 mg tablet 25 tab PO DAILY lactulose 10 gram/15 mL solution 30 ml PO DAILY mirtazapine 30 mg Tablet 30 mg PO DAILY methylphenidate HCl [Concerta] 36 mg Tablet Extended Release 24hr 36 mg PO DAILY Discharge Instructions Instructions: Acute Pain, Adult (DC) Additional Instructions: Your x-rays reassuring here today. As we discussed, sometimes a small subtle nondisplaced fracture is missed but this is not apparent. More likely, will have some bruising and a contusion. However, as this can cause pain with deep breaths I encouraged that you use the incentive spirometer to help encourage deep breathing and prevent pneumonia. Tylenol as needed for discomfort, take as directed on the packaging, no more than 3,000mg daily. Please avoid heavy lifting. Follow up with primary care in 1-2 weeks for reevaluation. If you develop difficulty breathing, shortness of breath, increased pain or other new/worsening symptom please to care urgently was again. Stand Alone Forms: Work Release Discharge Data Discharge Date/Time-TO BE ENTERED AT DEPARTURE: 06/10/24 10:22 HPI General Date/Time Provider Initiated Documentation: 06/10/24 08:42 . Limitations to Documentation: no limitations . Information obtained by: patient and RN notes reviewed . History of Present Illness 68 year old F presents to the emergency department with the chief complaint of left rib pain after fall, described as moderate, with intensity rated at 5. Quality is described as aching, and is localized to the chest (left lateral). Patient reports no radiation. Patient started experiencing this hour(s) (0600) and it has been constant. Immobilization improves symptom(s), Movement worsens symptoms . Patient notes no other symptoms.. Patient did receive the following treatments prior to arrival, none Related Data Home Medications ?Medication ?Instructions ?Recorded ?Confirmed aripiprazole 10 mg tablet (Abilify) 20 mg PO DAILY 09/19/14 06/10/24 fluticasone propionate 50 50 mcg NS BID 09/19/14 06/10/24 mcg/actuation nasal spray,suspension lamotrigine 150 mg tablet 150 mg PO BID 09/19/14 06/10/24 losartan 50 mg tablet 75 mg PO DAILY 09/19/14 06/10/24 montelukast 10 mg tablet 10 mg PO HS 09/19/14 06/10/24 (Singulair) multivitamin (Daily Multi-Vitamin 1 ea PO DAILY 09/19/14 06/10/24 tablet) rosuvastatin 10 mg tablet (Crestor) 10 mg PO 3x/wk 09/19/14 06/10/24 topiramate 50 mg tablet (Topamax) 25 mg PO DAILY 09/19/14 06/10/24 travoprost 0.004 % eye drops 2.5 ml ophthalmic (eye) PM 09/19/14 06/10/24 (Travatan Z) omega-3 fatty acids-fish oil 684 1 ea PO PRN PRN 03/06/15 06/10/24 mg-1,200 mg capsule,delayed release (One-Per-Day Reeder-3) albuterol sulfate 90 mcg/actuation 90 mcg inhalation QID 07/05/17 04/01/24 breath activated powder inhaler (ProAir RespiClick) aspirin 81 mg chewable tablet 81 mg PO DAILY 07/05/17 06/10/24 polyethylene glycol 3350 17 gram 17 g PO DAILY PRN #255 grams 07/05/17 06/10/24 oral powder packet (Miralax) methylphenidate HCl 36 mg 36 mg PO DAILY 03/26/19 06/10/24 tablet,extended release 24 hr (Concerta) isosorbide mononitrate 30 mg 30 mg PO DAILY 03/08/22 06/10/24 tablet,extended release 24 hr lactulose 10 gram/15 mL oral 30 ml PO DAILY 03/08/22 06/10/24 solution mirtazapine 30 mg tablet 30 mg PO DAILY 03/08/22 06/10/24 spironolactone 25 mg tablet 25 tab PO DAILY 03/08/22 06/10/24 calcium carbonate (Calcium 500) 500 mg PO DAILY 08/01/22 06/10/24 azelastine 205.5 mcg (0.15 %) 1 spray intranasal BID PRN 08/12/22 06/10/24 nasal spray blood sugar diagnostic (OneTouch 08/12/22 04/01/24 Ultra Test strips) blood-glucose meter (FreeStyle 08/12/22 04/01/24 Lite Meter kit) flaxseed oil 1,000 mg capsule 1,000 mg PO DAILY 08/12/22 06/10/24 lancets (Lancets,Thin) 08/12/22 04/01/24 nebulizers 08/12/22 04/01/24 nitroglycerin 0.4 mg sublingual 0.4 mg sublingual Q5M PRN 08/12/22 06/10/24 tablet triamcinolone acetonide 0.1 % 1 applic topical BID 08/12/22 06/10/24 topical cream duloxetine 60 mg capsule,delayed 120 mg PO HS 08/17/22 06/10/24 release (Cymbalta) methylphenidate HCl 10 mg tablet 10 mg PO DAILY 08/17/22 06/10/24 fluticasone propionate 230 2 puff inhalation BID #12 grams 02/23/23 06/10/24 mcg-salmeterol 21 mcg/actuation HFA inhaler (Advair HFA) semaglutide 1 mg/dose (2 mg/1.5 1 mg subcut QWEEK 04/26/23 06/10/24 mL) subcutaneous pen injector (Ozempic) Previous Rx's ?Medication ?Instructions ?Recorded fluticasone propionate 230 2 puff inhalation BID #12 grams 02/23/23 mcg-salmeterol 21 mcg/actuation HFA inhaler (Advair HFA) Allergies Allergy/AdvReac Type Severity Reaction Status Date / Time oxybutynin Allergy Severe Other (See Verified 06/10/24 09:08 Comment) ibuprofen Allergy Intermediate renal Verified 06/10/24 09:08 issues VALERY Inhibitors Allergy Mild Skin Rash Verified 06/10/24 09:08 empagliflozin Allergy Mild gi upset Verified 06/10/24 09:08 hydrochlorothiazide Allergy Mild Skin Rash Verified 06/10/24 09:08 indomethacin (From Indocin) Allergy Mild Skin Rash Verified 06/10/24 09:08 buspirone (From BuSpar) Allergy Hives Unverified 06/10/24 09:08 melatonin Allergy Itching Verified 06/10/24 09:08 Penicillins Allergy hives Verified 06/10/24 09:08 amitriptyline AdvReac become Verified 06/10/24 09:08 delusional codeine AdvReac causes Verified 06/10/24 09:08 excessive sleepiness Sulfa (Sulfonamide AdvReac become Verified 06/10/24 09:08 Antibiotics) delusional General Stated Complaint: Chest/Rib MATTHEW: 3 Review of Systems Constitutional Constitutional: Reports as per HPI, Denies chills, Denies fever(s) and Denies headache(s) Eyes Eyes: Denies change in vision ENT Ears, Nose, Mouth, and Throat: Denies dizziness and Denies headache(s) Cardiovascular Cardiovascular: Reports as per HPI, Denies dyspnea and Denies dyspnea on exertion Respiratory Respiratory: Reports as per HPI, Denies chest congestion, Denies cough, Denies dyspnea and Denies dyspnea on exertion Gastrointestinal Gastrointestinal: Reports as per HPI, Denies abdominal pain, Denies diarrhea, Denies nausea and Denies vomiting Musculoskeletal Musculoskeletal: Reports as per HPI and Denies back pain Integumentary/Breasts Skin/Breast: Reports as per HPI and Denies rash Neurologic Neurologic: Reports as per HPI, Denies dizziness and Denies headache(s) Exam Const General: cooperative, healthy appearing, comfortable, no acute distress and well developed Nutritional Appearance: well nourished and overweight Orientation: alert, awake and oriented x3 HENMT Head: normal to inspection Ears: hearing grossly normal bilaterally Mouth: moist mucous membranes Chest Chest: normal inspection of the chest, normal palpation of entire chest wall and no crepitus Chest/axillae images: 2 1. Area of discomfort. No discoloration, erythema, palpable deformity. No crepitus. Resp Effort & Inspection: normal respiratory effort, able to speak in complete sentences and no respiratory distress Auscultation: clear to auscultation bilaterally, no rales, no rhonchi and no wheezes Cardio Rate: regular rate Rhythm: regular rhythm Heart Sounds: S1 normal and S2 normal GI Inspection: normal to inspection, no edema and non-distended Palpation: soft, no hepatosplenomegaly, not firm, no guarding, not rigid and nontender Auscultation: normal bowel sounds Back/Spine/Pelvis Back: no CVA tenderness Thoracic/Lumbar Spine: thoracic and lumbar spine normal to inspection Skin General skin exam: no rashes or lesions noted Trauma: no lacerations or abrasions Neuro General: patient alert, patient awake and patient oriented x3 Cognition: normal cognition Speech: speech normal Gait: normal gait Course Vital Signs Vital signs: Vital Signs Temperature 36.9 C 06/10/24 08:43 Pulse 72 06/10/24 08:43 Respiratory Rate 18 06/10/24 08:43 Blood Pressure 138/67 06/10/24 08:43 Pulse Oximetry 98 06/10/24 08:43 Temperature 36.9 C 06/10/24 08:43 Temperature Source Oral 06/10/24 08:43 Pulse 72 06/10/24 08:43 Respiratory Rate 18 06/10/24 08:43 Blood Pressure 138/67 06/10/24 08:43 Blood Pressure Position Sitting 06/10/24 08:43 Pulse Oximetry 98 06/10/24 08:43 Oxygen Delivery Method Room Air 06/10/24 08:43 Oxygen Flow Rate 0 06/10/24 08:43 Pain Level 5 06/10/24 08:43 Medical Decision Making Patient is a pleasant 68-year-old female past medical history significant for Lina, CKD, IBS, anxiety, depression, GERD, hyperlipidemia, gastroparesis, PTSD, diabetes, asthma, history of tobacco use, presenting today with chief complaint of left-sided rib pain after fall. She reports that this morning her driveway was very icy and she was carrying a cooler to work when she slipped and fell landing on the cooler striking left lateral lower ribs. She denies any loss of consciousness. Denies any back pain. She states that she is having pain with deep inspirations. She denies any central or posterior chest or back pain. On exam, patient appears nontoxic. She is hemodynamically stable. She does appear slightly uncomfortable particularly with movements and deep inspiration. She has lung sounds in all mahoney, clear to auscultation. She is tender over the left lateral aspect of the chest wall with no appreciable signs of trauma such as ecchymosis, discoloration, deformity. No crepitus. Abdomen is benign. No CVA tenderness. No midline tenderness. . Bedside FAST exam performed by myself with no acute abnormality appreciated, no free fluid or evidence suggest pneumothorax. Based on the patient's mechanism of injury, we will move forward with x-ray of the patient's left-sided ribs. Do not see indication for imaging of her abdomen at this point. She not having any headache we will hold off on any head or neck imaging. No evidence to suggest spine injury. FINDINGS: Six views total: Left ribs-four views: Are no obvious left rib fractures. Chest-two views: Heart size normal mediastinum is not widened. Slight elevation left hemidiaphragm with some platelike atelectasis but no confluent infiltrates nor pleural effusions. No obvious pneumothorax. No obvious fractures. IMPRESSION: Mild atelectasis left lung base related to mildly elevated left hemidiaphragm. No obvious fractures. No pleural effusions. No lung contusion. No pneumothorax. Reevaluated the patient and she reports that she is feeling significantly improved after p.o. Tylenol. She feels ready for discharge. Will give patient incentive spirometer to encourage deep breathing despite the lack of fracture. Discussed the potential risk for pneumonia if she continues to have more shallow breathing. I encouraged hydration. We discussed other supportive care such as Tylenol and ibuprofen. Return precautions were discussed. Encourage close follow-up with primary care. All the questions and concerns were addressed she is in agreement this plan. This documentation was generated using [employer] (formerly [employer]) dictation system, please disregard any oddities of phrase or misspellings. Quality:SDOH Health Related Social Needs: 2 No Data to Display PFSH All Active Problems (Updated 06/10/24 @ 09:54 by ROBERT Louis) Fall (Acute) Contusion (Acute) Microvascular angina (Acute) Balance problem (Acute) Spinal stenosis (Acute) Chronic fatigue (Acute) Post traumatic stress disorder (Acute) Chest pressure (Acute) RESTREPO (dyspnea on exertion) (Acute) History of closed head injury (Acute) Paraesophageal hernia (Acute) Acquired elevated diaphragm (Acute) Chronic cough (Acute) Abnormal chest xray (Acute) Tubular adenoma of colon (Acute) Mastodynia, female (Acute) Raynauds syndrome (Acute) Seasonal allergies (Acute) Chronic fatigue syndrome (Acute) Hiatal hernia (Chronic) with reflux Anemia (Chronic) Elevated liver enzymes (Acute) White matter disease, unspecified (Acute) Hip pain, left (Acute) Constipation (Acute) Low-tension glaucoma, bilateral, indeterminate stage (Acute) Neuroma (Acute) Insomnia (Acute) Trochanteric bursitis (Acute) Leg cramps (Acute) Urinary incontinence (Acute) Chronic pain (Chronic) Scoliosis of lumbar spine (Acute) Disc disease, degenerative, lumbar or lumbosacral (Acute) Osteopenia (Acute) Adrenal nodule (Acute) Decreased renal function (Acute) Fibromyalgia (Acute) Cardiac angina (Chronic) Abnormal PFT (Acute) Acute sinusitis (Acute) Nasal congestion (Acute) Dysphagia (Acute) Medical History (Updated 06/10/24 @ 09:54 by ROBERT Louis) Slipped Lina fundoplication Adenomatous colon polyp CKD (chronic kidney disease) RESTREPO (dyspnea on exertion) IBS (irritable bowel syndrome) Atypical chest pain Anxiety Depression GERD (gastroesophageal reflux disease) Hyperlipidemia Gastroparesis Chronic post-traumatic stress disorder (PTSD) Diabetes mellitus Asthma History of tobacco use Hx of endometriosis Hx of rheumatic fever Surgical History (Updated 12/28/23 @ 13:53 by Sulma Montes De Oca) Hx of cystoscopy S/P hysterectomy Status post THR (total hip replacement) ORIF right ankle Lina Fundoplication 1996 EGD - IV Sedation Family History (Updated 12/28/23 @ 14:05 by Sulma Montes De Oca) Father Cancer Mother Heart disease Thrombophilia Son Episodic dyscontrol syndrome Epilepsy Other Hypertension Liver cancer Social History (Updated 12/28/23 @ 13:55 by Sulma Montes De Oca) Smoking/Tobacco Use Status: Never Smoking risk assessment performed?: Yes Alcohol Intake: never Drug use: Never Substance use type: does not use Housing: house Education Level: other Do you feel safe at home: Yes
[2024-06-10] MEDS: Acetaminophen 500 MG TAB 1000 MG PO (09:00)
--- NOTE | 2024-06-10 09:34 | DI.RAD_ITS ---
Exam(s) XR RIBS LT W PA LAT CHEST EXAM: XR RIBS LT W PA LAT CHEST CLINICAL HISTORY: fall, landed lateral left lower ribs. TECHNIQUE: 2D digital imaging was performed. COMPARISON: CR,XR XR CHEST 2V PA LATERAL from 12/19/2023 FINDINGS: Six views total: Left ribs-four views: Are no obvious left rib fractures. Chest-two views: Heart size normal mediastinum is not widened. Slight elevation left hemidiaphragm with some platelike atelectasis but no confluent infiltrates nor pleural effusions. No obvious pneumothorax. No obvious fractures. IMPRESSION: Mild atelectasis left lung base related to mildly elevated left hemidiaphragm. No obvious fractures. No pleural effusions. No lung contusion. No pneumothorax. DATA REPOSITORY: RADIATION DOSE DELIVERED:
[2024-06-10] MEDS: Lidocaine 5% Patch 1 PATCH TP (10:12)
[2024-06-10 10:18] VITALS: BP 135/83; PULSE 68; RESP 16; O2SAT 95
== END 2024-06-10 10:22 | disposition home or self-care (01) ==
PROVIDERS: Emergency Provider Physician Assistant; PCP Family Medicine
DX: S20.211A Contusion of right front wall of thorax, initial encounter (principal); E78.5 Hyperlipidemia, unspecified; E11.22 Type 2 diabetes mellitus with diabetic chronic kidney disease; N18.9 Chronic kidney disease, unspecified; Z79.85 Long-term (current) use of injectable non-insulin antidiabetic drugs; Z79.82 Long term (current) use of aspirin; W00.0XXA Fall on same level due to ice and snow, initial encounter; Y93.01 Activity, walking, marching and hiking; Y92.89 Other specified places as the place of occurrence of the external cause
CPT/HCPCS: 93005; 99284; 71046; 71100; 93010

== ENCOUNTER 2024-06-13 10:49 | Emergency (ER) | payer MEDICARE, SELFPAY ==
[2024-06-13 10:54] VITALS: BP 149/75; PULSE 71; RESP 16; TEMP 36.4; O2SAT 94
--- NOTE | 2024-06-13 11:32 | ED.GENADUL_ITS ---
Discharge Plan Disposition Patient Disposition: Home Condition: Good Discharge Details Clinical Impression: Contusion, Fall Primary Care Provider: Jessica Packer V ED Provider: aRdha Sanchez Home Meds and New Rx's Prescriptions: Continued methylphenidate HCl 10 mg tablet 10 mg PO DAILY Ozempic 1 mg/dose (2 mg/1.5 mL) pen injector 1 mg subcut QWEEK losartan 50 MG tablet 75 mg PO DAILY Patient Comments: 06-23-17 PCP RECORD 25 MG QD. lamotrigine 150 MG tablet 150 mg PO BID Patient Comments: 06-23-17 PCP RECORD 100 MG BID. montelukast [Singulair] 10 MG tablet 10 mg PO HS fluticasone propionate 16 GM spray,suspension 50 mcg NS BID aripiprazole [Abilify] 10 MG tablet 20 mg PO DAILY Patient Comments: 06-23-17 PCP RECORD 20 MG QD. rosuvastatin [Crestor] 10 MG tablet 10 mg PO 3x/wk Patient Comments: 06-23-17 PCP RECORD 10 MG QD. topiramate [Topamax] 50 MG tablet 25 mg PO DAILY multivitamin [Daily Multi-Vitamin] 1 EACH tablet 1 ea PO DAILY travoprost [Travatan Z] 2.5 ML drops 2.5 ml Ophthalmic PM One-Per-Day Pritchett-3 1 EACH capsule,delayed release(DR/EC) 1 ea PO PRN PRN polyethylene glycol 3350 [Miralax] 17 GM powder in packet 17 g PO DAILY PRNQty: 255 aspirin 81 MG tablet,chewable 81 mg PO DAILY ProAir RespiClick 90 MCG aerosol powdr breath activated 90 mcg Inhalation QID (DME) OneTouch Ultra Test Strip See Rx Instructions .Route Rx Instructions: As directed (DME) nebulizers [facility] [place] Instructions .Route Rx Instructions: As directed triamcinolone acetonide 0.1 % cream 1 applic topical BID flaxseed oil 1,000 mg capsule 1,000 mg PO DAILY Rx Instructions: administer with a meal (DME) lancets [Lancets,Thin] Misc See Rx Instructions .Route Rx Instructions: As directed (DME) blood-glucose meter [FreeStyle Lite Meter] Kit See Rx Instructions .Route Rx Instructions: As directed azelastine 205.5 mcg (0.15 %) spray,non-aerosol 1 spray intranasal BID PRN Rx Instructions: administer into each nostril nitroglycerin 0.4 mg tablet, sublingual 0.4 mg sublingual Q5M PRN Rx Instructions: do not exceed 3 doses per episode duloxetine [Cymbalta] 60 mg capsule,delayed release(DR/EC) 120 mg PO HS Patient Comments: 06/23/17 PCP RECORD 60 MG BID. fluticasone propion-salmeterol [Advair HFA] 230-21 mcg/actuation HFA aerosol inhaler 2 puff inhalation BID Qty: 12 12RF isosorbide mononitrate 30 mg tablet extended release 24 hr 30 mg PO DAILY spironolactone 25 mg tablet 25 tab PO DAILY lactulose 10 gram/15 mL solution 30 ml PO DAILY mirtazapine 30 mg Tablet 30 mg PO DAILY methylphenidate HCl [Concerta] 36 mg Tablet Extended Release 24hr 36 mg PO DAILY calcium carbonate-vitamin D2 600 mg calcium- 200 unit tablet 1 tab PO BID Discharge Instructions Instructions: Acute Pain, Adult (DC) Additional Instructions: As we discussed, your imaging and labs are very reassuring. No evidence of fracture or internal bleeding. Pain is likely associated with a contusion to the ribs. Please encourage hydration. Tylenol and ibuprofen as needed for discomfort. Please take as directed on the packaging. If you develop any new or worsening symptoms we seek care urgently again. Otherwisefollow-up with primary care in the next 1 to 2 weeks for reevaluation. Referrals: Jessica Packer MD [Primary Care Provider] - Discharge Data Discharge Date/Time-TO BE ENTERED AT DEPARTURE: 06/13/24 14:32 HPI General Date/Time Provider Initiated Documentation: 06/13/24 11:32 . Limitations to Documentation: no limitations . Information obtained by: patient and RN notes reviewed . History of Present Illness 68 year old F presents to the emergency department with the chief complaint of Left lower chest wall pain after fall 3 days ago, described as severe, Quality is described as aching and sharp, Patient reports no radiation. Patient started experiencing this day(s) and it has been constant. Immobilization improves symptom(s), Movement worsens symptoms . Patient notes no other symptoms.. Patient did receive the following treatments prior to arrival, none Related Data Home Medications ?Medication ?Instructions ?Recorded ?Confirmed aripiprazole 10 mg tablet (Abilify) 20 mg PO DAILY 09/19/14 06/13/24 fluticasone propionate 50 50 mcg NS BID 09/19/14 06/13/24 mcg/actuation nasal spray,suspension lamotrigine 150 mg tablet 150 mg PO BID 09/19/14 06/13/24 losartan 50 mg tablet 75 mg PO DAILY 09/19/14 06/13/24 montelukast 10 mg tablet 10 mg PO HS 09/19/14 06/13/24 (Singulair) multivitamin (Daily Multi-Vitamin 1 ea PO DAILY 09/19/14 06/13/24 tablet) rosuvastatin 10 mg tablet (Crestor) 10 mg PO 3x/wk 09/19/14 06/13/24 topiramate 50 mg tablet (Topamax) 25 mg PO DAILY 09/19/14 06/13/24 travoprost 0.004 % eye drops 2.5 ml ophthalmic (eye) PM 09/19/14 06/13/24 (Travatan Z) omega-3 fatty acids-fish oil 684 1 ea PO PRN PRN 03/06/15 06/13/24 mg-1,200 mg capsule,delayed release (One-Per-Day Pritchett-3) albuterol sulfate 90 mcg/actuation 90 mcg inhalation QID 07/05/17 06/13/24 breath activated powder inhaler (ProAir RespiClick) aspirin 81 mg chewable tablet 81 mg PO DAILY 07/05/17 06/13/24 polyethylene glycol 3350 17 gram 17 g PO DAILY PRN #255 grams 07/05/17 06/13/24 oral powder packet (Miralax) methylphenidate HCl 36 mg 36 mg PO DAILY 03/26/19 06/13/24 tablet,extended release 24 hr (Concerta) isosorbide mononitrate 30 mg 30 mg PO DAILY 03/08/22 06/13/24 tablet,extended release 24 hr lactulose 10 gram/15 mL oral 30 ml PO DAILY 03/08/22 06/13/24 solution mirtazapine 30 mg tablet 30 mg PO DAILY 03/08/22 06/13/24 spironolactone 25 mg tablet 25 tab PO DAILY 03/08/22 06/13/24 azelastine 205.5 mcg (0.15 %) 1 spray intranasal BID PRN 08/12/22 06/13/24 nasal spray blood sugar diagnostic (OneTouch 08/12/22 06/13/24 Ultra Test strips) blood-glucose meter (FreeStyle 08/12/22 06/13/24 Lite Meter kit) flaxseed oil 1,000 mg capsule 1,000 mg PO DAILY 08/12/22 06/13/24 lancets (Lancets,Thin) 08/12/22 06/13/24 nebulizers 08/12/22 06/13/24 nitroglycerin 0.4 mg sublingual 0.4 mg sublingual Q5M PRN 08/12/22 06/13/24 tablet triamcinolone acetonide 0.1 % 1 applic topical BID 08/12/22 06/13/24 topical cream duloxetine 60 mg capsule,delayed 120 mg PO HS 08/17/22 06/13/24 release (Cymbalta) methylphenidate HCl 10 mg tablet 10 mg PO DAILY 08/17/22 06/13/24 fluticasone propionate 230 2 puff inhalation BID #12 grams 02/23/23 06/13/24 mcg-salmeterol 21 mcg/actuation HFA inhaler (Advair HFA) semaglutide 1 mg/dose (2 mg/1.5 1 mg subcut QWEEK 04/26/23 06/13/24 mL) subcutaneous pen injector (Ozempic) calcium carb-ergocalciferol (vit 1 tab PO BID 06/13/24 06/13/24 D2) 600 mg calcium-200 unit tablet Previous Rx's ?Medication ?Instructions ?Recorded fluticasone propionate 230 2 puff inhalation BID #12 grams 02/23/23 mcg-salmeterol 21 mcg/actuation HFA inhaler (Advair HFA) Allergies Allergy/AdvReac Type Severity Reaction Status Date / Time oxybutynin Allergy Severe Other (See Verified 06/13/24 11:02 Comment) ibuprofen Allergy Intermediate renal Verified 06/13/24 11:02 issues VALERY Inhibitors Allergy Mild Skin Rash Verified 06/13/24 11:02 empagliflozin Allergy Mild gi upset Verified 06/13/24 11:02 hydrochlorothiazide Allergy Mild Skin Rash Verified 06/13/24 11:02 indomethacin (From Indocin) Allergy Mild Skin Rash Verified 06/13/24 11:02 buspirone (From BuSpar) Allergy Hives Verified 06/13/24 11:02 melatonin Allergy Itching Verified 06/13/24 11:02 Penicillins Allergy hives Verified 06/13/24 11:02 amitriptyline AdvReac become Verified 06/13/24 11:02 delusional codeine AdvReac causes Verified 06/13/24 11:02 excessive sleepiness Sulfa (Sulfonamide AdvReac become Verified 06/13/24 11:02 Antibiotics) delusional General Stated Complaint: Abd Prob MATTHEW: 3 Review of Systems Constitutional Constitutional: Reports as per HPI, Denies chills, Denies fever(s), Denies headache(s) and Denies poor appetite Eyes Eyes: Denies change in vision ENT Ears, Nose, Mouth, and Throat: Denies dizziness and Denies headache(s) Cardiovascular Cardiovascular: Reports as per HPI, Denies dyspnea and Denies dyspnea on exertion Respiratory Respiratory: Reports as per HPI, Denies chest congestion, Denies cough, Denies dyspnea and Denies dyspnea on exertion Gastrointestinal Gastrointestinal: Reports as per HPI, Denies abdominal pain, Denies diarrhea, Denies nausea and Denies vomiting Musculoskeletal Musculoskeletal: Reports as per HPI and Denies back pain Integumentary/Breasts Skin/Breast: Reports as per HPI and Denies rash Neurologic Neurologic: Reports as per HPI, Denies dizziness and Denies headache(s) Exam Const General: cooperative, healthy appearing, comfortable, no acute distress and well developed Nutritional Appearance: well nourished and overweight Orientation: alert, awake and oriented x3 Chest Chest: normal inspection of the chest, normal palpation of entire chest wall and no crepitus Chest/axillae images: 2 1. area of discomfort. Ecchymois just distal to this. No crepitus, no deformity, swelling. Resp Effort & Inspection: normal respiratory effort, able to speak in complete sentences and no respiratory distress Auscultation: clear to auscultation bilaterally, no rales, no rhonchi and no wheezes Cardio Rate: regular rate Rhythm: regular rhythm Heart Sounds: S1 normal and S2 normal GI Inspection: normal to inspection (ecchymosis left flank), no edema and non- distended Palpation: soft, no hepatosplenomegaly, not firm, no guarding, not rigid and nontender Auscultation: normal bowel sounds Back/Spine/Pelvis Back: no CVA tenderness Thoracic/Lumbar Spine: thoracic and lumbar spine normal to inspection Skin General skin exam: ecchymosis (left flank) Neuro General: patient alert, patient awake and patient oriented x3 Cognition: normal cognition Speech: speech normal Gait: normal gait Course Vital Signs Vital signs: Vital Signs Temperature 36.4 C L 06/13/24 10:54 Pulse 71 06/13/24 10:54 Respiratory Rate 16 06/13/24 10:54 Blood Pressure 149/75 H 06/13/24 10:54 Pulse Oximetry 94 06/13/24 10:54 Temperature 36.4 C L 06/13/24 10:54 Temperature Source Oral 06/13/24 10:54 Pulse 71 06/13/24 10:54 Respiratory Rate 16 06/13/24 10:54 Blood Pressure 149/75 H 06/13/24 10:54 Blood Pressure Position Sitting 06/13/24 10:54 Pulse Oximetry 94 06/13/24 10:54 Oxygen Delivery Method Room Air 06/13/24 10:54 Oxygen Flow Rate 0 06/13/24 10:54 Pain Level 7 06/13/24 10:54 Medical Decision Making Patient is a pleasant 68-year-old female with past medical history significant for Lina, CKD, IBS, anxiety, GERD, hyperlipidemia, gastroparesis, PTSD, diabetes, asthma, history of tobacco abuse, presenting once again for evaluation of left-sided rib pain after fall. She was seen by myself 2 days ago. At that time, no free fluid was noted on ultrasound, no rib fractures were appreciated. Patient falling on slippery driveway and struck the left side of her chest against a small cooler. She presents again today because the pain has increased this morning. She did develop some ecchymosis which is to be expected. Continues to deny any abdominal pain but does indicate upper abdomen is area that the pain in the chest can radiate to. She denies any substernal pain as solely located over a very particular area on the left lateral lower ribs. No increased shortness of breath, denies any blood in her urine, blood in her stool. No nausea or vomiting. No dizziness, syncope. No recurrent trauma. On exam, patient appears largely unchanged no acute distress, resting comfortably. Lungs are clear. No crepitus. Repeat ultrasound was performed by myself at bedside and again, no free fluid was appreciated on FAST exam. Normal lung sliding was noted. Now, patient does have some ecchymosis on the left side which is likely to be expected given the mechanism of injury. However, as the patient has had increased discomfort, will obtain advanced imaging with a CT scan which I discussed with the patient, she is in agreement with this plan. Will give her Tylenol to help with discomfort. CT scan reviewed by radiologist with no acute abnormalities appreciated. Discussed his findings with the patient. Advised contusion. Encouraged hydration and supportive care. Discussed pain management options. We discussed that this is going to be quite tender given the location. She return precautions were discussed. Encouraged follow-up with primary care. All of her questions and concerns were addressed and she is in agreement this plan. This documentation was generated using [employer] system, please disregard any oddities of phrase or misspellings. Quality:SDOH Health Related Social Needs: 2 No Data to Display PFSH All Active Problems (Updated 06/13/24 @ 14:14 by ROBERT Louis) Fall (Acute) Contusion (Acute) Microvascular angina (Acute) Balance problem (Acute) Spinal stenosis (Acute) Chronic fatigue (Acute) Post traumatic stress disorder (Acute) Chest pressure (Acute) RESTREPO (dyspnea on exertion) (Acute) History of closed head injury (Acute) Paraesophageal hernia (Acute) Acquired elevated diaphragm (Acute) Chronic cough (Acute) Abnormal chest xray (Acute) Tubular adenoma of colon (Acute) Mastodynia, female (Acute) Raynauds syndrome (Acute) Seasonal allergies (Acute) Chronic fatigue syndrome (Acute) Hiatal hernia (Chronic) with reflux Anemia (Chronic) Elevated liver enzymes (Acute) White matter disease, unspecified (Acute) Hip pain, left (Acute) Constipation (Acute) Low-tension glaucoma, bilateral, indeterminate stage (Acute) Neuroma (Acute) Insomnia (Acute) Trochanteric bursitis (Acute) Leg cramps (Acute) Urinary incontinence (Acute) Chronic pain (Chronic) Scoliosis of lumbar spine (Acute) Disc disease, degenerative, lumbar or lumbosacral (Acute) Osteopenia (Acute) Adrenal nodule (Acute) Decreased renal function (Acute) Fibromyalgia (Acute) Cardiac angina (Chronic) Abnormal PFT (Acute) Acute sinusitis (Acute) Nasal congestion (Acute) Dysphagia (Acute) Medical History (Updated 01/02/25 @ 14:14 by ROBERT Louis) Slipped Lina fundoplication Adenomatous colon polyp CKD (chronic kidney disease) RESTREPO (dyspnea on exertion) IBS (irritable bowel syndrome) Atypical chest pain Anxiety Depression GERD (gastroesophageal reflux disease) Hyperlipidemia Gastroparesis Chronic post-traumatic stress disorder (PTSD) Diabetes mellitus Asthma History of tobacco use Hx of endometriosis Hx of rheumatic fever Surgical History (Updated 12/28/23 @ 13:53 by Sulma Montes De Oca) Hx of cystoscopy S/P hysterectomy Status post THR (total hip replacement) ORIF right ankle Lina Fundoplication 1996 EGD - IV Sedation Family History (Updated 12/28/23 @ 14:05 by Sulma Montes De Oca) Father Cancer Mother Heart disease Thrombophilia Son Episodic dyscontrol syndrome Epilepsy Other Hypertension Liver cancer Social History (Updated 12/28/23 @ 13:55 by Sulma Montes De Oca) Smoking/Tobacco Use Status: Never Smoking risk assessment performed?: Yes Alcohol Intake: never Drug use: Never Substance use type: does not use Housing: house Education Level: other Do you feel safe at home: Yes
[2024-06-13 11:50] VITALS: BP 128/65; PULSE 70; RESP 12; O2SAT 94
[2024-06-13] MEDS: Acetaminophen 500 MG TAB 1000 MG PO (12:04)
[2024-06-13 12:12] LABS: Abs Immature Grans 0.01 10^3/uL (0.0-0.06); Absolute Basophil Count 0.04 10^3/uL (0.0-0.2); Absolute Eosinophil Count 0.05 10^3/uL (0.0-0.7); Absolute Monocyte Count 0.45 10^3/uL (0.1-0.8); Absolute Neutrophil Count 3.18 10^3/uL (1.2-6.7); Basophils % 0.8 %; Eosinophils % 0.9 %; HCT 42.1 % (36.0-46.0); HGB 14.1 g/dL (11.2-15.7); Immature Grans % 0.2 %; MCH 32.7 pg (27.0-33.0); MCHC 33.5 % (32.0-36.0); MCV 98 fL (80-95); MPV 10.2 fL (8.0-11.0); Monocytes % 8.4 %; Neutrophils % 59.7 %; Platelet Count 176 10^3/uL (130-400); RBC 4.31 10^6/uL (3.93-5.22); RDW 12.6 % (11.7-14.6); RDW-SD 45.4 fL; WBC 5.33 10^3/uL (4.4-10.8)
[2024-06-13 12:30] LABS: ALT 27 U/L (14-59); AST 26 U/L (15-37); Albumin 3.8 g/dL (3.4-5.0); Alkaline Phosphatase 76 U/L (46-116); Anion Gap 6.5 mmol/L (3-11); BUN 13 mg/dL (7-18); CO2 29.5 mmol/L (21.0-32.0); CREATININE 1.3 mg/dL (0.55-1.02); Calcium 9.4 mg/dL (8.5-10.1); Chloride 108 mmol/L (98-107); Estimated GFR 44.79 (mL/min/1.73m2); Glucose 89 mg/dL (74-106); Lipase 45 U/L (<78); Potassium 3.9 mmol/L (3.5-5.1); Sodium 144 mmol/L (136-145); Total Protein 6.3 g/dL (6.4-8.2)
[2024-06-13 12:48] VITALS: BP 141/73; PULSE 73; O2SAT 97
[2024-06-13] MEDS: Ketorolac 15 MG/ML VIAL IVP (13:18)
[2024-06-13] MEDS: Normal Saline - Diluent 50 ML VIAL IJ (13:22)
[2024-06-13] MEDS: Omnipaque 350 MG/ML 100 ML BTL IJ (13:23)
--- NOTE | 2024-06-13 13:24 | DI.CT_ITS ---
Exam(s) CT CHEST/ABD/PEL W EXAM: CT CHEST/ABD/PEL W CLINICAL HISTORY: trauma, struck left side, pain increasing. TECHNIQUE: Imaging Protocol: Axial computed tomography images with coronal and sagittal reformatted images were created and reviewed. Computer aided detection (CAD) was utilized. CONTRAST MATERIAL: Intravenous: Omnipaque 350 Contrast volume:100 ml Oral: / no COMPARISON: CT CT ABDOMEN PELVIS W from 03/08/[address] CHEST PE CTA from 12/11/2023 FINDINGS: CHEST: Tracheobronchial tree: Patent. Pulmonary parenchyma: No consolidation or dominant measurable mass. Pleura: No effusion or pneumothorax. Mediastinum: Within normal limits. Aorta: Thoracic portion non-dilated. Pulmonary arteries: No visible emboli. Heart: Mildly enlarged. No pericardial effusion. Bones: Unremarkable for age. No lytic or blastic lesions.No compression fractures. No rib fracture s are identified. Soft tissues: Unremarkable. ABDOMEN and PELVIS: Liver: Normal density. No measurable mass. Gallbladder and biliary tract: No evidence of stones or wall thickening. No biliary dilatation. Pancreas: Normal density, no abnormal calcifications or inflammatory process. Spleen: Normal. Kidneys: Normal size, contour and axis. No radiodense stones. No obstructive uropathy. No suspicious masses seen. Adrenal glands: No masses seen. Aorta: Abdominal portion non-dilated. Lymph nodes: Within normal limits. Soft tissues: Unremarkable. Bladder: Obscured by artifact from hip prosthesis. Bowel: No obstruction or bowel wall thickening. Normal quantity of stool. Appendix normal. Peritoneal cavity: No ascites. No focal collection. No mesenteric inflammatory response. No free ai r. Bones: Degenerative changes and mild scoliosis. The left hip prosthesis. Reproductive organs: Hysterectomy IMPRESSION: No acute abnormality in the chest, abdomen or pelvis. RADIATION DOSE DELIVERED: Total DLP DATA REPOSITORY: All CT scans at this facility are submitted to the National Radiology Data Registry (NRDR) Dose Index Registry (DIR) with the [employer] (ACR). RADIATION OPTIMIZATION: All CT scans at this facility use at least one of these dose optimization te chniques: automated exposure control; mA and/or kV adjustment per patient size (includes targeted exa ms where dose is matched to clinical indication); or iterative reconstruction.
[2024-06-13 14:23] VITALS: BP 140/69; PULSE 71; RESP 16; O2SAT 97
== END 2024-06-13 14:32 | disposition home or self-care (01) ==
PROVIDERS: Emergency Provider Physician Assistant; PCP Family Medicine
DX: S20.212A Contusion of left front wall of thorax, initial encounter (principal); E11.22 Type 2 diabetes mellitus with diabetic chronic kidney disease; I12.9 Hypertensive chronic kidney disease with stage 1 through stage 4 chronic kidney disease, or unspecified chronic kidney disease; N18.9 Chronic kidney disease, unspecified; E78.5 Hyperlipidemia, unspecified; Z79.82 Long term (current) use of aspirin; Z79.84 Long term (current) use of oral hypoglycemic drugs; W18.39XA Other fall on same level, initial encounter
CPT/HCPCS: 36415; 74177; 80053; 83690; 96374; 99285; 71260; 85025; J1885; J3490

== ENCOUNTER 2024-07-24 13:15 | Outpatient (REF) | payer MEDICARE, SELFPAY ==
[2024-07-24 15:01] LABS: Abs Immature Grans 0.01 10^3/uL (0.0-0.06); Absolute Basophil Count 0.03 10^3/uL (0.0-0.2); Absolute Eosinophil Count 0.02 10^3/uL (0.0-0.7); Absolute Lymphocyte Count 2.45 10^3/uL (1.2-3.4); Absolute Monocyte Count 0.57 10^3/uL (0.1-0.8); Absolute Neutrophil Count 3.19 10^3/uL (1.2-6.7); Basophils % 0.5 %; Eosinophils % 0.3 %; HCT 40.2 % (36.0-46.0); HGB 13.3 g/dL (11.2-15.7); Immature Grans % 0.2 %; Lymphocytes % 39.1 %; MCH 31.8 pg (27.0-33.0); MCHC 33.1 % (32.0-36.0); MCV 96 fL (80-95); MPV 11.1 fL (8.0-11.0); Monocytes % 9.1 %; Neutrophils % 50.8 %; Platelet Count 153 10^3/uL (130-400); RBC 4.18 10^6/uL (3.93-5.22); RDW 12.1 % (11.7-14.6); RDW-SD 42.5 fL; WBC 6.27 10^3/uL (4.4-10.8)
[2024-07-24 15:41] LABS: Anion Gap 5.8 mmol/L (3-11); BUN 14 mg/dL (7-18); CO2 29.2 mmol/L (21.0-32.0); CREATININE 1.3 mg/dL (0.55-1.02); Calcium 9.2 mg/dL (8.5-10.1); Chloride 109 mmol/L (98-107); Estimated GFR 44.51 (mL/min/1.73m2); Glucose 81 mg/dL (74-106); Sodium 144 mmol/L (136-145); Vitamin B12 807 pg/mL (193-986)
[2024-07-24 15:44] LABS: Folate > 20.0 ng/mL (8.6-20.0)
== END 2024-07-24 13:16 | disposition home or self-care (01) ==
LOC: NCHCN 13:15
PROVIDERS: PCP Family Medicine; Visit Provider Family Medicine
DX: I10 Essential (primary) hypertension (principal)
CPT/HCPCS: 80048; 82607; 82746; 85025

== ENCOUNTER 2024-08-21 03:39 | Outpatient (CLI) | payer MEDICARE, SELFPAY ==
--- NOTE | 2024-08-21 | DI.RAD_ITS ---
Exam(s) XR CHEST 2V PA LATERAL EXAM: XR CHEST 2V PA LATERAL CLINICAL HISTORY: PNEUMONIA,J18.9 TECHNIQUE: 2D digital imaging was performed of the chest. Two images were obtained. PA and lateral views were obtained. COMPARISON: CR,XR XR CHEST 2V PA LATERAL from 12/19/2023 CR XR RIBS LT W PA LAT CHEST from 06/10/2024 FINDINGS: MEDIASTINUM: Normal. HEART: Normal. PULMONARY VASCULATURE: Normal. LUNGS: Clear. PLEURAL SPACE: No pleural effusion or pneumothorax. BONE:Within normal limits for the patient's age. OTHER FINDINGS:Normal. IMPRESSION: No acute pulmonary findings. DATA REPOSITORY: RADIATION DOSE DELIVERED:
== END 2024-08-21 03:59 ==
LOC: DI 03:39
PROVIDERS: PCP Family Medicine; Visit Provider Family Medicine
DX: J18.9 Pneumonia, unspecified organism (principal)
CPT/HCPCS: 71046

== ENCOUNTER 2024-08-30 00:12 | Outpatient (CLI) | payer MEDICARE, SELFPAY ==
--- NOTE | 2024-08-30 07:45 | DI.MAMMO_ITS ---
Exam(s) MAMMO SCREENING EXAM: MAMMO SCREENING CLINICAL HISTORY: Screening, Z12.31 TECHNIQUE: Mammograms were interpreted according to the usual protocol including computer analysis w [facility] CAD system, tomosynthesis and C-view imaging. COMPARISON: 2015 through 2022 FINDINGS: The breasts are composed of scattered fibroglandular densities, Breast Density category B. No suspicious masses or suspicious microcalcifications are seen. No skin thickening or abnormal axillary lymph nodes are seen. There has been no significant change from prior exams. IMPRESSION: BI-RADS Category 1, Negative mammogram Yearly screening mammography is recommended. Breast Density - Category B, scattered fibroglandular densities. A negative radiographic report should not delay biopsy if a dominant or clinically suspicious mass is present. Up to ten percent of cancers are not identified on mammography. A negative report may reinforce clinical impression. Adenosis and dense breasts may obscure an underlying neoplasm. False positive reports average 6 to 10%. Patient will receive a letter notifying them of these results.
== END 2024-08-30 00:32 ==
LOC: DI 00:12
PROVIDERS: PCP Family Medicine; Visit Provider Family Medicine
DX: Z12.31 Encounter for screening mammogram for malignant neoplasm of breast (principal); R92.323 Mammographic fibroglandular density, bilateral breasts
CPT/HCPCS: 77063; 77067

== ENCOUNTER 2024-10-07 22:12 | Outpatient (REF) | payer MEDICARE, SELFPAY | END 2024-10-07 22:13 | disposition home or self-care (01) | LOC: LBN 22:12 | PROVIDERS: PCP Family Medicine; Visit Provider Nurse Practitioner Family | DX: N30.01 Acute cystitis with hematuria (principal) | CPT/HCPCS: 87086 ==

== ENCOUNTER 2024-11-08 00:21 | Outpatient (CLI) | payer MEDICARE, SELFPAY ==
--- NOTE | 2024-11-08 | DI.DEXA_ITS ---
Exam(s) XR DEXA BONE DENSITY W/WO SARAH EXAM: XR DEXA BONE DENSITY W/WO SARAH CLINICAL HISTORY: Z78.0 Asymptomatic menopausal state, screening osteoporosis TECHNIQUE: Routine DEXA evaluation of the lumbar spine, hip, or forearm. COMPARISON: Prior DEXA scan of January 2007 FINDINGS: Performed on a [employer] unit. Lateral image: No compression fracture evident. Lumbar Spine total T-score: 0.8. Prior reading was -0.1. Both readings are within normal limits. Hip total T-score:-0.5 Independent reading at the level of the femoral neck yields T-score of -1.0 Forearm total T-score: -0.3 IMPRESSION: Bone mineral density measures in the normal range. Fracture risk is low. Note: Any spine fracture indicates 5x risk for subsequent spine fracture and 2x risk for subsequent h ip fracture. World Health Organization criteria for BMD interpretation classify patients: Normal...... T- Score at or above -1.0 Osteopenic... T- Score between -1.0 and -2.5 Osteoporosis... T-Score at or below -2.5
== END 2024-11-08 00:41 ==
LOC: DI 00:21
PROVIDERS: PCP Family Medicine; Visit Provider Family Medicine
DX: Z78.0 Asymptomatic menopausal state (principal); Z13.820 Encounter for screening for osteoporosis
CPT/HCPCS: 77080

== ENCOUNTER 2024-11-12 17:37 | Outpatient (REF) | payer MEDICARE, SELFPAY ==
[2024-11-12 21:09] LABS: Bacteria Rare HPF (Negative); C & S Indicated? C&S Done As Ordered; Casts Negative LPF (Negative); Crystals Few Calcium Oxalate HPF (Negative); Epithelial Cells Few HPF (Negative); Mucus Negative (Negative); RBC >50 HPF (0-2); WBC 0-2 HPF (0-5)
== END 2024-11-12 17:38 | disposition home or self-care (01) ==
LOC: LBN 17:37
PROVIDERS: PCP Family Medicine; Visit Provider Nurse Practitioner Family
DX: R31.0 Gross hematuria (principal)
CPT/HCPCS: 81015; 87086

== ENCOUNTER 2024-11-19 01:26 | Outpatient (CLI) | payer MEDICARE, SELFPAY ==
--- NOTE | 2024-11-19 | DI.US_ITS ---
Exam(s) US RENAL EXAM: US RENAL CLINICAL HISTORY: R31.0 Gross hematuria, flank abd pain, eval for kidney stones TECHNIQUE: Ultrasound of both kidneys performed using standard protocol. COMPARISON: CT CT CHEST/ABD/PEL W from 06/13/2024 FINDINGS: RIGHT KIDNEY: Measures 10.4 cm in length. No cysts evident. Normal cortical thickness and corticomedullary differen tiation .No solid masses No intrarenal calculi. Slight dilatation of the collecting system. LEFT KIDNEY: Measures 1.3 cm in length. No cysts evident. Normal cortical thickness and corticomedullary differen tiaion. No solids masses. Subtle 7 mm echogenic focus towards the inferior pole the left kidney, pos sibly a calculus. There appears to be slight dilatation of the upper collecting system. URINARY BLADDER: Prevoid volume is 630 cc Postvoid volume is 0 cc Bladder wall exhibits some mild uniform thickening. No obvious discrete mass. No shadowing calculi seen within the gallbladder lumen. Ureterovesical jets: The left ureterovesical jet was identified. Right ureterovesical jet was not id entified. IMPRESSION: 1. There appears to be slight dilatation of the collecting systems bilaterally. 2. Possible 7 millimeter calculus in the lower pole region of the left kidney. 3. The right ureterovesical jet was not identified. DATA REPOSITORY:
== END 2024-11-19 01:46 ==
LOC: DI 01:26
PROVIDERS: PCP Family Medicine; Visit Provider Nurse Practitioner Family
DX: R31.0 Gross hematuria (principal); N20.0 Calculus of kidney
CPT/HCPCS: 76770

== ENCOUNTER → 2024-11-29 07:58 | Outpatient (BNVA) | payer MEDICARE, SELFPAY | PROVIDERS: PCP Family Medicine; Referring Provider Nurse Practitioner Family; Visit Provider Urology | DX: R31.0 Gross hematuria (principal) | CPT/HCPCS: 99215; 81002 ==

== ENCOUNTER 2025-01-06 06:14 | Day surgery (SDC) | payer MEDICARE, SELFPAY ==
[2025-01-06] VITALS (20 sets, daily range): BP systolic 131–160; BP diastolic 69–88; PULSE 64–76; RESP 12–21; TEMP 36.2–36.6; O2SAT 94–100; BMI 32.8
[2025-01-06] MEDS: Ciprofloxacin 500 MG TAB PO (06:32)
--- NOTE | 2025-01-06 06:49 | W.PM.HP.N ---
Date of service: 01/06/25 Time of Service: 06:49 Assessment and Plan Assessment and plan (1) Gross hematuria: Status: Acute Assessment and plan: For cystoscopy with retrograde pyelogram to complete her hematuria workup -we will be prepared to resect any visible bladder tumor or do ureteroscopy if her retrograde pyelogram is abnormal. History of Present Illness History of Present Illness Chief Complaint: Gross hematuria Narrative: This is a 69-year-old woman, was referred by the providers at the urgent care center. Mrs. Bryant has a local primary care provider but receives some of her specialty care outside of our immediate area. She was first seen for gross hematuria that lasted about 3-1/2 days duration. While the blood was present, she had some lower abdominal discomfort and some low back discomfort. She did not have any clots in the urine. She was tested for the possibility of a urinary tract infection, but her urine culture showed no significant abnormality. She had a renal ultrasound which raised the question of a stone in the left kidney. The CT scan done 5 months earlier showed no such stone. She tells me that she was treated for urinary tract infection about 3 weeks before the onset of bleeding. She takes aspirin but no other anticoagulants. She has never been a smoker. She has no reported trauma before the onset of the bleeding. Since she was first seen at the office, she has had a few more episodes of hematuria. Again, no clots were present and there was no change in her discomfort level. She was recently seen at [facility] for shortness of breath and chest pain. The only abnormality that was identified was a low serum potassium level. Review of Systems Narrative: No fevers or chills Seasonal allergies No diabetes or thyroid dysfunction Chronic cough. No hemoptysis SOB with exertion. No chest pain or palpitations GERD. Gastroparesis. No hepatitis, ulcers, jaundice No seizures, strokes or peripheral neuropathy No bleeding disorders or anemia Spinal stenosis. No gout PFSH All Active Problems Gross hematuria (Acute) Microvascular angina (Acute) Balance problem (Acute) Spinal stenosis (Acute) Chronic fatigue (Acute) Post traumatic stress disorder (Acute) Chest pressure (Acute) RESRTEPO (dyspnea on exertion) (Acute) Paraesophageal hernia (Acute) Acquired elevated diaphragm (Acute) Chronic cough (Acute) Abnormal chest xray (Acute) Tubular adenoma of colon (Acute) Mastodynia, female (Acute) Raynauds syndrome (Acute) Seasonal allergies (Acute) Chronic fatigue syndrome (Acute) Hiatal hernia (Chronic) with reflux Anemia (Chronic) Elevated liver enzymes (Acute) History of closed head injury (Acute) White matter disease, unspecified (Acute) Hip pain, left (Acute) Constipation (Acute) Low-tension glaucoma, bilateral, indeterminate stage (Acute) Neuroma (Acute) Insomnia (Acute) Trochanteric bursitis (Acute) Leg cramps (Acute) Urinary incontinence (Acute) Chronic pain (Chronic) Scoliosis of lumbar spine (Acute) Disc disease, degenerative, lumbar or lumbosacral (Acute) Osteopenia (Acute) Adrenal nodule (Acute) Decreased renal function (Acute) Fibromyalgia (Acute) Cardiac angina (Chronic) Abnormal PFT (Acute) Acute sinusitis (Acute) Nasal congestion (Acute) Dysphagia (Acute) Medical History Slipped Lina fundoplication Adenomatous colon polyp CKD (chronic kidney disease) RESTREPO (dyspnea on exertion) IBS (irritable bowel syndrome) Atypical chest pain Anxiety Depression GERD (gastroesophageal reflux disease) Hyperlipidemia Gastroparesis Chronic post-traumatic stress disorder (PTSD) Per pt. states potential triggers at this time Diabetes mellitus Asthma History of tobacco use Hx of endometriosis Hx of rheumatic fever Surgical History Hx of cystoscopy S/P hysterectomy Status post THR (total hip replacement) ORIF right ankle Lina Fundoplication 1996 EGD - IV Sedation Family History (Updated 12/28/23 @ 14:05 by Sulma Montes De Oca) Father Cancer Mother Heart disease Thrombophilia Son Episodic dyscontrol syndrome Epilepsy Other Hypertension Liver cancer Social History (Updated 12/28/23 @ 13:55 by Sulma Montes De Oca) Smoking/Tobacco Use Status: Never Smoking risk assessment performed?: Yes Alcohol Intake: never Drug use: Never Substance use type: does not use Housing: house Education Level: other Do you feel safe at home: Yes Do you feel safe in your relationship?: Yes Meds Allergies and Home Medications Allergies Allergy/AdvReac Type Severity Reaction Status Date / Time oxybutynin Allergy Severe Other (See Verified 01/06/25 06:28 Comment) ibuprofen Allergy Intermediate renal Verified 01/06/25 06:28 issues VALERY Inhibitors Allergy Mild Skin Rash Verified 01/06/25 06:28 empagliflozin Allergy Mild gi upset Verified 01/06/25 06:28 hydrochlorothiazide Allergy Mild Skin Rash Verified 01/06/25 06:28 indomethacin (From Indocin) Allergy Mild Skin Rash Verified 01/06/25 06:28 buspirone (From BuSpar) Allergy Hives Verified 01/06/25 06:28 melatonin Allergy Itching Verified 01/06/25 06:28 Penicillins Allergy hives Verified 01/06/25 06:28 amitriptyline AdvReac become Verified 01/06/25 06:28 delusional codeine AdvReac causes Verified 01/06/25 06:28 excessive sleepiness Sulfa (Sulfonamide AdvReac become Verified 01/06/25 06:28 Antibiotics) delusional Home Medications ?Medication ?Instructions ?Recorded ?Confirmed ?Type aripiprazole 10 mg tablet (Abilify) 20 mg PO DAILY 09/19/14 01/06/25 History fluticasone propionate 50 50 mcg NS BID 09/19/14 01/06/25 History mcg/actuation nasal spray,suspension lamotrigine 150 mg tablet 150 mg PO BID 09/19/14 01/06/25 History losartan 50 mg tablet 75 mg PO DAILY 09/19/14 01/06/25 History montelukast 10 mg tablet 10 mg PO HS 09/19/14 01/06/25 History (Singulair) multivitamin (Daily Multi-Vitamin 1 ea PO DAILY 09/19/14 01/06/25 History tablet) rosuvastatin 10 mg tablet (Crestor) 10 mg PO 3x/wk 09/19/14 01/06/25 History topiramate 50 mg tablet (Topamax) 25 mg PO DAILY 09/19/14 01/06/25 History travoprost 0.004 % eye drops 2.5 ml ophthalmic (eye) PM 09/19/14 01/06/25 History (Travatan Z) omega-3 fatty acids-fish oil 684 1 ea PO PRN PRN 03/06/15 01/06/25 History mg-1,200 mg capsule,delayed release (One-Per-Day [place]-3) albuterol sulfate 90 mcg/actuation 90 mcg inhalation QID 07/05/17 01/06/25 History breath activated powder inhaler (ProAir RespiClick) aspirin 81 mg chewable tablet 81 mg PO DAILY 07/05/17 01/02/25 History polyethylene glycol 3350 17 gram 17 g PO DAILY PRN #255 grams 07/05/17 01/06/25 History oral powder packet (Miralax) methylphenidate HCl 36 mg 36 mg PO DAILY 03/26/19 01/06/25 History tablet,extended release 24 hr (Concerta) isosorbide mononitrate 30 mg 30 mg PO DAILY 03/08/22 01/06/25 History tablet,extended release 24 hr lactulose 10 gram/15 mL oral 30 ml PO DAILY 03/08/22 01/06/25 History solution mirtazapine 30 mg tablet 30 mg PO DAILY 03/08/22 01/06/25 History spironolactone 25 mg tablet 25 tab PO DAILY 03/08/22 01/06/25 History azelastine 205.5 mcg (0.15 %) 1 spray intranasal BID PRN 08/12/22 01/06/25 History nasal spray blood sugar diagnostic (OneTouch 08/12/22 11/29/24 History Ultra Test strips) blood-glucose meter (FreeStyle 08/12/22 11/29/24 History Lite Meter kit) flaxseed oil 1,000 mg capsule 1,000 mg PO DAILY 08/12/22 01/06/25 History lancets (Lancets,Thin) 08/12/22 11/29/24 History nebulizers 08/12/22 11/29/24 History nitroglycerin 0.4 mg sublingual 0.4 mg sublingual Q5M PRN 08/12/22 01/06/25 History tablet duloxetine 60 mg capsule,delayed 120 mg PO HS 08/17/22 01/06/25 History release (Cymbalta) methylphenidate HCl 10 mg tablet 10 mg PO DAILY 08/17/22 01/06/25 History fluticasone propionate 230 2 puff inhalation BID #12 grams 02/23/23 01/06/25 Rx mcg-salmeterol 21 mcg/actuation HFA inhaler (Advair HFA) semaglutide 1 mg/dose (2 mg/1.5 1 mg subcut QWEEK 04/26/23 01/02/25 History mL) subcutaneous pen injector (Ozempic) calcium carb-ergocalciferol (vit 1 tab PO BID 06/13/24 01/06/25 History D2) 600 mg calcium-200 unit tablet Exam Const General: cooperative Neck Neck: supple Resp Auscultation: diminished lung sounds Cardio Rate: regular rate Rhythm: regular rhythm GI Palpation: soft and no masses Neuro General: patient alert, patient awake and patient oriented x3 Results Last Vital Signs Temp 36.3 C L 01/06/25 06:37 Pulse 64 01/06/25 06:37 Resp 17 01/06/25 06:37 BP 138/70 01/06/25 06:37 Pulse Ox 99 01/06/25 06:37 Time Spent Time spent with Patient: <40 minutes Time was spent: other
[2025-01-06] MEDS: Lactated Ringers 1,000 ML 80 ML IV (06:53)
--- NOTE | 2025-01-06 07:20 | ANES.PREOP_ITS ---
"General Info Date of Service Date Performed: 01/06/25 Height: 5 ft 4 in Weight: 86.9 kg Body Mass Index (BMI): 32.8 Surgical Procedure: Operation Date: 01/06/25 07:40 Proposed Procedure Side Surgeon p Cystoscopy/Retrograde/Possible Transurethral Resection Bladder Tumor/Possible Ureteroscopy Bilateral Asa Ellis MD Actual Procedure Side Surgeon p Cystoscopy/Retrograde/Possible Transurethral Resection Bladder Tumor/Possible Ureteroscopy Bilateral Asa Ellis MD Pre-Op Diagnosis Post-Op Diagnosis Gross hematuria Meds Allergies and Home Medications Allergies Allergy/AdvReac Type Severity Reaction Status Date / Time oxybutynin Allergy Severe Other (See Verified 01/06/25 06:28 Comment) ibuprofen Allergy Intermediate renal Verified 01/06/25 06:28 issues VALERY Inhibitors Allergy Mild Skin Rash Verified 01/06/25 06:28 empagliflozin Allergy Mild gi upset Verified 01/06/25 06:28 hydrochlorothiazide Allergy Mild Skin Rash Verified 01/06/25 06:28 indomethacin (From Indocin) Allergy Mild Skin Rash Verified 01/06/25 06:28 buspirone (From BuSpar) Allergy Hives Verified 01/06/25 06:28 melatonin Allergy Itching Verified 01/06/25 06:28 Penicillins Allergy hives Verified 01/06/25 06:28 amitriptyline AdvReac become Verified 01/06/25 06:28 delusional codeine AdvReac causes Verified 01/06/25 06:28 excessive sleepiness Sulfa (Sulfonamide AdvReac become Verified 01/06/25 06:28 Antibiotics) delusional Home Medication ?Medication ?Instructions ?Recorded aripiprazole 10 mg tablet (Abilify) 20 mg PO DAILY 03/26 fluticasone propionate 50 50 mcg NS BID 09/19/14 mcg/actuation nasal spray,suspension lamotrigine 150 mg tablet 150 mg PO BID 09/19/14 losartan 50 mg tablet 75 mg PO DAILY 09/19/14 montelukast 10 mg tablet 10 mg PO HS 09/19/14 (Singulair) multivitamin (Daily Multi-Vitamin 1 ea PO DAILY tablet) rosuvastatin 10 mg tablet (Crestor) 10 mg PO 3x/wk 03/26 topiramate 50 mg tablet (Topamax) 25 mg PO DAILY 04/10 /15 travoprost 0.004 % eye drops 2.5 ml ophthalmic (eye) P M 09/19/14 (Travatan Z) omega-3 fatty acids-fish oil 684 1 ea PO PRN PRN 03/06 mg-1,200 mg capsule,delayed release (One-Per-Day [place]-3) albuterol sulfate 90 mcg/actuation 90 mcg inhalation Q ID 07/05/17 breath activated powder inhaler (ProAir RespiClick) aspirin 81 mg chewable tablet 81 mg PO DAILY 07/05/17 polyethylene glycol 3350 17 gram 17 g PO DAILY PRN #25 5 grams 07/05/17 oral powder packet (Miralax) methylphenidate HCl 36 mg 36 mg PO DAILY 03/26/19 tablet,extended release 24 hr (Concerta) isosorbide mononitrate 30 mg 30 mg PO DAILY 03/08/22 tablet,extended release 24 hr lactulose 10 gram/15 mL oral 30 ml PO DAILY 03/08/22 solution mirtazapine 30 mg tablet 30 mg PO DAILY 03/08/22 spironolactone 25 mg tablet 25 tab PO DAILY 03/08/22 azelastine 205.5 mcg (0.15 %) 1 spray intranasal BID P RN 08/12/22 nasal spray blood sugar diagnostic ([employer] 08/12/22 Ultra Test strips) blood-glucose meter ([employer] 08/12/22 Lite Meter kit) flaxseed oil 1,000 mg capsule 1,000 mg PO DAILY lancets (Lancets,Thin) 08/12/22 nebulizers 08/12/22 nitroglycerin 0.4 mg sublingual 0.4 mg sublingual Q5M PRN 08/12/22 tablet duloxetine 60 mg capsule,delayed 120 mg PO HS 08/17/22 release (Cymbalta) methylphenidate HCl 10 mg tablet 10 mg PO DAILY fluticasone propionate 230 2 puff inhalation BID #12 g xuan 02/23/23 mcg-salmeterol 21 mcg/actuation HFA inhaler (Advair HFA) semaglutide 1 mg/dose (2 mg/1.5 1 mg subcut QWEEK 04/12 11/01 mL) subcutaneous pen injector (Ozempic) calcium carb-ergocalciferol (vit 1 tab PO BID 06/13/24 D2) 600 mg calcium-200 unit tablet Current Visit Medications: Current Medications Generic Name Dose Route Start Last Admin Trade Name Christen PRN Reason Stop Dose Admin Ciprofloxacin HCl 500 mg 01/06/25 06:00 01/06/25 06:32 Ciprofloxacin 500 Mg Tab PO 01/06/25 23:59 500 mg PREOP SRUTHI Administration Ringer's Solution 1,000 mls @ 80 mls/hr 01/06/25 06:00 01/06/25 06:53 IV 01/06/25 23:59 80 mls/hr INFUSION SRUTHI Administration IV Miscellaneous Supplies 1 each 01/06/25 06:00 Iv Access IV 01/06/25 23:59 DIRECTED SRUTHI Sodium Chloride 0 ml 01/06/25 06:00 Normal Saline Flush 10 Ml Syr IV 01/06/25 23:59 PRN PRN Sodium Chloride 0 ml 01/06/25 06:00 Normal Saline 10 Ml Vial IJ 01/06/25 23:59 DIRECTED PRN Sterile Water 0 ml 01/06/25 06:00 Water,Injection,Sterile 10 Ml Vial IJ 01/06/25 23:59 DIRECTED PRN PFSH Active Problems Active Problems: Problem Status Onset Code Gross hematuria Acute R31.0 Microvascular angina Acute I20.89 Balance problem Acute R26.89 Spinal stenosis Acute M48.00 Chronic fatigue Acute R53.82 Post traumatic stress disorder Acute F43.10 Chest pressure Acute R07.89 RESTREPO (dyspnea on exertion) Acute R06.09 Paraesophageal hernia Acute K44.9 Acquired elevated diaphragm Acute J98.6 Chronic cough Acute R05.3 Abnormal chest xray Acute R93.89 Tubular adenoma of colon Acute D12.6 Mastodynia, female Acute N64.4 Raynauds syndrome Acute I73.00 Seasonal allergies Acute J30.2 Chronic fatigue syndrome Acute G93.32 Hiatal hernia Chronic K44.9 Anemia Chronic D64.9 Elevated liver enzymes Acute R74.8 History of closed head injury Acute Z87.820 White matter disease, unspecified Acute R90.82 Hip pain, left Acute M25.552 Constipation Acute K59.00 Low-tension glaucoma, bilateral, indeterminate stage Acute H40.1234 Neuroma Acute D36.10 Insomnia Acute G47.00 Trochanteric bursitis Acute M70.60 Leg cramps Acute R25.2 Urinary incontinence Acute R32 Chronic pain Chronic G89.29 Scoliosis of lumbar spine Acute M41.9 Disc disease, degenerative, lumbar or lumbosacral Acute M51.37 Osteopenia Acute M85.80 Adrenal nodule Acute E27.8 Decreased renal function Acute N28.9 Fibromyalgia Acute M79.7 Cardiac angina Chronic I20.9 Abnormal PFT Acute R94.2 Acute sinusitis Acute J01.90 Nasal congestion Acute R09.81 Dysphagia Acute R13.10 Medical History Medical History Slipped Lina fundoplication Adenomatous colon polyp CKD (chronic kidney disease) RESTREPO (dyspnea on exertion) IBS (irritable bowel syndrome) Atypical chest pain Anxiety Depression GERD (gastroesophageal reflux disease) Hyperlipidemia Gastroparesis Chronic post-traumatic stress disorder (PTSD) Per pt. states potential triggers at this time Diabetes mellitus Asthma History of tobacco use Hx of endometriosis Hx of rheumatic fever Surgical History Surgical History Hx of cystoscopy S/P hysterectomy Status post THR (total hip replacement) ORIF right ankle Lina Fundoplication 1996 EGD - IV Sedation Tobacco Smoking/Tobacco Use Status: Never Passive smoking exposure: Yes Alcohol Alcohol Intake: never Substance Use Substance use: Never Substance use type: does not use Vital Signs and Lab Results Vital Signs Most Recent Vital Signs in EMR: Most Recent Vital Signs Temp Pulse Resp BP Pulse Ox 36.3 C L 64 17 138/70 99 01/06/25 06:37 01/06/25 06:37 01/06/25 06:37 01/06/25 06:37 01/06/25 06:37 Point of Care Results Point of Care Results: Finger Stick Blood Glucose 142 01/06/25 06:30 Anesthesia Assessment and Plan Anesthesia History Personal History: No History of Anesthesia Complications and Delayed Emergence Family History: No Family History of Anesthesia Complications Exercise Tolerance Exercise Tolerance: Metabolic Equivalents>4 Pertinent Negatives Pertinent Negatives: No Symptoms of GERD Cardiac & Pulmonary Exam Cardiac Exam: Normal S1/S2 Heart Sounds Pulmonary Exam: Clear Bilateral Breath Sounds Implantable Cardiac Device Does patient have a Pacemaker or an ICD?: No Airway Exam Known Difficult Airway: No Mallampati Class: 2 Mouth Opening: Normal (> 3cm) Thyromental Distance: Greater than 3 cm Neck Range of Motion: Full ROM Neck Circumference: Normal Teeth Condition: Normal Dentition ASA Classification ASA Score: ASA 3 Emergency Case?: No NPO Status NPO Status: NPO Clears >2 hours, Solids >8 hours Anesthesia Plan Resuscitation Status: Full Code Anesthesia Technique: General Anesthesia Airway Planned: Endotracheal Tube Monitors Used: Standard Monitors and SedLine"
--- NOTE | 2025-01-06 07:55 | PAPNONF_PTH ---
PATIENT: Sujatha Bryant LOC: IBAN U#:[id number] AGE/SX: 69/F ROOM: RE01/06/[address]: Asa Ellis MD : [id number] BED: DIS: 01/06/2025 SPEC #: [id number] RECD: 01/06/25 13:18 STATUS: LILIANE REMarvin #: [id number] TYSON: 01/06/25 07:[address]: Asa Ellis DEPT: [facility] Cytology RECD BY: Jessi Ackerman ENTERED: 01/06/25 13:19 SP TYPE: NATALYA WAGGONER DR: Jessica Packer V Tissues: 1 - BODY FLUID CYTO(SPUTUM/URINE)[facility] Procedures: BODY FLUID CYTO(URINE/SPUTUM) Comments: [id number] (TV = 70 ml, 30 ml CYTOLYT ADDED) (REFRIGERATED)
[2025-01-06] MEDS: Lidocaine 2% Jelly 6 ML SYR (08:02)
--- NOTE | 2025-01-06 08:15 | DI.RAD_ITS ---
Exam(s) XR RETROGRADE IN OR EXAM: XR RETROGRADE IN OR CLINICAL HISTORY: Gross hematuria. TECHNIQUE: 2D digital imaging was performed. COMPARISON: No exams were available for comparison FINDINGS: Fluoroscopy was provided during retrograde urologic procedure. See procedure report for details. The radiologist was not present during the procedure IMPRESSION: Total fluoroscopy time 33 seconds Radiation exposure index/cumulative dose:brett Abrams= 9.1856 mGy DATA REPOSITORY: RADIATION DOSE DELIVERED:
--- NOTE | 2025-01-06 08:18 | ROE_ITS ---
Operative Note Operative Note PRE-OP DIAGNOSIS: Gross hematuria POST-OP DIAGNOSIS: same left kidney stone PROCEDURE: cystoscopy, bilateral retrograde pyelogram, left flexible ureteroscopy SURGEON: Asa Ellis ANESTHESIA TYPE: Local By Surgeon and General LMA/ETT Refer to Anesthesia Record ESTIMATED BLOOD LOSS: 5 PATHOLOGY: other (urine for cytology) COMPLICATIONS: None Patient's condition: stable Implants: None Indications: This is a 69-year-old woman who has a history of gross painless hematuria. She has been evaluated with a renal ultrasound that raise a question of a stone in the lower pole of the left kidney. No other abnormalities were found. She presents now for cystoscopy and bilateral retrograde pyelogram to complete her hematuria workup Findings: Filling defect in the left lower pole calyx -visualized with ureteroscopy and confirmed as a stone Procedure Description: The patient was given antibiotics and brought to the operating room on 01/06/2025. After successful induction of general anesthesia, she was placed in the dorsal lithotomy position her genitalia was prepped and draped. 2% Xylocaine jelly was instilled into the urethra to act as a local anesthetic. The 22 Micronesian rigid cystoscope was passed through the urethra into the bladder. The urine from the bladder was collected and sent to the lab for cytology. The bladder was inspected using a 30 degree lens. Both ureteral orifices appeared normal with no blood coming from either side. Each orifice was cannulated with a 5 Micronesian access catheter. Retrograde pyelogram films were obtained by injecting Omnipaque through the access catheter under fluoroscopic guidance. The right ureter and collecting system appeared normal. On the left side, there was a filling defect in the lower pole calyx. The filling defect persisted on drainage films. The remainder the bladder was then inspected using both a 30 and 70 degree lens. No papillary or nodular lesions were seen within the bladder. We then passed a guidewire up the left ureter under fluoroscopy. The cystoscope was removed and the dual-lumen catheter was advanced over the wire. A second wire was then positioned. We chose one of the wires as a working wire and the other as a safety wire. The flexible ureteroscope was advanced over the working wire up to the renal pelvis. The lower pole calyx was inspected and the filling defect seen on retrograde pyelogram was confirmed to be a stone. We had not previously di scussed treating the stone, so we elected not to do holmium laser lithotripsy at this time. The scope was removed. The guidewires were removed. The patient tolerated this procedure well with no complications. Date of Procedure: 01/06/25
--- NOTE | 2025-01-06 08:20 | W.PM.DSUDISC ---
Date of service: 01/06/25 Discharge Plan Disposition Patient Disposition: Home Condition: Stable Discharge Details Reason For Visit: cystoscopy Attending Provider: Asa Ellis Primary Care Provider: Jessica Packer V Home Meds and New Rx's Prescriptions: No Action methylphenidate HCl 10 mg tablet 10 mg PO DAILY Ozempic 1 mg/dose (2 mg/1.5 mL) pen injector 1 mg subcut QWEEK losartan 50 MG tablet 75 mg PO DAILY Patient Comments: 06-23-17 PCP RECORD 25 MG QD. lamotrigine 150 MG tablet 150 mg PO BID Patient Comments: 06-23-17 PCP RECORD 100 MG BID. montelukast [Singulair] 10 MG tablet 10 mg PO HS fluticasone propionate 16 GM spray,suspension 50 mcg NS BID aripiprazole [Abilify] 10 MG tablet 20 mg PO DAILY Patient Comments: 06-23-17 PCP RECORD 20 MG QD. rosuvastatin [Crestor] 10 MG tablet 10 mg PO 3x/wk Patient Comments: 06-23-17 PCP RECORD 10 MG QD. topiramate [Topamax] 50 MG tablet 25 mg PO DAILY multivitamin [Daily Multi-Vitamin] 1 EACH tablet 1 ea PO DAILY travoprost [Travatan Z] 2.5 ML drops 2.5 ml Ophthalmic PM One-Per-Day [place]-3 1 EACH capsule,delayed release(DR/EC) 1 ea PO PRN PRN polyethylene glycol 3350 [Miralax] 17 GM powder in packet 17 g PO DAILY PRNQty: 255 aspirin 81 MG tablet,chewable 81 mg PO DAILY ProAir RespiClick 90 MCG aerosol powdr breath activated 90 mcg Inhalation QID (DME) OneTouch Ultra Test Strip See Rx Instructions .Route Rx Instructions: As directed (DME) nebulizers [facility] [place] See Rx Instructions .Route Rx Instructions: As directed flaxseed oil 1,000 mg capsule 1,000 mg PO DAILY Rx Instructions: administer with a meal (DME) lancets [Lancets,Thin] Mis See Rx Instructions .Route Rx Instructions: As directed (DME) blood-glucose meter [FreeStyle Lite Meter] Kit See Rx Instructions .Route Rx Instructions: As directed azelastine 205.5 mcg (0.15 %) spray,non-aerosol 1 spray intranasal BID PRN Rx Instructions: administer into each nostril nitroglycerin 0.4 mg tablet, sublingual 0.4 mg sublingual Q5M PRN Rx Instructions: do not exceed 3 doses per episode duloxetine [Cymbalta] 60 mg capsule,delayed release(DR/EC) 120 mg PO HS Patient Comments: 06/23/17 PCP RECORD 60 MG BID. fluticasone propion-salmeterol [Advair HFA] 230-21 mcg/actuation HFA aerosol inhaler 2 puff inhalation BID Qty: 12 12RF isosorbide mononitrate 30 mg tablet extended release 24 hr 30 mg PO DAILY spironolactone 25 mg tablet 25 tab PO DAILY lactulose 10 gram/15 mL solution 30 ml PO DAILY mirtazapine 30 mg Tablet 30 mg PO DAILY methylphenidate HCl [Concerta] 36 mg Tablet Extended Release 24hr 36 mg PO DAILY calcium carbonate-vitamin D2 600 mg calcium- 200 unit tablet 1 tab PO BID Discharge Instructions Additional Instructions: Follow-up to review the urine sample taken during the surgery in about 2 weeks. We will also discuss possible surgical treatments for the kidney stone I found on ureteroscopy. Stand Alone Forms: Anesthesia Discharge Inst., [facility] ([facility]) Referrals: Asa Ellis MD [ [facility] STAFF PHYSICIAN, Urology] Activity:: Activity as Tolerated Shower/Bathe:: 24 hours Diet:: As Tolerated Discharge Orders Discharge Orders: Discharge Order (Routine); Ordered 01/06/25 Ordered By: Asa Ellis DS: Diagnosis Discharge Diagnosis (1) Gross hematuria: Status: Acute
[2025-01-06] MEDS: Omnipaque 300 MG/ML 50 ML BTL (08:27)
[2025-01-06] MEDS: ACETAMINOPHEN 1,000 MG/100 ML BAG 400 MG IVPB (08:33)
[2025-01-06] MEDS: Phenazopyridine 200 MG TAB PO (09:13)
--- NOTE | 2025-01-06 09:49 | W.ANESPOSTOP ---
Postoperative Evaluation Date, Time and Location Date Performed: 01/06/25 Time Performed: 09:50 Patient Location: Day [facility] Unit Vital Signs Most Recent Imported Vital Signs: Most Recent Vital Signs Temp Pulse Resp BP Pulse Ox 36.6 C 72 17 157/88 H 100 01/06/25 09:30 01/06/25 09:30 01/06/25 09:30 01/06/25 09:30 01/06/25 09:30 Pain Score Most Recent Pain Score: Most Recent Pain Score Pain Level 2 01/06/25 09:30 Assessment Mental Status: Awake (Alert & Oriented to Patient Baseline) Airway and Respiratory Function: Patent airway with normal (patient baseline) respiratory exam Cardiovascular Function: Hemodynamically Stable Hydration Status: Adequately Hydrated Nausea & Vomiting: No Nausea or Vomiting Pain: Pt. Denies Any Pain Peripheral Nerve Block: Patient did not receive a nerve block
== END 2025-01-06 10:07 | disposition home or self-care (01) ==
PROVIDERS: PCP Family Medicine; Visit Provider Urology
PROC: 0TBB8ZZ Excision of Bladder, Via Natural or Artificial Opening Endoscopic (ICD-10-PCS; CPT 52005; principal; 2025-01-06 07:30)
DX: R31.0 Gross hematuria (principal); N20.0 Calculus of kidney; R53.82 Chronic fatigue, unspecified; Z79.899 Other long term (current) drug therapy; K44.9 Diaphragmatic hernia without obstruction or gangrene; R05.3 Chronic cough; I73.00 Raynaud's syndrome without gangrene; D64.9 Anemia, unspecified; R32 Unspecified urinary incontinence; N18.9 Chronic kidney disease, unspecified; Z79.85 Long-term (current) use of injectable non-insulin antidiabetic drugs; E11.43 Type 2 diabetes mellitus with diabetic autonomic (poly)neuropathy; K31.84 Gastroparesis
CPT/HCPCS: 52005; 74420; 88104; J0131; J1100; J2003; J2405; J2704; J3010; Q9967

== ENCOUNTER → 2025-01-14 11:22 | Outpatient (BNVA) | payer MEDICARE, SELFPAY | PROVIDERS: PCP Family Medicine; Referring Provider Family Medicine; Visit Provider Urology | DX: R31.0 Gross hematuria (principal); N20.0 Calculus of kidney | CPT/HCPCS: 99214; 81002 ==

== ENCOUNTER 2025-01-23 01:44 | Outpatient (CLI) | payer MEDICARE, SELFPAY ==
--- NOTE | 2025-01-23 | DI.RAD_ITS ---
Exam(s) XR FOOT LT COMPLETE EXAM: XR FOOT LT COMPLETE CLINICAL HISTORY: PAIN LT FOOT M79.672 LEFT 5TH METATARSAL, NO KNOWN INJURY. TECHNIQUE: 2D digital imaging was performed. Three views. COMPARISON: No exams were available for comparison FINDINGS: BONES: No acute fracture is present. No bony destructive lesion is seen. Plantar calcaneal spur. JOINTS: No dislocation present. Degenerative changes at the tarsal metatarsal joints. The MTP joints are unremarkable. SOFT TISSUE: Normal. IMPRESSION: No acute abnormality. DATA REPOSITORY: RADIATION DOSE DELIVERED:
== END 2025-01-23 02:04 ==
LOC: DI 01:45
PROVIDERS: PCP Family Medicine; Visit Provider Family Medicine
DX: M79.672 Pain in left foot (principal)
CPT/HCPCS: 73630

== ENCOUNTER 2025-01-23 09:55 | Outpatient (CLI) | payer MEDICARE, SELFPAY ==
[2025-01-23 09:00] LABS: Anion Gap 9.9 mmol/L (3-11); BUN 16 mg/dL (7-18); CO2 28.1 mmol/L (21.0-32.0); Calcium 10.5 mg/dL (8.5-10.1); Chloride 106 mmol/L (98-107); Estimated GFR 44.51 (mL/min/1.73m2); Glucose 135 mg/dL (74-106); Potassium 4.0 mmol/L (3.5-5.1); Sodium 144 mmol/L (136-145)
== END 2025-01-23 09:56 | disposition home or self-care (01) ==
LOC: LBO 09:55
PROVIDERS: PCP Family Medicine; Visit Provider Physician Assistant Medical
DX: E87.6 Hypokalemia (principal)
CPT/HCPCS: 36415; 80048

== ENCOUNTER 2025-02-03 07:13 | Day surgery (SDC) | payer MEDICARE, SELFPAY ==
[2025-02-03] VITALS (14 sets, daily range): BP systolic 123–173; BP diastolic 61–84; PULSE 63–74; RESP 14–20; TEMP 36.1–36.6; O2SAT 95–98; BMI 33.0
[2025-02-03] MEDS: levoFLOXacin 500 MG TAB PO (08:03)
[2025-02-03] MEDS: Lactated Ringers 1,000 ML 80 ML IV (08:12)
--- NOTE | 2025-02-03 08:38 | W.ANESPRE ---
General Info Date of Service Date Performed: 02/03/25 Height: 5 ft 4.75 in Weight: 89.3 kg Body Mass Index (BMI): 33.0 Surgical Procedure: Operation Date: 02/03/25 09:25 Proposed Procedure Side Surgeon p Cystoscopy/Laser/Retrograde/Ureteroscopy/Possible Stent Left Asa Ellis MD Meds Allergies and Home Medications Allergies Allergy/AdvReac Type Severity Reaction Status Date / Time oxybutynin Allergy Severe Other (See Verified 01/29/25 12:19 Comment) ibuprofen Allergy Intermediate renal Verified 01/29/25 12:19 issues VALERY Inhibitors Allergy Mild Skin Rash Verified 01/29/25 12:19 empagliflozin Allergy Mild gi upset Verified 01/29/25 12:19 hydrochlorothiazide Allergy Mild Skin Rash Verified 01/29/25 12:19 indomethacin (From Indocin) Allergy Mild Skin Rash Verified 01/29/25 12:19 buspirone (From BuSpar) Allergy Hives Verified 01/29/25 12:19 melatonin Allergy Itching Verified 01/29/25 12:19 Penicillins Allergy hives Verified 01/29/25 12:19 blueberry AdvReac Intermediate Diarrhea Verified 02/03/25 07:41 coffee (Coffea arabica) AdvReac Intermediate Diarrhea Verified 02/03/25 07:41 amitriptyline AdvReac become Verified 01/29/25 12:19 delusional codeine AdvReac causes Verified 01/29/25 12:19 excessive sleepiness Sulfa (Sulfonamide AdvReac become Verified 01/29/25 12:19 Antibiotics) delusional Home Medication ?Medication ?Instructions ?Recorded aripiprazole 10 mg tablet (Abilify) 20 mg PO DAILY 09/19/14 fluticasone propionate 50 50 mcg NS BID 09/19/14 mcg/actuation nasal spray,suspension lamotrigine 150 mg tablet 150 mg PO BID 09/19/14 losartan 50 mg tablet 75 mg PO DAILY 09/19/14 montelukast 10 mg tablet 10 mg PO HS 09/19/14 (Singulair) multivitamin (Daily Multi-Vitamin 1 ea PO DAILY 09/19/14 tablet) rosuvastatin 10 mg tablet (Crestor) 10 mg PO 3x/wk 09/19/14 topiramate 50 mg tablet (Topamax) 25 mg PO DAILY 09/19/14 travoprost 0.004 % eye drops 2.5 ml ophthalmic (eye) PM 09/19/14 (Travatan Z) omega-3 fatty acids-fish oil 684 1 ea PO PRN PRN 03/06/15 mg-1,200 mg capsule,delayed release (One-Per-Day [place]-3) albuterol sulfate 90 mcg/actuation 90 mcg inhalation QID 07/05/17 breath activated powder inhaler (ProAir RespiClick) aspirin 81 mg chewable tablet 81 mg PO DAILY 07/05/17 polyethylene glycol 3350 17 gram 17 g PO DAILY PRN #255 grams 07/05/17 oral powder packet (Miralax) methylphenidate HCl 36 mg 36 mg PO DAILY 03/26/19 tablet,extended release 24 hr (Concerta) isosorbide mononitrate 30 mg 30 mg PO DAILY 03/08/22 tablet,extended release 24 hr lactulose 10 gram/15 mL oral 30 ml PO DAILY 03/08/22 solution mirtazapine 30 mg tablet 30 mg PO DAILY 03/08/22 spironolactone 25 mg tablet 25 tab PO DAILY 03/08/22 azelastine 205.5 mcg (0.15 %) 1 spray intranasal BID PRN 08/12/22 nasal spray blood sugar diagnostic (LiveGO 08/12/22 Ultra Test strips) blood-glucose meter ([email or web address] 08/12/22 Lite Meter kit) flaxseed oil 1,000 mg capsule 1,000 mg PO DAILY 08/12/22 lancets (Lancets,Thin) 08/12/22 nebulizers 08/12/22 nitroglycerin 0.4 mg sublingual 0.4 mg sublingual Q5M PRN 08/12/22 tablet duloxetine 60 mg capsule,delayed 120 mg PO HS 08/17/22 release (Cymbalta) methylphenidate HCl 10 mg tablet 10 mg PO DAILY 08/17/22 fluticasone propionate 230 2 puff inhalation BID #12 grams 02/23/23 mcg-salmeterol 21 mcg/actuation HFA inhaler (Advair HFA) semaglutide 1 mg/dose (2 mg/1.5 1 mg subcut QWEEK 04/26/23 mL) subcutaneous pen injector (Ozempic) calcium carb-ergocalciferol (vit 1 tab PO BID 06/13/24 D2) 600 mg calcium-200 unit tablet glipizide PO DAILY 02/03/25 Current Visit Medications: Current Medications Generic Name Dose Route Start Last Admin Trade Name Christen PRN Reason Stop Dose Admin Ringer's Solution 1,000 mls @ 80 mls/hr 02/03/25 06:00 02/03/25 08:12 IV 03/02/25 23:59 80 mls/hr INFUSION SRUTHI Administration IV Miscellaneous Supplies 1 each 02/03/25 06:00 Iv Access IV 03/02/25 23:59 DIRECTED SRUTHI Levofloxacin 500 mg 02/03/25 06:00 02/03/25 08:03 Levofloxacin 500 Mg Tab PO 02/03/25 23:59 500 mg PREOP SRUTHI Administration Sodium Chloride 0 ml 02/03/25 06:00 Normal Saline Flush 10 Ml Syr IV 03/02/25 23:59 PRN PRN Sodium Chloride 0 ml 02/03/25 06:00 Normal Saline 10 Ml Vial IJ 03/02/25 23:59 DIRECTED PRN Sterile Water 0 ml 02/03/25 06:00 Water,Injection,Sterile 10 Ml Vial IJ 03/02/25 23:59 DIRECTED PRN PFSH Active Problems Active Problems: Problem Status Onset Code Kidney stones Chronic N20.0 Gross hematuria Acute R31.0 Microvascular angina Acute I20.89 Balance problem Acute R26.89 Spinal stenosis Acute M48.00 Chronic fatigue Acute R53.82 Post traumatic stress disorder Acute F43.10 Chest pressure Acute R07.89 RESTREPO (dyspnea on exertion) Acute R06.09 Paraesophageal hernia Acute K44.9 Acquired elevated diaphragm Acute J98.6 Chronic cough Acute R05.3 Abnormal chest xray Acute R93.89 Tubular adenoma of colon Acute D12.6 Mastodynia, female Acute N64.4 Raynauds syndrome Acute I73.00 Seasonal allergies Acute J30.2 Chronic fatigue syndrome Acute G93.32 Hiatal hernia Chronic K44.9 Anemia Chronic D64.9 Elevated liver enzymes Acute R74.8 History of closed head injury Acute Z87.820 White matter disease, unspecified Acute R90.82 Hip pain, left Acute M25.552 Constipation Acute K59.00 Low-tension glaucoma, bilateral, indeterminate stage Acute H40.1234 Neuroma Acute D36.10 Insomnia Acute G47.00 Trochanteric bursitis Acute M70.60 Leg cramps Acute R25.2 Urinary incontinence Acute R32 Chronic pain Chronic G89.29 Scoliosis of lumbar spine Acute M41.9 Disc disease, degenerative, lumbar or lumbosacral Acute M51.37 Osteopenia Acute M85.80 Adrenal nodule Acute E27.8 Decreased renal function Acute N28.9 Fibromyalgia Acute M79.7 Cardiac angina Chronic I20.9 Abnormal PFT Acute R94.2 Acute sinusitis Acute J01.90 Nasal congestion Acute R09.81 Dysphagia Acute R13.10 Medical History Medical History Slipped Lina fundoplication Adenomatous colon polyp CKD (chronic kidney disease) RESTREPO (dyspnea on exertion) IBS (irritable bowel syndrome) Atypical chest pain Anxiety Depression GERD (gastroesophageal reflux disease) Hyperlipidemia Gastroparesis Chronic post-traumatic stress disorder (PTSD) Per pt. states potential triggers at this time Diabetes mellitus Asthma History of tobacco use Hx of endometriosis Hx of rheumatic fever Surgical History Surgical History Hx of cystoscopy S/P hysterectomy Status post THR (total hip replacement) ORIF right ankle Lina Fundoplication 1996 EGD - IV Sedation Tobacco Smoking/Tobacco Use Status: Never Passive smoking exposure: Yes Alcohol Alcohol Intake: never Substance Use Substance use: Never Substance use type: does not use Vital Signs and Lab Results Vital Signs Most Recent Vital Signs in EMR: Most Recent Vital Signs Temp Pulse Resp BP Pulse Ox 36.6 C 63 18 123/61 97 02/03/25 07:49 02/03/25 07:49 02/03/25 07:49 02/03/25 07:49 02/03/25 07:49 Point of Care Results Point of Care Results: Finger Stick Blood Glucose 113 02/03/25 07:54 Lab Results Complete Metabolic Panel: Sodium, (136-145) 144 mmol/L 01/23/25, 07:47 Potassium, (3.5-5.1) 4.0 mmol/L 01/23/25, 07:47 Chloride, (98-107) 106 mmol/L 01/23/25, 07:47 Carbon Dioxide, (21.0-32.0) 28.1 mmol/L 01/23/25, 07:47 BUN, (7-18) 16 mg/dL 01/23/25, 07:47 Creatinine, (0.55-1.02) 1.3 mg/dL H 01/23/25, 07:47 Est GFR (CKD-EPI 2020), (mL/min/1.73m2) 44.51 01/23/25, 07:47 Calcium, (8.5-10.1) 10.5 mg/dL H 01/23/25, 07:47 Glucose, (74-106) 135 mg/dL H 01/23/25, 07:47 Imaging and Studies Imaging and Studies Study information below may be from another EMR and interpreted by another provider. Please see original notes in EMR for more complete details. EKG Summary: 06/04:Conclusion Sinus rhythm...normal P axis, V-rate 60- 99 Left anterior fascicular block...axis(240,-40), init forces inf Probable anterior infarct, age indeterminate...Q >35mS, T neg, V2-V5 Stress Test Summary: 10/2014:Impressions: Normal perfusion by [id number] Sestamibi Imaging. Summary: 1. Myocardial perfusion imaging: No myocardial perfusion defects noted. 2. No left ventricular regional motion abnormality. Echocardiogram Summary: 12/2023:Conclusion Normal left ventricular wall thickness and chamber size. Ejection fraction is 55 to 60%. Wall motion is normal Normal right ventricular size and function Both atria are mildly dilated There is no structural or hemodynamically significant valvular disease Ascending aorta measures 3.7 cm Pulmonary Function Summary: 08/2022:Pulmonary Function Test Result Requesting Provider Jessica Sommer Indications: Asthma Interpretation Spirometry: There is no airflow limitation. There is no bronchodilator response. Spirometry appears restrictive. Both MIP and MEP are decreased. Impression Restrictive appearing spirometry with decreased muscle pressures. Clinical Correlation therefore is recommended. Anesthesia Assessment and Plan Anesthesia History Personal History: Delayed Emergence Family History: No Family History of Anesthesia Complications Exercise Tolerance Exercise Tolerance: Metabolic Equivalents>4 Pertinent Negatives Pertinent Negatives: No Symptoms of GERD and No History of CVA/TIA Cardiac & Pulmonary Exam Cardiac Exam: Normal S1/S2 Heart Sounds Pulmonary Exam: Clear Bilateral Breath Sounds Implantable Cardiac Device Does patient have a Pacemaker or an ICD?: No Airway Exam Known Difficult Airway: No Mallampati Class: 2 Mouth Opening: Normal (> 3cm) Thyromental Distance: Greater than 3 cm Neck Range of Motion: Full ROM Neck Circumference: Normal Teeth Condition: Removable Dentures/Plates Upper and Removable Dentures/Plates Lower ASA Classification ASA Score: ASA 3 Emergency Case?: No NPO Status NPO Status: NPO Clears >2 hours, Solids >8 hours Anesthesia Plan Resuscitation Status: Full Code Anesthesia Technique: General Anesthesia Airway Planned: LMA Monitors Used: Standard Monitors
--- NOTE | 2025-02-03 08:41 | W.PM.HP.N ---
Date of service: 02/03/25 Time of Service: 08:42 Assessment and Plan Assessment and plan (1) Kidney stones: Status: Chronic Assessment and plan: The patient is agreeable to repeat ureteroscopy and holmium laser lithotripsy of her left lower pole stone History of Present Illness History of Present Illness Chief Complaint: Left kidney stone Narrative: This is a 69-year-old woman who had noticed gross hematuria. She was evaluated with a renal ultrasound followed by a cystoscopy and retrograde pyelogram. We identified a filling defect in the lower pole of the left kidney. On ureteroscopy, the filling defect appeared to be a stone. We had not obtained informed consent to address the stone, so we did no additional intervention at the time. Once the patient had recovered from the procedure, she was able to consider ureteroscopy and holmium laser lithotripsy. She is agreeable to such a procedure now. Review of Systems Narrative: No fevers or chills No vision change or dysphasia Diabetes. No thyroid dysfunction Short of breath with exertion. hemoptysis No chest pain or palpitations Paraesophageal hernia. No nausea, vomiting, hepatitis, ulcers, jaundice No seizures, strokes or peripheral neuropathy Reynaud's. No bleeding disorders or anemia Chronic pain/arthralgia/fibromyalgia. No gout PFSH All Active Problems Kidney stones (Chronic) Gross hematuria (Acute) Microvascular angina (Acute) Balance problem (Acute) Spinal stenosis (Acute) Chronic fatigue (Acute) Post traumatic stress disorder (Acute) Chest pressure (Acute) RESTREPO (dyspnea on exertion) (Acute) Paraesophageal hernia (Acute) Acquired elevated diaphragm (Acute) Chronic cough (Acute) Abnormal chest xray (Acute) Tubular adenoma of colon (Acute) Mastodynia, female (Acute) Raynauds syndrome (Acute) Seasonal allergies (Acute) Chronic fatigue syndrome (Acute) Hiatal hernia (Chronic) with reflux Anemia (Chronic) Elevated liver enzymes (Acute) History of closed head injury (Acute) White matter disease, unspecified (Acute) Hip pain, left (Acute) Constipation (Acute) Low-tension glaucoma, bilateral, indeterminate stage (Acute) Neuroma (Acute) Insomnia (Acute) Trochanteric bursitis (Acute) Leg cramps (Acute) Urinary incontinence (Acute) Chronic pain (Chronic) Scoliosis of lumbar spine (Acute) Disc disease, degenerative, lumbar or lumbosacral (Acute) Osteopenia (Acute) Adrenal nodule (Acute) Decreased renal function (Acute) Fibromyalgia (Acute) Cardiac angina (Chronic) Abnormal PFT (Acute) Acute sinusitis (Acute) Nasal congestion (Acute) Dysphagia (Acute) Medical History Slipped Lina fundoplication Adenomatous colon polyp CKD (chronic kidney disease) RESTREPO (dyspnea on exertion) IBS (irritable bowel syndrome) Atypical chest pain Anxiety Depression GERD (gastroesophageal reflux disease) Hyperlipidemia Gastroparesis Chronic post-traumatic stress disorder (PTSD) Per pt. states potential triggers at this time Diabetes mellitus Asthma History of tobacco use Hx of endometriosis Hx of rheumatic fever Surgical History Hx of cystoscopy S/P hysterectomy Status post THR (total hip replacement) ORIF right ankle Lina Fundoplication 1996 EGD - IV Sedation Family History (Updated 12/28/23 @ 14:05 by Sulma Montes De Oca) Father Cancer Mother Heart disease Thrombophilia Son Episodic dyscontrol syndrome Epilepsy Other Hypertension Liver cancer Social History (Updated 12/28/23 @ 13:55 by Sulma Montes De Oca) Smoking/Tobacco Use Status: Never Smoking risk assessment performed?: Yes Alcohol Intake: never Drug use: Never Substance use type: does not use Housing: apartment Education Level: other Do you feel safe at home: Yes Do you feel safe in your relationship?: Yes Meds Allergies and Home Medications Allergies Allergy/AdvReac Type Severity Reaction Status Date / Time oxybutynin Allergy Severe Other (See Verified 01/29/25 12:19 Comment) ibuprofen Allergy Intermediate renal Verified 01/29/25 12:19 issues VALERY Inhibitors Allergy Mild Skin Rash Verified 01/29/25 12:19 empagliflozin Allergy Mild gi upset Verified 01/29/25 12:19 hydrochlorothiazide Allergy Mild Skin Rash Verified 01/29/25 12:19 indomethacin (From Indocin) Allergy Mild Skin Rash Verified 01/29/25 12:19 buspirone (From BuSpar) Allergy Hives Verified 01/29/25 12:19 melatonin Allergy Itching Verified 01/29/25 12:19 Penicillins Allergy hives Verified 01/29/25 12:19 blueberry AdvReac Intermediate Diarrhea Verified 02/03/25 07:41 coffee (Coffea arabica) AdvReac Intermediate Diarrhea Verified 02/03/25 07:41 amitriptyline AdvReac become Verified 01/29/25 12:19 delusional codeine AdvReac causes Verified 01/29/25 12:19 excessive sleepiness Sulfa (Sulfonamide AdvReac become Verified 01/29/25 12:19 Antibiotics) delusional Home Medications ?Medication ?Instructions ?Recorded ?Confirmed ?Type aripiprazole 10 mg tablet (Abilify) 20 mg PO DAILY 09/19/14 02/03/25 History fluticasone propionate 50 50 mcg NS BID 09/19/14 02/03/25 History mcg/actuation nasal spray,suspension lamotrigine 150 mg tablet 150 mg PO BID 09/19/14 02/03/25 History losartan 50 mg tablet 75 mg PO DAILY 09/19/14 02/03/25 History montelukast 10 mg tablet 10 mg PO HS 09/19/14 02/03/25 History (Singulair) multivitamin (Daily Multi-Vitamin 1 ea PO DAILY 09/19/14 02/03/25 History tablet) rosuvastatin 10 mg tablet (Crestor) 10 mg PO 3x/wk 09/19/14 02/03/25 History topiramate 50 mg tablet (Topamax) 25 mg PO DAILY 09/19/14 02/03/25 History travoprost 0.004 % eye drops 2.5 ml ophthalmic (eye) PM 09/19/14 02/03/25 History (Travatan Z) omega-3 fatty acids-fish oil 684 1 ea PO PRN PRN 03/06/15 02/03/25 History mg-1,200 mg capsule,delayed release (One-Per-Day [place]-3) albuterol sulfate 90 mcg/actuation 90 mcg inhalation QID 07/05/17 02/03/25 History breath activated powder inhaler (ProAir RespiClick) aspirin 81 mg chewable tablet 81 mg PO DAILY 07/05/17 01/29/25 History polyethylene glycol 3350 17 gram 17 g PO DAILY PRN #255 grams 07/05/17 02/03/25 History oral powder packet (Miralax) methylphenidate HCl 36 mg 36 mg PO DAILY 03/26/19 02/03/25 History tablet,extended release 24 hr (Concerta) isosorbide mononitrate 30 mg 30 mg PO DAILY 03/08/22 02/03/25 History tablet,extended release 24 hr lactulose 10 gram/15 mL oral 30 ml PO DAILY 03/08/22 02/03/25 History solution mirtazapine 30 mg tablet 30 mg PO DAILY 03/08/22 02/03/25 History spironolactone 25 mg tablet 25 tab PO DAILY 03/08/22 02/03/25 History azelastine 205.5 mcg (0.15 %) 1 spray intranasal BID PRN 08/12/22 02/03/25 History nasal spray blood sugar diagnostic (OneTouch 08/12/22 01/16/25 History Ultra Test strips) blood-glucose meter (FreeStyle 08/12/22 01/16/25 History Lite Meter kit) flaxseed oil 1,000 mg capsule 1,000 mg PO DAILY 08/12/22 02/03/25 History lancets (Lancets,Thin) 08/12/22 01/16/25 History nebulizers 08/12/22 01/16/25 History nitroglycerin 0.4 mg sublingual 0.4 mg sublingual Q5M PRN 08/12/22 02/03/25 History tablet duloxetine 60 mg capsule,delayed 120 mg PO HS 08/17/22 02/03/25 History release (Cymbalta) methylphenidate HCl 10 mg tablet 10 mg PO DAILY 08/17/22 02/03/25 History fluticasone propionate 230 2 puff inhalation BID #12 grams 02/23/23 02/03/25 Rx mcg-salmeterol 21 mcg/actuation HFA inhaler (Advair HFA) semaglutide 1 mg/dose (2 mg/1.5 1 mg subcut QWEEK 04/26/23 01/29/25 History mL) subcutaneous pen injector (Ozempic) calcium carb-ergocalciferol (vit 1 tab PO BID 06/13/24 02/03/25 History D2) 600 mg calcium-200 unit tablet glipizide PO DAILY 02/03/25 History Exam Const General: cooperative Neck Neck: supple Resp Effort & Inspection: normal respiratory effort Auscultation: clear to auscultation bilaterally Cardio Rate: regular rate Rhythm: regular rhythm GI Palpation: soft and no masses Neuro General: patient alert, patient awake and patient oriented x3 Results Last Vital Signs Temp 36.6 C 02/03/25 07:49 Pulse 63 02/03/25 07:49 Resp 18 02/03/25 07:49 BP 123/61 02/03/25 07:49 Pulse Ox 97 02/03/25 07:49 Time Spent Time spent with Patient: <40 minutes Time was spent: other
[2025-02-03] MEDS: Lidocaine 2% Jelly 11 ML SYR (09:41)
[2025-02-03] MEDS: Omnipaque 300 MG/ML 50 ML BTL (09:41)
--- NOTE | 2025-02-03 10:04 | W.PM.DSUDISC ---
Date of service: 02/03/25 Discharge Plan Disposition Patient Disposition: Home Condition: Stable Discharge Details Reason For Visit: ureteroscopy and treat kidney stone Attending Provider: Asa Ellis Primary Care Provider: Jessica Packer V Home Meds and New Rx's Prescriptions: No Action methylphenidate HCl 10 mg tablet 10 mg PO DAILY Ozempic 1 mg/dose (2 mg/1.5 mL) pen injector 1 mg subcut QWEEK losartan 50 MG tablet 75 mg PO DAILY Patient Comments: 06-23-17 PCP RECORD 25 MG QD. lamotrigine 150 MG tablet 150 mg PO BID Patient Comments: 06-23-17 PCP RECORD 100 MG BID. montelukast [Singulair] 10 MG tablet 10 mg PO HS fluticasone propionate 16 GM spray,suspension 50 mcg NS BID aripiprazole [Abilify] 10 MG tablet 20 mg PO DAILY Patient Comments: 06-23-17 PCP RECORD 20 MG QD. rosuvastatin [Crestor] 10 MG tablet 10 mg PO 3x/wk Patient Comments: 06-23-17 PCP RECORD 10 MG QD. topiramate [Topamax] 50 MG tablet 25 mg PO DAILY multivitamin [Daily Multi-Vitamin] 1 EACH tablet 1 ea PO DAILY travoprost [Travatan Z] 2.5 ML drops 2.5 ml Ophthalmic PM One-Per-Day [place]-3 1 EACH capsule,delayed release(DR/EC) 1 ea PO PRN PRN polyethylene glycol 3350 [Miralax] 17 GM powder in packet 17 g PO DAILY PRNQty: 255 aspirin 81 MG tablet,chewable 81 mg PO DAILY ProAir RespiClick 90 MCG aerosol powdr breath activated 90 mcg Inhalation QID (DME) OneTouch Ultra Test Strip See Rx Instructions .Route Rx Instructions: As directed (DME) nebulizers Mis See Rx Instructions .Route Rx Instructions: As directed flaxseed oil 1,000 mg capsule 1,000 mg PO DAILY Rx Instructions: administer with a meal (DME) lancets [Lancets,Thin] Misc See Rx Instructions .Route Rx Instructions: As directed (DME) blood-glucose meter [FreeStyle Lite Meter] Kit See Rx Instructions .Route Rx Instructions: As directed azelastine 205.5 mcg (0.15 %) spray,non-aerosol 1 spray intranasal BID PRN Rx Instructions: administer into each nostril nitroglycerin 0.4 mg tablet, sublingual 0.4 mg sublingual Q5M PRN Rx Instructions: do not exceed 3 doses per episode duloxetine [Cymbalta] 60 mg capsule,delayed release(DR/EC) 120 mg PO HS Patient Comments: 06/23/17 PCP RECORD 60 MG BID. fluticasone propion-salmeterol [Advair HFA] 230-21 mcg/actuation HFA aerosol inhaler 2 puff inhalation BID Qty: 12 12RF isosorbide mononitrate 30 mg tablet extended release 24 hr 30 mg PO DAILY spironolactone 25 mg tablet 25 tab PO DAILY lactulose 10 gram/15 mL solution 30 ml PO DAILY mirtazapine 30 mg Tablet 30 mg PO DAILY methylphenidate HCl [Concerta] 36 mg Tablet Extended Release 24hr 36 mg PO DAILY calcium carbonate-vitamin D2 600 mg calcium- 200 unit tablet 1 tab PO BID glipizide PO DAILY Discharge Instructions Additional Instructions: There is no need to strain the urine You will need 2 follow up visits: The first will be later this week to have your stent removed - tell my office there is a string on the stent The second will be in 6 to 8 weeks with a renal ultrasound prior to the visit Activity:: Activity as Tolerated Shower/Bathe:: 24 hours Diet:: As Tolerated Discharge Orders Discharge Orders: Discharge Order (Routine); Ordered 02/03/25 Ordered By: Asa Ellis DS: Diagnosis Discharge Diagnosis (1) Kidney stones: Status: Chronic
--- NOTE | 2025-02-03 10:07 | ROE_ITS ---
Operative Note Operative Note PRE-OP DIAGNOSIS: left kidney stone POST-OP DIAGNOSIS: same PROCEDURE: cystoscopy, left retrograde pyelogram, left ureteroscopy with holmium laser lithotripsy, extraction of stone fragments, insert left ureteral stent SURGEON: Asa Ellis ANESTHESIA TYPE: Local By Surgeon and General LMA/ETT Refer to Anesthesia Record ESTIMATED BLOOD LOSS: 5 PATHOLOGY: other (stone fragment for chemical analysis) COMPLICATIONS: None Patient was transported to: PACU Patient's condition: stable Implants: 4.8 English by 22 to 30 cm left ureteral stent Indications: This is a 69-year-old woman who has a history of hematuria. As part of her workup, we identified a stone in the left lower pole. She presents now for ureteroscopy and treatment of her stone. Findings: left lower pole stone -fragmented quite easily Procedure Description: The patient was given antibiotics and brought to the operating room on 02/03/2025. After successful induction of general anesthesia, she was placed in the dorsal lithotomy position. Her genitalia was prepped and draped 2% Xylocaine jelly was instilled into the urethra. A 22 English rigid cystoscope was passed through the urethra into the bladder. The bladder was inspected with a 30 degree lens. The right ureteral orifice appeared normal. The left orifice had some erythema surrounding it likely from her recent diagnostic ureteroscopy. A 5 English access catheter was passed through the lumen of the cystoscope and maneuvered into the left ureteral orifice. A retrograde pyelogram was obtained by injecting Omnipaque through the access catheter under fluoroscopic guidance. A left lower pole kidney stone was identified. We passed a guidewire through the lumen of the access catheter and removed the catheter. We then passed the dual-lumen catheter over the wire and positioned a second wire. We chose one of the wires as a working wire and the other as a safety wire. We passed a ureteral access sheath over the working wire leaving the safety wire in place. Flexible ureteroscopy was then performed and we identified the stone in a lower pole calyx. I used a 272 ?m holmium laser fiber and dusting settings to fragment the stone. The stone fragmented very very easily. Most of the stone particles were quite small but we were able to collect 1 particle in a ZeroTip stone basket. We then sent the stone fragment to the lab for chemical analysis. At the completion of the procedure, I did not identify any large stone burden. I removed the ureteroscope and the access sheath. We passed a 4.8 English variable length stent over the safety wire and positioned the stent such that the proximal end was curled in the renal pelvis and the distal end was curled within the bladder. We left the safety string attached to the stent and brought the string through the urethra. The safety string was then secured within the patient's vaginal vault. The positioning of the stent was confirmed both fluoroscopically and cystoscopically The patient tolerated this procedure well with no complications. Date of Procedure: 02/03/25
--- NOTE | 2025-02-03 10:10 | DI.RAD_ITS ---
Exam(s) XR RETROGRADE IN OR EXAM: XR RETROGRADE IN OR CLINICAL HISTORY: Gross hematuria TECHNIQUE: 2D and realtime digital imaging was performed. CONTRAST MATERIAL: Refer to procedure report. COMPARISON: CT CT CHEST/ABD/PEL W from 06/13/2024 XA XR RETROGRADE IN OR from 01/06/2025 FINDINGS: Fluoroscopy was provided for Dr. Ellis during the performance of a retrograde evaluation of the renal collecting system. Please refer to the procedure report for complete details. Ka,r=7.6 mGy IMPRESSION: RADIATION DOSE DELIVERED: 0.0 0.0 0
[2025-02-03] MEDS: ACETAMINOPHEN 1,000 MG/100 ML BAG 400 MG IVPB (10:34)
[2025-02-03] MEDS: Phenazopyridine 200 MG TAB PO (10:56)
--- NOTE | 2025-02-03 11:37 | W.ANESPOSTOP ---
Postoperative Evaluation Date, Time and Location Date Performed: 02/03/25 Time Performed: 11:37 Patient Location: Day Surgery Unit Vital Signs Most Recent Imported Vital Signs: Most Recent Vital Signs Temp Pulse Resp BP Pulse Ox 36.1 C L 66 14 152/67 H 98 02/03/25 11:14 02/03/25 11:14 02/03/25 11:14 02/03/25 11:14 02/03/25 11:14 Pain Score Most Recent Pain Score: Most Recent Pain Score Pain Level 3 02/03/25 11:14 Assessment Mental Status: Awake (Alert & Oriented to Patient Baseline) Airway and Respiratory Function: Patent airway with normal (patient baseline) respiratory exam Cardiovascular Function: Hemodynamically Stable Hydration Status: Adequately Hydrated Nausea & Vomiting: No Nausea or Vomiting Pain: Pain is tolerable per patient Peripheral Nerve Block: Patient did not receive a nerve block
== END 2025-02-03 11:35 | disposition home or self-care (01) ==
PROVIDERS: PCP Family Medicine; Visit Provider Urology
PROC: (CPT 52356; principal; 2025-02-03 09:15)
DX: N20.0 Calculus of kidney (principal)
CPT/HCPCS: 52356; 74420; 82365; J0131; J1100; J2003; J2405; J2704; Q9967

== ENCOUNTER 2025-03-06 01:07 | Outpatient (CLI) | payer MEDICARE, SELFPAY ==
--- NOTE | 2025-03-06 05:45 | DI.US_ITS ---
Exam(s) US RENAL EXAM: US RENAL CLINICAL HISTORY: ? hydro after ureteroscopy,kidney stones,n20.0. TECHNIQUE: Cyr scale imaging and color doppler were used. COMPARISON: CT CT CHEST/ABD/PEL W from 06/13/2024 US US RENAL from 11/19/2024 XA XR RETROGRADE IN OR from 02/03/2025 FINDINGS: The liver appears enlarged and shows moderate steatosis. Right kidney: cm Echogenicity: Normal Hydronephrosis: No Cyst or mass: No Nephrolithiasis: No Left kidney: cm Echogenicity: Normal Hydronephrosis: No Cyst or mass: No Nephrolithiasis: Question of small stone versus artifact at the lower pole. Bladder:Normal. Prevoid vol:618 cc Postvoid vol: 32 cc IMPRESSION: No evidence of hydronephrosis. Question of small stone versus artifact at the lower pole of the left kidney. DATA REPOSITORY:
== END 2025-03-06 01:27 ==
LOC: DI 01:08
PROVIDERS: PCP Family Medicine; Visit Provider Urology
DX: N20.0 Calculus of kidney (principal)
CPT/HCPCS: 76770

== ENCOUNTER → 2025-03-21 07:54 | Outpatient (BNVA) | payer MEDICARE, SELFPAY | PROVIDERS: PCP Family Medicine; Referring Provider Family Medicine; Visit Provider Urology | DX: N20.0 Calculus of kidney (principal) | CPT/HCPCS: 99213 ==

== ENCOUNTER 2025-05-16 10:09 | Outpatient (REF) | payer MEDICARE, SELFPAY ==
[2025-05-16 18:02] LABS: Anion Gap 10.4 mmol/L (3-11); BUN 13 mg/dL (9-23); CO2 24.6 mmol/L (20.0-31.0); Calcium 9.4 mg/dL (8.3-10.6); Chloride 108 mmol/L (98-107); Glucose 122 mg/dL (74-106); Potassium 4.4 mmol/L (3.5-5.1); Sodium 143 mmol/L (136-145)
[2025-05-16 18:03] LABS: Hemoglobin A1C 5.8 % (<5.7)
[2025-05-16 18:22] LABS: Microalb ug/mg Crea 51.1 ug/mg Cr
== END 2025-05-16 10:10 | disposition home or self-care (01) ==
LOC: NCHCN 10:09
PROVIDERS: PCP Family Medicine; Visit Provider Family Medicine
DX: E11.9 Type 2 diabetes mellitus without complications (principal)
CPT/HCPCS: 80048; 82043; 82570; 83036